=== PATIENT | female | born 1955 | race Caucasian/White ===

== ENCOUNTER → 2018-01-18 | Outpatient (CLI) | payer MEDICARE ==
--- NOTE | 2018-01-18 14:30 | XR ---
EXAMINATION TYPE: XR chest 2V DATE OF EXAM: 01/18/2018 COMPARISON: NONE TECHNIQUE: PA and lateral views submitted. HISTORY: COPD, cough smoker FINDINGS: The lungs are clear and there is no pneumothorax, pleural effusion, or focal pneumonia. Hyperinflati on suggests COPD. Curvature of the spine noted. Degenerative change of the spine. No overt failure. IMPRESSION: 1. No acute process. Correlate for COPD.
--- NOTE | 2018-01-18 16:10 | BD ---
EXAMINATION TYPE: MG DEXA axial skeleton. DATE OF EXAM: 01/18/2018 COMPARISON: NONE CLINICAL HISTORY: post menopausal. Osteoporosis screening. Height: 5'3 1/2 Weight: 110 FRAX RISK QUESTIONS: Alcohol (3 or more units per day): no Family History (Parent hip fracture): no Glucocorticoids (More than 3mos): no (Ex: prednisone, prednisolone, methylprednisolone, dexamethasone, and hydrocortisone). History of Fracture in Adulthood: no Secondary Osteoporosis: 1. Type 1 Diabetes: no 2. Hyperthyroidism: no 3. Menopause before 45: yes 4. Malnutrition: no 5. Chronic liver disease: no Rheumatoid Arthritis: no Current Tobacco Use: yes RISK FACTORS HISTORY OF: Active: y Postmenopausal woman: y Poor Health: y MEDICATIONS: Additional Medications: bi polar med. Cholesterol, high blood pressure Additional History: EXAM MEASUREMENTS: Bone mineral densitometry was performed using the [employer] System. Bone mineral density as measured about the Lumbar spine is: ----- L1-L4(G/cm2): 0.839 T Score Values are as follows: ----- L2: -3.0 ----- L3: -2.1 ----- L4: -1.6 ----- L1-L4: -2.4 Bone mineral density about the R hip (g/cm2): 0.711 Bone mineral density about the L hip (g/cm2): 0.686 T Score values are as follows: -----R Neck: -2.3 -----L Neck: -2.5 -----R Total: -2.4 -----L Total: -2.9 IMPRESSION: Osteoporosis (T Score less than -2.5) with regards to the left femur. There is increased fracture risk and therapy is usually indicated based on age. Re-Screen 1-2 years. NOTE: T-SCORE=SD OF THE YOUNG ADULT MEAN.
--- NOTE | 2018-01-20 08:43 | MM ---
Reason for exam: screening (asymptomatic). Last mammogram was performed 18 years and 11 months ago. History: Patient is postmenopausal and is nulliparous. Took estrogen for 5 years. Took progesterone for 5 years. Physical Findings: A clinical breast exam by your physician is recommended on an annual basis and results should be correlated with mammographic findings. MG 3D Screening Mammo W/Cad Bilateral CC and MLO view(s) were taken. No prior studies available for comparison. The breast tissue is extremely dense which could obscure a lesion on mammography. There is no discrete abnormality. ASSESSMENT: Negative, BI-RAD 1 RECOMMENDATION: Routine screening mammogram of both breasts in 1 year.
== END | disposition home or self-care (01) ==
LOC: RADMAMWWP 13:17
PROVIDERS: ATTEND Family Medicine
DX: Z12.31 Encounter for screening mammogram for malignant neoplasm of breast (principal); M81.0 Age-related osteoporosis without current pathological fracture; J44.9 Chronic obstructive pulmonary disease, unspecified; Z78.0 Asymptomatic menopausal state
CPT/HCPCS: 71046; 77063; 77067; 77080

== ENCOUNTER → 2018-04-07 | Outpatient (CLI) | payer MEDICARE ==
--- NOTE | 2018-04-07 14:52 | US ---
EXAMINATION TYPE: US duplex aorta DATE OF EXAM: 04/07/2018 COMPARISON: NONE CLINICAL HISTORY: I70.0 Atheroclerosis of Aorta. Patient states no other symptoms EXAM MEASUREMENTS: Abdominal Aorta: Proximal: 2.1 x 2.3cm Mid: 1.7 x 1.5cm Distal: 1.3 x 1.3cm Right Iliac: 0.7 x 0.9cm Left Iliac: 0.7 x 0.8cm Atherosclerotic changes noted, no AAA seen at this time. IMPRESSION: 1. No aneurysmal dilatation of the aorta on screening ultrasound.
== END | disposition home or self-care (01) ==
LOC: RADUSWWP 11:07
PROVIDERS: ATTEND Family Medicine
DX: I70.0 Atherosclerosis of aorta (principal)
CPT/HCPCS: 93979

== ENCOUNTER → 2018-05-17 | Outpatient (CLI) | payer MEDICARE ==
[~2018-05-17] MED LIST: DENOSUMAB 60 MG/ML 1 ML SYRINGE SQ ONE
[2018-05-17 11:18] VITALS: BP 115/73; PULSE 80; RESP 16; TEMP 98.6
== END | disposition home or self-care (01) ==
LOC: PROCWHC3 10:14
PROVIDERS: ATTEND Family Medicine
DX: M81.0 Age-related osteoporosis without current pathological fracture (principal)
CPT/HCPCS: 96372; J0897

== ENCOUNTER 2019-01-31 17:55 | Emergency (ER) | payer MEDICARE ==
--- NOTE | 2019-01-31 18:00 | ED ---
Psych HPI - General Stated Complaint: Mental Health Time Seen by Provider: 01/31/19 17:58 Source: RN notes reviewed, old records reviewed Limitations: no limitations - History of Present Illness Initial Comments: This is a 63-year-old female the ER for evaluation. Patient's brought in for possible overdose, patient denies any mental health issues and will she does have history of bipolar disease. Patient occasionally does polypharmacy not on purpose or not by choice. Patient has no fevers no cough no congestion or shortness of breath no bowel pain no headaches. Family states patient's been falling down multiple times by her self. Uncertain of cause. Patient does admit to some dizziness mainly which is taking her medications. Otherwise no complaints MD Complaint: other (weakness) -: unknown Associated Psychiatric Symptoms: none History of same: Yes Quality: constant, intermittent (falls) Improves With: none Worsens With: none Associated Symptoms: denies other symptoms Treatments Prior to Arrival: none - Related Data Home Medications Medication Instructions Recorded Confirmed Aspirin [Adult Low Dose Aspirin EC] 81 mg PO DAILY 05/17/18 01/31/19 Glucosam/Maykel-Msm1/C/Ab/Bosw 2 tab PO DAILY 05/17/18 01/31/19 [Glucosamine-Chondroitin Tablet] Ibuprofen [Motrin] 800 mg PO Q6H PRN 05/17/18 01/31/19 Metoprolol Succinate [Toprol XL] 100 mg PO DAILY 05/17/18 01/31/19 QUEtiapine [SEROquel] 800 mg PO HS 05/17/18 01/31/19 Topiramate [Topamax] 200 mg PO BID 05/17/18 01/31/19 clonazePAM [KlonoPIN] 2 mg PO HS 05/17/18 01/31/19 lamoTRIgine [LaMICtal] 200 mg PO BID 05/17/18 01/31/19 Atorvastatin [Lipitor] 20 mg PO DAILY 01/31/19 01/31/19 Budesonide/Formoterol Fumarate 2 puff INHALATION RT-BID 01/31/19 01/31/19 [Symbicort 160-4.5 Mcg Inhaler] Methocarbamol [Robaxin] 500 mg PO TID 01/31/19 01/31/19 Naproxen 500 mg PO BID 01/31/19 01/31/19 Pantoprazole Sodium [Protonix] 40 mg PO DAILY 01/31/19 01/31/19 buPROPion XL [Wellbutrin Xl] 150 mg PO DAILY 01/31/19 01/31/19 valACYclovir HCL [Valtrex] 1 mg PO TID 01/31/19 01/31/19 Allergies Allergy/AdvReac Type Severity Reaction Status Date / Time cefaclor [From Ceclor] Allergy Rash/Hives Verified 05/17/18 11:00 No Known Drug Allergies Allergy Unknown Verified 05/16/18 06:08 Review of Systems ROS Statement: Those systems with pertinent positive or pertinent negative responses have been documented in the HPI. ROS Other: All systems not noted in ROS Statement are negative. Past Medical History Past Medical History: COPD, GERD/Reflux, Hyperlipidemia, Hypertension, Musculoskeletal Disorder Additional Past Medical History / Comment(s): Stomach ulcers. Bipolar. Migra sean History of Any Multi-Drug Resistant Organisms: None Reported Past Surgical History: Hysterectomy, Orthopedic Surgery Additional Past Surgical History / Comment(s): Foot surgery Past Psychological History: Anxiety, Bipolar Smoking Status: Current every day smoker General Exam General appearance: alert, in no apparent distress Head exam: Present: atraumatic, normocephalic, normal inspection Eye exam: Present: normal appearance, PERRL, EOMI. Absent: scleral icterus, conjunctival injection, periorbital swelling ENT exam: Present: normal exam, mucous membranes dry Neck exam: Present: normal inspection. Absent: tenderness, meningismus, lymphadenopathy Respiratory exam: Present: normal lung sounds bilaterally. Absent: respiratory distress, wheezes, rales, rhonchi, stridor Cardiovascular Exam: Present: regular rate, normal rhythm, normal heart sounds. Absent: systolic murmur, diastolic murmur, rubs, gallop, clicks GI/Abdominal exam: Present: soft, normal bowel sounds. Absent: distended, tenderness, guarding, rebound, rigid Extremities exam: Present: normal inspection, full ROM, normal capillary refill. Absent: tenderness, pedal edema, joint swelling, calf tenderness Back exam: Present: normal inspection Neurological exam: Present: alert, oriented X3, CN II-XII intact Psychiatric exam: Present: normal affect, normal mood Skin exam: Present: warm, dry, intact, normal color. Absent: rash Course Vital Signs 01/31/19 01/31/19 17:58 20:30 Temperature 98.7 F Pulse Rate 107 H 91 Respiratory 18 18 Rate Blood Pressure 103/75 110/78 O2 Sat by Pulse 98 99 Oximetry - Reevaluation(s) Reevaluation #1: 01/31/19 21:13 Medical record reviewed Reevaluation #2: 01/31/19 21:17 Patient is no distress, spoke with family at length regarding symptoms, no organic cause found, will follow-up with primary care Dr. Rodriguez Medical Decision Making - Medical Decision Making 63 female the ER for evaluation weakness possible polypharmacy. At this point labwork is normal, patient acting fairly appropriately. Okay for discharge home - Lab Data Result diagrams: 01/31/19 18:51 01/31/19 18:51 Lab Results 01/31/19 01/31/19 01/31/19 Range/Units 18:51 18:51 18:51 WBC 6.8 (3.8-10.6) k/uL RBC 3.60 L (3.80-5.40) m/uL Hgb 11.9 (11.4-16.0) gm/dL Hct 37.0 (34.0-46.0) % MCV 102.8 H (80.0-100.0) fL MCH 33.0 (25.0-35.0) pg MCHC 32.1 (31.0-37.0) g/dL RDW 13.4 (11.5-15.5) % Plt Count 211 (150-450) k/uL Neutrophils % 67 % Lymphocytes % 25 % Monocytes % 4 % Eosinophils % 2 % Basophils % 0 % Neutrophils # 4.6 (1.3-7.7) k/uL Lymphocytes # 1.7 (1.0-4.8) k/uL Monocytes # 0.3 (0-1.0) k/uL Eosinophils # 0.1 (0-0.7) k/uL Basophils # 0.0 (0-0.2) k/uL Macrocytosis Slight PT (9.0-12.0) sec INR (<1.2) APTT (22.0-30.0) sec Sodium 144 (137-145) mmol/L Potassium 3.4 L (3.5-5.1) mmol/L Chloride 121 H (98-107) mmol/L Carbon Dioxide 12 L (22-30) mmol/L Anion Gap 11 mmol/L BUN 14 (7-17) mg/dL Creatinine 0.83 (0.52-1.04) mg/dL Est GFR (CKD-EPI)AfAm 89 (>60 ml/min/1.73 sqM) Est GFR (CKD-EPI)NonAf 77 (>60 ml/min/1.73 sqM) Glucose 104 H (74-99) mg/dL Plasma Lactic Acid Justin 0.7 (0.7-2.0) mmol/L Calcium 9.2 (8.4-10.2) mg/dL Phosphorus 3.1 (2.5-4.5) mg/dL Magnesium 1.8 (1.6-2.3) mg/dL Total Bilirubin 0.5 (0.2-1.3) mg/dL AST 18 (14-36) U/L ALT 29 (9-52) U/L Alkaline Phosphatase 78 (38-126) U/L Troponin I (0.000-0.034) ng/mL Total Protein 6.0 L (6.3-8.2) g/dL Albumin 3.3 L (3.5-5.0) g/dL Lipase 548 H (23-300) U/L TSH 0.901 (0.465-4.680) mIU/L Salicylates <1.0 mg/dL Acetaminophen <10.0 ug/mL Serum Alcohol <10 mg/dL 01/31/19 01/31/19 Range/Units 18:51 18:51 WBC (3.8-10.6) k/uL RBC (3.80-5.40) m/uL Hgb (11.4-16.0) gm/dL Hct (34.0-46.0) % MCV (80.0-100.0) fL MCH (25.0-35.0) pg MCHC (31.0-37.0) g/dL RDW (11.5-15.5) % Plt Count (150-450) k/uL Neutrophils % % Lymphocytes % % Monocytes % % Eosinophils % % Basophils % % Neutrophils # (1.3-7.7) k/uL Lymphocytes # (1.0-4.8) k/uL Monocytes # (0-1.0) k/uL Eosinophils # (0-0.7) k/uL Basophils # (0-0.2) k/uL Macrocytosis PT 12.3 H (9.0-12.0) sec INR 1.2 H (<1.2) APTT 26.6 (22.0-30.0) sec Sodium (137-145) mmol/L Potassium (3.5-5.1) mmol/L Chloride (98-107) mmol/L Carbon Dioxide (22-30) mmol/L Anion Gap mmol/L BUN (7-17) mg/dL Creatinine (0.52-1.04) mg/dL Est GFR (CKD-EPI)AfAm (>60 ml/min/1.73 sqM) Est GFR (CKD-EPI)NonAf (>60 ml/min/1.73 sqM) Glucose (74-99) mg/dL Plasma Lactic Acid Justin (0.7-2.0) mmol/L Calcium (8.4-10.2) mg/dL Phosphorus (2.5-4.5) mg/dL Magnesium (1.6-2.3) mg/dL Total Bilirubin (0.2-1.3) mg/dL AST (14-36) U/L ALT (9-52) U/L Alkaline Phosphatase (38-126) U/L Troponin I <0.012 (0.000-0.034) ng/mL Total Protein (6.3-8.2) g/dL Albumin (3.5-5.0) g/dL Lipase (23-300) U/L TSH (0.465-4.680) mIU/L Salicylates mg/dL Acetaminophen ug/mL Serum Alcohol mg/dL - EKG Data -: EKG Interpreted by Me (EKG shows sinus tachycardia rate of 107, PA 126, QRS 76, QTc 469) Disposition Clinical Impression: Weakness, Polypharmacy Disposition: HOME SELF-CARE Condition: Fair Instructions (If sedation given, give patient instructions): Weakness (ED) Is patient prescribed a controlled substance at d/c from ED?: No Referrals: Donavan Rodriguez MD [Primary Care Provider] - 1-2 days
[2019-01-31 18:11] VITALS: RESP 18
[2019-01-31] MEDS ORDERED: SODIUM CHLORIDE 0.9% 1,000 ML IV STA ×2 (19:03)
[2019-01-31 19:20] LABS: Basophils % (A) 0 %; Eosinophils # (A) 0.1 k/uL (0-0.7); Eosinophils % (A) 2 %; HGB 11.9 gm/dL (11.4-16.0); Lymphocytes # (A) 1.7 k/uL (1.0-4.8); Lymphocytes % (A) 25 %; MCHC 32.1 g/dL (31.0-37.0); MCV 102.8 fL (80.0-100.0); Macrocytosis Slight; Mean Platelet Volume 7.8; Monocytes # (A) 0.3 k/uL (0-1.0); Monocytes % (A) 4 %; Neutrophils # (A) 4.6 k/uL (1.3-7.7); Neutrophils % (A) 67 %; Platelet Count 211 k/uL (150-450); RDW 13.4 % (11.5-15.5); WBC 6.8 k/uL (3.8-10.6)
[2019-01-31 19:26] LABS: INR 1.2 (<1.2); Partial Thromboplastin Time 26.6 sec (22.0-30.0); Prothrombin Time 12.3 sec (9.0-12.0)
[2019-01-31 19:45] LABS: ALT 29 U/L (9-52); AST 18 U/L (14-36); Acetaminophen <10.0 ug/mL; Albumin 3.3 g/dL (3.5-5.0); Alcohol <10 mg/dL; Alkaline Phosphatase 78 U/L (38-126); Anion Gap 11 mmol/L; Blood Urea Nitrogen 14 mg/dL (7-17); Calcium 9.2 mg/dL (8.4-10.2); Carbon Dioxide 12 mmol/L (22-30); Chloride 121 mmol/L (98-107); Glucose 104 mg/dL (74-99); Lipase 548 U/L (23-300); Magnesium 1.8 mg/dL (1.6-2.3); Phosphorus 3.1 mg/dL (2.5-4.5); Potassium 3.4 mmol/L (3.5-5.1); Salicylate <1.0 mg/dL; Sodium 144 mmol/L (137-145); Total Bilirubin 0.5 mg/dL (0.2-1.3)
[2019-01-31 21:42] VITALS: BP 118/77; PULSE 93; TEMP 98.1
== END 2019-01-31 21:42 | disposition home or self-care (01) ==
LOC: EC 17:55
DX: R53.1 Weakness (principal); Z79.899 Other long term (current) drug therapy; R42 Dizziness and giddiness; J44.9 Chronic obstructive pulmonary disease, unspecified; K21.9 Gastro-esophageal reflux disease without esophagitis; E78.5 Hyperlipidemia, unspecified; I10 Essential (primary) hypertension; F31.9 Bipolar disorder, unspecified; G43.909 Migraine, unspecified, not intractable, without status migrainosus; F41.9 Anxiety disorder, unspecified; F17.200 Nicotine dependence, unspecified, uncomplicated; Z79.1 Long term (current) use of non-steroidal anti-inflammatories (NSAID); Z79.51 Long term (current) use of inhaled steroids; Z79.82 Long term (current) use of aspirin; Z88.1 Allergy status to other antibiotic agents
CPT/HCPCS: 36415; 93005; 80053; 83605; 83690; 83735; 84100; 84443; 84484; 85025; 85610; 85730; 83520 ×2; 99284; 96360; 96361; G0480; 80320

== ENCOUNTER 2019-02-15 17:06 | Inpatient (IN) | payer MEDICARE ==
--- NOTE | 2019-02-15 17:29 | ED ---
General Adult HPI - General Chief complaint: Abdominal Pain Stated complaint: Abd pain Time Seen by Provider: 02/15/19 17:17 Source: patient, EMS, RN notes reviewed Mode of arrival: EMS Limitations: no limitations, physical limitation - History of Present Illness Initial comments: 63-year-old female with a past medical history of GERD, gastric ulcers, COPD, hyperlipidemia, hypertension, presents to the emergency department for a chief complaint of abdominal pain. Patient states she has a sharp stabbing upper abdominal pain that started earlier today. She states she woke up with this pain. Patient denies any pain radiating to the chest or burning pain. Patient is also complaining of nausea vomiting and diarrhea. Patient states she has had intermittent vomiting over the past 2 weeks. States that she is vomiting about 3 times per day. Patient states she is also having diarrhea multiple times per day. She states that sometimes her stools appear dark black. Patient states she was supposed to have a colonoscopy done but got shingles so she couldn't get it done. Patient has no other complaints at this time including shortness of breath, chest pain, headache, or visual changes. - Related Data Home Medications Medication Instructions Recorded Confirmed Aspirin [Adult Low Dose Aspirin EC] 81 mg PO DAILY 05/17/18 02/15/19 Metoprolol Succinate [Toprol XL] 100 mg PO DAILY 05/17/18 02/15/19 QUEtiapine [SEROquel] 800 mg PO HS 05/17/18 02/15/19 clonazePAM [KlonoPIN] 2 mg PO HS 05/17/18 02/15/19 lamoTRIgine [LaMICtal] 200 mg PO BID 05/17/18 02/15/19 Atorvastatin [Lipitor] 20 mg PO DAILY 01/31/19 02/15/19 Budesonide/Formoterol Fumarate 2 puff INHALATION RT-BID 01/31/19 02/15/19 [Symbicort 160-4.5 Mcg Inhaler] Pantoprazole Sodium [Protonix] 40 mg PO DAILY 01/31/19 02/15/19 buPROPion XL [Wellbutrin Xl] 150 mg PO DAILY 01/31/19 02/15/19 Acetaminophen [Tylenol Arthritis] 650 mg PO TID PRN 02/15/19 02/15/19 Allergies Allergy/AdvReac Type Severity Reaction Status Date / Time cefaclor [From [facility]] Allergy Rash/Hives Verified 02/15/19 17:50 Review of Systems ROS Statement: Those systems with pertinent positive or pertinent negative responses have been documented in the HPI. ROS Other: All systems not noted in ROS Statement are negative. Past Medical History Past Medical History: COPD, GERD/Reflux, Hyperlipidemia, Hypertension, Musculoskeletal Disorder Additional Past Medical History / Comment(s): Stomach ulcers, osteoporosis. Bipolar. Migraines History of Any Multi-Drug Resistant Organisms: None Reported Past Surgical History: Hysterectomy, Orthopedic Surgery Additional Past Surgical History / Comment(s): Foot surgery Past Psychological History: Anxiety, Bipolar Smoking Status: Current every day smoker Past Alcohol Use History: None Reported Past Drug Use History: None Reported - Past Family History Mother Family Medical History: Cancer General Exam Limitations: no limitations, physical limitation General appearance: alert, in no apparent distress Head exam: Present: atraumatic, normocephalic, normal inspection Eye exam: Present: normal appearance, PERRL, EOMI. Absent: scleral icterus, conjunctival injection, periorbital swelling ENT exam: Present: normal exam, mucous membranes moist Neck exam: Present: normal inspection, full ROM. Absent: tenderness, meningismus, lymphadenopathy Respiratory exam: Present: normal lung sounds bilaterally. Absent: respiratory distress, wheezes, rales, rhonchi, stridor Cardiovascular Exam: Present: regular rate, normal rhythm, normal heart sounds. Absent: systolic murmur, diastolic murmur, rubs, gallop, clicks GI/Abdominal exam: Present: soft, tenderness (generalized abdominal tenderness worse in the epigastric area), normal bowel sounds. Absent: distended, guarding , rebound, rigid Expanded GI/Abdominal exam: Absent: psoas sign, obturator sign, heel tap sign, Oconnell's sign, tenderness at [place] Neurological exam: Present: alert, oriented X3, CN II-XII intact Psychiatric exam: Present: normal affect, normal mood Course Vital Signs 02/15/19 02/15/19 02/15/19 17:09 18:13 21:27 Temperature 97.9 F 98.7 F Pulse Rate 84 81 90 Respiratory 18 18 17 Rate Blood Pressure 145/95 156/98 132/69 O2 Sat by Pulse 99 99 98 Oximetry Medical Decision Making - Medical Decision Making [id number] female with a past medical history of GERD, gastric ulcers, COPD, hyperlipidemia, hypertension presents to the emergency department for a chief complaint of abdominal pain. States this started earlier today. Describes it as a sharp stabbing pain in her epigastric area. States over the past several weeks she has had intermittent nausea vomiting and diarrhea. States she has not not been eating as much as normal. States that sometimes her stools do appear dark as well. On exam patient does have tenderness noted of the epigastric area with mild generalized abdominal tenderness. CBC is unremarkable. CMP unremarkable. However patient does have elevated lipase of 10,000 with an elevated amylase of 1300. This is patient's [place] pancreatitis. Denies heavy alcohol consumption. Ultrasound was obtained which showed cholelithiasis without cholecystitis. Patient is afebrile. White count is within normal limits. At this time patient will be admitted for further management of pancreatitis, will be kept nothing by mouth with IV fluids, pain control and antiemetics. We will consult GI and surgery. - Lab Data Result diagrams: 02/15/19 18:05 02/15/19 18:05 Lab Results 02/15/19 02/15/19 02/15/19 Range/Units 18:05 18:05 18:05 WBC 9.5 (3.8-10.6) k/uL RBC 3.93 (3.80-5.40) m/uL Hgb 13.0 (11.4-16.0) gm/dL Hct 39.6 (34.0-46.0) % MCV 100.9 H (80.0-100.0) fL MCH 33.2 (25.0-35.0) pg MCHC 32.9 (31.0-37.0) g/dL RDW 13.6 (11.5-15.5) % Plt Count 204 (150-450) k/uL Neutrophils % 85 % Lymphocytes % 9 % Monocytes % 5 % Eosinophils % 1 % Basophils % 0 % Neutrophils # 8.1 H (1.3-7.7) k/uL Lymphocytes # 0.8 L (1.0-4.8) k/uL Monocytes # 0.5 (0-1.0) k/uL Eosinophils # 0.1 (0-0.7) k/uL Basophils # 0.0 (0-0.2) k/uL Macrocytosis Slight Sodium 139 (137-145) mmol/L Potassium 4.5 (3.5-5.1) mmol/L Chloride 111 H (98-107) mmol/L Carbon Dioxide 18 L (22-30) mmol/L Anion Gap 10 mmol/L BUN 15 (7-17) mg/dL Creatinine 0.62 (0.52-1.04) mg/dL Est GFR (CKD-EPI)AfAm >90 (>60 ml/min/1.73 sqM) Est GFR (CKD-EPI)NonAf >90 (>60 ml/min/1.73 sqM) Glucose 114 H (74-99) mg/dL Calcium 9.1 (8.4-10.2) mg/dL Total Bilirubin 0.3 (0.2-1.3) mg/dL AST 15 (14-36) U/L ALT 21 (9-52) U/L Alkaline Phosphatase 101 (38-126) U/L Total Protein 6.1 L (6.3-8.2) g/dL Albumin 3.4 L (3.5-5.0) g/dL Amylase 1309 H* (30-110) U/L Lipase 45603 H (23-300) U/L Urine Color Urine Appearance (Clear) Urine pH (5.0-8.0) Ur Specific [place] (1.001-1.035) Urine Protein (Negative) Urine Glucose (UA) (Negative) Urine Ketones (Negative) Urine Blood (Negative) Urine Nitrite (Negative) Urine Bilirubin (Negative) Urine Urobilinogen (<2.0) mg/dL Ur Leukocyte Esterase (Negative) Stool Occult Blood Negative (Negative) 02/15/19 Range/Units 18:05 WBC (3.8-10.6) k/uL RBC (3.80-5.40) m/uL Hgb (11.4-16.0) gm/dL Hct (34.0-46.0) % MCV (80.0-100.0) fL MCH (25.0-35.0) pg MCHC (31.0-37.0) g/dL RDW (11.5-15.5) % Plt Count (150-450) k/uL Neutrophils % % Lymphocytes % % Monocytes % % Eosinophils % % Basophils % % Neutrophils # (1.3-7.7) k/uL Lymphocytes # (1.0-4.8) k/uL Monocytes # (0-1.0) k/uL Eosinophils # (0-0.7) k/uL Basophils # (0-0.2) k/uL Macrocytosis Sodium (137-145) mmol/L Potassium (3.5-5.1) mmol/L Chloride (98-107) mmol/L Carbon Dioxide (22-30) mmol/L Anion Gap mmol/L BUN (7-17) mg/dL Creatinine (0.52-1.04) mg/dL Est GFR (CKD-EPI)AfAm (>60 ml/min/1.73 sqM) Est GFR (CKD-EPI)NonAf (>60 ml/min/1.73 sqM) Glucose (74-99) mg/dL Calcium (8.4-10.2) mg/dL Total Bilirubin (0.2-1.3) mg/dL AST (14-36) U/L ALT (9-52) U/L Alkaline Phosphatase (38-126) U/L Total Protein (6.3-8.2) g/dL Albumin (3.5-5.0) g/dL Amylase (30-110) U/L Lipase (23-300) U/L Urine Color Yellow Urine Appearance Clear (Clear) Urine pH 5.5 (5.0-8.0) Ur Specific [place] 1.026 (1.001-1.035) Urine Protein Trace H (Negative) Urine Glucose (UA) Negative (Negative) Urine Ketones Negative (Negative) Urine Blood Negative (Negative) Urine Nitrite Negative (Negative) Urine Bilirubin Negative (Negative) Urine Urobilinogen <2.0 (<2.0) mg/dL Ur Leukocyte Esterase Negative (Negative) Stool Occult Blood (Negative) Disposition Clinical Impression: Pancreatitis Disposition: ADMITTED IP TO THIS [facility] Condition: Fair Is patient prescribed a controlled substance at d/c from ED?: No Time of Disposition: 20:41
[2019-02-15] MEDS ORDERED: PANTOPRAZOLE 40 MG/10 ML VIAL IVP STA (17:38)
[2019-02-15] MEDS ORDERED: MAG HYDROX/AL HYDROX/SIMETH 30 ML, HYOSCYAMINE ELIXIR 10 ML, CIMETIDINE HCL 300 MG, LID... PO STA ×4 (17:38)
[2019-02-15] MEDS ORDERED: SODIUM CHLORIDE 0.9% 1,000 ML IV STA (17:39)
[2019-02-15 18:29] LABS: Appearance,Urine Clear (Clear); Bilirubin,Urine Negative (Negative); Blood,Urine Negative (Negative); Color,Urine Yellow; Glucose,Urine (UA) Negative (Negative); Ketones,Urine Negative (Negative); Leukocyte Esterase,Urine Negative (Negative); Nitrite,Urine Negative (Negative); PH, Urine 5.5 (5.0-8.0); Protein,Urine Trace (Negative); Specific Gravity,Urine 1.026 (1.001-1.035); Urobilinogen,Urine <2.0 mg/dL (<2.0)
[2019-02-15 18:30] LABS: Basophils % (A) 0 %; Eosinophils # (A) 0.1 k/uL (0-0.7); Eosinophils % (A) 1 %; HCT 39.6 % (34.0-46.0); Lymphocytes # (A) 0.8 k/uL (1.0-4.8); Lymphocytes % (A) 9 %; MCH 33.2 pg (25.0-35.0); MCHC 32.9 g/dL (31.0-37.0); MCV 100.9 fL (80.0-100.0); Macrocytosis Slight; Mean Platelet Volume 6.9; Monocytes # (A) 0.5 k/uL (0-1.0); Monocytes % (A) 5 %; Neutrophils # (A) 8.1 k/uL (1.3-7.7); Neutrophils % (A) 85 %; Platelet Count 204 k/uL (150-450); RBC 3.93 m/uL (3.80-5.40); RDW 13.6 % (11.5-15.5); WBC 9.5 k/uL (3.8-10.6)
[2019-02-15 18:38] LABS: ALT 21 U/L (9-52); AST 15 U/L (14-36); Albumin 3.4 g/dL (3.5-5.0); Alkaline Phosphatase 101 U/L (38-126); Anion Gap 10 mmol/L; Blood Urea Nitrogen 15 mg/dL (7-17); Calcium 9.1 mg/dL (8.4-10.2); Carbon Dioxide 18 mmol/L (22-30); Chloride 111 mmol/L (98-107); Glucose 114 mg/dL (74-99); Potassium 4.5 mmol/L (3.5-5.1); Sodium 139 mmol/L (137-145); Total Bilirubin 0.3 mg/dL (0.2-1.3); Total Protein 6.1 g/dL (6.3-8.2)
[2019-02-15 18:56] LABS: Amylase 1309 U/L (30-110)
[2019-02-15 19:14] LABS: Lipase 10296 U/L (23-300)
--- NOTE | 2019-02-15 20:20 | US ---
EXAMINATION TYPE: US abdomen limited DATE OF EXAM: 02/15/2019 COMPARISON: NONE CLINICAL HISTORY: Pain. Pain, nausea and vomiting. EXAM MEASUREMENTS: Liver Length: 18.4 cm Gallbladder Wall: 0.3 cm CBD: 0.5 cm Right Kidney: 10.2 x 3.8 x 4.1 cm Pancreas: Duct visualized 0.3cm. Liver: wnl Gallbladder: Multiple stones seen. Evidence for sonographic Oconnell's sign: No CBD: wnl Right Kidney: Subcm echogenic focus seen upper pole. IMPRESSION: Cholelithiasis, without sonographic evidence of cholecystitis.
[2019-02-15] MEDS ORDERED: NALOXONE 0.4 MG/ML 1 ML VIAL IV PRN (20:41)
[2019-02-15] MEDS: SODIUM CHLORIDE 0.9% 1,000 ML IV SCH (21:50)
[2019-02-15] MEDS: HYDROmorphone 0.5 MG/0.5 ML SYRINGE IVP PRN (22:44)
[2019-02-15] MEDS: clonazePAM 1 MG TAB PO SCH (23:51)
[2019-02-15] MEDS: lamoTRIgine 100 MG TAB PO SCH (23:52)
[2019-02-15] MEDS: QUEtiapine 400 MG TAB PO SCH (23:52)
[2019-02-16] MEDS: HYDROmorphone 0.5 MG/0.5 ML SYRINGE IVP PRN ×7 (01:52→20:56)
[2019-02-16] MEDS: ONDANSETRON 4 MG/2 ML VIAL IVP PRN ×2 (01:54→10:25)
[2019-02-16] MEDS: SODIUM CHLORIDE 0.9% 1,000 ML IV SCH ×3 (05:30→17:42)
[2019-02-16] MEDS: METOPROLOL SUCCINATE (ER) 100 MG TAB.ER.24H PO SCH (08:13)
[2019-02-16] MEDS: lamoTRIgine 100 MG TAB PO SCH ×2 (08:13→20:03)
[2019-02-16 09:16] LABS: Basophils % (A) 0 %; Eosinophils # (A) 0.1 k/uL (0-0.7); Eosinophils % (A) 1 %; HCT 34.3 % (34.0-46.0); HGB 11.1 gm/dL (11.4-16.0); Lymphocytes # (A) 1.4 k/uL (1.0-4.8); Lymphocytes % (A) 15 %; MCH 32.4 pg (25.0-35.0); MCHC 32.4 g/dL (31.0-37.0); MCV 99.8 fL (80.0-100.0); Mean Platelet Volume 6.5; Monocytes # (A) 0.5 k/uL (0-1.0); Monocytes % (A) 5 %; Neutrophils # (A) 7.3 k/uL (1.3-7.7); Neutrophils % (A) 79 %; Platelet Count 191 k/uL (150-450); RBC 3.44 m/uL (3.80-5.40); RDW 13.7 % (11.5-15.5); WBC 9.3 k/uL (3.8-10.6)
[2019-02-16 09:32] LABS: ALT 25 U/L (9-52); AST 13 U/L (14-36); Albumin 2.7 g/dL (3.5-5.0); Alkaline Phosphatase 86 U/L (38-126); Anion Gap 5 mmol/L; Blood Urea Nitrogen 15 mg/dL (7-17); Calcium 8.3 mg/dL (8.4-10.2); Carbon Dioxide 21 mmol/L (22-30); Chloride 112 mmol/L (98-107); Glucose 91 mg/dL (74-99); Sodium 138 mmol/L (137-145); Total Bilirubin 0.4 mg/dL (0.2-1.3); Total Protein 5.1 g/dL (6.3-8.2)
[2019-02-16 10:15] LABS: Amylase 1065 U/L (30-110)
[2019-02-16 10:57] LABS: Lipase 7753 U/L (23-300)
--- NOTE | 2019-02-16 12:36 | P.CONS ---
History of Present Illness - Reason for Consult Consult date: 02/16/19 Pancreatitis Requesting physician: Donavan Rodriguez - Chief Complaint Abdominal pain - History of Present Illness 63-year-old female past medical history of long-standing alcoholism since her teens quit 10 years ago admitted with acute abdominal pain sharp upper abdomen 1 day. Denies hematemesis hematochezia melena but states her bowel movements were darker in appearance however FOBT was negative.. Nausea vomiting present. Admission hemoglobin 13 presently 11.1. Platelet 191. White count 9.3. LFTs within normal limits. Lipase 10,296. Amylase 1309. Today lipase is improved 7753. Amylase 1063. No history of documented pancreatitis. Was started on a new antidepressant medication 2 weeks ago. No history of autoimmune disorders. No recent alcohol consumption. Ultrasound abdomen gallbladder wall 0.3 cm. CBD 0.5 cm. Cholelithiasis present. Review of Systems Constitutional: Denies fever, chills, sweats, weight gain, or loss. HEENT: Negative for migraines, blurred vision or loss, earaches, drainage, tinnitus, oral mucosal lesions, dysphagia, or odynophagia. CARDIAC: Negative for chest pain, arrhythmias, or palpitation. RESPIRATORY: Negative for shortness of breath, hemoptysis, cough, or sputum production. GI: See HPI for pertinent findings. : Negative for hematuria, urgency, frequency, polyuria, or dysuria. GYNc: Denies possibility of . Negative vaginal discharge. MUSCULOSKELETAL: Negative for muscle aches, swelling, arthritis, and arthralgias. NEUROLOGIC: Negative for stroke or TIA. ENDOCRINE: Negative for thyroid problems. SKIN: Negative for rash or itching. PSYCHIATRIC: Negative history for depression and anxiety Past Medical History Past Medical History: COPD, GERD/Reflux, Hyperlipidemia, Hypertension, Musculoskeletal Disorder Additional Past Medical History / Comment(s): Stomach ulcers, osteoporosis. Bipolar. Migraines History of Any Multi-Drug Resistant Organisms: None Reported Past Surgical History: Hysterectomy, Orthopedic Surgery Additional Past Surgical History / Comment(s): Foot surgery Past Psychological History: Anxiety, Bipolar Smoking Status: Current every day smoker Past Alcohol Use History: None Reported Past Drug Use History: None Reported - Past Family History Mother Family Medical History: Cancer Medications and Allergies Home Medications Medication Instructions Recorded Confirmed Type Aspirin [Adult Low Dose Aspirin EC] 81 mg PO DAILY 05/17/18 02/15/19 History Metoprolol Succinate [Toprol XL] 100 mg PO DAILY 05/17/18 02/15/19 History QUEtiapine [SEROquel] 800 mg PO HS 05/17/18 02/15/19 History clonazePAM [KlonoPIN] 2 mg PO HS 05/17/18 02/15/19 History lamoTRIgine [LaMICtal] 200 mg PO BID 05/17/18 02/15/19 History Atorvastatin [Lipitor] 20 mg PO DAILY 01/31/19 02/15/19 History Budesonide/Formoterol Fumarate 2 puff INHALATION RT-BID 01/31/19 02/15/19 History [Symbicort 160-4.5 Mcg Inhaler] Pantoprazole Sodium [Protonix] 40 mg PO DAILY 01/31/19 02/15/19 History buPROPion XL [Wellbutrin Xl] 150 mg PO DAILY 01/31/19 02/15/19 History Acetaminophen [Tylenol Arthritis] 650 mg PO TID PRN 02/15/19 02/15/19 History Allergies Allergy/AdvReac Type Severity Reaction Status Date / Time cefaclor [From [facility]] Allergy Rash/Hives Verified 02/15/19 17:50 Physical Exam Vitals: Vital Signs Temp Pulse Pulse Resp BP BP BP 02/16/19 11:32 98.3 F 97 16 126/80 02/16/19 05:36 98 F 105 H 18 127/71 02/15/19 23:00 98.1 F 85 16 127/83 02/15/19 21:27 98.7 F 90 17 132/69 02/15/19 18:13 81 18 156/98 02/15/19 17:09 97.9 F 84 18 145/95 Pulse Ox 02/16/19 11:32 96 02/16/19 05:36 95 02/15/19 23:00 98 02/15/19 21:27 98 02/15/19 18:13 99 02/15/19 17:09 99 Intake and Output 02/15/19 02/16/19 02/16/19 22:59 06:59 14:59 Intake Total 1350 Balance 1350 Intake: Intake, IV Titration 1350 Amount Sodium Chloride 0.9% 1, 1350 000 ml @ 150 mls/hr IV . Q6H40M [facility] Rx#:[id number] Other: Voiding Method Toilet Toilet # Voids 3 1 Weight 52.617 kg General appearance: The patient is alert, oriented, in no acute distress. HET: Head is normocephalic and atraumatic. Pupils are equal and reactive. Oropharynx is clear without lesions. Neck: Supple without lymphadenopathy. Trachea midline. Heart: S1 S2. Regular rate and rhythm. Lungs: No crackles or wheezes are heard. Abdomen: Soft, nontender, nondistended with bowel sounds. No peritoneal signs. No palpable organomegaly or masses. Extremities: Normal skin color and turgor. No cyanosis, rash, ulceration, clubbing, or edema. Radial and pedal pulses are 2/4 bilaterally. Neurological: No focal deficits. Strength and sensation are grossly intact. Results CBC & Chem 7: 02/17/19 09:24 02/17/19 09:24 Labs: Abnormal Lab Results - Last 24 Hours (Table) 02/15/19 02/15/19 02/15/19 Range/Units 18:05 18:05 18:05 RBC (3.80-5.40) m/uL Hgb (11.4-16.0) gm/dL MCV 100.9 H (80.0-100.0) fL Neutrophils # 8.1 H (1.3-7.7) k/uL Lymphocytes # 0.8 L (1.0-4.8) k/uL Chloride 111 H (98-107) mmol/L Carbon Dioxide 18 L (22-30) mmol/L Creatinine (0.52-1.04) mg/dL Glucose 114 H (74-99) mg/dL Calcium (8.4-10.2) mg/dL AST (14-36) U/L Total Protein 6.1 L (6.3-8.2) g/dL Albumin 3.4 L (3.5-5.0) g/dL Amylase 1309 H* (30-110) U/L Lipase 32800 H (23-300) U/L Urine Protein Trace H (Negative) 02/16/19 02/16/19 Range/Units 08:40 08:40 RBC 3.44 L (3.80-5.40) m/uL Hgb 11.1 L (11.4-16.0) gm/dL MCV (80.0-100.0) fL Neutrophils # (1.3-7.7) k/uL Lymphocytes # (1.0-4.8) k/uL Chloride 112 H (98-107) mmol/L Carbon Dioxide 21 L (22-30) mmol/L Creatinine 0.51 L (0.52-1.04) mg/dL Glucose (74-99) mg/dL Calcium 8.3 L (8.4-10.2) mg/dL AST 13 L (14-36) U/L Total Protein 5.1 L (6.3-8.2) g/dL Albumin 2.7 L (3.5-5.0) g/dL Amylase 1065 H* (30-110) U/L Lipase 7753 H (23-300) U/L Urine Protein (Negative) US - abdomen: report reviewed (Dr. Curiel) Assessment and Plan (1) Acute pancreatitis Narrative/Plan: 63-year-old female admitted with acute severe pancreatitis first documented episode with a history of long-standing alcoholism quit 10 years ago with underlying cholelithiasis without biliary duct dilatation or abnormal liver function tests. Other differentials to consider but felt to be less likely is medication induced pancreatitis possible peptic ulcer disease. Current Visit: Yes Status: Acute Code(s): K85.90 - ACUTE PANCREATITIS WITHOUT NECROSIS OR INFECTION, UNSP SNOMED Code(s): 074125523 (2) Cholelithiasis Current Visit: Yes Status: Acute Code(s): K80.20 - CALCULUS OF GALLBLADDER W/O CHOLECYSTITIS W/O OBSTRUCTION SNOMED Code(s): 163657956 (3) History of ETOH abuse Current Visit: Yes Status: Acute Code(s): Z87.898 - PERSONAL HISTORY OF OTHER SPECIFIED CONDITIONS SNOMED Code(s): 010632330 Plan: 1. Daily monitoring of pancreatic enzymes CMP CBC. Nothing by mouth except me dications. IV hydration 150 mL an hour. GI prophylaxis Protonix 40 mg daily. 2. General surgical consult. Thank you for this kind referral and the opportunity to participate in the care of your patient. This consultation was discussed with Dr. Curiel. The impression and plan of care have been directed as dictated.
--- NOTE | 2019-02-16 12:57 | P.HPIM ---
History of Present Illness 63-year-old female presented to the emergency room with complaints of severe abdominal pain for 1 day states she's had vomiting and diarrhea for 3 weeks. Remote history of alcohol use patient does have a history of COPD GERD hypert ension hyperlipidemia bipolar Review of Systems Gastrointestinal: Reports abdominal pain, Reports diarrhea, Reports nausea, Reports vomiting Past Medical History Past Medical History: COPD, GERD/Reflux, Hyperlipidemia, Hypertension, Musculoskeletal Disorder Additional Past Medical History / Comment(s): Stomach ulcers, osteoporosis. Bipolar. Migraines History of Any Multi-Drug Resistant Organisms: None Reported Past Surgical History: Hysterectomy, Orthopedic Surgery Additional Past Surgical History / Comment(s): Foot surgery Past Psychological History: Anxiety, Bipolar Smoking Status: Current every day smoker Past Alcohol Use History: None Reported Past Drug Use History: None Reported - Past Family History Mother Family Medical History: Cancer Medications and Allergies Home Medications Medication Instructions Recorded Confirmed Type Aspirin [Adult Low Dose Aspirin EC] 81 mg PO DAILY 05/17/18 02/15/19 History Metoprolol Succinate [Toprol XL] 100 mg PO DAILY 05/17/18 02/15/19 History QUEtiapine [SEROquel] 800 mg PO HS 05/17/18 02/15/19 History clonazePAM [KlonoPIN] 2 mg PO HS 05/17/18 02/15/19 History lamoTRIgine [LaMICtal] 200 mg PO BID 05/17/18 02/15/19 History Atorvastatin [Lipitor] 20 mg PO DAILY 01/31/19 02/15/19 History Budesonide/Formoterol Fumarate 2 puff INHALATION RT-BID 01/31/19 02/15/19 History [Symbicort 160-4.5 Mcg Inhaler] Pantoprazole Sodium [Protonix] 40 mg PO DAILY 01/31/19 02/15/19 History buPROPion XL [Wellbutrin Xl] 150 mg PO DAILY 01/31/19 02/15/19 History Acetaminophen [Tylenol Arthritis] 650 mg PO TID PRN 02/15/19 02/15/19 History Allergies Allergy/AdvReac Type Severity Reaction Status Date / Time cefaclor [From [facility]] Allergy Rash/Hives Verified 02/15/19 17:50 Physical Exam Vitals: Vital Signs Temp Pulse Pulse Resp BP BP BP 02/16/19 11:32 98.3 F 97 16 126/80 02/16/19 05:36 98 F 105 H 18 127/71 02/15/19 23:00 98.1 F 85 16 127/83 02/15/19 21:27 98.7 F 90 17 132/69 02/15/19 18:13 81 18 156/98 02/15/19 17:09 97.9 F 84 18 145/95 Pulse Ox 02/16/19 11:32 96 02/16/19 05:36 95 02/15/19 23:00 98 02/15/19 21:27 98 02/15/19 18:13 99 02/15/19 17:09 99 Intake and Output 02/15/19 02/16/19 02/16/19 22:59 06:59 14:59 Intake Total 1350 Balance 1350 Intake: Intake, IV Titration 1350 Amount Sodium Chloride 0.9% 1, 1350 000 ml @ 150 mls/hr IV . Q6H40M [facility] Rx#:[id number] Other: Voiding Method Toilet Toilet # Voids 3 1 Weight 52.617 kg - Constitutional General appearance: mild distress - EENT Eyes: PERRLA Ears: bilateral: normal - Neck Neck: normal ROM - Respiratory Respiratory: bilateral: CTA - Cardiovascular Rhythm: regular - Gastrointestinal General gastrointestinal: normal bowel sounds, soft Localized gastrointestinal: tender: diffuse - Integumentary Integumentary: normal - Neurologic Neurologic: CNII-XII intact - Musculoskeletal Musculoskeletal: generalized weakness - Psychiatric Psychiatric: A&O x's 3, appropriate affect, intact judgment & insight Results CBC & Chem 7: 02/16/19 08:40 02/16/19 08:40 Labs: Abnormal Lab Results - Last 24 Hours (Table) 02/15/19 02/15/19 02/15/19 Range/Units 18:05 18:05 18:05 RBC (3.80-5.40) m/uL Hgb (11.4-16.0) gm/dL MCV 100.9 H (80.0-100.0) fL Neutrophils # 8.1 H (1.3-7.7) k/uL Lymphocytes # 0.8 L (1.0-4.8) k/uL Chloride 111 H (98-107) mmol/L Carbon Dioxide 18 L (22-30) mmol/L Creatinine (0.52-1.04) mg/dL Glucose 114 H (74-99) mg/dL Calcium (8.4-10.2) mg/dL AST (14-36) U/L Total Protein 6.1 L (6.3-8.2) g/dL Albumin 3.4 L (3.5-5.0) g/dL Amylase 1309 H* (30-110) U/L Lipase 52249 H (23-300) U/L Urine Protein Trace H (Negative) 02/16/19 02/16/19 Range/Units 08:40 08:40 RBC 3.44 L (3.80-5.40) m/uL Hgb 11.1 L (11.4-16.0) gm/dL MCV (80.0-100.0) fL Neutrophils # (1.3-7.7) k/uL Lymphocytes # (1.0-4.8) k/uL Chloride 112 H (98-107) mmol/L Carbon Dioxide 21 L (22-30) mmol/L Creatinine 0.51 L (0.52-1.04) mg/dL Glucose (74-99) mg/dL Calcium 8.3 L (8.4-10.2) mg/dL AST 13 L (14-36) U/L Total Protein 5.1 L (6.3-8.2) g/dL Albumin 2.7 L (3.5-5.0) g/dL Amylase 1065 H* (30-110) U/L Lipase 7753 H (23-300) U/L Urine Protein (Negative) US - abdomen: report reviewed Thrombosis Risk Factor Assmnt - Choose All That Apply Any of the Below Risk Factors Present?: No Other Risk Factors: Yes Each Risk Factor Represents 2 Points: Age 61-74 years Other congenital or acquired thrombophilia - If yes, enter type in comment: No Thrombosis Risk Factor Assessment Total Risk Factor Score: 2 Thrombosis Risk Factor Assessment Level: Low Risk Assessment and Plan Plan: Assessment Pancreatitis acute Cholelithiasis History of COPD GERD Hypertension Hyperlipidemia Bipolar Plan Evaluation by surgery and gastroenterology
[2019-02-16] MEDS: NICOTINE 21MG/24HR PATCH TRANSDERM SCH (14:30)
--- NOTE | 2019-02-16 14:41 | P.GSCN ---
History of Present Illness Consult date: 02/16/19 Reason for Consult: Pancreatitis, cholelithiasis Requesting physician: Ariel Pritchard History of present illness: CHIEF COMPLAINT: Nausea vomiting HISTORY OF PRESENT ILLNESS: 63-year-old female presented to emergency room with a one-day duration of abdominal pain. Patient also reports nausea and vomiting. Denies hematemesis, hematochezia, or melena. Denies diarrhea or constipation, but reports looser stools. PAST MEDICAL HISTORY: See list. PAST SURGICAL HISTORY: See list. SOCIAL HISTORY: No illicit drug use. History of alcohol abuse. REVIEW OF SYSTEMS: CONSTITUTIONAL: Denies fever or chills. HEENT: Denies blurred vision, vision changes, or eye pain. Denies hemoptysis CARDIOVASCULAR: Denies chest pain or pressure. RESPIRATORY: No shortness of breath. GASTROINTESTINAL: Refer to HPI for pertinent findings HEMATOLOGIC: Denies bleeding disorders. GENITOURINARY: Denies any blood in urine. SKIN: Denies pruitis. Denies rash. PHYSICAL EXAM: VITAL SIGNS: Reviewed. GENERAL: Well-developed in no acute distress. HEENT: No sclera icterus. Extraocular movements grossly intact. Moist buccal mucosa. Head is atraumatic, normocephalic. ABDOMEN: Soft. Nondistended. Nontender. NEUROLOGIC: Alert and oriented. Cranial nerves II through XII grossly intact. IMAGING: Abdominal ultrasound: Cholelithiasis. Gallbladder was 0.3 cm. Common bile duct 0.5 cm ASSESSMENT: 1. Abdominal pain, nausea, vomiting 2. Acute pancreatitis 3. Cholelithiasis 4. History of alcohol abuse PLAN: 1. Nothing by mouth 2. Continue IV fluids 3. Repeat labs in a.m. 4. Patient is tentatively scheduled for laparoscopic cholecystectomy tomorrow if pancreatic enzymes are improved Nurse practitioner note has been reviewed by physician. Signing provider agrees with the documented findings, assessment, and plan of care. Past Medical History Past Medical History: COPD, GERD/Reflux, Hyperlipidemia, Hypertension, Musculoskeletal Disorder Additional Past Medical History / Comment(s): Stomach ulcers, osteoporosis. Bipolar. Migraines History of Any Multi-Drug Resistant Organisms: None Reported Past Surgical History: Hysterectomy, Orthopedic Surgery Additional Past Surgical History / Comment(s): Foot surgery Past Psychological History: Anxiety, Bipolar Smoking Status: Current every day smoker Past Alcohol Use History: None Reported Past Drug Use History: None Reported - Past Family History Mother Family Medical History: Cancer Medications and Allergies Home Medications Medication Instructions Recorded Confirmed Type Aspirin [Adult Low Dose Aspirin EC] 81 mg PO DAILY 05/17/18 02/15/19 History Metoprolol Succinate [Toprol XL] 100 mg PO DAILY 05/17/18 02/15/19 History QUEtiapine [SEROquel] 800 mg PO HS 05/17/18 02/15/19 History clonazePAM [KlonoPIN] 2 mg PO HS 05/17/18 02/15/19 History lamoTRIgine [LaMICtal] 200 mg PO BID 05/17/18 02/15/19 History Atorvastatin [Lipitor] 20 mg PO DAILY 01/31/19 02/15/19 History Budesonide/Formoterol Fumarate 2 puff INHALATION RT-BID 01/31/19 02/15/19 History [Symbicort 160-4.5 Mcg Inhaler] Pantoprazole Sodium [Protonix] 40 mg PO DAILY 01/31/19 02/15/19 History buPROPion XL [Wellbutrin Xl] 150 mg PO DAILY 01/31/19 02/15/19 History Acetaminophen [Tylenol Arthritis] 650 mg PO TID PRN 02/15/19 02/15/19 History Allergies Allergy/AdvReac Type Severity Reaction Status Date / Time cefaclor [From [facility]] Allergy Rash/Hives Verified 02/15/19 17:50 Surgical - Exam Vital Signs Temp Pulse Resp BP Pulse Ox 97.9 F 84 18 145/95 99 02/15/19 17:09 02/15/19 17:09 02/15/19 17:09 02/15/19 17:09 02/15/19 17:09 Results - Labs 02/16/19 08:40 02/16/19 08:40 Abnormal Lab Results - Last 24 Hours (Table) 02/15/19 02/15/19 02/15/19 Range/Units 18:05 18:05 18:05 RBC (3.80-5.40) m/uL Hgb (11.4-16.0) gm/dL MCV 100.9 H (80.0-100.0) fL Neutrophils # 8.1 H (1.3-7.7) k/uL Lymphocytes # 0.8 L (1.0-4.8) k/uL Chloride 111 H (98-107) mmol/L Carbon Dioxide 18 L (22-30) mmol/L Creatinine (0.52-1.04) mg/dL Glucose 114 H (74-99) mg/dL Calcium (8.4-10.2) mg/dL AST (14-36) U/L Total Protein 6.1 L (6.3-8.2) g/dL Albumin 3.4 L (3.5-5.0) g/dL Amylase 1309 H* (30-110) U/L Lipase 74171 H (23-300) U/L Urine Protein Trace H (Negative) 02/16/19 02/16/19 Range/Units 08:40 08:40 RBC 3.44 L (3.80-5.40) m/uL Hgb 11.1 L (11.4-16.0) gm/dL MCV (80.0-100.0) fL Neutrophils # (1.3-7.7) k/uL Lymphocytes # (1.0-4.8) k/uL Chloride 112 H (98-107) mmol/L Carbon Dioxide 21 L (22-30) mmol/L Creatinine 0.51 L (0.52-1.04) mg/dL Glucose (74-99) mg/dL Calcium 8.3 L (8.4-10.2) mg/dL AST 13 L (14-36) U/L Total Protein 5.1 L (6.3-8.2) g/dL Albumin 2.7 L (3.5-5.0) g/dL Amylase 1065 H* (30-110) U/L Lipase 7753 H (23-300) U/L Urine Protein (Negative) Diabetes panel 02/15/19 02/16/19 Range/Units 18:05 08:40 Sodium 139 138 (137-145) mmol/L Potassium 4.5 4.0 (3.5-5.1) mmol/L Chloride 111 H 112 H (98-107) mmol/L Carbon Dioxide 18 L 21 L (22-30) mmol/L BUN 15 15 (7-17) mg/dL Creatinine 0.62 0.51 L (0.52-1.04) mg/dL Glucose 114 H 91 (74-99) mg/dL Calcium 9.1 8.3 L (8.4-10.2) mg/dL AST 15 13 L (14-36) U/L ALT 21 25 (9-52) U/L Alkaline Phosphatase 101 86 (38-126) U/L Total Protein 6.1 L 5.1 L (6.3-8.2) g/dL Albumin 3.4 L 2.7 L (3.5-5.0) g/dL Calcium panel 02/15/19 02/16/19 Range/Units 18:05 08:40 Calcium 9.1 8.3 L (8.4-10.2) mg/dL Albumin 3.4 L 2.7 L (3.5-5.0) g/dL Pituitary panel 02/15/19 02/16/19 Range/Units 18:05 08:40 Sodium 139 138 (137-145) mmol/L Potassium 4.5 4.0 (3.5-5.1) mmol/L Chloride 111 H 112 H (98-107) mmol/L Carbon Dioxide 18 L 21 L (22-30) mmol/L BUN 15 15 (7-17) mg/dL Creatinine 0.62 0.51 L (0.52-1.04) mg/dL Glucose 114 H 91 (74-99) mg/dL Calcium 9.1 8.3 L (8.4-10.2) mg/dL Adrenal panel 02/15/19 02/16/19 Range/Units 18:05 08:40 Sodium 139 138 (137-145) mmol/L Potassium 4.5 4.0 (3.5-5.1) mmol/L Chloride 111 H 112 H (98-107) mmol/L Carbon Dioxide 18 L 21 L (22-30) mmol/L BUN 15 15 (7-17) mg/dL Creatinine 0.62 0.51 L (0.52-1.04) mg/dL Glucose 114 H 91 (74-99) mg/dL Calcium 9.1 8.3 L (8.4-10.2) mg/dL Total Bilirubin 0.3 0.4 (0.2-1.3) mg/dL AST 15 13 L (14-36) U/L ALT 21 25 (9-52) U/L Alkaline Phosphatase 101 86 (38-126) U/L Total Protein 6.1 L 5.1 L (6.3-8.2) g/dL Albumin 3.4 L 2.7 L (3.5-5.0) g/dL
[2019-02-16] MEDS ORDERED: ACETAMINOPHEN TAB 325 MG TAB PO PRN (18:50)
[2019-02-16] MEDS: QUEtiapine 400 MG TAB PO SCH (20:03)
[2019-02-16] MEDS: clonazePAM 1 MG TAB PO SCH (20:03)
[2019-02-16] MEDS ORDERED: MIDAZOLAM (PF) 2 MG/2 ML VIAL IV PRN (21:01)
[2019-02-16] MEDS ORDERED: fentaNYL (PF) 50 MCG/ML 2 ML AMP IV PRN (21:01)
[2019-02-16] MEDS ORDERED: DEXAMETHASONE SOD PHOSPHATE 10 MG/ML 1 ML VIAL IV ONE (21:01)
[2019-02-16] MEDS ORDERED: LIDOCAINE 1% 20 ML VIAL (10MG/ML) FOR IV START INTRADERMA PRN (21:01)
[2019-02-17] MEDS: HYDROmorphone 0.5 MG/0.5 ML SYRINGE IVP PRN ×6 (02:26→22:18)
[2019-02-17] MEDS: SODIUM CHLORIDE 0.9% 1,000 ML IV SCH ×3 (02:28→14:57)
[2019-02-17] MEDS: METOPROLOL SUCCINATE (ER) 100 MG TAB.ER.24H PO SCH (08:06)
[2019-02-17] MEDS: lamoTRIgine 100 MG TAB PO SCH ×2 (08:06→21:35)
[2019-02-17] MEDS: NICOTINE 21MG/24HR PATCH TRANSDERM SCH (08:09)
[2019-02-17 10:11] LABS: Basophils % (A) 0 %; Eosinophils # (A) 0.1 k/uL (0-0.7); Eosinophils % (A) 2 %; HCT 29.4 % (34.0-46.0); HGB 9.8 gm/dL (11.4-16.0); Lymphocytes # (A) 1.4 k/uL (1.0-4.8); Lymphocytes % (A) 23 %; MCH 34.2 pg (25.0-35.0); MCHC 33.3 g/dL (31.0-37.0); MCV 102.8 fL (80.0-100.0); Macrocytosis Slight; Mean Platelet Volume 7.2; Monocytes # (A) 0.2 k/uL (0-1.0); Monocytes % (A) 4 %; Neutrophils # (A) 4.2 k/uL (1.3-7.7); Neutrophils % (A) 69 %; Platelet Count 149 k/uL (150-450); RBC 2.86 m/uL (3.80-5.40); RDW 14.4 % (11.5-15.5)
[2019-02-17 10:24] LABS: ALT 18 U/L (9-52); AST 12 U/L (14-36); Albumin 2.2 g/dL (3.5-5.0); Alkaline Phosphatase 73 U/L (38-126); Blood Urea Nitrogen 12 mg/dL (7-17); Chloride 113 mmol/L (98-107); Glucose 67 mg/dL (74-99); Potassium 3.9 mmol/L (3.5-5.1); Sodium 139 mmol/L (137-145); Total Bilirubin 0.4 mg/dL (0.2-1.3); Total Protein 4.3 g/dL (6.3-8.2)
[2019-02-17 10:49] LABS: Amylase 487 U/L (30-110)
[2019-02-17 10:50] LABS: Lipase 2587 U/L (23-300)
[2019-02-17 11:03] LABS: Anion Gap 6 mmol/L; Carbon Dioxide 20 mmol/L (22-30)
--- NOTE | 2019-02-17 11:51 | P.PN ---
Subjective Patient continues to complain of abdominal pain. Amylase lipase improved amylase 47 lipase 2587. Patient is nothing by mouth for lap tracy today Objective - Vital Signs Vital signs: Vital Signs Temp 98.1 F 02/17/19 05:12 Pulse 85 02/17/19 05:12 Resp 18 02/17/19 05:12 BP 123/81 02/17/19 05:12 Pulse Ox 96 02/17/19 05:12 Intake & Output 02/16/19 02/17/19 02/17/19 18:59 06:59 18:59 Intake Total 1800 1800 Balance 1800 1800 Intake: Intake, IV Titration 1800 1800 Amount Sodium Chloride 0.9% 1, 1800 1800 000 ml @ 150 mls/hr IV . Q6H40M [facility] Rx#:[id number] Other: Voiding Method Toilet Toilet Toilet # Voids 4 3 1 - Constitutional General appearance: Present: mild distress - EENT Eyes: Present: PERRLA Ears: bilateral: normal - Neck Neck: Present: normal ROM - Respiratory Respiratory: bilateral: CTA - Cardiovascular Rhythm: regular - Gastrointestinal General gastrointestinal: Present: soft Localized gastrointestinal: tender: diffuse - Integumentary Integumentary: Present: normal - Neurologic Neurologic: Present: CNII-XII intact - Musculoskeletal Musculoskeletal: Present: generalized weakness - Psychiatric Psychiatric: Present: A&O x's 3, appropriate affect, intact judgment & insight - Labs CBC & Chem 7: 02/17/19 09:24 02/17/19 09:24 Labs: Abnormal Lab Results - Last 24 Hours (Table) 02/17/19 02/17/19 Range/Units 09:24 09:24 RBC 2.86 L (3.80-5.40) m/uL Hgb 9.8 L (11.4-16.0) gm/dL Hct 29.4 L (34.0-46.0) % MCV 102.8 H (80.0-100.0) fL Plt Count 149 L (150-450) k/uL Chloride 113 H (98-107) mmol/L Carbon Dioxide 20 L (22-30) mmol/L Glucose 67 L (74-99) mg/dL Calcium 8.0 L (8.4-10.2) mg/dL AST 12 L (14-36) U/L Total Protein 4.3 L (6.3-8.2) g/dL Albumin 2.2 L (3.5-5.0) g/dL Amylase 487 H* (30-110) U/L Lipase 2587 H (23-300) U/L Assessment and Plan Plan: Assessment Pancreatitis improving Cholelithiasis History of COPD GERD Hypertension Hyperlipidemia Bipolar Plan Scheduled for surgery this afternoon the lap tracy
[2019-02-17] MEDS: ONDANSETRON 4 MG/2 ML VIAL IVP PRN (12:48)
[2019-02-17] MEDS: LACTATED RINGERS 1,000 ML IV SCH ×2 (12:48→21:37)
[2019-02-17] MEDS ORDERED: BUPIVACAINE-EPI 0.5%-1:200,000 10 ML VIAL SQ ONE (12:56)
[2019-02-17] MEDS: clonazePAM 1 MG TAB PO SCH (21:35)
[2019-02-17] MEDS: QUEtiapine 400 MG TAB PO SCH (21:35)
[2019-02-18] MEDS ORDERED: LACTATED RINGERS 1,000 ML IV ONE (07:00)
[2019-02-18] MEDS ORDERED: IV FLUID CONTINUATION 1,000 ML IV ONE (07:21)
[2019-02-18] MEDS ORDERED: HEPARIN SODIUM,PORCINE 5,000 UNIT/ML 1 ML VIAL SQ ONE (07:48)
[2019-02-18] MEDS ORDERED: ONDANSETRON 4 MG/2 ML VIAL IVP ONE (07:58)
[2019-02-18] MEDS ORDERED: fentaNYL (PF) 50 MCG/ML 2 ML AMP ONE (08:00)
[2019-02-18] MEDS ORDERED: KETOROLAC 30 MG/ML 1 ML VIAL ONE (08:00)
[2019-02-18] MEDS ORDERED: MIDAZOLAM 2 MG/2 ML VIAL ONE (08:00)
[2019-02-18] MEDS ORDERED: SUCCINYLCHOLINE CHLORIDE 100 MG/5 ML SYR IV ONE (08:00)
[2019-02-18] MEDS ORDERED: ROCURONIUM BROMIDE 10 MG/ML 10 ML VIAL IV ONE (08:00)
[2019-02-18] MEDS ORDERED: PROPOFOL 10 MG/ML 20 ML VIAL IV ONE (08:00)
[2019-02-18] MEDS ORDERED: HYDROmorphone (PF) 1 MG/ML ONE (08:00)
[2019-02-18] MEDS ORDERED: SODIUM CHLORIDE 0.9% 50 ML with ceFAZolin (PMX-bag) 2,000 MG IV ONE ×2 (08:18)
[2019-02-18] MEDS ORDERED: BUPIVACAIN-EPI 0.5%-1:200,000 30 ML VIAL SQ ONE (08:23)
--- NOTE | 2019-02-18 10:03 | P.OP ---
Date of Procedure: 02/18/19 Preoperative Diagnosis: Cholecystitis Cholelithiasis Postoperative Diagnosis: Cholecystitis Cholelithiasis Adhesions Procedure(s) Performed: Laparoscopic cholecystectomy Anesthesia: ANTONINA Surgeon: Joselo Torre Estimated Blood Loss (ml): 20 Pathology: other (\r gallbladder) Condition: stable Disposition: PACU Description of Procedure: The patient's placed on the operative table in supine position. She received general anesthesia. Her abdomen was prepped and draped in usual sterile fashion. There were no previous scars by the umbilicus. An infra umbilical skin incision was made. And then the umbilicus is grasped with a Tika clamp and lifted. The Veress needles placed about cavity. A severe stenosis confirmed with positive drop test. The abdomen was insufflated. After adequate insufflation the 5 mm bladed trochars placed in the peritoneal cavity. The laparoscope placed. Cavity. There were adhesions noted at the trocar site the fatty adhesions were visualized. The peritoneum could not be seen. At this point a another 5 mm optical trochars placed under direct vision in the left upper quadrant. The umbilical trocar site was covered with adhesions. No bile was seen. At this point another 5 mm trochars placed left lower quadrant. Using the Metzenbaum scissors and left cautery the adhesions were lysed the trochars.. Care was taken to identify of the bowel wall. No injury to the bowel wall was visualized. At this point there was some bleeding from the adhesions and these was antral with left cautery. Next a 8 mm trochars placed in the epigastric position and then a 5 mm trocar was placed in the right lateral position and another 5 mm trochars placed in right mid abdomen. The patient's placed in the reverse Trendelenburg right side up position. The gallbladder was visualized. The gallbladder appeared to be inflamed. The gallbladder was grasped the fundus and retracted cephalad. The infundibulum of the gallbladder was seen after blunt dissection the gallbladder was performed to free up adhesions along the gallbladder. The gallbladder was then retracted cephalad and lateral. The cystic duct was then bluntly dissected and then dissected with the [place] retractor. A 2-0 Ethibond sutures placed rents duct and this was ligated using the tie knot device. The cystic duct was then divided using the Harmonic scissors. The cystic artery was then divided with the Harmonic scissors. The gallbladder is removed from liver bed using electrocautery and Harmonic scissors. The gallbladder was extracted through the epigastric port site. At this point the previous area of adhesions was examined. There is small amount of oozing from this. This was controlled using left cautery. Once again the bowel was examined. There is no evidence of any injury to the bowel. It was decided not to perform a minilaparotomy due to it appeared that there was only fatty adhesions stuck on the abdominal wall. The abdomen was irrigated. No bleeding was seen. The trochars withdrawn. The skin incision sites are closed with interrupted 3-0 Monocryl suture. Dermabond was applied..
[2019-02-18] MEDS: HYDROmorphone 1 MG/ML 1 ML SYRINGE IVP PRN ×3 (13:39→23:00)
[2019-02-18 14:31] VITALS: BMI 19.9
--- NOTE | 2019-02-18 15:07 | PN ---
PROGRESS NOTE DATE OF SERVICE: 02/18/2019 This 63-year-old woman was admitted with abdominal pain, acute pancreatitis or possibly gallstone pancreatitis. The patient underwent a laparoscopic cholecystectomy BY Dr. Torre. The patient apparently complains of weakness and tiredness, dizziness about a few weeks before according to the who took the patient to the ER and the patient was evaluated in the ER and discharged. Currently the patient is after surgery. The patient complains of pain. Patient is mildly confused, mildly drowsy after the anesthesia. There is no history of any chest pain, palpitation, headache, loss of consciousness or seizures. PAST MEDICAL HISTORY: Reviewed. REVIEW OF SYSTEMS: CARDIOVASCULAR: No angina. RESPIRATION No cough. GI: As mentioned earlier. No dysuria. NERVOUS SYSTEM: No numbness or weakness. CURRENT MEDICATIONS: 1. Tylenol p.r.n.. 2. Klonopin 0.2 mg q.h.s. 3. Dilaudid 0.5 mg p.r.n. 4. Lactated ringer. 5. Lamictal 200 mg. 6. Toprol-XL. 7. Narcan p.r.n. 9. Zofran. 10.Seroquel. PHYSICAL EXAM: Patient is alert and oriented x3. Pulse 98, blood pressure 125/80, respirations 16, temperature 97.2, pulse ox 94% on room air. HEENT: Conjunctivae normal. NECK: No jugular venous distension. CARDIOVASCULAR: S1, S2, muffled. RESPIRATORY: Breath sounds diminished at the bases, a few scattered rhonchi, no crackles. ABDOMEN: Soft, status post surgery. LEGS: No edema, no swelling. NERVOUS SYSTEM: No focal deficits. LABS: WBC of 6, hemoglobin is 9.8, MCV 102, sodium 139, potassium 3.9, calcium is 8, and total protein is 4.3. Amylase 487 and lipase is 2587. Total protein is 4.3. Total bilirubin is 0.4. ASSESSMENT: 1. Acute gallstone pancreatitis, status post laparoscopic cholecystectomy for cholecystitis and cholelithiasis. 2. Chronic obstructive pulmonary disease. 3. Gastroesophageal reflux disease. 4. Hypertension. 5. Hyperlipidemia. 6. History of bipolar. 7. Anemia, macrocytic. 8. Hypocalcemia. 9. Increased amylase, lipase. 10.Hypoalbuminemia. RECOMMENDATION: In this 63-year-old woman who presented with multiple complex medical issues, will monitor the patient closely. Continue with the current management and symptomatic treatment. Otherwise, at this time I would recommend continue with symptomatic treatment. Repeat labs will be ordered. Closely follow with Surgery. Further recommendations to follow. MMTIMOTHYL / IJN: [id number] / MTDD
[2019-02-18] MEDS: lamoTRIgine 100 MG TAB PO SCH (22:24)
[2019-02-18] MEDS: QUEtiapine 400 MG TAB PO SCH (22:24)
[2019-02-18] MEDS: clonazePAM 1 MG TAB PO SCH (22:34)
[2019-02-19] MEDS: SODIUM CHLORIDE 0.9% 1,000 ML IV SCH ×4 (00:16→04:50)
[2019-02-19] MEDS: LACTATED RINGERS 1,000 ML IV SCH ×4 (00:17→23:40)
[2019-02-19] MEDS: METOPROLOL SUCCINATE (ER) 100 MG TAB.ER.24H PO SCH ×2 (00:18→09:40)
[2019-02-19] MEDS: NICOTINE 21MG/24HR PATCH TRANSDERM SCH ×2 (00:18→09:40)
[2019-02-19] MEDS: lamoTRIgine 100 MG TAB PO SCH ×3 (00:19→20:49)
--- NOTE | 2019-02-19 08:36 | P.PN ---
Subjective Progress Note Date: 02/19/19 Principal diagnosis: Gallstone pancreatitis Patient doing well today. She is hungry. She would like to go home today possibly. She has been up and about. Morning CBC is pending. Objective - Vital Signs Vital signs: Vital Signs Temp 97.2 F L 02/19/19 06:58 Pulse 80 02/19/19 06:58 Resp 16 02/19/19 06:58 BP 102/70 02/19/19 06:58 Pulse Ox 94 L 02/19/19 06:58 Intake & Output 02/18/19 02/19/19 02/19/19 18:59 06:59 18:59 Intake Total 1400 Output Total 20 Balance 1380 Weight 52.617 kg Intake: IV 1400 Output: Estimated Blood Loss 20 Other: # Voids 1 - Exam Abdomen: Soft, nondistended, incisions clean and dry, mild incisional tenderness - Labs CBC & Chem 7: 02/17/19 09:24 02/17/19 09:24 Assessment and Plan (1) Acute pancreatitis Narrative/Plan: Will advance diet at this point. Check morning CBC. If white blood cell count looks good probably discharge later today. Current Visit: Yes Status: Acute Code(s): K85.90 - ACUTE PANCREATITIS WITHOUT NECROSIS OR INFECTION, UNSP SNOMED Code(s): 428215912
[2019-02-19 08:45] LABS: HCT 28.2 % (34.0-46.0); HGB 9.2 gm/dL (11.4-16.0); MCH 33.3 pg (25.0-35.0); MCHC 32.7 g/dL (31.0-37.0); MCV 101.9 fL (80.0-100.0); Macrocytosis Slight; Mean Platelet Volume 7.2; Platelet Count 161 k/uL (150-450); RBC 2.76 m/uL (3.80-5.40); RDW 14.4 % (11.5-15.5); WBC 5.4 k/uL (3.8-10.6)
[2019-02-19] MEDS: HYDROmorphone 1 MG/ML 1 ML SYRINGE IVP PRN ×4 (09:40→20:53)
[2019-02-19 11:33] LABS: Amylase 202 U/L (30-110)
[2019-02-19 11:40] LABS: Lipase 1991 U/L (23-300)
[2019-02-19] MEDS ORDERED: IOPAMIDOL-300 CONTRAST 30 ML VIAL (ORAL USE) PO PRN (11:56)
--- NOTE | 2019-02-19 13:08 | CT ---
EXAMINATION TYPE: CT abdomen wo con DATE OF EXAM: 02/19/2019 COMPARISON: None. HISTORY: Upper abdominal pain CT DLP: 228.3 mGycm Automated exposure control for dose reduction was used. TECHNIQUE: Helical acquisition of images was performed from the lung bases through the top of iliac crest to include entire abdomen. CONTRAST: Performed with Oral Contrast and without IV contrast. FINDINGS: There are small, bilateral effusions. There is associated relaxation atelectasis. There is 2 mm of pericardial thickening or fluid. The heart is not enlarged. Within the abdomen, there is a small amount of ascites. The gallbladder appears absent. There is mild central biliary dilatation. The spleen is normal. Both adrenal glands are normal. There are 2, 1 to 2 mm calculi in the upper pole of the right kidney and a third 3 mm calculus in the anterior middle pole calyx of the kidney and a fourth calcification in the anterior lower pole of th e right kidney. No definite calcifications are associated with the left kidney. There is no evidence of hydronephrosis. Very Limited views of the pancreas are unremarkable. There is stranding throughout the mesentery and there is generalized anasarca. No definite retroperit valera adenopathy is seen. Visualized portions of the bladder unremarkable. Visualized portions of the large and small bowel are unremarkable. No free air is seen. There is degenerative disc disease and mild hypertrophic spondylosis within the spine. IMPRESSION: 1. GENERALIZED ANASARCA AND MESENTERIC EDEMA. 2. BILATERAL PLEURAL EFFUSIONS, GREATER ON THE RIGHT THAN THE LEFT WELL A SMALL AMOUNT OF ASCIT ES. 3. CENTRAL BILIARY DILATATION LIKELY ON THE BASIS OF CHOLECYSTECTOMY. 4. NONOBSTRUCTIVE RIGHT-SIDED NEPHROLITHIASIS.
[2019-02-19] MEDS ORDERED: FUROSEMIDE 10 MG/ML 4 ML VIAL IV STA (16:06)
--- NOTE | 2019-02-19 16:56 | P.PN ---
Subjective Progress Note Date: 02/19/19 Principal diagnosis: Gallstone pancreatitis, abdominal pain The patient is seen lying in bed, reporting that she has tolerated her diet. No nausea or vomiting. She is passing flatus, but still low bowel movements. Objective - Vital Signs Vital signs: Vital Signs Temp 98.2 F 02/19/19 13:15 Pulse 89 02/19/19 13:15 Resp 16 02/19/19 13:15 BP 127/83 02/19/19 13:15 Pulse Ox 97 02/19/19 13:15 Intake & Output 02/18/19 02/19/19 02/19/19 18:59 06:59 18:59 Intake Total 1400 600 Output Total 20 Balance 1380 600 Weight 52.617 kg Intake: IV 1400 Oral 600 Output: Estimated Blood Loss 20 Other: Voiding Method Bedside Commode # Voids 1 2 - Exam On physical examination, patient appears comfortable in no apparent distress. HEAD: Normocephalic, atraumatic. EYES: No scleral icterus. No conjunctival injection. MOUTH: No lesions, tongue midline. NECK: Trachea midline, no gross abnormalities. CHEST: Clear to auscultation with no wheezing or rhonchi appreciated. HEART: Regular rate and rhythm. ABDOMEN: Soft, appropriately tender after cholecystectomy. Bowel sounds are positive. No organomegaly. No guarding or rigidity. EXTREMITIES: No pedal edema. SKIN: No rashes, no jaundice. NEUROLOGIC: Alert and oriented x3. No focal deficits. - Labs CBC & Chem 7: 02/19/19 08:12 02/17/19 09:24 Labs: Abnormal Lab Results - Last 24 Hours (Table) 02/19/19 02/19/19 Range/Units 08:12 08:12 RBC 2.76 L (3.80-5.40) m/uL Hgb 9.2 L (11.4-16.0) gm/dL Hct 28.2 L (34.0-46.0) % MCV 101.9 H (80.0-100.0) fL Amylase 202 H (30-110) U/L Lipase 1991 H (23-300) U/L Assessment and Plan (1) Acute pancreatitis Narrative/Plan: Patient presenting with complaints of abdominal pain and findings of elevated lipase and amylase, with ultrasound showing cholelithiasis. Suspicion was for gallstone pancreatitis and patient has subsequently underwent cholecystectomy. Still reporting some abdominal discomfort, however labs continue to improve and patient has tolerated her diet and is passing flatus. Current Visit: Yes Status: Acute Code(s): K85.90 - ACUTE PANCREATITIS WITHOUT NECROSIS OR INFECTION, UNSP SNOMED Code(s): 021516863 (2) Cholelithiasis Current Visit: Yes Status: Acute Code(s): K80.20 - CALCULUS OF GALLBLADDER W/O CHOLECYSTITIS W/O OBSTRUCTION SNOMED Code(s): 142229304 Plan: Supportive care Diet per surgery Appreciate surgical recommendations Continue to monitor patient's labs Encourage ambulation No plan for endoscopic evaluation Thank you for allowing us to participate in the care of the patient, the gastroenterology service will stand by, please call us back with any questions or concerns
--- NOTE | 2019-02-19 18:24 | PN ---
PROGRESS NOTE DATE OF SERVICE: 02/19/2019. HISTORY: This 63-year-old woman was admitted with acute pancreatitis, also had possible gallstone pancreatitis. Patient underwent laparoscopic cholecystectomy. Patient being closely monitored. The patient also complaining of upper abdomen discomfort. A CT scan of the abdomen was ordered by me today which showed presently reviewed and showed generalized anasarca and mesenteric edema. Otherwise, bilateral pleural effusions, greater right was noted. Small amount of ascites also noted and central biliary dilatation and nonobstructive right-sided nephrolithiasis also noted. Patient being closely monitored. PAST MEDICAL HISTORY: Reviewed. REVIEW OF SYSTEMS: CARDIOVASCULAR: No angina or palpitations. RESPIRATORY: As mentioned earlier. GI mentioned earlier. : No dysuria or retention. CENTRAL NERVOUS SYSTEM: No focal deficits. CURRENT MEDICATIONS ARE: 1. Tylenol 650 q.6h. 2. Klonopin 2 mg q.h.s. 3. Dilaudid 0.5 q.3 p.r.n. 4. Lactated Ringer's. 5. Lamictal. 6. Toprol-XL 100 mg. 7. Narcan 0.2 q.2h p.r.n. 8. Habitrol 21 daily. 9. Zofran 4 mg IV q.8h. 10.Seroquel 800 mg q.h.s. PHYSICAL EXAM: Patient is alert, oriented x3, pulse 89, blood pressure 127/83, respirations 16, temperature 98.2, pulse ox 97% on room air. HEENT: Conjunctivae normal. Oral mucosa moist. Neck is no jugular venous distention. No carotid bruit. No lymph node enlargement. CARDIOVASCULAR: S1, S2 muffled. RESPIRATORY: Breath sounds diminished in the bases. A few scattered rhonchi and crackles. ABDOMEN: Soft. Status post surgery. Legs are no edema. No focal deficits. LAB STUDIES: WBC 5.9, hemoglobin 9.2. Otherwise, today's LFTs are not available. Amylase is 202 and lipase is 9091. ASSESSMENT: 1. Acute gallstone pancreatitis status post laparoscopic cholecystectomy for cholecystitis and cholelithiasis. 2. Chronic obstructive pulmonary disease. 3. Gastroesophageal reflux disease. 4. Hypertension. 5. Hyperlipidemia. 6. History of bipolar. 7. Anemia, macrocytic. 8. Hypocalcemia. 9. Increased amylase and lipase with evidence of pancreatitis. 10.Hypoalbuminemia. RECOMMENDATIONS AND DISCUSSION: Recommend to continue current medications, monitoring, management and symptomatic treatment. I would cut down the IV fluids. Small dose of Lasix. Otherwise, continue to monitor. PT/OT evaluation. Guarded prognosis because of multiple complex medical issues. Further recommendations to follow. SHARANL / IJN: [id number] /
[2019-02-19] MEDS: SYMBICORT 160-4.5 MCG INHALER INHALATION SCH (19:46)
[2019-02-19] MEDS: clonazePAM 1 MG TAB PO SCH (20:49)
[2019-02-19] MEDS: QUEtiapine 400 MG TAB PO SCH (20:53)
[2019-02-20] MEDS: LACTATED RINGERS 1,000 ML IV SCH (06:19)
[2019-02-20] MEDS: NICOTINE 21MG/24HR PATCH TRANSDERM SCH (08:16)
[2019-02-20] MEDS: lamoTRIgine 100 MG TAB PO SCH ×2 (08:16→21:50)
[2019-02-20] MEDS: METOPROLOL SUCCINATE (ER) 100 MG TAB.ER.24H PO SCH (08:16)
[2019-02-20] MEDS: PANTOPRAZOLE 40 MG TABLET PO SCH (08:16)
[2019-02-20] MEDS: HYDROmorphone 1 MG/ML 1 ML SYRINGE IVP PRN (08:17)
--- NOTE | 2019-02-20 08:34 | P.PN ---
Subjective Progress Note Date: 02/20/19 Principal diagnosis: Gallstone pancreatitis Patient doing well today. Still complaining of mild pain. States it's improving. Tolerating diet. No nausea or vomiting. T-max 99.4. White blood cell count yesterday normal. Objective - Vital Signs Vital signs: Vital Signs Temp 98.2 F 02/20/19 07:24 Pulse 81 02/20/19 07:24 Resp 16 02/20/19 07:24 BP 106/67 02/20/19 07:24 Pulse Ox 92 L 02/20/19 07:24 Intake & Output 02/19/19 02/20/19 02/20/19 18:59 06:59 18:59 Intake Total 1200 Balance 1200 Intake: Oral 1200 Other: Voiding Method Bedside Commode Bedside Commode # Voids 2 3 - Exam Abdomen: Soft, nondistended, minimal tenderness, incisions clean and dry - Labs CBC & Chem 7: 02/19/19 08:12 02/17/19 09:24 Labs: Abnormal Lab Results - Last 24 Hours (Table) 02/19/19 02/19/19 Range/Units 08:12 08:12 RBC 2.76 L (3.80-5.40) m/uL Hgb 9.2 L (11.4-16.0) gm/dL Hct 28.2 L (34.0-46.0) % MCV 101.9 H (80.0-100.0) fL Amylase 202 H (30-110) U/L Lipase 1991 H (23-300) U/L Assessment and Plan (1) Acute pancreatitis Narrative/Plan: Continue regular diet. Minimize IV narcotic use. We'll add Fisher. Ambulate. Possible ECF tomorrow. Current Visit: Yes Status: Acute Code(s): K85.90 - ACUTE PANCREATITIS WITHOUT NECROSIS OR INFECTION, UNSP SNOMED Code(s): 244004293
[2019-02-20 09:18] LABS: Basophils % (A) 0 %; Eosinophils # (A) 0.5 k/uL (0-0.7); Eosinophils % (A) 8 %; HCT 28.2 % (34.0-46.0); Lymphocytes # (A) 1.8 k/uL (1.0-4.8); Lymphocytes % (A) 32 %; MCH 32.1 pg (25.0-35.0); MCV 100.2 fL (80.0-100.0); Monocytes # (A) 0.2 k/uL (0-1.0); Monocytes % (A) 4 %; Neutrophils # (A) 2.9 k/uL (1.3-7.7); Neutrophils % (A) 53 %; Platelet Count 177 k/uL (150-450); RBC 2.82 m/uL (3.80-5.40); RDW 13.8 % (11.5-15.5); WBC 5.6 k/uL (3.8-10.6)
[2019-02-20 09:27] LABS: ALT 21 U/L (9-52); AST 16 U/L (14-36); Albumin 2.4 g/dL (3.5-5.0); Alkaline Phosphatase 61 U/L (38-126); Amylase 206 U/L (30-110); Anion Gap 5 mmol/L; Blood Urea Nitrogen 7 mg/dL (7-17); Calcium 8.1 mg/dL (8.4-10.2); Carbon Dioxide 29 mmol/L (22-30); Chloride 105 mmol/L (98-107); Glucose 85 mg/dL (74-99); Potassium 3.1 mmol/L (3.5-5.1); Sodium 139 mmol/L (137-145); Total Bilirubin 0.5 mg/dL (0.2-1.3); Total Protein 4.5 g/dL (6.3-8.2)
[2019-02-20 09:35] LABS: Lipase 2930 U/L (23-300)
[2019-02-20] MEDS: buPROPion XL 150 MG TAB.ER.24H PO SCH (10:15)
[2019-02-20] MEDS: SYMBICORT 160-4.5 MCG INHALER INHALATION SCH ×2 (11:07→19:52)
[2019-02-20] MEDS ORDERED: Potassium Replacement Protocol 1 EACH MISC MISCELLANE PRN ×2 (11:31→11:34)
[2019-02-20] MEDS: POTASSIUM CHLORIDE ER 20 MEQ TAB.ER PO SCH ×2 (12:46→12:47)
[2019-02-20] MEDS: HYDROcodone/APAP 7.5-325MG 1 EACH TAB PO PRN ×3 (12:47→23:07)
--- NOTE | 2019-02-20 14:30 | PN ---
PROGRESS NOTE DATE OF SERVICE: 02/20/2019 I am covering for Dr. Donavan Rodriguez. This 63-year-old woman who was admitted with acute gallstone pancreatitis, underwent laparoscopic cholecystectomy. Patient is still complaining of abdominal pain. Patient apparently also had a poor social support also. The patient had CT scan yesterday which showed generalized anasarca and bilateral pleural effusions also. PAST MEDICAL HISTORY: Reviewed. REVIEW OF SYSTEM: Cardiovascular: No angina or palpitations. RESPIRATORY: As mentioned earlier. GASTROINTESTINAL: As mentioned earlier. no dysuria. CENTRAL NERVOUS SYSTEM: No numbness or weakness. CURRENT MEDICATIONS ARE: Reviewed and include: 1. Tylenol p.r.n. 2. [place] 7.5 p.r.n. 3. Symbicort b.i.d. 4. Wellbutrin 150 mg daily. 5. Klonopin 2 mg q.h.s. 6. Dilaudid. 7. Lactated Ringer's. 8. Lamictal. 9. Toprol XL. 10.Narcan. 11.Habitrol. 12.Zofran. 13.Protonix. PHYSICAL EXAM: Patient is alert, oriented x3. Pulse 82, blood pressure 99/70, respirations 16, temperature 97.3, pulse ox 95% on room air. HEENT conjunctivae normal. Oral mucosa moist. Neck is no jugular venous distention. No carotid bruit. No lymph node enlargement. Cardiovascular: S1, S2 muffled. RESPIRATORY: Breath sounds diminished in the bases. A few rhonchi. No crackles. ABDOMEN: Soft. Status post surgery. Legs are no edema. No swelling. Central nervous system: No focal deficits. LAB STUDIES: At this time: Shows WBC 5.2, hemoglobin is 9, MCV 100.2. Sodium 130, potassium 3.1. Amylase is 206 and lipase is 2930. ASSESSMENT: 1. Acute gallstone pancreatitis status post laparoscopic cholecystectomy for cholecystitis and cholelithiasis. 2. Chronic obstructive pulmonary disease. 3. Abdominal pain. 4. Gastroesophageal reflux disease. 5. Hypertension. 6. Hyperlipidemia. 7. History of bipolar. 8. Anemia, normocytic. 9. Hypocalcemia. 10.Increased lipase and amylase with evidence of pancreatitis. 11.Hypoalbuminemia. RECOMMENDATIONS AND DISCUSSION: Recommend to continue current medications, symptomatic treatment. Monitoring fluid and electrolytes balance closely. Repeat labs in the morning. PT/OT evaluation. Pain medications. Potassium supplementation, use potassium protocol. Prognosis guarded because of multiple complex medical issues. At this time, patient would like to return home. Further recommendations to follow. JENNIFER / JDN: [id number] / MTDD
--- NOTE | 2019-02-20 15:04 | XR ---
EXAMINATION TYPE: XR chest 1V portable DATE OF EXAM: 02/20/2019 COMPARISON: 01/18/2018 HISTORY: Short of breath TECHNIQUE: Single frontal view of the chest is obtained. FINDINGS: There is mild infiltrate and atelectasis at the lung bases. Heart size is normal. There is no gross heart failure. There are no hilar masses. Mediastinum appears normal. IMPRESSION: There is no bilateral lower lobe mild infiltrate or atelectasis compared to old exam. No rmal heart. No obvious heart failure.
[2019-02-20] MEDS: clonazePAM 1 MG TAB PO SCH (21:50)
[2019-02-20] MEDS: QUEtiapine 400 MG TAB PO SCH (21:53)
[2019-02-21] MEDS: LACTATED RINGERS 1,000 ML IV SCH (03:31)
[2019-02-21] MEDS: METOPROLOL SUCCINATE (ER) 100 MG TAB.ER.24H PO SCH (07:37)
[2019-02-21] MEDS: NICOTINE 21MG/24HR PATCH TRANSDERM SCH (07:37)
[2019-02-21] MEDS: PANTOPRAZOLE 40 MG TABLET PO SCH (07:37)
[2019-02-21] MEDS: lamoTRIgine 100 MG TAB PO SCH ×2 (07:37→20:51)
[2019-02-21] MEDS: HYDROcodone/APAP 7.5-325MG 1 EACH TAB PO PRN ×3 (07:38→23:14)
[2019-02-21] MEDS: buPROPion XL 150 MG TAB.ER.24H PO SCH (07:41)
[2019-02-21 08:09] LABS: ALT 22 U/L (9-52); AST 12 U/L (14-36); Albumin 2.4 g/dL (3.5-5.0); Alkaline Phosphatase 62 U/L (38-126); Amylase 208 U/L (30-110); Anion Gap 2 mmol/L; Blood Urea Nitrogen 16 mg/dL (7-17); Calcium 8.3 mg/dL (8.4-10.2); Carbon Dioxide 28 mmol/L (22-30); Chloride 108 mmol/L (98-107); Glucose 90 mg/dL (74-99); Sodium 138 mmol/L (137-145); Total Bilirubin 0.3 mg/dL (0.2-1.3); Total Protein 4.5 g/dL (6.3-8.2)
[2019-02-21 08:24] LABS: Basophils % (A) 0 %; Eosinophils # (A) 0.4 k/uL (0-0.7); Eosinophils % (A) 9 %; HCT 25.7 % (34.0-46.0); HGB 8.4 gm/dL (11.4-16.0); Lymphocytes # (A) 1.5 k/uL (1.0-4.8); Lymphocytes % (A) 32 %; MCH 33.2 pg (25.0-35.0); MCHC 32.8 g/dL (31.0-37.0); MCV 101.1 fL (80.0-100.0); Macrocytosis Slight; Mean Platelet Volume 7.4; Monocytes # (A) 0.2 k/uL (0-1.0); Monocytes % (A) 4 %; Neutrophils # (A) 2.5 k/uL (1.3-7.7); Neutrophils % (A) 53 %; Platelet Count 157 k/uL (150-450); RBC 2.54 m/uL (3.80-5.40); RDW 14.3 % (11.5-15.5); WBC 4.7 k/uL (3.8-10.6)
[2019-02-21 08:36] LABS: Lipase 3664 U/L (23-300)
[2019-02-21] MEDS: SYMBICORT 160-4.5 MCG INHALER INHALATION SCH ×2 (09:11→19:41)
[2019-02-21] MEDS ORDERED: BISACODYL 10 MG SUPP RECTAL STA (09:39)
--- NOTE | 2019-02-21 10:25 | P.PN ---
<Smiley Calvin Giacomo - Last Filed: 02/21/19 10:20> Subjective Progress Note Date: 02/21/19 CHIEF COMPLAINT: abdominal pain HISTORY OF PRESENT ILLNESS: Patient seen and examined at the bedside this morning. Patient tolerating diet. Denies nausea or vomiting. Passing flatus. No BM. WBC 4.7. Hemoglobin 8.4. Potassium 4.0. Amylase 208. Lipase 3664. PHYSICAL EXAM: VITAL SIGNS: Reviewed. GENERAL: Well-developed in no acute distress. HEENT: No sclera icterus. Extraocular movements grossly intact. Moist buccal mucosa. Head is atraumatic, normocephalic. ABDOMEN: Soft. Nondistended. Mild surgical tenderness. Incisions clean dry intact. NEUROLOGIC: Alert and oriented. Cranial nerves II through XII grossly intact. ASSESSMENT: 1. Abdominal pain, nausea, vomiting 2. Acute pancreatitis 3. Cholelithiasis, status post laparoscopic cholecystectomy 4. History of alcohol abuse PLAN: 1. Continue current diet 2. Await BM. Dulcolax x 1 3. Pain control. Continue with oral medications. DC Dilaudid. 4. Incentive spirometry 5. Activity as tolerated. PT/OT 6. Discharge per medicine. Possible ECF Nurse practitioner note has been reviewed by physician. Signing provider agrees with the documented findings, assessment, and plan of care. Objective - Vital Signs Vital signs: Vital Signs Temp 97.5 F L 02/21/19 05:00 Pulse 81 02/21/19 05:00 Resp 18 02/21/19 05:00 BP 91/59 02/21/19 05:00 Pulse Ox 94 L 02/21/19 05:00 Intake & Output 02/20/19 02/21/19 02/21/19 18:59 06:59 18:59 Intake Total 1200 550 Balance 1200 550 Intake: Oral 1200 550 Other: # Voids 2 4 - Labs CBC & Chem 7: 02/21/19 07:31 02/21/19 07:31 Labs: Abnormal Lab Results - Last 24 Hours (Table) 02/21/19 02/21/19 Range/Units 07:31 07:31 RBC 2.54 L (3.80-5.40) m/uL Hgb 8.4 L (11.4-16.0) gm/dL Hct 25.7 L (34.0-46.0) % MCV 101.1 H (80.0-100.0) fL Chloride 108 H (98-107) mmol/L Calcium 8.3 L (8.4-10.2) mg/dL AST 12 L (14-36) U/L Total Protein 4.5 L (6.3-8.2) g/dL Albumin 2.4 L (3.5-5.0) g/dL Amylase 208 H (30-110) U/L Lipase 3664 H (23-300) U/L <Desean Galdamez - Last Filed: 02/21/19 17:02> Subjective As above. Patient still having upper abdominal pain although states it is much improved. Tolerating diet. Increased amylase and lipase noted. Exam fairly benign however. We'll repeat labs tomorrow. Possible transfer to rehab tomorrow. Objective - Vital Signs Vital signs: Vital Signs Temp 97.5 F L 02/21/19 13:28 Pulse 79 02/21/19 13:28 Resp 16 02/21/19 13:28 BP 101/74 02/21/19 13:28 Pulse Ox 96 02/21/19 13:28 Intake & Output 02/20/19 02/21/19 02/21/19 18:59 06:59 18:59 Intake Total 1200 550 Balance 1200 550 Weight 52.617 kg Intake: Oral 1200 550 Other: # Voids 2 4 3 # Bowel Movements 1 - Labs CBC & Chem 7: 02/21/19 07:31 02/21/19 07:31 Labs: Abnormal Lab Results - Last 24 Hours (Table) 02/21/19 02/21/19 Range/Units 07:31 07:31 RBC 2.54 L (3.80-5.40) m/uL Hgb 8.4 L (11.4-16.0) gm/dL Hct 25.7 L (34.0-46.0) % MCV 101.1 H (80.0-100.0) fL Chloride 108 H (98-107) mmol/L Calcium 8.3 L (8.4-10.2) mg/dL AST 12 L (14-36) U/L Total Protein 4.5 L (6.3-8.2) g/dL Albumin 2.4 L (3.5-5.0) g/dL Amylase 208 H (30-110) U/L Lipase 3664 H (23-300) U/L Assessment and Plan (1) Acute pancreatitis Current Visit: Yes Status: Acute Code(s): K85.90 - ACUTE PANCREATITIS WITHOUT NECROSIS OR INFECTION, UNSP SNOMED Code(s): 087737852
--- NOTE | 2019-02-21 11:54 | P.DS ---
Providers Date of admission: 02/15/19 20:37 Expected date of discharge: 02/21/19 Attending physician: Donavan Rodriguez Consults: 02/15/19 20:41 Consult Physician Stat Consulting Provider: Joselo Torre Consult Reason/Comments: pancreatitis, cholelithiasis Do you want consulting provider notified?: Yes Primary care physician: Donavan Rodriguez Hospital Course: 63-year-old female was admitted to the emergency room with acute abdominal pain pancreatitis. Patient had a cholecystectomy. Amylase lipase numbers improved. Patient cleared for discharge per surgery Assessment Cholelithiasis post lap tracy Pancreatitis history of COPD GERD Hypertension Hyperlipidemia Bipolar Weakness Plan Transfer to extended care facility for rehab Patient Condition at Discharge: Fair Plan - Discharge Summary Discharge Rx Participant: No New Discharge Prescriptions: New Nicotine 21Mg/24Hr Patch [Habitrol] 1 patch TRANSDERM DAILY #28 patch HYDROcodone/APAP 7.5-325MG [[place] 7.5-325] 1 each PO Q6H PRN #12 tab PRN Reason: Pain Continue Metoprolol Succinate [Toprol XL] 100 mg PO DAILY lamoTRIgine [LaMICtal] 200 mg PO BID clonazePAM [KlonoPIN] 2 mg PO HS QUEtiapine [SEROquel] 800 mg PO HS Aspirin [Adult Low Dose Aspirin EC] 81 mg PO DAILY Budesonide/Formoterol Fumarate [Symbicort 160-4.5 Mcg Inhaler] 2 puff INHALATION RT-BID buPROPion XL [Wellbutrin XL] 150 mg PO DAILY Pantoprazole Sodium [Protonix] 40 mg PO DAILY Atorvastatin [Lipitor] 20 mg PO DAILY Acetaminophen [Tylenol Arthritis] 650 mg PO TID PRN PRN Reason: Pain Discharge Medication List Aspirin [Adult Low Dose Aspirin EC] 81 mg PO DAILY 05/17/18 [History] Metoprolol Succinate [Toprol XL] 100 mg PO DAILY 05/17/18 [History] QUEtiapine [SEROquel] 800 mg PO HS 05/17/18 [History] clonazePAM [KlonoPIN] 2 mg PO HS 05/17/18 [History] lamoTRIgine [LaMICtal] 200 mg PO BID 05/17/18 [History] Atorvastatin [Lipitor] 20 mg PO DAILY 01/31/19 [History] Budesonide/Formoterol Fumarate [Symbicort 160-4.5 Mcg Inhaler] 2 puff INHALATION RT-BID 01/31/19 [History] Pantoprazole Sodium [Protonix] 40 mg PO DAILY 01/31/19 [History] buPROPion XL [Wellbutrin XL] 150 mg PO DAILY 01/31/19 [History] Acetaminophen [Tylenol Arthritis] 650 mg PO TID PRN 02/15/19 [History] HYDROcodone/APAP 7.5-325MG [[place] 7.5-325] 1 each PO Q6H PRN #12 tab 02/21/19 [Rx] Nicotine 21Mg/24Hr Patch [Habitrol] 1 patch TRANSDERM DAILY #28 patch 02/21/19 [Rx] Follow up Appointment(s)/Referral(s): Donavan Rodriguez MD [Primary Care Provider] - 1-2 days
[2019-02-21] MEDS: QUEtiapine 400 MG TAB PO SCH (20:50)
[2019-02-21] MEDS: clonazePAM 1 MG TAB PO SCH (20:51)
[2019-02-22 07:43] LABS: Basophils % (A) 0 %; Eosinophils # (A) 0.4 k/uL (0-0.7); Eosinophils % (A) 8 %; HCT 26.7 % (34.0-46.0); HGB 8.4 gm/dL (11.4-16.0); Lymphocytes # (A) 1.4 k/uL (1.0-4.8); Lymphocytes % (A) 31 %; MCH 32.2 pg (25.0-35.0); MCHC 31.5 g/dL (31.0-37.0); MCV 102.2 fL (80.0-100.0); Macrocytosis Slight; Mean Platelet Volume 6.9; Monocytes # (A) 0.2 k/uL (0-1.0); Monocytes % (A) 4 %; Neutrophils # (A) 2.4 k/uL (1.3-7.7); Neutrophils % (A) 55 %; Platelet Count 179 k/uL (150-450); RBC 2.62 m/uL (3.80-5.40); RDW 13.9 % (11.5-15.5); WBC 4.4 k/uL (3.8-10.6)
[2019-02-22] MEDS: HYDROcodone/APAP 7.5-325MG 1 EACH TAB PO PRN ×2 (07:46→14:58)
[2019-02-22] MEDS: PANTOPRAZOLE 40 MG TABLET PO SCH (07:46)
[2019-02-22] MEDS: NICOTINE 21MG/24HR PATCH TRANSDERM SCH (07:46)
[2019-02-22] MEDS: METOPROLOL SUCCINATE (ER) 100 MG TAB.ER.24H PO SCH (07:47)
[2019-02-22] MEDS: buPROPion XL 150 MG TAB.ER.24H PO SCH (07:47)
[2019-02-22] MEDS: lamoTRIgine 100 MG TAB PO SCH (07:47)
[2019-02-22] MEDS: LACTATED RINGERS 1,000 ML IV SCH (07:50)
[2019-02-22 08:02] LABS: ALT 22 U/L (9-52); AST 11 U/L (14-36); Albumin 2.4 g/dL (3.5-5.0); Alkaline Phosphatase 58 U/L (38-126); Amylase 184 U/L (30-110); Anion Gap 2 mmol/L; Blood Urea Nitrogen 16 mg/dL (7-17); Calcium 8.5 mg/dL (8.4-10.2); Carbon Dioxide 32 mmol/L (22-30); Chloride 104 mmol/L (98-107); Glucose 80 mg/dL (74-99); Potassium 3.9 mmol/L (3.5-5.1); Sodium 138 mmol/L (137-145); Total Bilirubin 0.3 mg/dL (0.2-1.3); Total Protein 4.6 g/dL (6.3-8.2)
[2019-02-22 08:10] LABS: Lipase 2889 U/L (23-300)
[2019-02-22] MEDS: SYMBICORT 160-4.5 MCG INHALER INHALATION SCH (08:53)
--- NOTE | 2019-02-22 10:42 | P.PN ---
<CalvinSmiley Giacomo - Last Filed: 02/22/19 10:40> Subjective Progress Note Date: 02/22/19 CHIEF COMPLAINT: abdominal pain HISTORY OF PRESENT ILLNESS: Patient seen and examined at the bedside this morning. Patient tolerating diet. Denies nausea or vomiting. Passing flatus. + BM. WBC 4.4. Hemoglobin 8.4. Potassium 3.9. Amylase 184. Lipase 2889. PHYSICAL EXAM: VITAL SIGNS: Reviewed. GENERAL: Well-developed in no acute distress. HEENT: No sclera icterus. Extraocular movements grossly intact. Moist buccal m ucosa. Head is atraumatic, normocephalic. ABDOMEN: Soft. Nondistended. Mild surgical tenderness. Incisions clean dry intact. NEUROLOGIC: Alert and oriented. Cranial nerves II through XII grossly intact. ASSESSMENT: 1. Abdominal pain, nausea, vomiting 2. Acute pancreatitis 3. Cholelithiasis, status post laparoscopic cholecystectomy 4. History of alcohol abuse PLAN: Stable for discharge from a surgical standpoint. Follow up in 1 week post discharge. Nurse practitioner note has been reviewed by physician. Signing provider agrees with the documented findings, assessment, and plan of care. Objective - Vital Signs Vital signs: Vital Signs Temp 98.2 F 02/22/19 05:00 Pulse 77 02/22/19 08:00 Resp 17 02/22/19 08:00 BP 100/68 02/22/19 05:00 Pulse Ox 96 02/22/19 05:00 Intake & Output 02/21/19 02/22/19 02/22/19 18:59 06:59 18:59 Weight 52.617 kg Other: Voiding Method Bedside Commode Bedside Commode # Voids 3 2 2 # Bowel Movements 1 1 - Labs CBC & Chem 7: 02/22/19 06:47 02/22/19 06:47 Labs: Abnormal Lab Results - Last 24 Hours (Table) 02/22/19 02/22/19 Range/Units 06:47 06:47 RBC 2.62 L (3.80-5.40) m/uL Hgb 8.4 L (11.4-16.0) gm/dL Hct 26.7 L (34.0-46.0) % MCV 102.2 H (80.0-100.0) fL Carbon Dioxide 32 H (22-30) mmol/L AST 11 L (14-36) U/L Total Protein 4.6 L (6.3-8.2) g/dL Albumin 2.4 L (3.5-5.0) g/dL Amylase 184 H (30-110) U/L Lipase 2889 H (23-300) U/L <DalilaanabelDesean - Last Filed: 02/22/19 18:01> Subjective As above. Patient's pain does seem improved today. Her pancreatic enzymes are decreasing gradually. She is tolerating her diet. If pain persists as an outpatient would consider repeating amylase lipase and possibly repeating CAT scan abdomen and pelvis. She was discharged prior to my evaluation today. Objective - Vital Signs Vital signs: Vital Signs Temp 97.5 F L 02/22/19 11:26 Pulse 78 02/22/19 14:54 Resp 16 02/22/19 14:54 BP 124/83 02/22/19 11:26 Pulse Ox 98 02/22/19 11:26 Intake & Output 02/21/19 02/22/19 02/22/19 18:59 06:59 18:59 Intake Total 600 Balance 600 Weight 52.617 kg Intake: Oral 600 Other: Voiding Method Bedside Commode Bedside Commode # Voids 3 2 2 # Bowel Movements 1 1 - Labs CBC & Chem 7: 02/22/19 06:47 02/22/19 06:47 Labs: Abnormal Lab Results - Last 24 Hours (Table) 02/22/19 02/22/19 Range/Units 06:47 06:47 RBC 2.62 L (3.80-5.40) m/uL Hgb 8.4 L (11.4-16.0) gm/dL Hct 26.7 L (34.0-46.0) % MCV 102.2 H (80.0-100.0) fL Carbon Dioxide 32 H (22-30) mmol/L AST 11 L (14-36) U/L Total Protein 4.6 L (6.3-8.2) g/dL Albumin 2.4 L (3.5-5.0) g/dL Amylase 184 H (30-110) U/L Lipase 2889 H (23-300) U/L Assessment and Plan (1) Acute pancreatitis Status: Acute Code(s): K85.90 - ACUTE PANCREATITIS WITHOUT NECROSIS OR INFECTION, UNSP SNOMED Code(s): 579754470
[2019-02-22 11:42] VITALS: BP 124/83; PULSE 78; RESP 16; TEMP 97.5
== END 2019-02-22 14:35 | DRG 417 ==
LOC: EC 17:06 → 3NMEDONC 20:37 → 4FBP 02-18 10:10 → 4MS4W 02-19 00:03 → 3NMEDONC 02-21 15:22
PROVIDERS: ADMIT Family Medicine; ATTEND Family Medicine
PROC: 0FT44ZZ Resection of Gallbladder, Percutaneous Endoscopic Approach (ICD-10-PCS; principal; 2019-02-15)
DX: K80.10 Calculus of gallbladder with chronic cholecystitis without obstruction (principal); K85.10 Biliary acute pancreatitis without necrosis or infection; J44.9 Chronic obstructive pulmonary disease, unspecified; K21.9 Gastro-esophageal reflux disease without esophagitis; E78.5 Hyperlipidemia, unspecified; I10 Essential (primary) hypertension; F31.9 Bipolar disorder, unspecified; E83.51 Hypocalcemia; F41.9 Anxiety disorder, unspecified; N20.0 Calculus of kidney; M81.0 Age-related osteoporosis without current pathological fracture; F17.200 Nicotine dependence, unspecified, uncomplicated; D53.9 Nutritional anemia, unspecified; E88.09 Other disorders of plasma-protein metabolism, not elsewhere classified; Z87.11 Personal history of peptic ulcer disease; Z79.82 Long term (current) use of aspirin; Z79.899 Other long term (current) drug therapy; Z79.51 Long term (current) use of inhaled steroids; Z88.1 Allergy status to other antibiotic agents; Z90.710 Acquired absence of both cervix and uterus; Z63.8 Other specified problems related to primary support group
CPT/HCPCS: 36415; 71045; 74150; 76705; 80053; 81003; 82150; 82272; 83690; 84132; 85025; 85027; 88304; 94640; 96361; 96374; 99285

== ENCOUNTER → 2019-03-24 | Day surgery (SDC) | payer MEDICARE ==
[2019-03-21 14:51] VITALS: BMI 17.9
[~2019-03-24] MED LIST changes: -DENOSUMAB 60 MG/ML 1 ML SYRINGE SQ ONE; +LACTATED RINGERS 1,000 ML IV ONE; +LACTATED RINGERS 1,000 ML IV SCH; +LIDOCAINE 1% 20 ML VIAL (10MG/ML) FOR IV START INTRADERMA PRN; +ONDANSETRON 4 MG/2 ML VIAL IVP ONE; +PROPOFOL 10 MG/ML 20 ML VIAL IV ONE
[2019-03-24 08:36] VITALS: TEMP 97.8
--- NOTE | 2019-03-24 09:08 | P.GSHP ---
History of Present Illness H&P Date: 03/24/19 Chief Complaint: GERD, constipation This a 63-year-old female has complaints of GERD. She also has chronic constipation. She presents today for EGD and colonoscopy. Past Medical History Past Medical History: COPD, GERD/Reflux, Hyperlipidemia, Hypertension, Memory Impairment, Musculoskeletal Disorder, Osteoarthritis (OA), Pneumonia Additional Past Medical History / Comment(s): Hx stomach ulcers, severe con stipation/impaction, pancreatitis osteoporosis, empysema, migraines, Bipolar. Current issues with severe constipation and abd pain. History of Any Multi-Drug Resistant Organisms: None Reported Past Surgical History: Cholecystectomy, Hysterectomy, Orthopedic Surgery Additional Past Surgical History / Comment(s): Foot surgery. Past Anesthesia/Blood Transfusion Reactions: Postoperative Nausea & Vomiting (PONV) Past Psychological History: Anxiety, Bipolar Smoking Status: Current every day smoker Past Alcohol Use History: None Reported Additional Past Alcohol Use History / Comment(s): Has been smoking since 14 yrs old. Down to 1 PPD from 3. Past Drug Use History: None Reported - Past Family History Mother Family Medical History: Cancer Medications and Allergies Home Medications Medication Instructions Recorded Confirmed Type Aspirin [Adult Low Dose Aspirin EC] 81 mg PO DAILY 05/17/18 03/21/19 History Metoprolol Succinate [Toprol XL] 100 mg PO QAM 05/17/18 03/21/19 History QUEtiapine [SEROquel] 800 mg PO HS 05/17/18 03/21/19 History clonazePAM [KlonoPIN] 2 mg PO HS 05/17/18 03/21/19 History lamoTRIgine [LaMICtal] 200 mg PO BID 05/17/18 03/21/19 History Atorvastatin [Lipitor] 20 mg PO DAILY 01/31/19 03/21/19 History Budesonide/Formoterol Fumarate 2 puff INHALATION RT-BID 01/31/19 03/21/19 History [Symbicort 160-4.5 Mcg Inhaler] Pantoprazole Sodium [Protonix] 40 mg PO DAILY 01/31/19 03/21/19 History buPROPion XL [Wellbutrin XL] 150 mg PO DAILY 01/31/19 03/21/19 History Acetaminophen [Tylenol Arthritis] 650 mg PO TID PRN 02/15/19 03/21/19 History Acetaminophen with Codeine 1 tab PO Q6H PRN 03/21/19 03/21/19 History [Tylenol with Codeine #4 Tablet] Albuterol Sulfate [Proair Hfa] 1 - 2 puff INHALATION BID 03/21/19 03/21/19 History Ibuprofen 1 tab PO Q6H PRN 03/21/19 03/21/19 History Methocarbamol [Robaxin] 1,000 mg PO TID PRN 03/21/19 03/21/19 History Allergies Allergy/AdvReac Type Severity Reaction Status Date / Time cefaclor [From [facility]] Allergy Rash/Hives Verified 03/21/19 14:24 Surgical - Exam Vital Signs Temp Pulse Resp BP Pulse Ox 97.8 F 89 18 114/70 98 03/24/19 08:34 03/24/19 08:34 03/24/19 08:34 03/24/19 08:34 03/24/19 08:34 - General well developed, well nourished, no distress - Eyes PERRL - ENT normal pinna - Neck no masses - Respiratory normal expansion - Cardiovascular Rhythm: regular - Abdomen Abdomen: soft, non tender Assessment and Plan Assessment: GERD, constipation. We'll perform EGD and colonoscopy.
--- NOTE | 2019-03-24 09:23 | P.OP ---
Date of Procedure: 03/24/19 Preoperative Diagnosis: GERD Constipation Postoperative Diagnosis: Antral gastritis Moderate hiatal hernia Esophagitis Large amount of retained rectal stool Procedure(s) Performed: EGD Colonoscopy Anesthesia: MAC Surgeon: Joselo Torre Pathology: other (Antrum, esophagus) Condition: stable Disposition: PACU Description of Procedure: The patient's placed on the endoscopy table in the lateral position. She received IV sedation. The gastroscope placed oropharynx and passed in the esophagus and stomach. Scope was then placed through the pylorus. The first and second portion of the duodenum appeared normal. The scope was then brought back and the antrum and this was mildly inflamed. A biopsies performed. The scope was then retroflexed the patient had a moderate size hiatal hernia. The GE junction was at 38 cm. The distal esophagus appeared inflamed. This was biopsied. The proximal esophagus appeared normal. Scope was withdrawn for patient. Digital rectal exam was performed. There was hard stool in the rectum. This point the colonoscopy was canceled. The patient will be reprepped and brought back for outpatient colonoscopy
[2019-03-24 09:38] VITALS: RESP 16
[2019-03-24 09:53] VITALS: BP 113/77; PULSE 90
== END ==
LOC: ORWHC2ENDO 08:16
PROVIDERS: ATTEND Surgery
DX: K29.50 Unspecified chronic gastritis without bleeding (principal); K21.9 Gastro-esophageal reflux disease without esophagitis; K44.9 Diaphragmatic hernia without obstruction or gangrene; K59.09 Other constipation; E78.5 Hyperlipidemia, unspecified; F17.210 Nicotine dependence, cigarettes, uncomplicated; F31.9 Bipolar disorder, unspecified; I10 Essential (primary) hypertension; J44.9 Chronic obstructive pulmonary disease, unspecified; F41.9 Anxiety disorder, unspecified; M19.90 Unspecified osteoarthritis, unspecified site; M81.0 Age-related osteoporosis without current pathological fracture; Z79.51 Long term (current) use of inhaled steroids; Z79.82 Long term (current) use of aspirin; Z87.19 Personal history of other diseases of the digestive system; Z88.1 Allergy status to other antibiotic agents; Z90.49 Acquired absence of other specified parts of digestive tract; Z90.710 Acquired absence of both cervix and uterus
CPT/HCPCS: 88305; 45378; 43239; J2405; J2704

== ENCOUNTER → 2019-04-05 | Outpatient (CLI) | payer MEDICARE | END | disposition home or self-care (01) | LOC: LABPAT 15:08 | PROVIDERS: ATTEND Surgery | DX: Z01.818 Encounter for other preprocedural examination (principal); K21.0 Gastro-esophageal reflux disease with esophagitis | CPT/HCPCS: 93005 ==

== ENCOUNTER → 2019-04-18 | Outpatient (CLI) | payer MEDICARE ==
[2019-04-18 15:47] LABS: Basophils % (A) 1 %; Eosinophils # (A) 0.5 k/uL (0-0.7); Eosinophils % (A) 10 %; Lymphocytes % (A) 42 %; MCH 32.2 pg (25.0-35.0); MCV 100.5 fL (80.0-100.0); Macrocytosis Slight; Monocytes # (A) 0.2 k/uL (0-1.0); Monocytes % (A) 4 %; Neutrophils # (A) 1.9 k/uL (1.3-7.7); Neutrophils % (A) 41 %; Platelet Count 153 k/uL (150-450); RBC 3.58 m/uL (3.80-5.40); RDW 14.6 % (11.5-15.5); WBC 4.8 k/uL (3.8-10.6)
[2019-04-18 15:53] LABS: HGB 11.5 gm/dL (11.4-16.0)
== END | disposition home or self-care (01) ==
LOC: LABPAT 14:54
PROVIDERS: ATTEND Surgery
DX: Z01.812 Encounter for preprocedural laboratory examination (principal); K21.0 Gastro-esophageal reflux disease with esophagitis
CPT/HCPCS: 36415; 85025

== ENCOUNTER 2019-04-27 09:22 | Day surgery (SDC) | payer MEDICARE ==
[~2019-04-27 09:22] MED LIST changes: +HEPARIN SODIUM,PORCINE 5,000 UNIT/ML 1 ML VIAL SQ ONE; -LACTATED RINGERS 1,000 ML IV ONE; -LACTATED RINGERS 1,000 ML IV SCH; -LIDOCAINE 1% 20 ML VIAL (10MG/ML) FOR IV START INTRADERMA PRN; -ONDANSETRON 4 MG/2 ML VIAL IVP ONE; -PROPOFOL 10 MG/ML 20 ML VIAL IV ONE; +ceFAZolin IN SWFI 2 GM/20 ML SYRINGE IVP ONE
[2019-04-27] MEDS ORDERED: DEXAMETHASONE SOD PHOS (MDV) 100 MG/10 ML VIAL IV ONE (09:48)
[2019-04-27] MEDS ORDERED: LACTATED RINGERS 1,000 ML IV ONE ×2 (09:48→11:34)
[2019-04-27] MEDS ORDERED: LIDOCAINE 1% 20 ML VIAL (10MG/ML) FOR IV START INTRADERMA ONE (09:48)
[2019-04-27] MEDS ORDERED: ONDANSETRON 4 MG/2 ML VIAL IVP ONE (09:49)
--- NOTE | 2019-04-27 10:20 | P.GSHP ---
History of Present Illness H&P Date: 04/27/19 Chief Complaint: GERD This is a 63-year-old female referred from Donavan Rodriguez.The patient has had long- standing problems with reflux esophagitis. The patient underwent recent EGD is found have evidence of esophagitis. Patient has been well informed on the procedure of laparoscopic Anahi fundoplication. The patient is aware the risk of the conversion to the open procedure, risk of injury to the stomach, liver and spleen. The patient is also a risk of recurrent GERD and dysphagia symptoms. The patient understands there is a postoperative diet of full liquids for 2 weeks after surgery. Past Medical History Past Medical History: COPD, GERD/Reflux, Hyperlipidemia, Hypertension, Memory Impairment, Musculoskeletal Disorder, Osteoarthritis (OA), Pneumonia Additional Past Medical History / Comment(s): currently having "joaquín feet & hands numbness, legs giving out and feeling lightheaded and freq falls",hiatal hernia, Hx stomach ulcers, severe constipation/impaction, pancreatitis, osteoporosis, empysema, migraines, Bipolar. 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 Past Anesthesia/Blood Transfusion Reactions: Postoperative Nausea & Vomiting (PONV) Additional Past Anesthesia/Blood Transfusion Reaction / Comment(s): no hx blood transfusion Smoking Status: Current every day smoker - Past Family History Mother Family Medical History: Cancer Medications and Allergies Home Medications Medication Instructions Recorded Confirmed Type Aspirin [Adult Low Dose Aspirin EC] 81 mg PO DAILY 05/17/18 04/27/19 History Metoprolol Succinate [Toprol XL] 100 mg PO QAM 05/17/18 04/27/19 History QUEtiapine [SEROquel] 800 mg PO HS 05/17/18 04/27/19 History clonazePAM [KlonoPIN] 2 mg PO HS 05/17/18 04/27/19 History lamoTRIgine [LaMICtal] 200 mg PO BID 05/17/18 04/27/19 History Atorvastatin [Lipitor] 20 mg PO DAILY 01/31/19 04/27/19 History Budesonide/Formoterol Fumarate 2 puff INHALATION RT-BID 01/31/19 04/27/19 History [Symbicort 160-4.5 Mcg Inhaler] buPROPion XL [Wellbutrin XL] 150 mg PO QAM 01/31/19 04/27/19 History Acetaminophen [Tylenol Arthritis] 650 mg PO TID PRN 02/15/19 04/27/19 History Albuterol Sulfate [Proair Hfa] 1 - 2 puff INHALATION BID PRN 03/21/19 04/27/19 History Ibuprofen 800 mg PO TID PRN 03/21/19 04/27/19 History Methocarbamol [Robaxin] 1,000 mg PO TID PRN 03/21/19 04/27/19 History Nicotine 14Mg/24Hr Patch [Habitrol 1 patch TRANSDERM DAILY 04/20/19 04/27/19 History 14Mg/24Hr Patch] Omeprazole 40 mg PO QAM 04/20/19 04/27/19 History Tylenol 300 W/ Codeine 15 2 - 3 tab PO BID PRN MDD purchases 04/20/19 04/27/19 History in [place] Allergies Allergy/AdvReac Type Severity Reaction Status Date / Time cefaclor [From Ceclor] Allergy Rash/Hives Verified 04/27/19 09:32 hydrocodone [From [place]] AdvReac "doesn't Verified 04/27/19 09:32 work for me" Surgical - Exam Vital Signs Temp Pulse Resp BP Pulse Ox 97 F L 69 16 131/75 97 04/27/19 09:40 04/27/19 09:40 04/27/19 09:40 04/27/19 09:40 04/27/19 09:40 - General well developed, well nourished, no distress - Eyes PERRL - ENT normal pinna - Neck no masses - Respiratory normal expansion - Cardiovascular Rhythm: regular - Abdomen Abdomen: soft, non tender Assessment and Plan Assessment: GERD. We'll perform laparoscopic Anahi fundal plication.
[2019-04-27] MEDS ORDERED: ROCURONIUM BROMIDE 10 MG/ML 10 ML VIAL IV ONE (10:40)
[2019-04-27] MEDS ORDERED: ePHEDrine SULFATE/0.9% NACL/PF 50 MG/5 ML SYRINGE IV ONE (10:40)
[2019-04-27] MEDS ORDERED: GLYCOPYRROLATE 0.2 MG/ML 2 ML VIAL ONE (10:40)
[2019-04-27] MEDS ORDERED: fentaNYL (PF) 50 MCG/ML 2 ML AMP ONE (10:40)
[2019-04-27] MEDS ORDERED: KETOROLAC 30 MG/ML 1 ML VIAL ONE (10:40)
[2019-04-27] MEDS ORDERED: LIDOCAINE 1% INJ 10MG/ML (20 ML MDV) ONE (10:40)
[2019-04-27] MEDS ORDERED: MIDAZOLAM 2 MG/2 ML VIAL ONE (10:40)
[2019-04-27] MEDS ORDERED: SUCCINYLCHOLINE CHLORIDE 100 MG/5 ML SYR IV ONE (10:40)
[2019-04-27] MEDS ORDERED: PROPOFOL 10 MG/ML 20 ML VIAL IV ONE (10:40)
[2019-04-27] MEDS ORDERED: NEOSTIGMINE 1 MG/ML 10 ML VIAL ONE (10:40)
[2019-04-27] MEDS ORDERED: BUPIVACAIN-EPI 0.5%-1:200,000 30 ML VIAL SQ ONE (11:08)
[2019-04-27] MEDS: HYDROmorphone 1 MG/ML 1 ML SYRINGE IVP ONE ×2 (11:51→12:01)
--- NOTE | 2019-04-27 12:16 | P.OP ---
Date of Procedure: 04/27/19 Preoperative Diagnosis: GERD Postoperative Diagnosis: GERD Procedure(s) Performed: Laparoscopic Anahi fundoplication Anesthesia: ANTONINA Surgeon: Joselo Torre Estimated Blood Loss (ml): 5 Pathology: none sent Condition: stable Disposition: PACU Description of Procedure: HarThe patient was placed on the operating table in the supine position. The patient received general anesthesia. And was placed in dorsal lithotomy position. The patient was prepped and draped in the usual sterile fashion. The skin incision sites were anesthetized with 1% local Xylocaine. The skin was incised in the left periumbilical area and then using a blade less 5 mm trocar under direct visualization panel cavity was entered. After adequate insufflation the laparoscope was then placed into the peritoneal cavity. Next a 5 mm trochars placed in the right epigastric position. Another 5 millimeter trocar the right lateral position. Another 5 millimeter trocar in the left lateral position a 5 mm trocar is placed in the left epigastric position. And then the initial 5 mm trocar was exchanged for a 10 mm trocar. The left lateral lobe liver was retracted. The hernia was seen. The crural defect was then dissected using the Harmonic scissors device. A 360 crural dissection was performed the esophagus stomach was reduced back into the peritoneal Cavity. The crural defect was then closed using 2-0 Ethibond suture. Next the fundus of the stomach was mobilized using the [place] scissors device. and then a 58- [place] bougie dilator was placed oropharynx passed into the esophagus and stomach the fundal plication wrap was then performed by grasping the fundus post eriorly and bringing it around the esophagus and stomach fundoplication was then performed using 2-0 Ethibond suture. Care was taken that the fundal location rested over top of the intra-abdominal esophagus. There was no injury seen to the stomach or esophagus. The dilator was then withdrawn. The abdomen was irrigated there is no bleeding seen. The trochars were then withdrawn and then skin incision sites were closed using 3-0 Monocryl suture Steri-Strips are applied. Patient thought procedure well and sent to recovery room in stable condition.
[2019-04-27] MEDS ORDERED: HYDROmorphone 1 MG/ML 1 ML SYRINGE IM PRN (12:41)
[2019-04-27] MEDS: D5-0.45% NACL WITH KCL 20MEQ/L 1,000 ML IV SCH ×2 (13:33→22:39)
[2019-04-27] MEDS: HYDROmorphone 1 MG/ML 1 ML SYRINGE IVP PRN ×3 (15:06→22:44)
[2019-04-27] MEDS ORDERED: ALBUTEROL NEBULIZED 2.5 MG/3 ML INHALATION PRN (17:16)
--- NOTE | 2019-04-27 17:30 | P.CONS ---
History of Present Illness - History of Present Illness 63 female was referred to surgeon for chronic esophagitis Post laproscopic Ni ssen fundal plication. History fo COPD hypertension bipolar Patient states pain controlled .Home medications ordered Review of Systems Gastrointestinal: Reports abdominal pain Past Medical History Past Medical History: COPD, GERD/Reflux, Hyperlipidemia, Hypertension, Memory Impairment, Musculoskeletal Disorder, Osteoarthritis (OA), Pneumonia Additional Past Medical History / Comment(s): currently having "joaquín feet & hands numbness, legs giving out and feeling lightheaded and freq falls",hiatal hernia, Hx stomach ulcers, severe constipation/impaction, pancreatitis, osteoporosis, empysema, migraines, Bipolar. 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 Past Anesthesia/Blood Transfusion Reactions: Postoperative Nausea & Vomiting (PO NV) Additional Past Anesthesia/Blood Transfusion Reaction / Comm: no hx blood transfusion Past Psychological History: Anxiety, Bipolar Smoking Status: Former smoker Past Alcohol Use History: None Reported Additional Past Alcohol Use History / Comment(s): Has been smoking since 14 yrs old. Down to 1 PPD from 3. Past Drug Use History: None Reported - Past Family History Mother Family Medical History: Cancer Medications and Allergies Home Medications Medication Instructions Recorded Confirmed Type Aspirin [Adult Low Dose Aspirin EC] 81 mg PO DAILY 05/17/18 04/27/19 History Metoprolol Succinate [Toprol XL] 100 mg PO QAM 05/17/18 04/27/19 History QUEtiapine [SEROquel] 800 mg PO HS 05/17/18 04/27/19 History clonazePAM [KlonoPIN] 2 mg PO HS 05/17/18 04/27/19 History lamoTRIgine [LaMICtal] 200 mg PO BID 05/17/18 04/27/19 History Atorvastatin [Lipitor] 20 mg PO DAILY 01/31/19 04/27/19 History Budesonide/Formoterol Fumarate 2 puff INHALATION RT-BID 01/31/19 04/27/19 History [Symbicort 160-4.5 Mcg Inhaler] buPROPion XL [Wellbutrin XL] 150 mg PO QAM 01/31/19 04/27/19 History Acetaminophen [Tylenol Arthritis] 650 mg PO TID PRN 02/15/19 04/27/19 History Albuterol Sulfate [Proair Hfa] 1 - 2 puff INHALATION BID PRN 03/21/19 04/27/19 History Ibuprofen 800 mg PO TID PRN 03/21/19 04/27/19 History Methocarbamol [Robaxin] 1,000 mg PO TID PRN 03/21/19 04/27/19 History Nicotine 14Mg/24Hr Patch [Habitrol 1 patch TRANSDERM DAILY 04/20/19 04/27/19 History 14Mg/24Hr Patch] Omeprazole 40 mg PO QAM 04/20/19 04/27/19 History Allergies Allergy/AdvReac Type Severity Reaction Status Date / Time cefaclor [From Ceclor] Allergy Rash/Hives Verified 04/27/19 09:32 hydrocodone [From [place]] AdvReac "doesn't Verified 04/27/19 09:32 work for me" Physical Exam Vitals: Vital Signs Temp Pulse Pulse Resp BP Pulse Ox 04/27/19 16:00 76 16 107/70 97 04/27/19 15:00 76 16 118/77 97 04/27/19 14:30 75 16 127/81 98 04/27/19 14:00 74 16 121/89 98 04/27/19 13:45 75 16 142/86 98 04/27/19 13:30 76 16 137/83 98 04/27/19 13:15 98.4 F 71 16 121/79 98 04/27/19 12:31 65 16 125/82 99 04/27/19 12:16 62 16 120/73 99 04/27/19 12:01 68 16 113/67 93 L 04/27/19 11:42 97.3 F L 69 16 131/75 98 04/27/19 09:40 97 F L 69 16 131/75 97 Intake and Output 04/27/19 04/27/19 04/27/19 06:59 14:59 22:59 Intake Total 1400 Output Total 5 Balance 1395 Intake: IV 1400 Output: Estimated Blood Loss 5 Other: # Voids 1 - Constitutional General appearance: mild distress, thin - EENT Eyes: PERRLA Ears: bilateral: normal - Respiratory Respiratory: bilateral: CTA - Cardiovascular Rhythm: regular - Gastrointestinal General gastrointestinal: soft - Integumentary Integumentary: normal - Neurologic Neurologic: CNII-XII intact - Musculoskeletal Musculoskeletal: gait normal - Psychiatric Psychiatric: A&O x's 3, appropriate affect, intact judgment & insight Assessment and Plan Plan: assessment Post laproscopic Anahi fundal plication Gerd chronic esphogitis malnutrition protein calorie def. COPD hypertension Bipolar Plan will monitor for change in condition Home medications ordered
[2019-04-27] MEDS ORDERED: clonazePAM 1 MG TAB PO SCH (21:00)
[2019-04-27] MEDS ORDERED: QUEtiapine 400 MG TAB PO SCH (21:00)
[2019-04-27] MEDS: lamoTRIgine 100 MG TAB PO SCH (21:07)
[2019-04-27] MEDS: SYMBICORT 160-4.5 MCG INHALER INHALATION SCH (21:32)
[2019-04-27 23:28] VITALS: PULSE 62; RESP 18
[2019-04-28] MEDS: HYDROmorphone 1 MG/ML 1 ML SYRINGE IVP PRN ×2 (02:37→08:14)
[2019-04-28] MEDS: lamoTRIgine 100 MG TAB PO SCH (08:13)
[2019-04-28 08:15] LABS: Basophils % (A) 0 %; Eosinophils # (A) 0.1 k/uL (0-0.7); Eosinophils % (A) 2 %; HCT 34.4 % (34.0-46.0); HGB 11.1 gm/dL (11.4-16.0); Lymphocytes # (A) 2.1 k/uL (1.0-4.8); Lymphocytes % (A) 26 %; MCH 31.9 pg (25.0-35.0); MCHC 32.3 g/dL (31.0-37.0); MCV 98.7 fL (80.0-100.0); Mean Platelet Volume 7.7; Monocytes # (A) 0.4 k/uL (0-1.0); Monocytes % (A) 5 %; Neutrophils # (A) 5.3 k/uL (1.3-7.7); Neutrophils % (A) 66 %; Platelet Count 152 k/uL (150-450); RBC 3.49 m/uL (3.80-5.40); RDW 14.5 % (11.5-15.5)
[2019-04-28] MEDS: D5-0.45% NACL WITH KCL 20MEQ/L 1,000 ML IV SCH ×2 (08:15→12:13)
[2019-04-28 08:25] LABS: Albumin 3.9 g/dL (3.5-5.0); Calcium 9.3 mg/dL (8.4-10.2); Potassium 4.4 mmol/L (3.5-5.1); Total Bilirubin 0.5 mg/dL (0.2-1.3); Total Protein 6.5 g/dL (6.3-8.2)
[2019-04-28] MEDS ORDERED: NICOTINE 14MG/24HR PATCH TRANSDERM SCH (09:00)
[2019-04-28] MEDS ORDERED: ENOXAPARIN 40 MG/0.4 ML SYRINGE SQ SCH (09:00)
[2019-04-28] MEDS ORDERED: buPROPion XL 150 MG TAB.ER.24H PO SCH (09:00)
[2019-04-28] MEDS ORDERED: METOPROLOL SUCCINATE (ER) 100 MG TAB.ER.24H PO SCH (09:00)
[2019-04-28] MEDS ORDERED: ATORVASTATIN 20 MG TAB PO SCH (09:00)
[2019-04-28] MEDS: SYMBICORT 160-4.5 MCG INHALER INHALATION SCH (09:27)
[2019-04-28] MEDS ORDERED: HYDROcodone/APAP 5-325MG 1 EACH TAB PO PRN (10:57)
[2019-04-28] MEDS: Acetaminophen-Codeine 300-30mg TAB PO PRN ×2 (11:49→15:13)
[2019-04-28 12:42] VITALS: BMI 17.9
--- NOTE | 2019-04-28 12:42 | P.PN ---
Subjective Patient resting in bed complaining of abdominal pain. Instructed to talk to surgeon regarding home pain meds Objective - Vital Signs Vital signs: Vital Signs Temp 97.8 F 04/28/19 08:12 Pulse 62 04/27/19 23:28 Resp 18 04/28/19 08:12 BP 116/77 04/28/19 08:12 Pulse Ox 95 04/28/19 08:12 Intake & Output 04/27/19 04/28/19 04/28/19 18:59 06:59 18:59 Intake Total 1400 Output Total 5 Balance 1395 Intake: IV 1400 Output: Estimated Blood Loss 5 Other: Voiding Method Toilet # Voids 1 1 2 - Constitutional General appearance: Present: mild distress, thin - EENT Eyes: Present: PERRLA Ears: bilateral: normal - Neck Neck: Present: normal ROM - Respiratory Respiratory: bilateral: diminished - Cardiovascular Rhythm: regular - Gastrointestinal General gastrointestinal: Present: soft - Integumentary Integumentary: Present: normal - Neurologic Neurologic: Present: CNII-XII intact - Musculoskeletal Musculoskeletal: Present: gait normal - Psychiatric Psychiatric: Present: A&O x's 3, appropriate affect, intact judgment & insight - Labs CBC & Chem 7: 04/28/19 07:58 04/28/19 07:58 Labs: Abnormal Lab Results - Last 24 Hours (Table) 04/28/19 04/28/19 Range/Units 07:58 07:58 RBC 3.49 L (3.80-5.40) m/uL Hgb 11.1 L (11.4-16.0) gm/dL Chloride 110 H (98-107) mmol/L Carbon Dioxide 21 L (22-30) mmol/L Glucose 151 H (74-99) mg/dL AST 43 H (14-36) U/L Assessment and Plan Plan: Assessment Post laparoscopic Anahi fundal plication History of GERD with esophagitis History of COPD stable Hypertension Hyperlipidemia Bipolar Protein calorie deficient malnutrition with anorexia Plan Patient stable for discharge medically
--- NOTE | 2019-04-28 12:48 | FL ---
EXAMINATION TYPE: FL esophagus cervic/pharynx DATE OF EXAM: 04/28/2019 HISTORY: Post Sergio COMPARISON: NONE TECHNIQUE: A single contrast esophagram is performed utilizing air and barium. FINDINGS: The esophagus shows normal motility and emptying into the stomach. No evidence of obstruction or extr avasation. There is a small amount of free intraperitoneal air likely postsurgical. Contrast is seen to extend in the stomach and subsequently into the duodenum. IMPRESSION: 1. No evidence of obstruction or extravasation. 2. Small amount of free intraperitoneal air. This likely is postsurgical correlate clinically.
[2019-04-28 12:57] VITALS: BP 116/73; TEMP 97.1
== END 2019-04-28 16:12 | disposition home or self-care (01) ==
LOC: OR 09:22 → 6PED 12:17 → OR 04-28 16:12
PROVIDERS: ATTEND Surgery
DX: K21.0 Gastro-esophageal reflux disease with esophagitis (principal); K44.9 Diaphragmatic hernia without obstruction or gangrene; E78.5 Hyperlipidemia, unspecified; I10 Essential (primary) hypertension; J44.9 Chronic obstructive pulmonary disease, unspecified; F17.200 Nicotine dependence, unspecified, uncomplicated; R41.3 Other amnesia; M19.90 Unspecified osteoarthritis, unspecified site; Z87.01 Personal history of pneumonia (recurrent); M81.0 Age-related osteoporosis without current pathological fracture; J43.9 Emphysema, unspecified; G43.909 Migraine, unspecified, not intractable, without status migrainosus; F31.9 Bipolar disorder, unspecified; Z90.49 Acquired absence of other specified parts of digestive tract; Z90.710 Acquired absence of both cervix and uterus; M46.92 Unspecified inflammatory spondylopathy, cervical region; M46.96 Unspecified inflammatory spondylopathy, lumbar region; Z87.11 Personal history of peptic ulcer disease; Z79.82 Long term (current) use of aspirin; Z79.51 Long term (current) use of inhaled steroids; Z79.899 Other long term (current) drug therapy; Z88.1 Allergy status to other antibiotic agents; Z88.8 Allergy status to other drugs, medicaments and biological substances
CPT/HCPCS: 94640 ×2; 86900; 86901; 80053; 85025; 86850; 74210; 43280; S4990; J2250; J1644; J2710; J2405; J2001; J1650; J3010; J1885; J1170 ×2; J1100; J0330; J2704; J0690; Q9967

== ENCOUNTER → 2019-05-18 | Outpatient (CLI) | payer MEDICARE ==
--- NOTE | 2019-05-18 10:08 | FL ---
EXAMINATION TYPE: FL barium swallow DATE OF EXAM: 05/18/2019 CLINICAL HISTORY: Dysphagia after hiatal hernia repair in April 2019 with subsequent weight loss. TECHNIQUE: A single contrast esophagram is performed with Isovue. A total of 1 minute and 7 seconds of fluoroscopic time was utilized during procedure. 24 fluoroscopic images were saved during the exa mination. COMPARISON: None FINDINGS: The esophagus shows marked delayed motility and emptying into the stomach with incomplete p assage of contrast and correlated stasis of food products throughout the mid and distal esophagus sec ondary to a narrowing/stricture at the gastroesophageal junction despite prolonged imaging time. No evidence of hiatal hernia seen. The exam was terminated as there is risk for aspiration and this was discussed with the patient. IMPRESSION: Stricture at the gastroesophageal junction status post hiatal hernia repair with stasis o f liquid Isovue contrast and food products in the mid and distal esophagus. Patient is at risk for as piration. Findings were communicated with the ordering physician at approximately 10:[address] Jolene naranjo
== END | disposition home or self-care (01) ==
LOC: RADUSWWP 08:49
PROVIDERS: ATTEND Surgery
DX: R13.10 Dysphagia, unspecified (principal)
CPT/HCPCS: 74220; Q9967

== ENCOUNTER 2019-05-19 09:06 | Day surgery (SDC) | payer MEDICARE ==
[2019-05-18 11:06] VITALS: BMI 18.3
[2019-05-19 10:00] VITALS: RESP 18; TEMP 97.2
[2019-05-19] MEDS ORDERED: LIDOCAINE 1% 20 ML VIAL (10MG/ML) FOR IV START INTRADERMA ONE (10:12)
[2019-05-19] MEDS ORDERED: LACTATED RINGERS 1,000 ML IV ONE (10:12)
[2019-05-19] MEDS ORDERED: PROPOFOL 10 MG/ML 20 ML VIAL IV ONE (11:52)
--- NOTE | 2019-05-19 11:56 | P.GSHP ---
History of Present Illness H&P Date: 05/19/19 Chief Complaint: Dysphagia This is a 63-year-old female who underwent laparoscopic Anahi fundal plication several weeks ago. Patient developed dysphagia. She had an x-ray performed which shows evidence of solid food impacted in the esophagus. Patient is today for EGD. Past Medical History Past Medical History: COPD, GERD/Reflux, Hyperlipidemia, Hypertension, Memory Impairment, Osteoarthritis (OA), Pneumonia Additional Past Medical History / Comment(s): Hx stomach ulcers, severe constipation/impaction, pancreatitis, osteoporosis, empysema, migraines, Bipolar. Current issues with severe constipation and abd pain. diff swallowing currently/'chokes" History of Any Multi-Drug Resistant Organisms: None Reported Past Surgical History: Cholecystectomy, Hysterectomy, Orthopedic Surgery Additional Past Surgical History / Comment(s): 04/27/19 Anahi fundoplication, left foot surgery Past Anesthesia/Blood Transfusion Reactions: Postoperative Nausea & Vomiting (PONV) Additional Past Anesthesia/Blood Transfusion Reaction / Comment(s): no hx blood transfusion Past Psychological History: Anxiety, Bipolar Smoking Status: Current some day smoker Past Alcohol Use History: None Reported Additional Past Alcohol Use History / Comment(s): Has been smoking since 14 yrs old. Down to smoking just some days Past Drug Use History: None Reported - Past Family History Mother Family Medical History: Cancer Medications and Allergies Home Medications Medication Instructions Recorded Confirmed Type Aspirin [Adult Low Dose Aspirin EC] 81 mg PO DAILY 05/17/18 05/18/19 History Metoprolol Succinate [Toprol XL] 100 mg PO QAM 05/17/18 05/18/19 History QUEtiapine [SEROquel] 800 mg PO HS 05/17/18 05/18/19 History clonazePAM [KlonoPIN] 2 mg PO HS 05/17/18 05/18/19 History lamoTRIgine [LaMICtal] 200 mg PO BID 05/17/18 05/18/19 History Budesonide/Formoterol Fumarate 2 puff INHALATION BID 01/31/19 05/18/19 History [Symbicort 160-4.5 Mcg Inhaler] buPROPion XL [Wellbutrin XL] 150 mg PO QAM 01/31/19 05/18/19 History Acetaminophen [Tylenol Arthritis] 650 mg PO TID PRN 02/15/19 05/18/19 History Albuterol Sulfate [Proair Hfa] 1 - 2 puff INHALATION BID PRN 03/21/19 05/18/19 History Ibuprofen 800 mg PO TID PRN 03/21/19 05/18/19 History Methocarbamol [Robaxin] 1,000 mg PO TID PRN 03/21/19 05/18/19 History Omeprazole 40 mg PO QAM 04/20/19 05/18/19 History Allergies Allergy/AdvReac Type Severity Reaction Status Date / Time cefaclor [From Ceclor] Allergy Rash/Hives Verified 05/18/19 10:50 hydrocodone [From [place]] AdvReac "doesn't Verified 05/18/19 10:50 work for me" Surgical - Exam Vital Signs Temp Pulse Resp BP Pulse Ox 97.2 F L 83 18 86/60 97 05/19/19 09:59 05/19/19 09:59 05/19/19 09:59 05/19/19 09:59 05/19/19 09:59 - General well developed, well nourished, no distress - Eyes PERRL - ENT normal pinna - Neck no masses - Respiratory normal expansion - Cardiovascular Rhythm: regular - Abdomen Abdomen: soft, non tender Assessment and Plan Assessment: Dysphagia Foreign body esophagus. We'll perform EGD to evaluate.
--- NOTE | 2019-05-19 12:13 | P.OP ---
Date of Procedure: 05/19/19 Preoperative Diagnosis: Dysphagia Foreign body esophagus Postoperative Diagnosis: Dysphagia Procedure(s) Performed: EGD Anesthesia: MAC Surgeon: Joselo Torre Pathology: none sent Condition: stable Disposition: PACU Description of Procedure: The patient's placed on the endoscopy table in the lateral position. She received IV sedation. The gastric was placed oropharynx and passed in the esophagus and into the stomach. There was no evidence of any retained foreign body in esophagus. The patient's esophagram from yesterday showed evidence of a food bolus stuck in the esophagus. The scope was placed in the pylorus. There is no evidence of any gastric obstruction. The scope was then retroflexed there is no evidence of any recurrent hiatal hernia. The GE junction was at 40 cm. 820 mm balloon was placed across the GE junction and this was led proximally distally quite easily. The esophagus had appearance of some inflammation. No biopsies were performed. The scope was withdrawn.
[2019-05-19 13:10] VITALS: BP 121/86; PULSE 89
[2019-05-19] MEDS ORDERED: NA PHOS,M-B/NA PHOS,DI-BA 133 ML ENEMA RECTAL ONE (13:23)
== END 2019-05-19 13:36 | disposition home or self-care (01) ==
LOC: ORWHC2ENDO 09:06
PROVIDERS: ATTEND Surgery
DX: R13.10 Dysphagia, unspecified (principal); K21.9 Gastro-esophageal reflux disease without esophagitis; E78.5 Hyperlipidemia, unspecified; I10 Essential (primary) hypertension; R41.3 Other amnesia; M19.90 Unspecified osteoarthritis, unspecified site; Z87.01 Personal history of pneumonia (recurrent); Z87.11 Personal history of peptic ulcer disease; M81.0 Age-related osteoporosis without current pathological fracture; J43.9 Emphysema, unspecified; G43.909 Migraine, unspecified, not intractable, without status migrainosus; Z90.710 Acquired absence of both cervix and uterus; F31.9 Bipolar disorder, unspecified; K59.00 Constipation, unspecified; R10.9 Unspecified abdominal pain; F41.9 Anxiety disorder, unspecified; F17.200 Nicotine dependence, unspecified, uncomplicated; Z79.1 Long term (current) use of non-steroidal anti-inflammatories (NSAID); Z79.82 Long term (current) use of aspirin; Z79.51 Long term (current) use of inhaled steroids; Z79.899 Other long term (current) drug therapy; Z88.1 Allergy status to other antibiotic agents; Z88.5 Allergy status to narcotic agent
CPT/HCPCS: 43249; J2704; C1726

== ENCOUNTER 2019-08-08 18:01 | Emergency (ER) | payer MEDICARE ==
[2019-08-08] MEDS ORDERED: SODIUM CHLORIDE 0.9% 1,000 ML IV STA (18:11)
[2019-08-08] MEDS ORDERED: MORPHINE SULFATE 4 MG/ML SYRINGE IV STA (18:11)
[2019-08-08 18:12] VITALS: RESP 16; TEMP 97.9
--- NOTE | 2019-08-08 18:21 | ED ---
General Adult HPI - General Stated complaint: abd pain Time Seen by Provider: 08/08/19 18:03 Source: EMS, RN notes reviewed, old records reviewed Mode of arrival: EMS Limitations: no limitations - History of Present Illness Initial comments: 64-year-old male patient past medical history significant for COPD, hypertension, status post cholecystectomy be sent from application presents ED chief complaint of abdominal pain. Patient reports that for the last 4 days she has had denies abdominal pain worse in the suprapubic and right lower quadrant region. Patient was that she has nausea without emesis. Patient reports that she does have baseline constipation states that she did have bowel movement today however was small. Patient reports she is passing flatus. Denies any ch est pain or shortness of breath. Denies any other complaints. Systemic: Pt denies fatigue, fever/chills, rash. Pt denies weakness, night sweats, weight loss. Neuro: Pt denies headache, visual disturbances, syncope or pre-syncope. HEENT: Pt denies ocular discharge or irritation, otalgia, rhinorrhea, pharyngitis or notable lymphadenopathy. Cardiopulmonary: Pt denies chest pain, SOB, heart palpitations, dyspnea on exertion. Abdominal/GI: Pt denies abdominal pain, n/v/d. : Pt denies dysuria, burning w/ urination, frequency/urgency. Denies new onset urinary or bowel incontinence. MSK: Pt denies myalgia, loss of strength or function in extremities. Neuro: Pt denies new onset weakness, paresthesias. - Related Data Home Medications Medication Instructions Recorded Confirmed Aspirin [Adult Low Dose Aspirin EC] 81 mg PO DAILY 05/17/18 08/08/19 Metoprolol Succinate [Toprol XL] 100 mg PO DAILY 05/17/18 08/08/19 QUEtiapine [SEROquel] 800 mg PO HS 05/17/18 08/08/19 clonazePAM [KlonoPIN] 2 mg PO HS 05/17/18 08/08/19 lamoTRIgine [LaMICtal] 200 mg PO BID 05/17/18 08/08/19 Budesonide/Formoterol Fumarate 2 puff INHALATION RT-BID 01/31/19 08/08/19 [Symbicort 160-4.5 Mcg Inhaler] Acetaminophen [Tylenol Arthritis] 650 mg PO TID PRN 02/15/19 08/08/19 Albuterol Sulfate [Proair Hfa] 1 - 2 puff INHALATION RT-Q6H PRN 03/21/19 08/08/19 Ibuprofen 400 - 600 mg PO TID PRN 03/21/19 08/08/19 Methocarbamol [Robaxin] 500 mg PO TID PRN 03/21/19 08/08/19 Omeprazole 40 mg PO DAILY 04/20/19 08/08/19 Atorvastatin [Lipitor] 20 mg PO DAILY 08/08/19 08/08/19 buPROPion HCL [Wellbutrin XL] 300 mg PO DAILY 08/08/19 08/08/19 Previous Rx's Medication Instructions Recorded Nitrofurantoin Monohyd/M-Cryst 100 mg PO Q12HR 5 Days #10 cap 08/08/19 [Macrobid] Allergies Allergy/AdvReac Type Severity Reaction Status Date / Time cefaclor [From Ceclor] Allergy Rash/Hives Verified 08/08/19 19:08 hydrocodone [From [place]] AdvReac "doesn't Verified 08/08/19 19:08 work for me" Review of Systems ROS Statement: Those systems with pertinent positive or pertinent negative responses have been documented in the HPI. ROS Other: All systems not noted in ROS Statement are negative. Past Medical History Past Medical History: COPD, GERD/Reflux, Hyperlipidemia, Hypertension, Memory Impairment, Osteoarthritis (OA), Pneumonia Additional Past Medical History / Comment(s): Hx stomach ulcers, severe constipation/impaction, pancreatitis, osteoporosis, empysema, migraines, Bipolar. Current issues with severe constipation and abd pain. diff swallowing currently/'chokes" History of Any Multi-Drug Resistant Organisms: None Reported Past Surgical History: Cholecystectomy, Hysterectomy, Orthopedic Surgery Additional Past Surgical History / Comment(s): 04/27/19 Anahi fundoplication, left foot surgery Past Anesthesia/Blood Transfusion Reactions: Postoperative Nausea & Vomiting (PONV) Additional Past Anesthesia/Blood Transfusion Reaction / Comment(s): no hx blood transfusion Past Psychological History: Anxiety, Bipolar Smoking Status: Current some day smoker Past Alcohol Use History: None Reported Past Drug Use History: None Reported - Past Family History Mother Family Medical History: Cancer General Exam - General Exam Comments Initial Comments: Constitutional: NAD, AOX3, Pt has pleasant affect. HEENT: NC/AT, trachea midline, neck supple, no lymphadenopathy. Posterior pharynx non erythematous, without exudates. External ears appear normal, without discharge. Mucous membranes moist. Eyes PERRLA, EOM intact. There is no scleral icterus. No pallor noted. Cardiopulmonary: RRR, no murmurs, rubs or gallops, no JVD noted. Lungs CTAB in anterior and posterior gates. No peripheral edema. Abdominal exam: Abdomen soft and non-distended. Abdomen mildly tender to palpation right lower quadrant, suprapubic region. No guarding or rigidity. No ecchymoses.. Bowel sounds active in LLQ. No hepatosplenomegaly. No ecchymosis Neuro: CN II-XII grossly intact. No nuchal rigidity. No raccon eyes, no lockwood sign, no hemotympanum. No cervical spinal tenderness. MSK: No posterior calf tenderness bilaterally, homans sign negative bilaterally. Posterior tibialis and radial pulse +2 bilaterally. Sensation intact in upper and lower extremities. Full active ROM in upper and lower extremities, 5/5 stregnth. Limitations: no limitations Course Vital Signs 08/08/19 08/08/19 18:10 21:19 Temperature 97.9 F Pulse Rate 76 72 Respiratory 16 16 Rate Blood Pressure 110/75 143/92 O2 Sat by Pulse 99 97 Oximetry Medical Decision Making - Medical Decision Making 64-year-old male patient past medical history significant for COPD, hypertension, status post cholecystectomy be sent from application presents ED chief complaint of abdominal pain. Patient reports that for the last 4 days she has had denies abdominal pain worse in the suprapubic and right lower quadrant region. Patient was that she has nausea without emesis. Patient reports that she does have baseline constipation states that she did have bowel movement today however was small. Patient reports she is passing flatus. Denies any chest pain or shortness of breath. Denies any other complaints. Patient vital signs stable, afebrile. Physical exam displayed: Abdomen soft and non- distended. Abdomen mildly tender to palpation right lower quadrant, suprapubic region. No guarding or rigidity. No ecchymoses.. Bowel sounds active in LLQ. No hepatosplenomegaly. No ecchymosis. Abdomen investigations were not impressive. UA displayed 14 red blood cells, [address] abdomen and pelvis displayed periportal edema, dilated biliary tree, dilated bile ducts which are new. This can be associated with hepatitis. Mild subsegmental atelectasis. Mild sigmoid colon wall which may relate to nonspecific colitis. Clearing of the pleural effusion. Patient discharged with outpatient GI and primary care follow-up. Treated for UTI. Case discussed with Dr. Ruth. - Lab Data Result diagrams: 08/08/19 18:15 08/08/19 18:15 Lab Results 08/08/19 08/08/19 08/08/19 Range/Units 18:15 18:15 18:15 WBC 8.0 (3.8-10.6) k/uL RBC 3.51 L (3.80-5.40) m/uL Hgb 12.1 (11.4-16.0) gm/dL Hct 33.6 L (34.0-46.0) % MCV 95.7 (80.0-100.0) fL MCH 34.4 (25.0-35.0) pg MCHC 35.9 (31.0-37.0) g/dL RDW 13.3 (11.5-15.5) % Plt Count 161 (150-450) k/uL Neutrophils % 68 % Lymphocytes % 23 % Monocytes % 6 % Eosinophils % 1 % Basophils % 0 % Neutrophils # 5.4 (1.3-7.7) k/uL Lymphocytes # 1.9 (1.0-4.8) k/uL Monocytes # 0.5 (0-1.0) k/uL Eosinophils # 0.1 (0-0.7) k/uL Basophils # 0.0 (0-0.2) k/uL Sodium 138 (137-145) mmol/L Potassium 3.9 (3.5-5.1) mmol/L Chloride 107 (98-107) mmol/L Carbon Dioxide 22 (22-30) mmol/L Anion Gap 9 mmol/L BUN 22 H (7-17) mg/dL Creatinine 0.79 (0.52-1.04) mg/dL Est GFR (CKD-EPI)AfAm >90 (>60 ml/min/1.73 sqM) Est GFR (CKD-EPI)NonAf 81 (>60 ml/min/1.73 sqM) Glucose 106 H (74-99) mg/dL Plasma Lactic Acid Justin 1.0 (0.7-2.0) mmol/L Calcium 8.8 (8.4-10.2) mg/dL Total Bilirubin 0.5 (0.2-1.3) mg/dL AST 25 (14-36) U/L ALT 30 (9-52) U/L Alkaline Phosphatase 76 (38-126) U/L Total Protein 6.1 L (6.3-8.2) g/dL Albumin 3.6 (3.5-5.0) g/dL Lipase 98 (23-300) U/L Urine Color Urine Appearance (Clear) Urine pH (5.0-8.0) Urine Protein (Negative) Urine Glucose (UA) (Negative) Urine Ketones (Negative) Urine Blood (Negative) Urine Nitrite (Negative) Urine Bilirubin (Negative) Urine Urobilinogen (<2.0) mg/dL Ur Leukocyte Esterase (Negative) Urine RBC (0-5) /hpf Urine WBC (0-5) /hpf Ur Squamous Epith Cells (0-4) /hpf Urine Mucus (None) /hpf 08/08/19 Range/Units 21:15 WBC (3.8-10.6) k/uL RBC (3.80-5.40) m/uL Hgb (11.4-16.0) gm/dL Hct (34.0-46.0) % MCV (80.0-100.0) fL MCH (25.0-35.0) pg MCHC (31.0-37.0) g/dL RDW (11.5-15.5) % Plt Count (150-450) k/uL Neutrophils % % Lymphocytes % % Monocytes % % Eosinophils % % Basophils % % Neutrophils # (1.3-7.7) k/uL Lymphocytes # (1.0-4.8) k/uL Monocytes # (0-1.0) k/uL Eosinophils # (0-0.7) k/uL Basophils # (0-0.2) k/uL Sodium (137-145) mmol/L Potassium (3.5-5.1) mmol/L Chloride (98-107) mmol/L Carbon Dioxide (22-30) mmol/L Anion Gap mmol/L BUN (7-17) mg/dL Creatinine (0.52-1.04) mg/dL Est GFR (CKD-EPI)AfAm (>60 ml/min/1.73 sqM) Est GFR (CKD-EPI)NonAf (>60 ml/min/1.73 sqM) Glucose (74-99) mg/dL Plasma Lactic Acid Justin (0.7-2.0) mmol/L Calcium (8.4-10.2) mg/dL Total Bilirubin (0.2-1.3) mg/dL AST (14-36) U/L ALT (9-52) U/L Alkaline Phosphatase (38-126) U/L Total Protein (6.3-8.2) g/dL Albumin (3.5-5.0) g/dL Lipase (23-300) U/L Urine Color Yellow Urine Appearance Clear (Clear) Urine pH 6.5 (5.0-8.0) Urine Protein 1+ H (Negative) Urine Glucose (UA) Negative (Negative) Urine Ketones 1+ H (Negative) Urine Blood Small H (Negative) Urine Nitrite Negative (Negative) Urine Bilirubin Negative (Negative) Urine Urobilinogen <2.0 (<2.0) mg/dL Ur Leukocyte Esterase Moderate H (Negative) Urine RBC 14 H (0-5) /hpf Urine WBC 21 H (0-5) /hpf Ur Squamous Epith Cells 3 (0-4) /hpf Urine Mucus Occasional H (None) /hpf Disposition Clinical Impression: Abdominal pain, UTI (urinary tract infection) Disposition: HOME SELF-CARE Condition: Stable Instructions (If sedation given, give patient instructions): Abdominal Pain (ED), Urinary Tract Infection in Women (ED) Additional Instructions: Patient to adhere to previously discussed treatment plan and will take medication(s) as directed. Patient to follow up with PCP in 1-2 days. Patient to return to ED if symptoms do not improve. Follow-up with primary care provider and gluer and slicer hand. Take medication as directed. Return to ER if condition worsens in any way. Prescriptions: Nitrofurantoin Monohyd/M-Cryst [Macrobid] 100 mg PO Q12HR 5 Days #10 cap Is patient prescribed a controlled substance at d/c from ED?: No Referrals: Donavan Rodriguez MD [Primary Care Provider] - 1-2 days Xiomy Alexander MD [STAFF PHYSICIAN] - 1-2 days
[2019-08-08 19:11] LABS: Basophils % (A) 0 %; Eosinophils # (A) 0.1 k/uL (0-0.7); Eosinophils % (A) 1 %; HCT 33.6 % (34.0-46.0); HGB 12.1 gm/dL (11.4-16.0); Lymphocytes # (A) 1.9 k/uL (1.0-4.8); Lymphocytes % (A) 23 %; MCH 34.4 pg (25.0-35.0); MCHC 35.9 g/dL (31.0-37.0); MCV 95.7 fL (80.0-100.0); Mean Platelet Volume 6.4; Monocytes # (A) 0.5 k/uL (0-1.0); Monocytes % (A) 6 %; Neutrophils # (A) 5.4 k/uL (1.3-7.7); Neutrophils % (A) 68 %; Platelet Count 161 k/uL (150-450); RBC 3.51 m/uL (3.80-5.40); RDW 13.3 % (11.5-15.5)
[2019-08-08 19:29] LABS: ALT 30 U/L (9-52); AST 25 U/L (14-36); African American GFR (CKD) >90 (>60 ml/min/1.73 sqM); Albumin 3.6 g/dL (3.5-5.0); Alkaline Phosphatase 76 U/L (38-126); Anion Gap 9 mmol/L; Blood Urea Nitrogen 22 mg/dL (7-17); Calcium 8.8 mg/dL (8.4-10.2); Carbon Dioxide 22 mmol/L (22-30); Chloride 107 mmol/L (98-107); Glucose 106 mg/dL (74-99); Potassium 3.9 mmol/L (3.5-5.1); Sodium 138 mmol/L (137-145); Total Bilirubin 0.5 mg/dL (0.2-1.3); Total Protein 6.1 g/dL (6.3-8.2)
--- NOTE | 2019-08-08 20:29 | CT ---
EXAMINATION TYPE: CT abdomen pelvis w con DATE OF EXAM: 08/08/2019 COMPARISON: 02/19/2019 HISTORY: RLQ pain. Pt states she hasn't been able to eat w/out stomach upset for one week. Hx pancrea titis, stomach ulcers. Sx hx tracy, hysterectomy CT DLP: 550 mGycm Automated exposure control for dose reduction was used. TECHNIQUE: Helical acquisition of images was performed from the lung bases through the pelvis. CONTRAST: Performed without Oral Contrast and with IV Contrast, patient injected with 100 mL of Isovue 370. FINDINGS: There is minimal subsegmental atelectasis at the posterior lung bases. Heart size is normal. There is enlargement of the biliary tree. Common bile duct measures 1.5 cm. Intrahepatic bile ducts are mildl y dilated. Spleen is intact. There is no evidence of pancreatic mass. There is mild ectasia of the pa ncreatic duct. Stomach is intact. There are clips at the gastroesophageal junction. There is periport al edema in the liver. There is no adrenal mass. Kidneys show satisfactory contrast opacification. There is no hydronephrosi s. There are multiple small right renal calculi. These measure up to 4 mm. There is no retroperitoneal adenopathy. Bladder distends smoothly. There is no inguinal hernia. There is no free fluid in the pelvis. There is mild wall thickening of the sigmoid colon. There is no sign of free air. There is no mesenteric edema. There is no ascites. Lumbar vertebra have normal alignment. There is narrowing at L4-5 and L5-S1 discs. There is no bony d estructive process. IMPRESSION: THERE IS PERIPORTAL EDEMA. THERE IS DILATED BILIARY TREE. DILATED BILE DUCTS APPEAR NEW COMPARED TO O LD CT SCAN. MRCP MIGHT BE USEFUL FOR FURTHER EVALUATION IF CLINICALLY INDICATED. PERIPORTAL EDEMA IS NONSPECIFIC AND CAN BE ASSOCIATED WITH HEPATITIS. MILD SUBSEGMENTAL ATELECTASIS AT THE LUNG BASES. MILD SIGMOID COLON WALL THICKENING COULD RELATE TO M ILD NONSPECIFIC COLITIS. THERE IS CLEARING OF THE PLEURAL EFFUSIONS COMPARED TO OLD EXAM.
[2019-08-08 21:20] VITALS: BP 143/92; PULSE 72
[2019-08-08 21:31] LABS: Appearance,Urine Clear (Clear); Bilirubin,Urine Negative (Negative); Blood,Urine Small (Negative); Color,Urine Yellow; Glucose,Urine (UA) Negative (Negative); Ketones,Urine 1+ (Negative); Leukocyte Esterase,Urine Moderate (Negative); Mucus,Urine Occasional /hpf; Nitrite,Urine Negative (Negative); PH, Urine 6.5 (5.0-8.0); Protein,Urine 1+ (Negative); RBC,Urine 14 /hpf (0-5); Squamous Epithelial Cell,Urine 3 /hpf (0-4); Urobilinogen,Urine <2.0 mg/dL (<2.0); WBC,Urine 21 /hpf (0-5)
[2019-08-08] MEDS ORDERED: NITROFURANTOIN MONOHYD/M-CRYST 100 MG CAP PO STA (21:40)
[2019-08-08] MEDS ORDERED: ACET/COD 300 MG/30 MG STARTER PACK 6 TAB BTL PO STA (21:50)
[2019-08-08 21:57] LABS: Specific Gravity,Urine >1.050 (1.001-1.035)
== END 2019-08-08 22:00 | disposition home or self-care (01) ==
LOC: EC 18:01
DX: N39.0 Urinary tract infection, site not specified (principal); R11.0 Nausea; K83.8 Other specified diseases of biliary tract; J98.11 Atelectasis; J90 Pleural effusion, not elsewhere classified; K59.00 Constipation, unspecified; R14.3 Flatulence; J43.9 Emphysema, unspecified; K21.9 Gastro-esophageal reflux disease without esophagitis; E78.5 Hyperlipidemia, unspecified; I10 Essential (primary) hypertension; M19.90 Unspecified osteoarthritis, unspecified site; F31.9 Bipolar disorder, unspecified; F41.9 Anxiety disorder, unspecified; F17.200 Nicotine dependence, unspecified, uncomplicated; Z88.1 Allergy status to other antibiotic agents; Z88.5 Allergy status to narcotic agent; Z79.51 Long term (current) use of inhaled steroids; Z79.82 Long term (current) use of aspirin; Z79.899 Other long term (current) drug therapy; Z90.49 Acquired absence of other specified parts of digestive tract
CPT/HCPCS: 36415; 80053; 83605; 83690; 85025; 81001; 74177; 99285; 96374; 96361; J2270; Q9967

== ENCOUNTER 2020-03-11 02:46 | Emergency (ER) | payer MEDICARE ==
[2020-03-11 03:17] VITALS: RESP 18; TEMP 98.1
--- NOTE | 2020-03-11 04:03 | XR ---
EXAMINATION TYPE: XR chest 2V DATE OF EXAM: 03/11/2020 COMPARISON: 02/20/2019 HISTORY: Weakness TECHNIQUE: FINDINGS: There is some mild linear density at the lung bases. Heart is normal. Lungs are clear of co nsolidation. There is no heart failure. There are chest leads. Bony thorax is intact. IMPRESSION: There is some scarring and atelectasis at the lung bases not significantly different than last exam. No heart failure. Normal heart.
[2020-03-11 04:25] LABS: Basophils % (A) 0 %; Eosinophils # (A) 0.1 k/uL (0-0.7); Eosinophils % (A) 1 %; HCT 35.6 % (34.0-46.0); Lymphocytes # (A) 1.5 k/uL (1.0-4.8); Lymphocytes % (A) 25 %; MCH 33.6 pg (25.0-35.0); MCHC 33.9 g/dL (31.0-37.0); MCV 99.3 fL (80.0-100.0); Mean Platelet Volume 7.7; Monocytes # (A) 0.4 k/uL (0-1.0); Monocytes % (A) 6 %; Neutrophils % (A) 66 %; Platelet Count 152 k/uL (150-450); RBC 3.58 m/uL (3.80-5.40); RDW 12.2 % (11.5-15.5); WBC 6.1 k/uL (3.8-10.6)
[2020-03-11 04:29] LABS: INR 1.1 (<1.2); Partial Thromboplastin Time 24.9 sec (22.0-30.0)
[2020-03-11 04:32] LABS: Calcium 9.1 mg/dL (8.4-10.2); Potassium 3.7 mmol/L (3.5-5.1); Total Bilirubin 0.4 mg/dL (0.2-1.3)
[2020-03-11 04:37] LABS: Appearance,Urine Clear (Clear); Bacteria,Urine Rare /hpf; Bilirubin,Urine Negative (Negative); Blood,Urine Trace (Negative); Color,Urine Yellow; Glucose,Urine (UA) Negative (Negative); Ketones,Urine Negative (Negative); Leukocyte Esterase,Urine Moderate (Negative); Mucus,Urine Rare /hpf; Nitrite,Urine Negative (Negative); Protein,Urine Trace (Negative); RBC,Urine 2 /hpf (0-5); Specific Gravity,Urine 1.021 (1.001-1.035); Squamous Epithelial Cell,Urine 2 /hpf (0-4); Urobilinogen,Urine <2.0 mg/dL (<2.0); WBC,Urine 1 /hpf (0-5)
--- NOTE | 2020-03-11 04:59 | ED ---
Weakness HPI - General Source: patient, EMS Mode of arrival: EMS Limitations: no limitations - History of Present Illness MD Complaint: generalized weakness, lack of energy, difficulty walking Onset/Timin -: year(s) Location: LLE, RLE Severity: moderate Improves with: none Worsens with: none Associated Symptoms: denies other symptoms <Mau Chisholm - Last Filed: 03/11/20 07:44> <Abhay Roche - Last Filed: 03/11/20 08:05> - General Chief complaint: Weakness Stated complaint: Weakness Time Seen by Provider: 03/11/20 03:16 - History of Present Illness Initial comments: This patient is a 64-year-old woman with history of approximately a year of having bilateral lower extremity weakness and difficulty with walking. The patient states that she has a fall or feels like she is going to fall nearly every day. She states that her physician Dr. Rodriguez had wanted her to see a neurologist and had set her up to see Dr. Mariee a number of months ago but she states she had cancel and then has not had a chance to see the neurologist. Patient denies laterality. She states that both legs feel weak and she feels unsteady. (Mau Chisholm) - Related Data Home Medications Medication Instructions Recorded Confirmed Aspirin [Adult Low Dose Aspirin EC] 81 mg PO DAILY 05/17/18 08/08/19 Metoprolol Succinate [Toprol XL] 100 mg PO DAILY 05/17/18 08/08/19 QUEtiapine [SEROquel] 800 mg PO HS 05/17/18 08/08/19 clonazePAM [KlonoPIN] 2 mg PO HS 05/17/18 08/08/19 lamoTRIgine [LaMICtal] 200 mg PO BID 05/17/18 08/08/19 Budesonide/Formoterol Fumarate 2 puff INHALATION RT-BID 01/31/19 08/08/19 [Symbicort 160-4.5 Mcg Inhaler] Acetaminophen [Tylenol Arthritis] 650 mg PO TID PRN 02/15/19 08/08/19 Albuterol Sulfate [Proair Hfa] 1 - 2 puff INHALATION RT-Q6H PRN 03/21/19 08/08/19 Ibuprofen 400 - 600 mg PO TID PRN 03/21/19 08/08/19 Methocarbamol [Robaxin] 500 mg PO TID PRN 03/21/19 08/08/19 Omeprazole 40 mg PO DAILY 04/20/19 08/08/19 Atorvastatin [Lipitor] 20 mg PO DAILY 08/08/19 08/08/19 buPROPion HCL [Wellbutrin XL] 300 mg PO DAILY 08/08/19 08/08/19 Previous Rx's Medication Instructions Recorded Nitrofurantoin Monohyd/M-Cryst 100 mg PO Q12HR 5 Days #10 cap 08/08/19 [Macrobid] Allergies Allergy/AdvReac Type Severity Reaction Status Date / Time cefaclor [From Ceclor] Allergy Rash/Hives Verified 08/08/19 19:08 hydrocodone [From [place]] AdvReac "doesn't Verified 08/08/19 19:08 work for me" Review of Systems ROS Other: All systems not noted in ROS Statement are negative. Constitutional: Denies: fever, chills Respiratory: Denies: cough, dyspnea Cardiovascular: Denies: chest pain, palpitations, edema Gastrointestinal: Denies: abdominal pain, vomiting, diarrhea Genitourinary: Denies: dysuria Musculoskeletal: Reports: back pain (Chronic) Skin: Denies: rash Neurological: Denies: headache, weakness, numbness, paresthesias <Mau Chisholm - Last Filed: 03/11/20 07:44> ROS Other: All systems not noted in ROS Statement are negative. <Abhay Roche - Last Filed: 03/11/20 08:05> ROS Statement: Those systems with pertinent positive or pertinent negative responses have been documented in the HPI. Past Medical History Past Medical History: COPD, GERD/Reflux, Hyperlipidemia, Hypertension, Memory Impairment, Osteoarthritis (OA), Pneumonia Additional Past Medical History / Comment(s): Hx stomach ulcers, severe constipation/impaction, pancreatitis, osteoporosis, empysema, migraines. Current issues with severe constipation and abd pain. diff swallowing currently/'chokes" History of Any Multi-Drug Resistant Organisms: None Reported Past Surgical History: Cholecystectomy, Hysterectomy, Orthopedic Surgery Additional Past Surgical History / Comment(s): 04/27/19 Anahi fundoplication, left foot surgery Past Anesthesia/Blood Transfusion Reactions: Postoperative Nausea & Vomiting (PONV) Additional Past Anesthesia/Blood Transfusion Reaction / Comment(s): no hx blood transfusion Past Psychological History: Anxiety, Bipolar Smoking Status: Current some day smoker Past Alcohol Use History: None Reported Past Drug Use History: None Reported - Past Family History Mother Family Medical History: Cancer <Mau Chisholm - Last Filed: 03/11/20 07:44> General Exam Limitations: no limitations General appearance: alert, in no apparent distress Head exam: Present: atraumatic, normocephalic Eye exam: Present: normal appearance. Absent: scleral icterus, conjunctival injection ENT exam: Present: normal oropharynx Neck exam: Present: normal inspection, full ROM. Absent: tenderness Respiratory exam: Present: normal lung sounds bilaterally. Absent: respiratory distress, wheezes, rales, rhonchi, stridor Cardiovascular Exam: Present: regular rate, normal rhythm, normal heart sounds. Absent: systolic murmur, diastolic murmur, rubs, gallop GI/Abdominal exam: Present: soft. Absent: distended, tenderness, guarding, rebound, rigid, mass Extremities exam: Present: normal inspection, normal capillary refill. Absent: pedal edema, calf tenderness Neurological exam: Present: alert, CN II-XII intact. Absent: motor sensory deficit Skin exam: Present: warm, dry, intact, normal color. Absent: rash <Mau Chisholm - Last Filed: 03/11/20 07:44> Course Vital Signs 03/11/20 03/11/20 03/11/20 03:04 04:16 04:24 Temperature 98.1 F Pulse Rate 74 70 70 Respiratory 18 18 Rate Blood Pressure 107/81 107/86 O2 Sat by Pulse 99 96 Oximetry 03/11/20 03/11/20 03/11/20 04:30 04:40 04:50 Temperature Pulse Rate 71 68 69 Respiratory 18 Rate Blood Pressure 115/81 115/81 115/81 O2 Sat by Pulse 97 96 96 Oximetry 03/11/20 03/11/20 03/11/20 05:00 05:10 05:20 Temperature Pulse Rate 71 70 69 Respiratory Rate Blood Pressure 115/81 104/76 104/76 O2 Sat by Pulse 95 96 98 Oximetry 03/11/20 03/11/20 03/11/20 05:30 05:40 05:50 Temperature Pulse Rate 70 69 66 Respiratory Rate Blood Pressure 104/76 104/76 104/76 O2 Sat by Pulse 97 96 95 Oximetry 03/11/20 03/11/20 03/11/20 06:00 06:10 06:20 Temperature Pulse Rate 64 69 Respiratory Rate Blood Pressure 104/76 104/74 104/74 O2 Sat by Pulse 95 97 Oximetry 03/11/20 03/11/20 03/11/20 06:30 06:40 07:14 Temperature Pulse Rate 70 70 76 Respiratory 18 18 Rate Blood Pressure 104/74 104/74 140/88 O2 Sat by Pulse 97 96 96 Oximetry EKG Findings - EKG Results: EKG: interpreted by ERMD, sinus rhythm (Rate 70 bpm), normal axis, normal QRS, normal ST/T, no acute changes <Mau Chisholm - Last Filed: 03/11/20 07:44> Medical Decision Making - Lab Data Result diagrams: 03/11/20 03:55 03/11/20 03:55 <Mau Chisholm - Last Filed: 03/11/20 07:44> - Lab Data Result diagrams: 03/11/20 03:55 03/11/20 03:55 <Abhay Roche - Last Filed: 03/11/20 08:05> - Medical Decision Making Patient reevaluated at bedside after sign out. Patient labs were reviewed. She had elevated TSH. Medications reviewed. Patient states she does not take any medications for her thyroid. Considering elevated TSH for hypothyroidism. Patient told that she must follow up with Dr. Rodriguez for outpatient thyroid evaluation. So that she would likely benefit from thyroid medications. Patient ambulatory at baseline. Tolerating oral intake. She has no complaints and feels well for discharge. (Abhay Roche) - Lab Data Lab Results 03/11/20 03/11/20 03/11/20 Range/Units 03:55 03:55 03:55 WBC 6.1 (3.8-10.6) k/uL RBC 3.58 L (3.80-5.40) m/uL Hgb 12.0 (11.4-16.0) gm/dL Hct 35.6 (34.0-46.0) % MCV 99.3 (80.0-100.0) fL MCH 33.6 (25.0-35.0) pg MCHC 33.9 (31.0-37.0) g/dL RDW 12.2 (11.5-15.5) % Plt Count 152 (150-450) k/uL Neutrophils % 66 % Lymphocytes % 25 % Monocytes % 6 % Eosinophils % 1 % Basophils % 0 % Neutrophils # 4.0 (1.3-7.7) k/uL Lymphocytes # 1.5 (1.0-4.8) k/uL Monocytes # 0.4 (0-1.0) k/uL Eosinophils # 0.1 (0-0.7) k/uL Basophils # 0.0 (0-0.2) k/uL PT 11.0 (9.0-12.0) sec INR 1.1 (<1.2) APTT 24.9 (22.0-30.0) sec Sodium 139 (137-145) mmol/L Potassium 3.7 (3.5-5.1) mmol/L Chloride 107 (98-107) mmol/L Carbon Dioxide 22 (22-30) mmol/L Anion Gap 10 mmol/L BUN 23 H (7-17) mg/dL Creatinine 0.91 (0.52-1.04) mg/dL Est GFR (CKD-EPI)AfAm 78 (>60 ml/min/1.73 sqM) Est GFR (CKD-EPI)NonAf 68 (>60 ml/min/1.73 sqM) Glucose 100 H (74-99) mg/dL Plasma Lactic Acid Justin (0.7-2.0) mmol/L Calcium 9.1 (8.4-10.2) mg/dL Total Bilirubin 0.4 (0.2-1.3) mg/dL AST 27 (14-36) U/L ALT 36 H (4-34) U/L Alkaline Phosphatase 94 (38-126) U/L Troponin I (0.000-0.034) ng/mL Total Protein 7.0 (6.3-8.2) g/dL Albumin 4.0 (3.5-5.0) g/dL TSH 6.260 H (0.465-4.680) mIU/L Urine Color Urine Appearance (Clear) Urine pH (5.0-8.0) Ur Specific [place] (1.001-1.035) Urine Protein (Negative) Urine Glucose (UA) (Negative) Urine Ketones (Negative) Urine Blood (Negative) Urine Nitrite (Negative) Urine Bilirubin (Negative) Urine Urobilinogen (<2.0) mg/dL Ur Leukocyte Esterase (Negative) Urine RBC (0-5) /hpf Urine WBC (0-5) /hpf Ur Squamous Epith Cells (0-4) /hpf Urine Bacteria (None) /hpf Urine Mucus (None) /hpf 03/11/20 03/11/20 03/11/20 Range/Units 03:55 03:55 04:20 WBC (3.8-10.6) k/uL RBC (3.80-5.40) m/uL Hgb (11.4-16.0) gm/dL Hct (34.0-46.0) % MCV (80.0-100.0) fL MCH (25.0-35.0) pg MCHC (31.0-37.0) g/dL RDW (11.5-15.5) % Plt Count (150-450) k/uL Neutrophils % % Lymphocytes % % Monocytes % % Eosinophils % % Basophils % % Neutrophils # (1.3-7.7) k/uL Lymphocytes # (1.0-4.8) k/uL Monocytes # (0-1.0) k/uL Eosinophils # (0-0.7) k/uL Basophils # (0-0.2) k/uL PT (9.0-12.0) sec INR (<1.2) APTT (22.0-30.0) sec Sodium (137-145) mmol/L Potassium (3.5-5.1) mmol/L Chloride (98-107) mmol/L Carbon Dioxide (22-30) mmol/L Anion Gap mmol/L BUN (7-17) mg/dL Creatinine (0.52-1.04) mg/dL Est GFR (CKD-EPI)AfAm (>60 ml/min/1.73 sqM) Est GFR (CKD-EPI)NonAf (>60 ml/min/1.73 sqM) Glucose (74-99) mg/dL Plasma Lactic Acid Justin 0.6 L (0.7-2.0) mmol/L Calcium (8.4-10.2) mg/dL Total Bilirubin (0.2-1.3) mg/dL AST (14-36) U/L ALT (4-34) U/L Alkaline Phosphatase (38-126) U/L Troponin I <0.012 (0.000-0.034) ng/mL Total Protein (6.3-8.2) g/dL Albumin (3.5-5.0) g/dL TSH (0.465-4.680) mIU/L Urine Color Yellow Urine Appearance Clear (Clear) Urine pH 6.0 (5.0-8.0) Ur Specific [place] 1.021 (1.001-1.035) Urine Protein Trace H (Negative) Urine Glucose (UA) Negative (Negative) Urine Ketones Negative (Negative) Urine Blood Trace H (Negative) Urine Nitrite Negative (Negative) Urine Bilirubin Negative (Negative) Urine Urobilinogen <2.0 (<2.0) mg/dL Ur Leukocyte Esterase Moderate H (Negative) Urine RBC 2 (0-5) /hpf Urine WBC 1 (0-5) /hpf Ur Squamous Epith Cells 2 (0-4) /hpf Urine Bacteria Rare H (None) /hpf Urine Mucus Rare H (None) /hpf Disposition Is patient prescribed a controlled substance at d/c from ED?: No <Mau Chisholm - Last Filed: 03/11/20 07:44> Is patient prescribed a controlled substance at d/c from ED?: No Time of Disposition: 08:04 <Abhay Roche - Last Filed: 03/11/20 08:05> Clinical Impression: Hypothyroidism, Weakness Disposition: HOME SELF-CARE Condition: Fair Instructions (If sedation given, give patient instructions): Weakness (ED), Hypothyroidism (ED) Additional Instructions: Laboratory evaluation is consistent with hypothyroidism. you are urged to follow up with primary care physician as soon as possible for outpatient management of hypothyroidism Referrals: Donavna Rodriguez MD [Primary Care Provider] - 1-2 days
[2020-03-11] MEDS ORDERED: MORPHINE SULFATE 4 MG/ML SYRINGE IV STA (06:29)
--- NOTE | 2020-03-11 07:54 | CT ---
EXAM: CT Head Without Intravenous Contrast CLINICAL HISTORY: Weakness. TECHNIQUE: Axial computed tomography images of the head/brain without intravenous contrast. CTDI is 49.1 mGy and DLP is 1036 mGy-cm. This CT exam was performed using one or more of the following dose reduction techniques: automated exposure control, adjustment of the mA and/or kV according to patient size, and/or use of iterative reconstruction technique. COMPARISON: None. FINDINGS: Brain: No abnormal extra-axial collection. Physiologic calcifications within the basal ganglia. No hemorrhage. Midline shift: No midline shift or mass-effect. Midline anatomy is unremarkable. Ventricles: The ventricular system is age appropriate. Bones/joints: Hyperostosis frontalis. The calvarium is otherwise unremarkable. No acute fracture. Soft tissues: Unremarkable. Sinuses: Visualized sinuses are unremarkable. Mastoid air cells: Mastoid air cells are well pneumatized. IMPRESSION: 1. No acute intracranial pathology is detected. 2. If there is concern for etiology such as early acute lacunar infarcts, magnetic resonance imaging of the brain with diffusion-weighted sequences should be performed for follow-up.
[2020-03-11 08:34] VITALS: BP 131/88; PULSE 75
== END 2020-03-11 08:30 | disposition home or self-care (01) ==
LOC: EC 02:46
DX: E03.9 Hypothyroidism, unspecified (principal); R53.1 Weakness; J44.9 Chronic obstructive pulmonary disease, unspecified; K21.9 Gastro-esophageal reflux disease without esophagitis; E78.5 Hyperlipidemia, unspecified; M81.0 Age-related osteoporosis without current pathological fracture; G43.909 Migraine, unspecified, not intractable, without status migrainosus; F41.9 Anxiety disorder, unspecified; F31.9 Bipolar disorder, unspecified; I10 Essential (primary) hypertension; M19.90 Unspecified osteoarthritis, unspecified site; F17.200 Nicotine dependence, unspecified, uncomplicated; Z79.51 Long term (current) use of inhaled steroids; Z79.899 Other long term (current) drug therapy; Z79.82 Long term (current) use of aspirin; Z88.1 Allergy status to other antibiotic agents; Z88.5 Allergy status to narcotic agent; Z87.19 Personal history of other diseases of the digestive system; Z90.49 Acquired absence of other specified parts of digestive tract
CPT/HCPCS: 36415; 93005; 80053; 83605; 84443; 84484; 85025; 85610; 85730; 81001; 71046; 70450; 99285; 96374; J2270

== ENCOUNTER → 2020-04-04 | Outpatient (CLI) | payer MEDICARE ==
--- NOTE | 2020-04-04 15:15 | MR ---
EXAMINATION TYPE: MR brain wo/w con DATE OF EXAM: 04/04/2020 COMPARISON: CT brain March 11, 2020. HISTORY: Pt complains of hazy feeling, followed by falling TECHNIQUE: Multiplanar, multisequence images of the brain and brainstem is performed without and with IV contras t, utilizing 5 mL intravenous Gadavist . FINDINGS: Diffusion weighted images demonstrate no evidence of a recent infarct or other diffusion ab normality. There is no worrisome extra-axial fluid collection. The ventricular system and cisternal spaces are normal in size and appearance. The brain volume is age appropriate. Few tiny scattered f oci of T2 hyperintensity seen throughout the white matter bilaterally. Approximately 15-20 tiny scatt ered lesions. Midline structures demonstrate normal morphology. The craniocervical junction appears within normal limits. Post contrast images demonstrate no abnormal enhancement. The dural venous sinuses appear pa tent. Artifact distortion at level of globes bilaterally. Visualized paranasal sinuses are clear. No suspicious fluid signal bilateral mastoid air cells. IMPRESSION: Mild nonspecific white matter changes presumed on basis of chronic small vessel ischemic change in patient of this age. No suspicious enhancing masses.
--- NOTE | 2020-04-04 15:27 | XR ---
EXAM TYPE: LUMBAR SPINE X RAY SERIES COMPARISON: NONE HISTORY: Pain TECHNIQUE: 3 views are submitted. FINDINGS: Alignment is anatomic. The pedicles are intact. The transverse processes are intact. There is a cu rvature the spine. Densities are seen in the epigastrium and right upper quadrant which could be post surgical should be correlated clinically. Multilevel moderate degenerative disc disease seen with sev ere changes L4-5 and L5-S1. Grade 1 anterolisthesis L4 and L5. Atherosclerotic change of the aorta no nir. IMPRESSION: 1. Multilevel degenerative disc disease with most marked findings at L4-5 and L5-S1 with grade 1 ante rolisthesis L4 on L5.
== END | disposition home or self-care (01) ==
LOC: RADMRIMAIN 14:00
PROVIDERS: ATTEND Family Medicine
DX: R90.89 Other abnormal findings on diagnostic imaging of central nervous system (principal); M43.16 Spondylolisthesis, lumbar region; M51.36 Other intervertebral disc degeneration, lumbar region; M51.37 Other intervertebral disc degeneration, lumbosacral region
CPT/HCPCS: 72100; 70553; A9585

== ENCOUNTER → 2020-04-25 | Outpatient (CLI) | payer MEDICARE ==
--- NOTE | 2020-04-25 16:00 | XR ---
Cervical spine HISTORY: Pain 4 views of the cervical spine There is an anterolisthesis grade 1 C3-4, C4-5, C7-T1 retrolisthesis grade 1 C2-3, C5-6. Loss of disc height present at C4-5 and C5-6, C6-7. There is multilevel spondylosis. Facet arthropathy change pre sent. Prevertebral soft tissues are normal. Bone mineralization is reduced. Cervical vertebral bodies show preserved height. Calcification present within the carotid artery distribution. There is an azy gos lobe present. There are overlying artifacts. Odontoid view is limited. Aorta is dense. IMPRESSION: Degenerative disc disease, facet arthropathy and osteopenia.
== END | disposition home or self-care (01) ==
LOC: RADXRMAIN 14:52
PROVIDERS: ATTEND Family Medicine
DX: M50.30 Other cervical disc degeneration, unspecified cervical region (principal); M46.92 Unspecified inflammatory spondylopathy, cervical region; M85.80 Other specified disorders of bone density and structure, unspecified site
CPT/HCPCS: 72040

== ENCOUNTER → 2020-08-31 | Outpatient (CLI) | payer MEDICARE ==
--- NOTE | 2020-08-31 17:37 | BD ---
EXAMINATION TYPE: Axial Bone Density DATE OF EXAM: 08/31/2020 COMPARISON: 01/18/2018 CLINICAL HISTORY: 65-year-old female postmenopausal screening Height: 63 IN Weight: 128 LBS FRAX RISK QUESTIONS: Secondary Osteoporosis: 3. Menopause before 45: YES TOTAL HYST AGE 38 4. Malnutrition: YES Current Tobacco Use: YES RISK FACTORS HISTORY OF: Active: LIMITED Postmenopausal woman: TOTAL HYST AGE 38 Take estrogen and/or progesterone medications: NOT NOW How lon YEAR Lost more than 2 inches in height since high school: YES 3" Frequent falls: YES LEG NUMBNESS MEDICATIONS: Thyroid Medications: YES Which medication: Synthroid How Lon MONTHS Additional Medications: SYNTHROID, CALCIUM, VIT D, BLOOD PRESSURE MEDS, PRILOSEC, HIGH CHOLESTEROL ME DS, ANTI DEPRESSANT, LAMICTAL, SEROQUEL, KLONOPIN, EXAM MEASUREMENTS: Bone mineral densitometry was performed using the [employer] / [employer] System. Bone mineral density as measured about the Lumbar spine is: ----- L1-L4(G/cm2): 0.837 T Score Values are as follows: ----- L2: -3.5 ----- L3: -2.7 ----- L4: -1.6 ----- L1-L4: -2.9 Bone mineral density has: Decreased -4.8% since study of: 01/18/2018 Bone mineral density about the R hip (g/cm2): 0.731 Bone mineral density about the L hip (g/cm2): 0.641 T Score values are as follows: -----R Neck: -2.2 -----L Neck: -2.9 -----R Total: -2.5 -----L Total: -3.1 Bone mineral density has: Decreased -2.8% since study of: 01/18/2018 IMPRESSION: Osteoporosis (T Score less than -2.5). There is increased fracture risk and therapy is usually indicated based on age. Re-Screen 1-2 years. NOTE: T-SCORE=SD OF THE YOUNG ADULT MEAN.
--- NOTE | 2020-09-04 08:36 | MM ---
Reason for exam: screening (asymptomatic). Last mammogram was performed 2 years and 7 months ago. History: Patient is postmenopausal and is nulliparous. Took estrogen for 5 years. Took progesterone for 5 years. Physical Findings: A clinical breast exam by your physician is recommended on an annual basis and results should be correlated with mammographic findings. MG 3D Screening Mammo W/Cad Bilateral CC and MLO view(s) were taken. Prior study comparison: January 18, 2018, bilateral MG 3d screening mammo w/cad. March 04, 1999, bilateral special view mammogram. The breast tissue is extremely dense which could obscure a lesion on mammography. No significant changes when compared with prior studies. ASSESSMENT: Negative, BI-RAD 1 RECOMMENDATION: Routine screening mammogram of both breasts in 1 year.
== END | disposition home or self-care (01) ==
LOC: RADMAMWWP 13:51
PROVIDERS: ATTEND Family Medicine
DX: Z12.31 Encounter for screening mammogram for malignant neoplasm of breast (principal); M81.0 Age-related osteoporosis without current pathological fracture
CPT/HCPCS: 77063; 77067; 77080

== ENCOUNTER → 2020-11-26 | Outpatient (CLI) | payer MEDICARE ==
--- NOTE | 2020-11-27 01:46 | MR ---
EXAMINATION TYPE: MR lumbar spine wo/w con DATE OF EXAM: 11/26/2020 COMPARISON: None HISTORY: Low back pain for 10-15 years. CONTRAST: Standard multiplanar, multisequence MRI departmental protocol utilizing 6 mL intravenous Gadavist hector olinium contrast. The lumbar vertebra have normal alignment. There is narrowing of the L4-5 and L5-S1 disc spaces with spur formation. There is small posterior disc herniations from L3 to S1. There is developmentally prasad quate spinal canal. There is no evidence of any significant spinal stenosis. Sacroiliac joints are in tact. I see no focal bone destruction. There is no lumbar paraspinal mass. There is no pathologic enhancement. There is no significant narrowing of the neural foramina. IMPRESSION: Moderate spondylosis in the lower lumbar spine mainly at L4-5 and L5-S1. No spinal stenosis. No compr ession fracture. No acute bony abnormality.
== END | disposition home or self-care (01) ==
LOC: RADMRIMAIN 15:59
PROVIDERS: ATTEND Family Medicine
DX: M47.816 Spondylosis without myelopathy or radiculopathy, lumbar region (principal); M47.817 Spondylosis without myelopathy or radiculopathy, lumbosacral region
CPT/HCPCS: 72158; A9585

== ENCOUNTER 2020-12-03 14:50 | Emergency (ER) | payer MEDICARE ==
[2020-12-03 15:07] VITALS: RESP 18; TEMP 98.8
[2020-12-03] MEDS ORDERED: LORazepam 2 MG/ML INJ IV STA (15:25)
--- NOTE | 2020-12-03 15:25 | ED ---
General Adult HPI - General Chief complaint: Psychiatric Symptoms Stated complaint: anxiety Time Seen by Provider: 12/03/20 15:01 Source: patient, EMS Mode of arrival: EMS - History of Present Illness Initial comments: Dictation was produced using [employer] dictation software. please excuse any grammatical, word or spelling errors. This patient was cared for during a federal and state declared state of emergency secondary to Covid 19 Chief Complaint: 65-year-old female with past medical history of psychiatric disease presents with concerns of benzodiazepine withdrawal. History of Present Illness: 65-year-old female she has past medical history of psychiatric disease along with other medical comorbidities. Patient states that she was tapered off of her Klonopin recently. Patient states that over the last 5 years she's been on 2 mg of Klonopin daily at bedtime to help her sleep. She saw a state psychiatrists and [facility] and psychiatrists tapered her dose. The last time she took Klonopin was one week ago. Patient states that over the last 3 days she has developed what she feels are withdrawal symptoms including insomnia, anxiety, shortness of breath, tremulousness. Patient denies any chest pain. The ROS documented in this emergency department record has been reviewed and confirmed by me. Those systems with pertinent positive or negative responses have been documented in the HPI. All other systems are other negative and/or noncontributory. PHYSICAL EXAM: General Impression: Alert and oriented x3, not in acute distress HEENT: Normocephalic atraumatic, extra-ocular movements intact, pupils equal and reactive to light bilaterally, mucous membranes moist. Cardiovascular: Heart regular rate and rhythm Chest: Able to complete full sentences, no retractions, no tachypnea Abdomen: abdomen soft, non-tender, non-distended, no organomegaly Musculoskeletal: Pulses present and equal in all extremities, no peripheral edema Motor: no focal deficits noted Neurological: CN II-XII grossly intact, no focal motor or sensory deficits noted Skin: Intact with no visualized rashes Psych: Normal affect and mood ED course: 65-year-old female with chief complaint concerns of benzodiazepine withdrawal. All signs upon arrival are within acceptable limits. Patient's well-appearing at bedside. She does not seem anxious or tremulous. She does n ot show any signs of distress. She initially denied suicidality to me however I did receive word from the nurse taking care of her that she did express suicidal ideation. EKG interpretation: Ventricular rate 75, normal sinus rhythm, GA interval 136, QRS 74, QTC 428. No GA prolongation, no QTC prolongation, no ST or T-wave changes noted. EKG compared to 03/11/2020 showing no changes. Overall, this EKG is unremarkable Laboratory evaluation obtained. CBC unremarkable. Metabolic panel is within acceptable limits. Chest x-ray is nonacute. Patient medically cleared for EPS evaluation. Patient does not appear to be showing severe signs of benzodiazepine withdrawal nonetheless, patient is given small dose of benzodiazepine.Laboratory evaluation is unremarkable. Patient was instructed by EPS recommended discharge with outpatient follow-up to psychiatry. - Related Data Home Medications Medication Instructions Recorded Confirmed Aspirin [Adult Low Dose Aspirin EC] 81 mg PO DAILY 05/17/18 12/03/20 Metoprolol Succinate [Toprol XL] 100 mg PO DAILY 05/17/18 12/03/20 QUEtiapine [SEROquel] 800 mg PO HS 05/17/18 12/03/20 clonazePAM [KlonoPIN] 1 mg PO HS 05/17/18 12/03/20 lamoTRIgine [LaMICtal] 200 mg PO BID 05/17/18 12/03/20 Budesonide/Formoterol Fumarate 2 puff INHALATION RT-BID 01/31/19 12/03/20 [Symbicort 160-4.5 Mcg Inhaler] Albuterol Sulfate [Proair Hfa] 1 - 2 puff INHALATION RT-Q6H PRN 03/21/19 12/03/20 methocarbamoL [Robaxin] 500 mg PO TID PRN 03/21/19 12/03/20 Omeprazole 40 mg PO DAILY 04/20/19 12/03/20 Atorvastatin [Lipitor] 20 mg PO DAILY 08/08/19 12/03/20 Brexpiprazole [Rexulti] 2 mg PO HS 12/03/20 12/03/20 Fetzima 80mg 1 tab PO DAILY 12/03/20 12/03/20 Levothyroxine Sodium [Synthroid] 50 mcg PO DAILY 12/03/20 12/03/20 Morphine Sulfate Ir [MSIR] 15 mg PO Q6H PRN 12/03/20 12/03/20 Allergies Allergy/AdvReac Type Severity Reaction Status Date / Time cefaclor [From [facility]] Allergy Rash/Hives Verified 08/08/19 19:08 hydrocodone [From [facility]] AdvReac "doesn't Verified 08/08/19 19:08 work for me" Review of Systems ROS Statement: Those systems with pertinent positive or pertinent negative responses have been documented in the HPI. ROS Other: All systems not noted in ROS Statement are negative. Past Medical History Past Medical History: COPD, GERD/Reflux, Hyperlipidemia, Hypertension, Memory Impairment, Osteoarthritis (OA), Pneumonia Additional Past Medical History / Comment(s): Hx stomach ulcers, severe constipation/impaction, pancreatitis, osteoporosis, empysema, migraines. Current issues with severe constipation and abd pain. diff swallowing currently/'chokes" History of Any Multi-Drug Resistant Organisms: None Reported Past Surgical History: Cholecystectomy, Hysterectomy, Orthopedic Surgery Additional Past Surgical History / Comment(s): 04/27/19 Anahi fundoplication, left foot surgery Past Anesthesia/Blood Transfusion Reactions: Postoperative Nausea & Vomiting (PONV) Additional Past Anesthesia/Blood Transfusion Reaction / Comment(s): no hx blood transfusion Past Psychological History: Anxiety, Bipolar, Depression Smoking Status: Current every day smoker Past Alcohol Use History: None Reported Past Drug Use History: None Reported - Past Family History Mother Family Medical History: Cancer Course Vital Signs 12/03/20 14:55 Temperature 98.8 F Pulse Rate 76 Respiratory 18 Rate Blood Pressure 126/85 O2 Sat by Pulse 97 Oximetry Medical Decision Making - Lab Data Result diagrams: 12/03/20 15:33 12/03/20 15:33 Lab Results 12/03/20 12/03/20 Range/Units 15:33 15:33 WBC 7.0 (3.8-10.6) k/uL RBC 3.91 (3.80-5.40) m/uL Hgb 12.3 (11.4-16.0) gm/dL Hct 39.0 (34.0-46.0) % MCV 99.8 (80.0-100.0) fL MCH 31.4 (25.0-35.0) pg MCHC 31.4 (31.0-37.0) g/dL RDW 13.8 (11.5-15.5) % Plt Count 184 (150-450) k/uL MPV 7.1 Neutrophils % 69 % Lymphocytes % 21 % Monocytes % 5 % Eosinophils % 3 % Basophils % 0 % Neutrophils # 4.8 (1.3-7.7) k/uL Lymphocytes # 1.5 (1.0-4.8) k/uL Monocytes # 0.4 (0-1.0) k/uL Eosinophils # 0.2 (0-0.7) k/uL Basophils # 0.0 (0-0.2) k/uL Sodium 141 (137-145) mmol/L Potassium 3.9 (3.5-5.1) mmol/L Chloride 111 H (98-107) mmol/L Carbon Dioxide 19 L (22-30) mmol/L Anion Gap 11 mmol/L BUN 26 H (7-17) mg/dL Creatinine 1.28 H (0.52-1.04) mg/dL Est GFR (CKD-EPI)AfAm 52 (>60 ml/min/1.73 sqM) Est GFR (CKD-EPI)NonAf 45 (>60 ml/min/1.73 sqM) Glucose 99 (74-99) mg/dL Calcium 9.3 (8.4-10.2) mg/dL Disposition Clinical Impression: Benzodiazepine dependence Disposition: HOME SELF-CARE Condition: Good Instructions (If sedation given, give patient instructions): Anxiety (ED) Is patient prescribed a controlled substance at d/c from ED?: No Referrals: Donavan Rodriguez MD [Primary Care Provider] - 1-2 days Time of Disposition: 17:54
[2020-12-03 16:00] LABS: Basophils % (A) 0 %; Calcium 9.3 mg/dL (8.4-10.2); Eosinophils # (A) 0.2 k/uL (0-0.7); Eosinophils % (A) 3 %; HGB 12.3 gm/dL (11.4-16.0); Lymphocytes # (A) 1.5 k/uL (1.0-4.8); Lymphocytes % (A) 21 %; MCH 31.4 pg (25.0-35.0); MCHC 31.4 g/dL (31.0-37.0); MCV 99.8 fL (80.0-100.0); Mean Platelet Volume 7.1; Monocytes # (A) 0.4 k/uL (0-1.0); Monocytes % (A) 5 %; Neutrophils # (A) 4.8 k/uL (1.3-7.7); Neutrophils % (A) 69 %; Platelet Count 184 k/uL (150-450); Potassium 3.9 mmol/L (3.5-5.1); RBC 3.91 m/uL (3.80-5.40); RDW 13.8 % (11.5-15.5)
--- NOTE | 2020-12-03 16:14 | XR ---
EXAMINATION TYPE: XR chest 1V portable DATE OF EXAM: 12/03/2020 COMPARISON: Chest x-ray 03/11/2020 HISTORY: Shortness of breath TECHNIQUE: Single frontal view of the chest is obtained. FINDINGS: There is no focal air space opacity, pleural effusion, or pneumothorax seen. The cardiac silhouette size is stable. Probable azygos lobe noted incidentally. The osseous structures are intac t. IMPRESSION: No acute process.
[2020-12-03 18:32] VITALS: BP 128/82; PULSE 75
== END 2020-12-03 18:32 | disposition home or self-care (01) ==
LOC: EC 14:50
DX: F13.20 Sedative, hypnotic or anxiolytic dependence, uncomplicated (principal); R45.851 Suicidal ideations; F41.9 Anxiety disorder, unspecified; F31.9 Bipolar disorder, unspecified; J44.9 Chronic obstructive pulmonary disease, unspecified; K21.9 Gastro-esophageal reflux disease without esophagitis; E78.5 Hyperlipidemia, unspecified; I10 Essential (primary) hypertension; M81.0 Age-related osteoporosis without current pathological fracture; G43.909 Migraine, unspecified, not intractable, without status migrainosus; M19.90 Unspecified osteoarthritis, unspecified site; F17.200 Nicotine dependence, unspecified, uncomplicated; Z79.51 Long term (current) use of inhaled steroids; Z79.899 Other long term (current) drug therapy; Z79.82 Long term (current) use of aspirin; Z88.1 Allergy status to other antibiotic agents; Z88.5 Allergy status to narcotic agent; Z87.19 Personal history of other diseases of the digestive system; Z87.11 Personal history of peptic ulcer disease
CPT/HCPCS: 82075; 36415; 93005; 80048; 85025; 71045; 99285; 96374; J2060

== ENCOUNTER 2020-12-21 22:21 | Emergency (ER) | payer MEDICARE ==
[2020-12-21 22:28] VITALS: TEMP 97.2
--- NOTE | 2020-12-21 22:36 | ED ---
Weakness HPI - General Chief complaint: Weakness Stated complaint: Weakness Time Seen by Provider: 12/21/20 22:29 Source: patient, EMS, RN notes reviewed, old records reviewed Mode of arrival: EMS Limitations: no limitations - History of Present Illness Initial comments: This is a 65-year-old female DF for evaluation patient has multiple complaints weakness multiple falls decreased appetite weight loss. History of similar evaluations with no findings per patient. Patient feels like he's having difficulty taking care of herself at home. Denying any injuries from the falls maybe some occasional back pain, decreased bowel movements and patient feels like she urinates frequently MD Complaint: generalized weakness, lack of energy, difficulty walking -: year(s) Location: generalized Severity: mild Severity scale (1-10): 2 Quality: aching Consistency: intermittent Improves with: none Worsens with: none Context: history of similar Associated Symptoms: loss of appetite, nausea/vomiting - Related Data Home Medications Medication Instructions Recorded Confirmed Aspirin [Adult Low Dose Aspirin EC] 81 mg PO DAILY 05/17/18 12/03/20 Metoprolol Succinate [Toprol XL] 100 mg PO DAILY 05/17/18 12/03/20 QUEtiapine [SEROquel] 800 mg PO HS 05/17/18 12/03/20 clonazePAM [KlonoPIN] 1 mg PO HS 05/17/18 12/03/20 lamoTRIgine [LaMICtal] 200 mg PO BID 05/17/18 12/03/20 Budesonide/Formoterol Fumarate 2 puff INHALATION RT-BID 01/31/19 12/03/20 [Symbicort 160-4.5 Mcg Inhaler] Albuterol Sulfate [Proair Hfa] 1 - 2 puff INHALATION RT-Q6H PRN 03/21/19 12/03/20 methocarbamoL [Robaxin] 500 mg PO TID PRN 03/21/19 12/03/20 Omeprazole 40 mg PO DAILY 04/20/19 12/03/20 Atorvastatin [Lipitor] 20 mg PO DAILY 08/08/19 12/03/20 Brexpiprazole [Rexulti] 2 mg PO HS 12/03/20 12/03/20 Fetzima 80mg 1 tab PO DAILY 12/03/20 12/03/20 Levothyroxine Sodium [Synthroid] 50 mcg PO DAILY 12/03/20 12/03/20 Morphine Sulfate Ir [MSIR] 15 mg PO Q6H PRN 12/03/20 12/03/20 Allergies Allergy/AdvReac Type Severity Reaction Status Date / Time cefaclor [From [facility]] Allergy Rash/Hives Verified 12/21/20 22:28 hydrocodone [From [facility]] AdvReac "doesn't Verified 12/21/20 22:28 work for me" Review of Systems ROS Statement: Those systems with pertinent positive or pertinent negative responses have been documented in the HPI. ROS Other: All systems not noted in ROS Statement are negative. Past Medical History Past Medical History: COPD, GERD/Reflux, Hyperlipidemia, Hypertension, Memory I mpairment, Osteoarthritis (OA), Pneumonia Additional Past Medical History / Comment(s): Hx stomach ulcers, severe constipation/impaction, pancreatitis, osteoporosis, empysema, migraines. Current issues with severe constipation and abd pain. diff swallowing currently/'chokes" History of Any Multi-Drug Resistant Organisms: None Reported Past Surgical History: Cholecystectomy, Hysterectomy, Orthopedic Surgery Additional Past Surgical History / Comment(s): 04/27/19 Anahi fundoplication, left foot surgery Past Anesthesia/Blood Transfusion Reactions: Postoperative Nausea & Vomiting (PONV) Additional Past Anesthesia/Blood Transfusion Reaction / Comment(s): no hx blood transfusion Past Psychological History: Anxiety, Bipolar, Depression Smoking Status: Current every day smoker Past Alcohol Use History: None Reported Past Drug Use History: None Reported - Past Family History Mother Family Medical History: Cancer General Exam Limitations: no limitations General appearance: alert, in no apparent distress Head exam: Present: atraumatic, normocephalic, normal inspection Eye exam: Present: normal appearance, PERRL, EOMI. Absent: scleral icterus, conjunctival injection, periorbital swelling ENT exam: Present: normal exam, mucous membranes moist Neck exam: Present: normal inspection. Absent: tenderness, meningismus, lymph adenopathy Respiratory exam: Present: normal lung sounds bilaterally. Absent: respiratory distress, wheezes, rales, rhonchi, stridor Cardiovascular Exam: Present: regular rate, normal rhythm, normal heart sounds. Absent: systolic murmur, diastolic murmur, rubs, gallop, clicks GI/Abdominal exam: Present: soft, normal bowel sounds. Absent: distended, tenderness, guarding, rebound, rigid Extremities exam: Present: normal inspection, full ROM, normal capillary refill. Absent: tenderness, pedal edema, joint swelling, calf tenderness Back exam: Present: normal inspection Neurological exam: Present: alert, oriented X3, CN II-XII intact Psychiatric exam: Present: normal affect, normal mood Skin exam: Present: warm, dry, intact, normal color. Absent: rash Course Vital Signs 12/21/20 12/22/20 22:24 00:00 Temperature 97.2 F L Pulse Rate 85 71 Respiratory 17 16 Rate Blood Pressure 103/65 99/61 O2 Sat by Pulse 98 98 Oximetry - Reevaluation(s) Reevaluation #1: 12/22/20 01:29 Medical record is reviewed Reevaluation #2: 12/22/20 01: Patient is in no distress here in the ER Reevaluation #3: 12/22/20 01:29 Patient is informed of results here in the ER, questions have been answered Reevaluation #4: 12/22/20 01:29 Patient does not want to be discharged home with long discussion regarding findings here she agrees EKG Findings - EKG Comments: EKG Findings:: EKG shows sinus rhythm 83, VA 160 QRS 74 QTc 470 Medical Decision Making - Medical Decision Making 65 female DF for evaluation patient presents for weakness, multiple other complaints with no acute findings found. Patient can be discharged home - Lab Data Result diagrams: 12/21/20 22:50 12/21/20 22:50 Lab Results 12/21/20 12/21/20 12/21/20 Range/Units 22:50 22:50 22:50 WBC 9.4 (3.8-10.6) k/uL RBC 4.00 (3.80-5.40) m/uL Hgb 13.6 (11.4-16.0) gm/dL Hct 39.0 (34.0-46.0) % MCV 97.5 (80.0-100.0) fL MCH 34.1 (25.0-35.0) pg MCHC 34.9 (31.0-37.0) g/dL RDW 12.4 (11.5-15.5) % Plt Count 136 L (150-450) k/uL MPV 8.0 Neutrophils % 84 % Lymphocytes % 8 % Monocytes % 6 % Eosinophils % 1 % Basophils % 0 % Neutrophils # 7.9 H (1.3-7.7) k/uL Lymphocytes # 0.7 L (1.0-4.8) k/uL Monocytes # 0.6 (0-1.0) k/uL Eosinophils # 0.1 (0-0.7) k/uL Basophils # 0.0 (0-0.2) k/uL PT 11.7 (9.0-12.0) sec INR 1.1 (<1.2) APTT 18.9 L (22.0-30.0) sec Sodium 139 (137-145) mmol/L Potassium 3.6 (3.5-5.1) mmol/L Chloride 113 H (98-107) mmol/L Carbon Dioxide 13 L (22-30) mmol/L Anion Gap 13 mmol/L BUN 32 H (7-17) mg/dL Creatinine 1.29 H (0.52-1.04) mg/dL Est GFR (CKD-EPI)AfAm 51 (>60 ml/min/1.73 sqM) Est GFR (CKD-EPI)NonAf 44 (>60 ml/min/1.73 sqM) Glucose 142 H (74-99) mg/dL Plasma Lactic Acid Justin (0.7-2.0) mmol/L Calcium 9.1 (8.4-10.2) mg/dL Phosphorus 3.9 (2.5-4.5) mg/dL Magnesium 2.3 (1.6-2.3) mg/dL Total Bilirubin 0.9 (0.2-1.3) mg/dL AST 22 (14-36) U/L ALT 13 (4-34) U/L Alkaline Phosphatase 931 H (38-126) U/L Creatine Kinase 35 (30-135) U/L Troponin I (0.000-0.034) ng/mL NT-Pro-B Natriuret Pep pg/mL Total Protein 6.2 L (6.3-8.2) g/dL Albumin 3.5 (3.5-5.0) g/dL TSH 3.040 (0.465-4.680) mIU/L Urine Color Urine Appearance (Clear) Urine pH (5.0-8.0) Ur Specific [place] (1.001-1.035) Urine Protein (Negative) Urine Glucose (UA) (Negative) Urine Ketones (Negative) Urine Blood (Negative) Urine Nitrite (Negative) Urine Bilirubin (Negative) Urine Urobilinogen (<2.0) mg/dL Ur Leukocyte Esterase (Negative) Urine RBC (0-5) /hpf Urine WBC (0-5) /hpf Ur Squamous Epith Cells (0-4) /hpf Calcium Oxalate Crystal (None) /hpf Hyaline Casts (0-2) /lpf Urine Mucus (None) /hpf 12/21/20 12/21/20 12/21/20 Range/Units 22:50 22:50 22:50 WBC (3.8-10.6) k/uL RBC (3.80-5.40) m/uL Hgb (11.4-16.0) gm/dL Hct (34.0-46.0) % MCV (80.0-100.0) fL MCH (25.0-35.0) pg MCHC (31.0-37.0) g/dL RDW (11.5-15.5) % Plt Count (150-450) k/uL MPV Neutrophils % % Lymphocytes % % Monocytes % % Eosinophils % % Basophils % % Neutrophils # (1.3-7.7) k/uL Lymphocytes # (1.0-4.8) k/uL Monocytes # (0-1.0) k/uL Eosinophils # (0-0.7) k/uL Basophils # (0-0.2) k/uL PT (9.0-12.0) sec INR (<1.2) APTT (22.0-30.0) sec Sodium (137-145) mmol/L Potassium (3.5-5.1) mmol/L Chloride (98-107) mmol/L Carbon Dioxide (22-30) mmol/L Anion Gap mmol/L BUN (7-17) mg/dL Creatinine (0.52-1.04) mg/dL Est GFR (CKD-EPI)AfAm (>60 ml/min/1.73 sqM) Est GFR (CKD-EPI)NonAf (>60 ml/min/1.73 sqM) Glucose (74-99) mg/dL Plasma Lactic Acid Justin 1.4 (0.7-2.0) mmol/L Calcium (8.4-10.2) mg/dL Phosphorus (2.5-4.5) mg/dL Magnesium (1.6-2.3) mg/dL Total Bilirubin (0.2-1.3) mg/dL AST (14-36) U/L ALT (4-34) U/L Alkaline Phosphatase (38-126) U/L Creatine Kinase (30-135) U/L Troponin I <0.012 (0.000-0.034) ng/mL NT-Pro-B Natriuret Pep 237 pg/mL Total Protein (6.3-8.2) g/dL Albumin (3.5-5.0) g/dL TSH (0.465-4.680) mIU/L Urine Color Urine Appearance (Clear) Urine pH (5.0-8.0) Ur Specific [place] (1.001-1.035) Urine Protein (Negative) Urine Glucose (UA) (Negative) Urine Ketones (Negative) Urine Blood (Negative) Urine Nitrite (Negative) Urine Bilirubin (Negative) Urine Urobilinogen (<2.0) mg/dL Ur Leukocyte Esterase (Negative) Urine RBC (0-5) /hpf Urine WBC (0-5) /hpf Ur Squamous Epith Cells (0-4) /hpf Calcium Oxalate Crystal (None) /hpf Hyaline Casts (0-2) /lpf Urine Mucus (None) /hpf 12/22/20 Range/Units 00:23 WBC (3.8-10.6) k/uL RBC (3.80-5.40) m/uL Hgb (11.4-16.0) gm/dL Hct (34.0-46.0) % MCV (80.0-100.0) fL MCH (25.0-35.0) pg MCHC (31.0-37.0) g/dL RDW (11.5-15.5) % Plt Count (150-450) k/uL MPV Neutrophils % % Lymphocytes % % Monocytes % % Eosinophils % % Basophils % % Neutrophils # (1.3-7.7) k/uL Lymphocytes # (1.0-4.8) k/uL Monocytes # (0-1.0) k/uL Eosinophils # (0-0.7) k/uL Basophils # (0-0.2) k/uL PT (9.0-12.0) sec INR (<1.2) APTT (22.0-30.0) sec Sodium (137-145) mmol/L Potassium (3.5-5.1) mmol/L Chloride (98-107) mmol/L Carbon Dioxide (22-30) mmol/L Anion Gap mmol/L BUN (7-17) mg/dL Creatinine (0.52-1.04) mg/dL Est GFR (CKD-EPI)AfAm (>60 ml/min/1.73 sqM) Est GFR (CKD-EPI)NonAf (>60 ml/min/1.73 sqM) Glucose (74-99) mg/dL Plasma Lactic Acid Justin (0.7-2.0) mmol/L Calcium (8.4-10.2) mg/dL Phosphorus (2.5-4.5) mg/dL Magnesium (1.6-2.3) mg/dL Total Bilirubin (0.2-1.3) mg/dL AST (14-36) U/L ALT (4-34) U/L Alkaline Phosphatase (38-126) U/L Creatine Kinase (30-135) U/L Troponin I (0.000-0.034) ng/mL NT-Pro-B Natriuret Pep pg/mL Total Protein (6.3-8.2) g/dL Albumin (3.5-5.0) g/dL TSH (0.465-4.680) mIU/L Urine Color Dark Brown Urine Appearance Clear (Clear) Urine pH 6.0 (5.0-8.0) Ur Specific [place] 1.020 (1.001-1.035) Urine Protein 1+ H (Negative) Urine Glucose (UA) Negative (Negative) Urine Ketones Negative (Negative) Urine Blood Negative (Negative) Urine Nitrite Negative (Negative) Urine Bilirubin 1+ H (Negative) Urine Urobilinogen 6.0 (<2.0) mg/dL Ur Leukocyte Esterase Trace H (Negative) Urine RBC 3 (0-5) /hpf Urine WBC 4 (0-5) /hpf Ur Squamous Epith Cells 9 H (0-4) /hpf Calcium Oxalate Crystal Occasional H (None) /hpf Hyaline Casts 6 H (0-2) /lpf Urine Mucus Rare H (None) /hpf - Radiology Data Radiology results: report reviewed (Chest x-ray CT head and pelvis negative for acute disease), image reviewed Disposition Clinical Impression: Weakness, Dehydration Disposition: HOME SELF-CARE Condition: Good Instructions (If sedation given, give patient instructions): Weakness (ED) Is patient prescribed a controlled substance at d/c from ED?: No Referrals: Donavan Rodriguez MD [Primary Care Provider] - 1-2 days
[2020-12-21] MEDS ORDERED: SODIUM CHLORIDE 0.9% 1,000 ML IV STA (22:40)
--- NOTE | 2020-12-21 23:03 | XR ---
EXAMINATION TYPE: XR chest 2V DATE OF EXAM: 12/21/2020 COMPARISON: 12/03/2020 HISTORY: Weakness TECHNIQUE: FINDINGS: Heart is normal. Lungs are clear of consolidation. There is some mild pleural reaction post eriorly on the lateral view that is probably in the right lower lobe. There are no hilar masses. Ther e are chest leads. Bony thorax is intact. IMPRESSION: Pleural reaction at the right posterior lung base. No heart failure. Normal heart.
[2020-12-21 23:14] LABS: Basophils % (A) 0 %; Eosinophils # (A) 0.1 k/uL (0-0.7); Eosinophils % (A) 1 %; HGB 13.6 gm/dL (11.4-16.0); Lymphocytes # (A) 0.7 k/uL (1.0-4.8); Lymphocytes % (A) 8 %; MCH 34.1 pg (25.0-35.0); MCHC 34.9 g/dL (31.0-37.0); MCV 97.5 fL (80.0-100.0); Monocytes # (A) 0.6 k/uL (0-1.0); Monocytes % (A) 6 %; Neutrophils # (A) 7.9 k/uL (1.3-7.7); Neutrophils % (A) 84 %; Platelet Count 136 k/uL (150-450); RDW 12.4 % (11.5-15.5); WBC 9.4 k/uL (3.8-10.6)
[2020-12-21 23:26] LABS: Albumin 3.5 g/dL (3.5-5.0); Calcium 9.1 mg/dL (8.4-10.2); Magnesium 2.3 mg/dL (1.6-2.3); Phosphorus 3.9 mg/dL (2.5-4.5); Potassium 3.6 mmol/L (3.5-5.1); Total Bilirubin 0.9 mg/dL (0.2-1.3); Total Protein 6.2 g/dL (6.3-8.2)
[2020-12-21 23:27] LABS: INR 1.1 (<1.2); Prothrombin Time 11.7 sec (9.0-12.0)
[2020-12-21 23:54] LABS: Partial Thromboplastin Time 18.9 sec (22.0-30.0)
[2020-12-22 00:42] LABS: Appearance,Urine Clear (Clear); Bilirubin,Urine 1+ (Negative); Blood,Urine Negative (Negative); Calcium Oxalate Crystals,Urine Occasional /hpf; Color,Urine Dark Brown; Glucose,Urine (UA) Negative (Negative); Hyaline Casts,Urine 6 /lpf (0-2); Ketones,Urine Negative (Negative); Leukocyte Esterase,Urine Trace (Negative); Mucus,Urine Rare /hpf; Nitrite,Urine Negative (Negative); Protein,Urine 1+ (Negative); RBC,Urine 3 /hpf (0-5); Squamous Epithelial Cell,Urine 9 /hpf (0-4); WBC,Urine 4 /hpf (0-5)
--- NOTE | 2020-12-22 01:46 | CT ---
EXAM: CT Abdomen and Pelvis With Intravenous Contrast CLINICAL HISTORY: ITS.REASON CT Reason: pain/LSspine TECHNIQUE: Axial computed tomography images of the abdomen and pelvis with intravenous contrast. CTDI is 14.77 mGy and DLP is 627.8 mGy-cm. This CT exam was performed using one or more of the following dose reduction techniques: automated exposure control, adjustment of the mA and/or kV according to patient size, and/or use of iterative reconstruction technique. COMPARISON: 08/08/2019. FINDINGS: Lung bases: COPD subsegmental atelectasis suggested at the lung bases. Heart: Heart is normal in size. Mediastinum: Small hiatal hernia and probable distal esophagitis. ABDOMEN: Liver: Fatty liver. Gallbladder and bile ducts: Status post cholecystectomy. Prominence of the common bile duct following cholecystectomy. Pancreas: See below. Spleen: Possible mild splenomegaly. Adrenals: Adrenal glands, the head, body, tail of the pancreas are unremarkable. Kidneys and ureters: Both kidneys are shown to excrete contrast bilaterally without hydronephrosis. Several nonobstructing right renal calculi are noted the largest of which is located in the upper pole region measuring 0.4 cm. Stomach and bowel: Small quantity of ingested material in the stomach. Moderate to large quantity of stool throughout the colon. There is diffuse wall thickening of the distal transverse colon extending to involve the splenic flexure and descending colon extending to the proximal sigmoid colon. Inflammatory or infectious colitis is felt to be most likely. Moreover, there is distention of the rectosigmoid with stool. The rectosigmoid measures 9.8 x 8.7 x 9.9 cm. PELVIS: Appendix: The appendix is seen on coronal image 57 and is unremarkable. Bladder: Unremarkable. No mass. Reproductive: Unremarkable as visualized. ABDOMEN and PELVIS: Intraperitoneal space: Unremarkable. No free air. No significant fluid collection. Bones/joints: No spondylolysis. No acute fracture. No dislocation. Soft tissues: Ischiorectal fat is clean. Vasculature: Flow is demonstrated within the celiac, SMA, the renal arteries, and MUSTAPHA. Atherosclerotic disease of the abdominal aorta without change in caliber. Portal vein is unremarkable. No abdominal aortic aneurysm. Lymph nodes: No pelvic or inguinal lymphadenopathy. Other findings: Minimal elevation of the right hemidiaphragm. Very mild intrapelvically duct dilatation. IMPRESSION: 1. There is extensive wall thickening of the distal transverse colon extending to involve the splenic flexure and descending colon and the proximal sigmoid colon most suggestive of inflammatory or infectious colitis. Clinical correlation is advised. 2. Status post cholecystectomy. 3. Nonobstructing right renal calculi. 4. Appendix is unremarkable. 5. Distention of the rectosigmoid with stool raising concern for fecal impaction. 6. Fatty liver. 7. Possible mild splenomegaly of uncertain etiology.
[2020-12-22 05:13] VITALS: BP 95/65; PULSE 72; RESP 16
== END 2020-12-22 05:13 | disposition home or self-care (01) ==
LOC: EC 22:21
DX: E86.0 Dehydration (principal); F41.9 Anxiety disorder, unspecified; F31.9 Bipolar disorder, unspecified; J44.9 Chronic obstructive pulmonary disease, unspecified; K21.9 Gastro-esophageal reflux disease without esophagitis; E78.5 Hyperlipidemia, unspecified; I10 Essential (primary) hypertension; M19.90 Unspecified osteoarthritis, unspecified site; F17.200 Nicotine dependence, unspecified, uncomplicated; Z79.51 Long term (current) use of inhaled steroids; Z79.82 Long term (current) use of aspirin; Z79.899 Other long term (current) drug therapy; Z88.1 Allergy status to other antibiotic agents; Z88.5 Allergy status to narcotic agent; Z90.49 Acquired absence of other specified parts of digestive tract; Z90.710 Acquired absence of both cervix and uterus; Z86.69 Personal history of other diseases of the nervous system and sense organs
CPT/HCPCS: 99285; 96360; 36415; 93005; 83880; 80053; 82550; 83605; 83690; 83735; 84100; 84443; 84484; 85025; 85610; 85730; 81001; 71046; 74177; Q9967

== ENCOUNTER 2021-01-11 08:56 | Day surgery (SDC) | payer MEDICARE ==
[~2021-01-11 08:56] MED LIST changes: -HEPARIN SODIUM,PORCINE 5,000 UNIT/ML 1 ML VIAL SQ ONE; +LACTATED RINGERS 1,000 ML IV SCH; -ceFAZolin IN SWFI 2 GM/20 ML SYRINGE IVP ONE
[2021-01-11] MEDS ORDERED: LACTATED RINGERS 1,000 ML IV ONE ×2 (10:20)
[2021-01-11 10:27] VITALS: RESP 16; TEMP 97.2
[2021-01-11] MEDS ORDERED: LIDOCAINE 1% (10MG/ML) FOR IV START INTRADERMA ONE (10:28)
[2021-01-11] MEDS ORDERED: PROPOFOL 10 MG/ML 20 ML VIAL IV ONE (11:32)
--- NOTE | 2021-01-11 11:35 | P.GSHP ---
History of Present Illness H&P Date: 01/11/21 Chief Complaint: GERD, change in bowel habits This a 65-year-old female who presents today for EGD and colonoscopy. She's had issues with GERD and change in bowel habits with increased constipation. Past Medical History Past Medical History: COPD, GERD/Reflux, Hyperlipidemia, Hypertension, Memory Impairment, Osteoarthritis (OA), Pneumonia Additional Past Medical History / Comment(s): Hx stomach ulcers, severe constipation/impaction, pancreatitis, osteoporosis, empysema, migraines. Current issues with severe constipation and abd pain. diff swallowing currently/'chokes", recent falls and weakness, neuropathy History of Any Multi-Drug Resistant Organisms: None Reported Past Surgical History: Cholecystectomy, Hysterectomy, Orthopedic Surgery Additional Past Surgical History / Comment(s): 04/27/19 Anahi fundoplication, left foot surgery Past Anesthesia/Blood Transfusion Reactions: Postoperative Nausea & Vomiting (PONV) Additional Past Anesthesia/Blood Transfusion Reaction / Comment(s): no hx blood transfusion Smoking Status: Current some day smoker - Past Family History Mother Family Medical History: Cancer Medications and Allergies Home Medications Medication Instructions Recorded Confirmed Type Aspirin [Adult Low Dose Aspirin EC] 81 mg PO DAILY 05/17/18 01/11/21 History Metoprolol Succinate [Toprol XL] 100 mg PO DAILY 05/17/18 01/11/21 History QUEtiapine [SEROquel] 900 mg PO HS 05/17/18 01/11/21 History lamoTRIgine [LaMICtal] 200 mg PO BID 05/17/18 01/11/21 History Budesonide/Formoterol Fumarate 2 puff INHALATION RT-BID 01/31/19 01/11/21 History [Symbicort 160-4.5 Mcg Inhaler] Albuterol Sulfate [Proair Hfa] 1 - 2 puff INHALATION RT-Q6H PRN 03/21/19 01/11/21 History methocarbamoL [Robaxin] 500 mg PO TID PRN 03/21/19 01/11/21 History Omeprazole 40 mg PO DAILY 04/20/19 01/11/21 History Atorvastatin [Lipitor] 20 mg PO DAILY 08/08/19 01/11/21 History Fetzima 80mg 1 tab PO DAILY 12/03/20 01/11/21 History Levothyroxine Sodium [Synthroid] 50 mcg PO DAILY 12/03/20 01/11/21 History Morphine Sulfate Ir [MSIR] 20 mg PO Q6H PRN 12/03/20 01/11/21 History Vitamin B Complex 1 each PO DAILY 01/10/21 01/11/21 History Allergies Allergy/AdvReac Type Severity Reaction Status Date / Time cefaclor [From Ceclor] Allergy Rash/Hives Verified 01/11/21 10:16 hydrocodone [From [place]] AdvReac "doesn't Verified 01/11/21 10:16 work for me" Surgical - Exam Vital Signs Temp Pulse Resp BP Pulse Ox 97.2 F L 81 16 116/60 97 01/11/21 10:26 01/11/21 10:26 01/11/21 10:26 01/11/21 10:26 01/11/21 10:26 - General well developed, well nourished, no distress - Eyes PERRL - ENT normal pinna - Neck no masses - Respiratory normal expansion - Cardiovascular Rhythm: regular - Abdomen Abdomen: soft, non tender Assessment and Plan Assessment: GERD, constipation,, change in bowel habits. We'll perform EGD and colonoscopy.
--- NOTE | 2021-01-11 11:51 | P.OP ---
Date of Procedure: 01/11/21 Preoperative Diagnosis: GERD Constipation Postoperative Diagnosis: Antral gastritis Poor colonic prep Procedure(s) Performed: EGD Colonoscopy Anesthesia: MAC Surgeon: Joselo Torre Pathology: other (Antrum) Condition: stable Disposition: PACU Description of Procedure: Patient's placed on the endoscopy table in the lateral position. She received IV sedation. The gastroscope placed oropharynx passed in the esophagus and stomach. Scope was placed through the pylorus. The first and second portion of duodenum appeared normal. Scope was then brought back the antrum this. Mildly inflamed. A biopsies performed. Scope was unrexflexed and remainder stomach appeared normal. The GE junction was at 40 cm. The distal esophagus was Normal. Proximal esophagus was Normal. Scope was withdrawn for patient. Next digital rectal exam was performed which revealed a large amount of stool the rectal vault.. Scope was placed patient anus passed rotator colon. Scope could not be passed beyond the sigmoid colon secondary to large amount of stool. At this point scope was withdrawn. There was a limited view of the mucosa. There is no abdomen was seen. The scope was withdrawn. The patient was rescheduled for colonoscopy.
[2021-01-11 12:51] VITALS: BP 114/78; PULSE 85
== END 2021-01-11 13:00 | disposition home or self-care (01) ==
LOC: ORWHC2ENDO 08:56
PROVIDERS: ATTEND Surgery
DX: K31.9 Disease of stomach and duodenum, unspecified (principal); E78.5 Hyperlipidemia, unspecified; I10 Essential (primary) hypertension; R41.3 Other amnesia; M19.90 Unspecified osteoarthritis, unspecified site; Z87.01 Personal history of pneumonia (recurrent); Z87.11 Personal history of peptic ulcer disease; Z87.19 Personal history of other diseases of the digestive system; M81.0 Age-related osteoporosis without current pathological fracture; J43.9 Emphysema, unspecified; G62.9 Polyneuropathy, unspecified; Z90.49 Acquired absence of other specified parts of digestive tract; Z90.710 Acquired absence of both cervix and uterus; Z98.890 Other specified postprocedural states; F17.200 Nicotine dependence, unspecified, uncomplicated; Z80.9 Family history of malignant neoplasm, unspecified; Z79.82 Long term (current) use of aspirin; Z79.890 Hormone replacement therapy; Z79.891 Long term (current) use of opiate analgesic; Z79.899 Other long term (current) drug therapy; Z88.1 Allergy status to other antibiotic agents; Z88.5 Allergy status to narcotic agent
CPT/HCPCS: 88305; 45378; 43239; J2704

== ENCOUNTER 2021-01-24 18:17 | Observation (INO) | payer MEDICARE ==
[2021-01-24] MEDS ORDERED: SODIUM CHLORIDE 0.9% 1,000 ML IV ONE (18:47)
--- NOTE | 2021-01-24 18:54 | ED ---
Weakness HPI - General Chief complaint: Weakness Stated complaint: Weakness Time Seen by Provider: 01/24/21 18:17 Source: patient, EMS, RN notes reviewed Mode of arrival: EMS - History of Present Illness Initial comments: This is a 65-year-old female who presents by EMS with complaints of generalized weakness for the past 3-4 days decreased oral intake decreased urine output co nfusion she's had noticed a gait for several months but she's been falling a lot yesterday and today. She complains of pain to her low back and right hip area. No head or neck pain. No loss of function to her upper or lower extremities. Per the patient's family she was helped off the floor around 11:30 this morning the patient had no recall of this event. MD Complaint: generalized weakness - Related Data Home Medications Medication Instructions Recorded Confirmed Metoprolol Succinate [Toprol XL] 100 mg PO DAILY 05/17/18 01/24/21 QUEtiapine [SEROquel] 800 mg PO HS 05/17/18 01/24/21 lamoTRIgine [LaMICtal] 200 mg PO BID 05/17/18 01/24/21 Budesonide/Formoterol Fumarate 2 puff INHALATION RT-BID 01/31/19 01/24/21 [Symbicort 160-4.5 Mcg Inhaler] Albuterol Sulfate [Proair Hfa] 1 - 2 puff INHALATION RT-QID PRN 03/21/19 0 01/24/21 Omeprazole 40 mg PO DAILY 04/20/19 01/24/21 Atorvastatin [Lipitor] 20 mg PO DAILY 08/08/19 01/24/21 Fetzima 80mg 80 mg PO DAILY 12/03/20 01/24/21 Levothyroxine Sodium [Synthroid] 50 mcg PO DAILY 12/03/20 01/24/21 Morphine Sulfate Ir [MSIR] 15 mg PO QID PRN 12/03/20 01/24/21 Cyanocobalamin (Vitamin B-12) 1,000 mcg PO DAILY 01/24/21 01/24/21 [Vitamin B-12] Allergies Allergy/AdvReac Type Severity Reaction Status Date / Time cefaclor [From Ceclor] Allergy Rash/Hives Verified 01/24/21 20:14 hydrocodone [From [place]] AdvReac "doesn't Verified 01/24/21 20:14 work for me" Review of Systems ROS Statement: Those systems with pertinent positive or pertinent negative responses have been documented in the HPI. ROS Other: All systems not noted in ROS Statement are negative. Past Medical History Past Medical History: COPD, GERD/Reflux, Hyperlipidemia, Hypertension, Memory Impairment, Osteoarthritis (OA), Pneumonia Additional Past Medical History / Comment(s): Hx stomach ulcers, severe constip ation/impaction, pancreatitis, osteoporosis, empysema, migraines. Current issues with severe constipation and abd pain. diff swallowing currently/'chokes", recent falls and weakness, neuropathy History of Any Multi-Drug Resistant Organisms: None Reported Past Surgical History: Cholecystectomy, Hysterectomy, Orthopedic Surgery Additional Past Surgical History / Comment(s): 04/27/19 Anahi fundoplication, left foot surgery Past Anesthesia/Blood Transfusion Reactions: Postoperative Nausea & Vomiting (PONV) Additional Past Anesthesia/Blood Transfusion Reaction / Comment(s): no hx blood transfusion Past Psychological History: Anxiety, Bipolar, Depression Smoking Status: Current some day smoker, Former smoker Past Alcohol Use History: None Reported Past Drug Use History: None Reported - Past Family History Mother Family Medical History: Cancer General Exam - General Exam Comments Initial Comments: This is a well-developed asthenic appearing female who is awake alert oriented 3 with a [place] Coma Scale of 15 at this time General appearance: alert, in no apparent distress Head exam: Present: atraumatic, normocephalic, normal inspection Eye exam: Present: normal appearance, PERRL, EOMI. Absent: scleral icterus, conjunctival injection, periorbital swelling ENT exam: Present: mucous membranes dry Neck exam: Present: normal inspection, full ROM, other (No stridor JVD or bruits). Absent: tenderness, meningismus, lymphadenopathy Respiratory exam: Present: normal lung sounds bilaterally, chest wall tenderness (Tennis palpation on the left lateral chest wall). Absent: respiratory distre ss, wheezes, rales, rhonchi, stridor Cardiovascular Exam: Present: regular rate, normal rhythm, normal heart sounds. Absent: systolic murmur, diastolic murmur, rubs, gallop, clicks GI/Abdominal exam: Present: soft, normal bowel sounds. Absent: distended, tenderness, guarding, rebound, rigid Rectal exam: Present: deferred Extremities exam: Present: normal inspection, full ROM, tenderness (Tennis palpation of the right hip no step-off or crepitation), normal capillary refill. Absent: pedal edema, joint swelling, calf tenderness Back exam: Present: tenderness, other (Tennis palpation along the lower lumbar upper sacral spine no step-off no crepitation some increased erythema seen.). Absent: normal inspection Neurological exam: Present: alert, oriented X3, CN II-XII intact Psychiatric exam: Present: normal affect, normal mood Skin exam: Present: warm, dry, intact, normal color. Absent: rash Course Vital Signs 01/24/21 01/24/21 18:19 21:04 Temperature 98.6 F 97.3 F L Pulse Rate 84 80 Respiratory 18 16 Rate Blood Pressure 140/81 112/94 O2 Sat by Pulse 100 96 Oximetry EKG Findings - EKG Results: EKG: interpreted by CESAR, sinus rhythm (Normal sinus rhythm 81. Interval 144 QRS duration 82 QT since QTC 392/455 this is a normal-appearing EKG) Medical Decision Making - Medical Decision Making The patient is more responsive and awake after IV fluids she will be admitted I did discuss case with her and her family as well as with Quintin who is covering Dr. Rodriguez. UA is pending at this time. - Lab Data Result diagrams: 01/24/21 18:56 01/24/21 18:56 Lab Results 01/24/21 01/24/21 01/24/21 Range/Units 18:56 18:56 18:56 WBC 7.0 (3.8-10.6) k/uL RBC 3.39 L (3.80-5.40) m/uL Hgb 11.1 L (11.4-16.0) gm/dL Hct 33.2 L (34.0-46.0) % MCV 97.9 (80.0-100.0) fL MCH 32.7 (25.0-35.0) pg MCHC 33.4 (31.0-37.0) g/dL RDW 12.9 (11.5-15.5) % Plt Count 143 L (150-450) k/uL MPV 7.6 Neutrophils % 71 % Lymphocytes % 19 % Monocytes % 6 % Eosinophils % 2 % Basophils % 0 % Neutrophils # 4.9 (1.3-7.7) k/uL Lymphocytes # 1.3 (1.0-4.8) k/uL Monocytes # 0.4 (0-1.0) k/uL Eosinophils # 0.2 (0-0.7) k/uL Basophils # 0.0 (0-0.2) k/uL PT 11.6 (9.0-12.0) sec INR 1.1 (<1.2) APTT 23.0 (22.0-30.0) sec Sodium 138 (137-145) mmol/L Potassium 3.8 (3.5-5.1) mmol/L Chloride 107 (98-107) mmol/L Carbon Dioxide 21 L (22-30) mmol/L Anion Gap 10 mmol/L BUN 22 H (7-17) mg/dL Creatinine 0.96 (0.52-1.04) mg/dL Est GFR (CKD-EPI)AfAm 73 (>60 ml/min/1.73 sqM) Est GFR (CKD-EPI)NonAf 63 (>60 ml/min/1.73 sqM) Glucose 90 (74-99) mg/dL Calcium 8.9 (8.4-10.2) mg/dL Total Bilirubin 0.9 (0.2-1.3) mg/dL AST 21 (14-36) U/L ALT 11 (4-34) U/L Alkaline Phosphatase 153 H (38-126) U/L Ammonia (<30) umol/L Creatine Kinase 166 H (30-135) U/L Troponin I (0.000-0.034) ng/mL Total Protein 6.1 L (6.3-8.2) g/dL Albumin 3.5 (3.5-5.0) g/dL 01/24/21 01/24/21 Range/Units 18:56 18:56 WBC (3.8-10.6) k/uL RBC (3.80-5.40) m/uL Hgb (11.4-16.0) gm/dL Hct (34.0-46.0) % MCV (80.0-100.0) fL MCH (25.0-35.0) pg MCHC (31.0-37.0) g/dL RDW (11.5-15.5) % Plt Count (150-450) k/uL MPV Neutrophils % % Lymphocytes % % Monocytes % % Eosinophils % % Basophils % % Neutrophils # (1.3-7.7) k/uL Lymphocytes # (1.0-4.8) k/uL Monocytes # (0-1.0) k/uL Eosinophils # (0-0.7) k/uL Basophils # (0-0.2) k/uL PT (9.0-12.0) sec INR (<1.2) APTT (22.0-30.0) sec Sodium (137-145) mmol/L Potassium (3.5-5.1) mmol/L Chloride (98-107) mmol/L Carbon Dioxide (22-30) mmol/L Anion Gap mmol/L BUN (7-17) mg/dL Creatinine (0.52-1.04) mg/dL Est GFR (CKD-EPI)AfAm (>60 ml/min/1.73 sqM) Est GFR (CKD-EPI)NonAf (>60 ml/min/1.73 sqM) Glucose (74-99) mg/dL Calcium (8.4-10.2) mg/dL Total Bilirubin (0.2-1.3) mg/dL AST (14-36) U/L ALT (4-34) U/L Alkaline Phosphatase (38-126) U/L Ammonia <9 (<30) umol/L Creatine Kinase (30-135) U/L Troponin I <0.012 (0.000-0.034) ng/mL Total Protein (6.3-8.2) g/dL Albumin (3.5-5.0) g/dL - Radiology Data Radiology results: report reviewed (Imaging reviewed no acute findings.), image reviewed Disposition Clinical Impression: Failure to thrive syndrome, adult, Dehydration, Weakness, Frequent falls Disposition: ADMITTED IP TO THIS [facility] Condition: Fair Referrals: Dnoavan Rodriguez MD [Primary Care Provider] - 1-2 days
[2021-01-24 19:08] LABS: Basophils % (A) 0 %; Eosinophils # (A) 0.2 k/uL (0-0.7); Eosinophils % (A) 2 %; HCT 33.2 % (34.0-46.0); HGB 11.1 gm/dL (11.4-16.0); Lymphocytes # (A) 1.3 k/uL (1.0-4.8); Lymphocytes % (A) 19 %; MCH 32.7 pg (25.0-35.0); MCHC 33.4 g/dL (31.0-37.0); MCV 97.9 fL (80.0-100.0); Mean Platelet Volume 7.6; Monocytes # (A) 0.4 k/uL (0-1.0); Monocytes % (A) 6 %; Neutrophils # (A) 4.9 k/uL (1.3-7.7); Neutrophils % (A) 71 %; Platelet Count 143 k/uL (150-450); RBC 3.39 m/uL (3.80-5.40); RDW 12.9 % (11.5-15.5)
[2021-01-24 19:16] LABS: Albumin 3.5 g/dL (3.5-5.0); Calcium 8.9 mg/dL (8.4-10.2); Potassium 3.8 mmol/L (3.5-5.1); Total Bilirubin 0.9 mg/dL (0.2-1.3); Total Protein 6.1 g/dL (6.3-8.2)
[2021-01-24 19:20] LABS: INR 1.1 (<1.2); Prothrombin Time 11.6 sec (9.0-12.0)
--- NOTE | 2021-01-24 19:34 | CT ---
EXAMINATION TYPE: CT brain wo con DATE OF EXAM: 01/24/2021 COMPARISON: 03/11/2020 HISTORY: Altered mental status. CT DLP: 1099.4 mGycm Automated exposure control for dose reduction was used. Ventricles have normal size. There is no mass effect nor midline shift. There is no sign of intracran ial hemorrhage. The calvarium is intact. There is no evidence of cerebral edema. Skull base is intact . There is normal aeration of the mastoid sinuses. IMPRESSION: Negative CT scan of the brain. No change.
[2021-01-24] MEDS: SODIUM CHLORIDE 0.9% 1,000 ML IV STA ×2 (19:37→21:42)
--- NOTE | 2021-01-24 19:52 | XR ---
EXAMINATION TYPE: XR pelvis AP view DATE OF EXAM: 01/24/2021 COMPARISON: NONE HISTORY: Pain TECHNIQUE: Single view FINDINGS: There is sclerosis in the subtrochanteric right femur that could be avascular necrosis. The pelvic ring is intact. I see no fracture. The hip joint spaces are fairly normal. Sacroiliac joints are intact. IMPRESSION: No acute abnormality of the pelvis.
--- NOTE | 2021-01-24 19:53 | XR ---
EXAMINATION TYPE: XR lumbosacral spine min 4V DATE OF EXAM: 01/24/2021 COMPARISON: NONE HISTORY: Back pain TECHNIQUE: 5 views FINDINGS: There is some osteopenia. Vertebra have normal alignment. I see no compression fracture. Th ere is narrowing of L4-5 and L5-S1 disc spaces with spur formation. The posterior elements appear int act. Sacroiliac joints are intact. IMPRESSION: Negative lumbar spine exam. No fracture. Spondylotic changes in the lower lumbar spine.
--- NOTE | 2021-01-24 19:54 | XR ---
EXAMINATION TYPE: XR chest 2V DATE OF EXAM: 01/24/2021 COMPARISON: 12/21/2020 HISTORY: Altered mental status TECHNIQUE: 2 views FINDINGS: There is no heart failure nor confluent pneumonic infiltrate. Costophrenic angles are clear . There are no hilar masses. There are chest leads. Bony thorax is intact. IMPRESSION: No active cardiopulmonary disease. No adverse change.
[2021-01-24] MEDS ORDERED: HYDROmorphone 0.5 MG/0.5 ML SYRINGE IVP PRN (21:12)
[2021-01-24] MEDS ORDERED: NALOXONE 0.4 MG/ML 1 ML VIAL IV PRN (21:12)
[2021-01-24] MEDS ORDERED: ONDANSETRON 4 MG/2 ML VIAL IVP PRN (21:12)
[2021-01-24] MEDS ORDERED: ACETAMINOPHEN TAB 325 MG TAB PO PRN (21:12)
[2021-01-24] MEDS ORDERED: ALBUTEROL NEBULIZED 2.5 MG/3 ML INHALATION PRN (21:13)
[2021-01-24] MEDS ORDERED: MORPHINE SULFATE 4 MG/ML SYRINGE IVP STA (21:16)
[2021-01-24 21:28] LABS: Appearance,Urine Cloudy (Clear); Bacteria,Urine Few /hpf; Bilirubin,Urine Negative (Negative); Blood,Urine Moderate (Negative); Color,Urine Yellow; Glucose,Urine (UA) Negative (Negative); Hyaline Casts,Urine 2 /lpf (0-2); Ketones,Urine 2+ (Negative); Leukocyte Esterase,Urine Large (Negative); Mucus,Urine Few /hpf; Nitrite,Urine Positive (Negative); Protein,Urine 1+ (Negative); RBC,Urine 18 /hpf (0-5); Specific Gravity,Urine 1.021 (1.001-1.035); Squamous Epithelial Cell,Urine 1 /hpf (0-4); WBC,Urine >182 /hpf (0-5)
[2021-01-24 21:32] LABS: Amphetamine Screen,Urine Not Detected (NotDetected); Barbiturate Screen,Urine Not Detected (NotDetected); Benzodiazepines Screen,Urine Not Detected (NotDetected); Cocaine Screen,Urine Not Detected (NotDetected); Methadone Screen, Urine Not Detected (NotDetected); Opiate Screen,Urine Detected (NotDetected); Oxycodone Screen, Urine Not Detected (NotDetected); Phencyclidine Screen,Urine Not Detected (NotDetected); Tricyclic Antidepressant,Urine Detected (NotDetected); Urn Cannabinoid Scrn Not Detected (NotDetected)
[2021-01-24] MEDS: SODIUM CHLORIDE 0.9% 1,000 ML IV SCH (21:42)
[2021-01-25] MEDS: SODIUM CHLORIDE 0.9% 1,000 ML IV SCH ×3 (05:09→19:58)
[2021-01-25 05:17] LABS: Basophils % (A) 1 %; Eosinophils # (A) 0.2 k/uL (0-0.7); Eosinophils % (A) 4 %; HCT 28.9 % (34.0-46.0); Lymphocytes # (A) 1.2 k/uL (1.0-4.8); Lymphocytes % (A) 26 %; MCH 32.7 pg (25.0-35.0); MCHC 32.6 g/dL (31.0-37.0); MCV 100.5 fL (80.0-100.0); Mean Platelet Volume 7.6; Monocytes # (A) 0.3 k/uL (0-1.0); Monocytes % (A) 7 %; Neutrophils # (A) 2.8 k/uL (1.3-7.7); Neutrophils % (A) 62 %; Platelet Count 104 k/uL (150-450); RBC 2.88 m/uL (3.80-5.40); WBC 4.6 k/uL (3.8-10.6)
[2021-01-25 06:04] LABS: HGB 9.4 gm/dL (11.4-16.0)
[2021-01-25] MEDS: SYMBICORT 160-4.5 MCG INHALER INHALATION SCH ×2 (08:18→19:33)
--- NOTE | 2021-01-25 08:39 | P.HPIM ---
History of Present Illness H&P Date: 01/25/21 Chief Complaint: Generalized weakness/with recurrent falls 65-year-old female presented to the emergency department with generalized weakness for 3-4 days duration. Family reported to emergency department frequent falls, with an episode on 01/24/2021 around 11:30 AMpatient was unable to recall event in the emergency department or this morning upon evaluation. Per records of the emergency department patient has decreased oral intake and urine output. Per emergency department records patient has been increasingly confusing per family for 1 month duration. Patient had extensive diagnostic workup in the emergency department revealing mild to moderate dehydr ation with acute urinary tract infection present upon admission. Patient has been taken medical history of COPD, GERD, hyperlipidemia, hypertension, memory impairment, osteoarthritis, hypothyroidism, mixed anxiety and depression, bipolar, significant orthopedic surgeries in the past. upon evaluation of the patient this a.m. patient able to answer questions to person and place disorientated to time and situation. she noted to be frequently drowsy. Review of Systems Constitutional: Reports chills, Reports lethargy, Reports weakness, Reports weight loss Ears, nose, mouth and throat: Reports sore throat Musculoskeletal: Reports low back pain, Reports muscle weakness Integumentary: Reports dryness Neurological: Reports confusion, Reports memory loss, Reports weakness Endocrine: Reports cold intolerance, Reports fatigue Past Medical History Past Medical History: COPD, GERD/Reflux, Hyperlipidemia, Hypertension, Memory Impairment, Osteoarthritis (OA), Pneumonia Additional Past Medical History / Comment(s): Hx stomach ulcers, severe constipation/impaction, pancreatitis, osteoporosis, empysema, migraines. Current issues with severe constipation and abd pain. diff swallowing currently/'chokes", recent falls and weakness, neuropathy History of Any Multi-Drug Resistant Organisms: None Reported Past Surgical History: Cholecystectomy, Hysterectomy, Orthopedic Surgery Additional Past Surgical History / Comment(s): 04/27/19 Anahi fundoplication, left foot surgery Past Anesthesia/Blood Transfusion Reactions: Postoperative Nausea & Vomiting (PONV) Additional Past Anesthesia/Blood Transfusion Reaction / Comment(s): no hx blood transfusion Past Psychological History: Anxiety, Bipolar, Depression Smoking Status: Current some day smoker, Former smoker Past Alcohol Use History: None Reported Past Drug Use History: None Reported - Past Family History Mother Family Medical History: Cancer Medications and Allergies Home Medications and Allergies Comment(s): Medications and ALLERGIES reviewed Home Medications Medication Instructions Recorded Confirmed Type Metoprolol Succinate [Toprol XL] 100 mg PO DAILY 05/17/18 01/24/21 History QUEtiapine [SEROquel] 800 mg PO HS 05/17/18 01/24/21 History lamoTRIgine [LaMICtal] 200 mg PO BID 05/17/18 01/24/21 History Budesonide/Formoterol Fumarate 2 puff INHALATION RT-BID 01/31/19 01/24/21 History [Symbicort 160-4.5 Mcg Inhaler] Albuterol Sulfate [Proair Hfa] 1 - 2 puff INHALATION RT-QID PRN 03/21/19 01/24/21 History Omeprazole 40 mg PO DAILY 04/20/19 01/24/21 History Atorvastatin [Lipitor] 20 mg PO DAILY 08/08/19 01/24/21 History Fetzima 80mg 80 mg PO DAILY 12/03/20 01/24/21 History Levothyroxine Sodium [Synthroid] 50 mcg PO DAILY 12/03/20 01/24/21 History Morphine Sulfate Ir [MSIR] 15 mg PO QID PRN 12/03/20 01/24/21 History Cyanocobalamin (Vitamin B-12) 1,000 mcg PO DAILY 01/24/21 01/24/21 History [Vitamin B-12] Allergies Allergy/AdvReac Type Severity Reaction Status Date / Time cefaclor [From Ceclor] Allergy Rash/Hives Verified 01/24/21 20:14 hydrocodone [From [place]] AdvReac "doesn't Verified 01/24/21 20:14 work for me" Physical Exam Vitals: Vital Signs Temp Pulse Pulse Resp BP BP Pulse Ox 01/25/21 06:19 98.1 F 88 18 122/83 97 01/25/21 05:00 98.2 F 70 16 92/58 94 L 01/25/21 00:31 79 18 129/86 98 01/24/21 21:43 80 18 134/81 99 01/24/21 21:04 97.3 F L 80 16 112/94 96 01/24/21 18:19 98.6 F 84 18 140/81 100 Intake and Output 01/24/21 01/25/21 01/25/21 22:59 06:59 14:59 Intake Total 130 Output Total 12 Balance -12 130 Intake: IV 130 Sodium Chloride 0.9% 1, 130 000 ml @ 130 mls/hr IV . [id number] Rx#:[id number] Output: Urine 12 Straight 12 Other: Weight 49.895 kg - Constitutional General appearance: disheveled, thin - EENT Eyes: EOMI, PERRLA ENT: other (Oral mucous membranes dry) Ears: bilateral: normal - Neck Carotids: bilateral: upstroke normal - Respiratory Respiratory: bilateral: diminished (Posterior lung gates) - Cardiovascular Normal sinus rhythm Heart rate: 88 Rhythm: regular Heart sounds: normal: S1, S2 dorsalis pedis Peripheral Pulses: bilateral: Normal radial pulse Peripheral Pulses: bilateral: Normal - Gastrointestinal General gastrointestinal: normal bowel sounds - Integumentary Integumentary: decreased turgor, pale - Neurologic Neurologic: CNII-XII intact - Musculoskeletal Musculoskeletal: generalized weakness - Psychiatric Alert to person and place Disoriented to time and situation Pleasantly confused Results CBC & Chem 7: 01/25/21 04:51 01/24/21 18:56 Labs: Abnormal Lab Results - Last 24 Hours (Table) 01/24/21 01/24/21 01/24/21 Range/Units 18:56 18:56 21:04 RBC 3.39 L (3.80-5.40) m/uL Hgb 11.1 L (11.4-16.0) gm/dL Hct 33.2 L (34.0-46.0) % MCV (80.0-100.0) fL Plt Count 143 L (150-450) k/uL Carbon Dioxide 21 L (22-30) mmol/L BUN 22 H (7-17) mg/dL Alkaline Phosphatase 153 H (38-126) U/L Creatine Kinase 166 H (30-135) U/L C-Reactive Protein (<10.0) mg/L Total Protein 6.1 L (6.3-8.2) g/dL Urine Appearance Cloudy H (Clear) Urine Protein 1+ H (Negative) Urine Ketones 2+ H (Negative) Urine Blood Moderate H (Negative) Urine Nitrite Positive H (Negative) Ur Leukocyte Esterase Large H (Negative) Urine RBC 18 H (0-5) /hpf Urine WBC >182 H (0-5) /hpf Urine Bacteria Few H (None) /hpf Urine Mucus Few H (None) /hpf Urine Opiates Screen Detected H (NotDetected) U Tricyclic Antidepress Detected H (NotDetected) 01/24/21 01/25/21 Range/Units 23:46 04:51 RBC 2.88 L (3.80-5.40) m/uL Hgb 9.4 L D (11.4-16.0) gm/dL Hct 28.9 L (34.0-46.0) % MCV 100.5 H (80.0-100.0) fL Plt Count 104 L (150-450) k/uL Carbon Dioxide (22-30) mmol/L BUN (7-17) mg/dL Alkaline Phosphatase (38-126) U/L Creatine Kinase (30-135) U/L C-Reactive Protein 39.5 H (<10.0) mg/L Total Protein (6.3-8.2) g/dL Urine Appearance (Clear) Urine Protein (Negative) Urine Ketones (Negative) Urine Blood (Negative) Urine Nitrite (Negative) Ur Leukocyte Esterase (Negative) Urine RBC (0-5) /hpf Urine WBC (0-5) /hpf Urine Bacteria (None) /hpf Urine Mucus (None) /hpf Urine Opiates Screen (NotDetected) U Tricyclic Antidepress (NotDetected) Microbiology - Last 24 Hours (Table) 01/24/21 21:04 Urine Culture - Preliminary Urine,Clean Catch Comments: Lumbar and pelvis x-rays reviewed Chest x-ray: report reviewed CT Scan - head: report reviewed Thrombosis Risk Factor Assmnt - Choose All That Apply Each Factor Represents 1 point: Abnormal pulmonary function (COPD) Each Risk Factor Represents 2 Points: Age 61-74 years Thrombosis Risk Factor Assessment Total Risk Factor Score: 3 Thrombosis Risk Factor Assessment Level: Moderate Risk Assessment and Plan Assessment: Dehydration Acute urinary tract infection present on upon admission Acute on chronic confusion Chronic back pain Frequent falls COPD GERD/reflux Hyperlipidemia Hypertension Memory impairment Osteoarthritis History of pneumonia History of stomach of History of pancreatitis Osteoarthritis Osteopenia Migraines Neuropathy Mixed anxiety and depression Bipolar Remote nicotine dependence Full code Plan: Dehydrationcontinue intravenous isotonic fluids, encourage oral intake Acute urinary tract section present upon admissionempiric antibiotics at this timeawaiting cultures Confusioncontinue IV fluids, encourage oral intakecontinue to monitorhistory of memory impairment Chronic back paincontinue analgesics as needed Continue home medications Continue medical management Consult social work and physical therapy for assessment of living situation Further recommendations to come based on patient's clinical condition Time with Patient: Greater than 30
[2021-01-25] MEDS ORDERED: NON FORMULARY DRUG (Omeprazole [Omeprazole] 40 MG Capsule.Dr) PO SCH (09:00)
[2021-01-25] MEDS: FETZIMA PO SCH (09:04)
[2021-01-25] MEDS: PANTOPRAZOLE 40 MG/10 ML VIAL IV SCH (09:08)
[2021-01-25] MEDS: ATORVASTATIN 20 MG TAB PO SCH (09:09)
[2021-01-25] MEDS: CYANOCOBALAMIN 500 MCG TAB PO SCH (09:09)
[2021-01-25] MEDS: LEVOTHYROXINE 50 MCG TAB PO SCH (09:10)
[2021-01-25] MEDS: lamoTRIgine 100 MG TAB PO SCH ×2 (09:10→20:02)
[2021-01-25] MEDS: METOPROLOL SUCCINATE (ER) 100 MG TAB.ER.24H PO SCH (10:45)
[2021-01-25 12:49] LABS: African American GFR (CKD) 78.9 (60.0-200.0); Albumin 3.3 g/dL (3.80-4.90); Albumin/Globulin Ratio 2.06 (1.60-3.17); Anion Gap 10.5 mmol/L (4.00-12.00); BUN/Creat Ratio 21.11 Ratio (12.00-20.00); Calcium 8.3 mg/dL (8.7-10.3); Carbon Dioxide 19.5 mmol/L (21.6-31.8); Globulin 1.6 g/dL (1.6-3.3); Potassium 3.4 mmol/L (3.5-5.5); Total Bilirubin 0.3 mg/dL (0.3-1.2); Total Protein 4.9 g/dL (6.2-8.2)
[2021-01-25] MEDS: MORPHINE SULFATE IR 15 MG TABLET PO PRN ×2 (14:23→19:56)
[2021-01-25] MEDS: QUEtiapine 400 MG TAB PO SCH (20:01)
[2021-01-26] MEDS: LEVOTHYROXINE 50 MCG TAB PO SCH (06:06)
[2021-01-26] MEDS: FETZIMA PO SCH (08:05)
[2021-01-26] MEDS: SYMBICORT 160-4.5 MCG INHALER INHALATION SCH ×2 (08:10→19:48)
[2021-01-26] MEDS: CYANOCOBALAMIN 500 MCG TAB PO SCH (08:13)
[2021-01-26] MEDS: ATORVASTATIN 20 MG TAB PO SCH (08:13)
[2021-01-26] MEDS: lamoTRIgine 100 MG TAB PO SCH ×2 (08:13→20:40)
[2021-01-26] MEDS: PANTOPRAZOLE 40 MG/10 ML VIAL IV SCH (08:14)
[2021-01-26] MEDS: METOPROLOL SUCCINATE (ER) 100 MG TAB.ER.24H PO SCH (08:14)
[2021-01-26] MEDS: MORPHINE SULFATE IR 15 MG TABLET PO PRN ×3 (08:31→20:41)
[2021-01-26 09:09] LABS: Basophils # (A) 0.04 X 10*3/uL (0.00-0.10); Basophils % (A) 0.7 %; Eosinophils # (A) 0.31 X 10*3/uL (0.04-0.35); Eosinophils % (A) 5.5 %; HCT 30.6 % (37.2-46.3); HGB 9.6 g/dL (12.0-15.0); Lymphocytes # (A) 1.51 X 10*3/uL (0.90-5.00); MCH 31.8 pg (27.0-32.0); MCHC 31.4 g/dL (32.0-37.0); MCV 101.3 fL (80.0-97.0); Mean Platelet Volume 10.5 fL (9.5-12.2); Monocytes # (A) 0.32 X 10*3/uL (0.20-1.00); Monocytes % (A) 5.7 %; Neutrophils % (A) 60.7 %; Platelet Count 137 X 10*3/uL (140-440); RBC 3.02 X 10*6/uL (4.10-5.20); RDW 13.1 % (11.5-14.5)
[2021-01-26 09:57] LABS: African American GFR (CKD) 90.9 (60.0-200.0); Anion Gap 8.6 mmol/L (4.00-12.00); BUN/Creat Ratio 16.25 Ratio (12.00-20.00); Calcium 8.6 mg/dL (8.7-10.3); Carbon Dioxide 20.4 mmol/L (21.6-31.8); Non-African American GFR(CKD) 78.5 (60.0-200.0); Potassium 3.9 mmol/L (3.5-5.5)
--- NOTE | 2021-01-26 10:23 | P.PN ---
Subjective 65-year-old the female came in because of recurrent falls. Patient is diagnosed with dehydration and urinary tract infection patient is being treated for both. Patient is still quite a bit weak physical therapy occupational therapy to evaluate the patient. Patient is having tremor which as per the patient has been going on only for few months never diagnosed with Parkinson's. Patient the tumor is not like typical parkinsonian tremor patient has generalized weakness with the decreased strength in bilateral lower extremities and some muscle atrophy. I'll consult neurology for possibility of Parkinson's awaiting physical therapy and occupational therapy evaluation patient may need placement and patient is a 2 person assist. Constitutional: Denied any fatigue denied any fever. Cardio vascular: denied any chest pain, palpitations Gastrointestinal denied any nausea vomiting Pulmonary: Denied any shortness of breath cough Neurologic denied any new focal deficits All inpatient medications were reviewed and appropriate changes in these medications as dictated in the interval history and assessment and plan. Objective - Vital Signs Vital signs: Vital Signs Temp 98.2 F 01/26/21 06:40 Pulse 77 01/26/21 06:40 Resp 16 01/26/21 06:40 BP 113/77 01/26/21 06:40 Pulse Ox 92 L 01/26/21 06:40 Intake & Output 01/25/21 01/26/21 01/26/21 18:59 06:59 18:59 Intake Total 200 Output Total 700 Balance -500 Weight 49.895 kg Intake: Oral 200 Output: Urine 700 Straight 700 Other: # Voids 1 0 - Exam PHYSICAL EXAMINATION: GENERAL: The patient is alert and oriented x3, not in any acute distress. Thin built nonessential tremor HEENT: Pupils are round and equally reacting to light. EOMI. No scleral icterus. No conjunctival pallor. Normocephalic, atraumatic. No pharyngeal erythema. No thyromegaly. CARDIOVASCULAR: S1 and S2 present. No murmurs, rubs, or gallops. PULMONARY: Chest is clear to auscultation, no wheezing or crackles. ABDOMEN: Soft, nontender, nondistended, normoactive bowel sounds. No palpable organomegaly. MUSCULOSKELETAL: No joint swelling or deformity. EXTREMITIES: No cyanosis, clubbing, or pedal edema. NEUROLOGICAL: Decreased strength in all 4 extremities about 4/5 no other focal deficits were appreciated SKIN: No rashes. - Labs CBC & Chem 7: 01/26/21 05:29 01/26/21 05:29 Labs: Abnormal Lab Results - Last 24 Hours (Table) 01/24/21 01/25/21 01/26/21 Range/Units 23:46 04:51 05:29 RBC 3.02 L (4.10-5.20) X 10*6/uL Hgb 9.6 L (12.0-15.0) g/dL Hct 30.6 L (37.2-46.3) % MCV 101.3 H (80.0-97.0) fL MCHC 31.4 L (32.0-37.0) g/dL Plt Count 137 L (140-440) X 10*3/uL Potassium 3.4 L (3.5-5.5) mmol/L Chloride 112 H (96-109) mmol/L Carbon Dioxide 19.5 L (21.6-31.8) mmol/L BUN/Creatinine Ratio 21.11 H (12.00-20.00) Ratio Calcium 8.3 L (8.7-10.3) mg/dL Total Protein 4.9 L (6.2-8.2) g/dL Albumin 3.30 L (3.80-4.90) g/dL Procalcitonin 3.16 H (0.02-0.09) ng/mL 01/26/21 Range/Units 05:29 RBC (4.10-5.20) X 10*6/uL Hgb (12.0-15.0) g/dL Hct (37.2-46.3) % MCV (80.0-97.0) fL MCHC (32.0-37.0) g/dL Plt Count (140-440) X 10*3/uL Potassium (3.5-5.5) mmol/L Chloride 116 H (96-109) mmol/L Carbon Dioxide 20.4 L (21.6-31.8) mmol/L BUN/Creatinine Ratio (12.00-20.00) Ratio Calcium 8.6 L (8.7-10.3) mg/dL Total Protein (6.2-8.2) g/dL Albumin (3.80-4.90) g/dL Procalcitonin (0.02-0.09) ng/mL Microbiology - Last 24 Hours (Table) 01/24/21 23:06 Blood Culture - Preliminary Blood No Growth after 24 hours 01/24/21 22:45 Blood Culture - Preliminary Blood No Growth after 24 hours 01/24/21 21:04 Urine Culture - Preliminary Urine,Clean Catch Gram Neg Bacilli Assessment and Plan Plan: -Generalized weakness multiple falls: Patient will be evaluated for Parkinson's can string her tremor and increasing weakness physical therapy and occupational therapy to evaluate the patient [place]-dehydration: Continue with IV fluids -Possible urinary tract infection patient does have UTI symptoms urine is a bnormal and urine cultures positive for gram-negative bacilli continue with the Rocephin -COPD without any acute exacerbation Have gastroesophageal reflux disease -Hypertension -Hyperlipidemia -Chronic low back pain with peripheral neuropathy -Depression For above-mentioned medical problems will continue with present medications
--- NOTE | 2021-01-26 11:03 | P.CNNES ---
History of Present Illness Consult date: 01/26/21 Requesting physician: Haile Carvalho Reason for Consult: evaluate for parkinsons History of Present Illness: This is a 65-year-old woman with medical history of hypertension, hyperlipidemia, document history of memory impairment, bipolar who presented to the emergency department on 01/24/2021 with a complaint of generalized weakness for the past 3-4 days with decreased oral intake as well as confusion. She is also having more frequent falls the last 2 days. Neurology is consulted for possible Parkinson's disease. History was a little bit challenging to get from the patient since she is tangential. During the hospital stay she was found to have acute urinary tract infection. Per the patient that she stated that she has history of bipolar and has been on Lamictal 200 mg 1 tablet twice a day as well as she is on Seroquel 800 mg at. She said that she's been on the same medication at. And since she's been on that high of a dose she's been having the multiple fall confusion and tremor. She stated her medication has not been modified the. In the past she was followed up with a psychiatrist and unknown is name but recently she hasn't been followed up with psychology since her psychiatrist the left pound. Regarding her fall she stated that when she's walking all of a sudden she falls. She denies any loss of consciousness O she with this episode. Denies any urinary or bowel incontinence. Denies any history of seizure. Regarding her tremors she states she just shakes but could not tell me more details about her tremor. She also states she has neuropathy and that she has been followed up with Dr. De La Torre in which she did an EMG with nerve conduction and he notified her she has neuropathy but she denies history of diabetes. She's not unsure what type of neuropathy she has. She said that she had other workup done at but doesn't know. She said that she notify regarding her tremor falls and she said she being worked up for it and I'll not sure what workup she had done. She denies feeling lightheaded or dizzy going from sitting to standing position. Patient home medication is Lamictal 200 mg 1 tablet twice a day for her mood, Seroquel 800 mg daily at bedtime, Lipitor 20 g daily, vitamin B12 1000 g daily, Synthroid. Workup in the hospital consisted of: Initial vital signs: Blood pressure of 140/81, heart rate of 84, respiratory of 18, temperature of 98.6 Fahrenheit oral and pulse ox of hypertension room air. CT of the head is reported as negative CT scan of the brain. No change. Lumbar spine x-rays reported as negative lumbar spine exam. No fracture. Spondylitic change in the lower lumbar spine. In the body of the report it is reported as there is narrowing of the L4-L5 and L5-S1 disc space with spur formation. EKG is reported as normal sinus rhythm. Normal EKG. Patient's hemoglobin has been initially was 11.1 then repeat it was 9.4 and the last was 9.6. The MCV initially was 97.9 which is normal but then the last repeated is 101.3 which is elevated at. Sodium is 138 which is normal, serum glucose is 90 which is normal. Serum calcium is 8 point hours normal. Urine drug screen is positive for opiates and tricyclic antidepressant. Review of Systems Review of system: The 12 point system was reviewed and apparent positive and negative per HPI. Past Medical History Past Medical History: COPD, GERD/Reflux, Hyperlipidemia, Hypertension, Memory Impairment, Osteoarthritis (OA), Pneumonia Additional Past Medical History / Comment(s): Polyneuropathy, tremors that have recently increased, FALLS, memory problems, difficulty swallowing, severe constipation/currently constipated, colitis, abdominal pain, peptic ulcer disease, bronchitis, chronic low back and bilateral leg pain, past migraines, arthritis bilateral hands. History of Any Multi-Drug Resistant Organisms: None Reported Past Surgical History: Cholecystectomy, Hysterectomy, Orthopedic Surgery Additional Past Surgical History / Comment(s): 01/11/21 EGD and incomplete colonoscopy d/t poor prep, past EGDs/colonoscopies, kaylan fundoplasty, D&C, possible L foot surgery/pt unsure. Past Anesthesia/Blood Transfusion Reactions: Postoperative Nausea & Vomiting (PONV) Additional Past Anesthesia/Blood Transfusion Reaction / Comment(s): no hx blood transfusion Smoking Status: Former smoker - Past Family History Mother Family Medical History: Cancer Additional Family Medical History / Comment(s): Mother was an alcoholic. Father Family Medical History: COPD Medications and Allergies Home Medications Medication Instructions Recorded Confirmed Type Metoprolol Succinate [Toprol XL] 100 mg PO DAILY 05/17/18 01/24/21 History QUEtiapine [SEROquel] 800 mg PO HS 05/17/18 01/24/21 History lamoTRIgine [LaMICtal] 200 mg PO BID 05/17/18 01/24/21 History Budesonide/Formoterol Fumarate 2 puff INHALATION RT-BID 01/31/19 01/24/21 History [Symbicort 160-4.5 Mcg Inhaler] Albuterol Sulfate [Proair Hfa] 1 - 2 puff INHALATION RT-QID PRN 03/21/19 01/24/21 History Omeprazole 40 mg PO DAILY 04/20/19 01/24/21 History Atorvastatin [Lipitor] 20 mg PO DAILY 08/08/19 01/24/21 History Fetzima 80mg 80 mg PO DAILY 12/03/20 01/24/21 History Levothyroxine Sodium [Synthroid] 50 mcg PO DAILY 12/03/20 01/24/21 History Morphine Sulfate Ir [MSIR] 15 mg PO QID PRN 12/03/20 01/24/21 History Cyanocobalamin (Vitamin B-12) 1,000 mcg PO DAILY 01/24/21 01/24/21 History [Vitamin B-12] Allergies Allergy/AdvReac Type Severity Reaction Status Date / Time cefaclor [From Ceclor] Allergy Rash/Hives Verified 01/24/21 20:14 hydrocodone [From [place]] AdvReac "doesn't Verified 01/24/21 20:14 work for me" Physical Examination - Vital Signs Vital Signs: Vital Signs Temp Pulse Resp BP Pulse Ox 01/26/21 06:40 98.2 F 77 16 113/77 92 L 01/26/21 02:45 97.5 F L 76 18 131/87 96 01/25/21 21:30 81 18 01/25/21 20:09 97.5 F L 81 18 134/71 96 01/25/21 14:18 98.1 F 78 20 109/75 100 01/25/21 14:00 78 20 Intake and Output 01/25/21 01/26/21 01/26/21 22:59 06:59 14:59 Output Total 700 Balance -700 Output: Urine 700 Straight 700 Other: # Voids 0 0 GENERAL: The patient is lying in bed and is not in acute distress. CHEST: The heart rate is regular rate rhythm. No murmurs to auscultation. LUNG: Clear to auscultation bilaterally no wheezing noted throughout. Not labored breathing. ABDOMEN/GI: Bowel sounds present in all 4 quadrants. No tenderness to palpation throughout. PSYCHIATRIC: Tangential. NEUROLOGICAL: Higher mental function: The patient is awake, alert, oriented to self, place and time. Patient is following commands. No aphasia and no neglect. Cranial nerves: The pupils are round, equal and reactive to light and accommodation. Visual gates are full to confrontation throughout. Extraocular movement is intact no nystagmus is noted. Facial sensation is normal to touch throughout. The facial strength is normal throughout. Hearing is mildly decreasedl bilaterally to hand rub. Tongue is midline and moved [id number] without any difficulty. No dysarthria is noted. Has orobucal chewing movement. Shoulder shrug is normal bilaterally. Motor: Gait was done and was mostly one person assist (by me and nurse) and she was unsteady walking but was not swaying toward one side or other. The strength is 5 over 5 throughout. Normal tone and bulk. No resting tremor but has tremor toward end of target at both hand (right >left). No rigidity or increase tone. Cerebellum: No dysmetria or ataxia with finger to nose. Sensation: Sensation is normal to touch throughout. Reflexes (right/left): 2+ upper and 1+ lower (limited because of resistance). Plantars are downgoing bilaterally. Results AST is 21 and ALTs 11 which is normal. Ammonia level is less than 9 which is normal. Gr virus PCR is not detected Urine analysis shows that the patient's urine appears cloudy, nitrates positive, leukocyte esterase was large, urine white blood cells more than 182. - Laboratory Findings CBC and BMP: 01/26/21 05:29 01/26/21 05:29 Abnormal Lab Findings: Abnormal Labs 01/24/21 01/24/21 01/24/21 18:56 18:56 21:04 RBC 3.39 L Hgb 11.1 L Hct 33.2 L MCV MCHC Plt Count 143 L Potassium Chloride Carbon Dioxide 21 L BUN 22 H BUN/Creatinine Ratio Calcium Alkaline Phosphatase 153 H Creatine Kinase 166 H C-Reactive Protein Total Protein 6.1 L Albumin Procalcitonin Urine Appearance Cloudy H Urine Protein 1+ H Urine Ketones 2+ H Urine Blood Moderate H Urine Nitrite Positive H Ur Leukocyte Esterase Large H Urine RBC 18 H Urine WBC >182 H Urine Bacteria Few H Urine Mucus Few H Urine Opiates Screen Detected H U Tricyclic Antidepress Detected H 01/24/21 01/24/21 01/25/21 23:46 23:46 04:51 RBC Hgb Hct MCV MCHC Plt Count Potassium 3.4 L Chloride 112 H Carbon Dioxide 19.5 L BUN BUN/Creatinine Ratio 21.11 H Calcium 8.3 L Alkaline Phosphatase Creatine Kinase C-Reactive Protein 39.5 H Total Protein 4.9 L Albumin 3.30 L Procalcitonin 3.16 H Urine Appearance Urine Protein Urine Ketones Urine Blood Urine Nitrite Ur Leukocyte Esterase Urine RBC Urine WBC Urine Bacteria Urine Mucus Urine Opiates Screen U Tricyclic Antidepress 01/25/21 01/26/21 04:51 05:29 RBC 2.88 L 3.02 L Hgb 9.4 L D 9.6 L Hct 28.9 L 30.6 L MCV 100.5 H 101.3 H MCHC 31.4 L Plt Count 104 L 137 L Potassium Chloride Carbon Dioxide BUN BUN/Creatinine Ratio Calcium Alkaline Phosphatase Creatine Kinase C-Reactive Protein Total Protein Albumin Procalcitonin Urine Appearance Urine Protein Urine Ketones Urine Blood Urine Nitrite Ur Leukocyte Esterase Urine RBC Urine WBC Urine Bacteria Urine Mucus Urine Opiates Screen U Tricyclic Antidepress Assessment and Plan Assessment: Patient generalized weakness, worsening confusion is due to multifactorial: Septic encephalopathy from acute urinary tract infection as well as medication induced (high dose of lamictal) Recurrent falls, confusion seems due to high dose of Lamictal (200mg 1 tab bid) another possibility is which seems neuropathy can increase risk of falls. 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 Chronic lower back pain ?Reported neuropathy (had EMG with N[facility] by her neurologist but unsure) Osteoarthritis Bipolar on Lamictal Mixed anxiety and depression Plan: CT of the head is reported as negative CT scan of the brain. No change. Lumbar spine x-rays reported as negative lumbar spine exam. No fracture. Spondylitic change in the lower lumbar spine. In the body of the report it is reported as there is narrowing of the L4-L5 and L5-S1 disc space with spur fo rmation. EKG is reported as normal sinus rhythm. Normal EKG. TSH is 3.04 which is considered normal and it was last done on 0-2020. There is no need to repeat it Vitamin B12 is 1494 last on on as 11/16/2020 is high but considered normal and the does not need to be repeated. RBC Folate is in 910 and is normal but considered normal. Hemoglobin A1c is 5.3 which is closer normal and was last done on 11/16/2020 and does not need to be repeated. I ordered vitamin B6 level. Ordered Lamictal level. I ordered the orthostatics but it will be very challenging to get orthostatic. I recommend the patient to be on the propanolol which she'll will treat her essential tremor as well as treats hypertension. Physical therapy and occupation therapy are consulted. I feel that the patient is on a very high dose of Lamictal and she is on it for her mood disorder. High doses of Lamictal can cause the confusion, dizziness, incoordination an increased risk of fall I consulted psychiatry team for medication modification. Also is seems the patient is on home medication of morphine and I recommend for patient to avoid any opiates/sedation which increases risk of fall. Patient is to follow up with her neurologist and she stated that she has an appointment next month (Dr. De La Torre) regarding further work-up. Need neuropsych evaluation as outpatient. The plan was discussed with the patient, primary care as well as her nurse Thank you for the consultation. Marshall Castro M.D. Neuro-hospitalist Time with Patient: Greater than 30
--- NOTE | 2021-01-26 13:56 | P.CN ---
Psychiatric Consult - . Consult date: 01/26/21 Consult:: IDENTIFYING DATA: She is a 65-year-old female who has a chronic and persistent mental illness diagnosed as a bipolar disorder. HISTORY OF PRESENT ILLNESS: EMS brought her to the emergency room with a recent history of generalized weakness and falling. The hospitalist consult psychiatry because the neurologist was concerned that her tremor, falling and confusion may be related to the current dose of Lamictal. I reviewed the medical record and attempted to interview the patient. She was a very poor historian and and gave contradictory and conflicting information that was available in the chart. For example, she alleged that her girlfriend had brought her to the hospital although the chart indicates that EMS brought hospital. During much of the interview she perseverated on the difficulty she is ex periencing finding a psychiatrist since Dr. Stroud left the service and he closed down that her outpatient psychiatric clinic. She alleged she is not been able to find a psychiatrist in [facility]. A "doctor friend" has been providing her refills of her psychotropic medications-Lamictal 200 mg twice a day, Fetzima 80 mg daily and Seroquel 900 mg at bedtime. She was unwilling or unable to provide the name of the physician friend. Note that he reported dose of Seroquel was different and that in our medical record. She alleged that she had not been able to sleep until her physician friend increased dose of Seroquel from 800 to 900 mg at bedtime. She reported she's been compliant with her psychotropic medications. She's been taking his medications for "a long while" and was resistant to this suggestion of changing the medications doses or frequency. She maintained that she has "done well" since she's been taking these medications. According to record she has been taking Lamictal 200 mg twice a day since at least 2007 when she was discharged from our inpatient unit. She recognizes that she is confused as been having more difficulty with concentration and her memory. She noted that a friend has told her that she has been more forgetful recently. She denied feeling persistently pressed or having thoughts of or suicide. She complained that her anxiety has worsens since "the doctors" stopped prescribing her clonazepam. She believes that "my problems" began after "they stopped the Klonopin." She complained of chronic problems with sleep and alleged that she had not slept for "5 days" before her physician friend increased dose of Seroquel to 900 mg at bedtime. She denied any problems with self-care or with her ability to manage her apartment. She d enied experiencing auditory, visual or olfactory hallucinations. She denied ideas reference, thought insertion, thought broadcasting or thought control. She denied feeling persistently paranoid, fearful or frightened. PAST PSYCHIATRIC HISTORY: She has a history of mental illness with multiple past psychiatric hospitalizations. It appears that her last hospitalization was in 2007 on . Her discharge diagnosis of the time was bipolar disorder depressed, alcohol dependence and opioid (Lortab) dependence as well as of borderline personality disorder. The attending psychiatrist notes that she has a long history of substance use problems. Her discharge medications included Lamictal 200 mg twice a day, Neurontin 300 mg 3 times a day, Topamax 200 mg twice a day and Effexor 150 mg at bedtime. PAST MEDICAL HISTORY: Admission history and physical exam ALLERGIES: Cefackir, hydrocodone SUBSTANCE USE HISTORY: She denied use of alcohol or drugs with the exception of the currently prescribed dose of morphine sulfate. her UDS was positive for opiates and tricyclic antidepressants (Seroquel can cause a false positive only urine drug screen for tricyclic antidepressants). According to the record she has a history of substance use problems including alcohol and opioid medications. FAMILY PSYCHIATRIC/SUBSTANCE USE HISTORY: Unknown SOCIAL HISTORY: She currently lives alone in her own apartment. She is unemployed and receives Social Security. MENTAL STATUS EXAM: She presented as a thin, almost emaciated appearing 65-year-old female with bleach blonde hair. She made eye contact and appeared to attend to the interview. She had poor dental hygiene. She had a distressed facial expression. She is alert and oriented to person, place and time. She has discontinued movements of her arms and tremor predominantly of her right hand. Her speech was spontaneous, rapid, digressive and slightly dysarthric. Her affect was anxious. She denied suicidal ideation and wishes she denied homicidal ideation. She denied feeling hopeless, helpless but expresses feelings of worthlessness regarding her physical incapacity. She did not express ideas reference, paranoid ideation, magical ideation or delusions. Her thinking was very concrete in her associations were at times not goal directed. Her speech was perseverative and repetitious. She denied hallucinations did not appear to be responding to internal stimuli. We completed the [facility] Memory and Concentration Test. Her total weighted error score was 14; a total weighted error score greater than 10 is consistent with dementia. She is the month and year. She was able to repeat the memory phrase "Js Naidu, [address] [facility]." She quit estimated to time. She is unable to count backwards from 20 or name the months of the year backwards (beginning with October). She recalled 2 elements of memory phrase. IMPRESSIONS: She is a 65-year-old female who has a 3 of his severe and persistent mental illness. She presented to [facility]. generalized weakness, confusion and tremor. Absolute admission to the unit she was diagnosed with possible urinary tract infection and is currently being treated with Rocephin IV. The consulting neurologist questioned whether the confusion and tremor may be related to her psychotropic medications particularly Lamictal. While mental may cause tremor and neurological side effects, she has been taking his medications for over 12 years. at the current dose, 200 mg twice a day, is considered to a therapeutic dose for the treatment of bipolar illness. If a medication could possibly related to her weakness, tremor, and would be the Seroquel particularly if the doses were increased as she reported to 900 mg at bedtime. Her performance on mental status testing is consistent with a dementia. DIAGNOSIS: Bipolar disorder unspecified, unspecified neurocognitive disorder, rule out delirium RECOMMENDATION: There is no indication for transfer to the psychiatric unit at this time, continue with current psychotropic medications including Lamictal 200 mg twice a day, continue with Seroquel and milligrams (Supposed to her reported dose of 5 mg at bedtime). Monitor for fluctuations in mental status consistent with a delirium. Consult social work to assist with referral for outpatient psychiatric treatment. Psychiatry will follow. Thank you for the consult. 01/26/21 13:29
[2021-01-26 13:59] VITALS: BMI 19.5
[2021-01-26] MEDS: SODIUM CHLORIDE 0.9% 1,000 ML IV SCH ×2 (19:38→23:35)
[2021-01-26] MEDS: QUEtiapine 400 MG TAB PO SCH (20:41)
[2021-01-27] MEDS: LEVOTHYROXINE 50 MCG TAB PO SCH (05:56)
[2021-01-27] MEDS: SYMBICORT 160-4.5 MCG INHALER INHALATION SCH ×2 (07:55→20:09)
[2021-01-27] MEDS: FETZIMA PO SCH (08:11)
[2021-01-27] MEDS: METOPROLOL SUCCINATE (ER) 100 MG TAB.ER.24H PO SCH (08:14)
[2021-01-27] MEDS: PANTOPRAZOLE 40 MG/10 ML VIAL IV SCH (08:14)
[2021-01-27] MEDS: ATORVASTATIN 20 MG TAB PO SCH (08:14)
[2021-01-27] MEDS: CYANOCOBALAMIN 500 MCG TAB PO SCH (08:14)
[2021-01-27] MEDS: lamoTRIgine 100 MG TAB PO SCH ×2 (08:14→20:57)
[2021-01-27 09:16] LABS: Basophils # (A) 0.04 X 10*3/uL (0.00-0.10); Basophils % (A) 0.8 %; Eosinophils # (A) 0.34 X 10*3/uL (0.04-0.35); Eosinophils % (A) 7.2 %; HCT 26.8 % (37.2-46.3); HGB 8.6 g/dL (12.0-15.0); Lymphocytes # (A) 1.68 X 10*3/uL (0.90-5.00); Lymphocytes % (A) 35.6 %; MCH 31.9 pg (27.0-32.0); MCHC 32.1 g/dL (32.0-37.0); MCV 99.3 fL (80.0-97.0); Monocytes # (A) 0.38 X 10*3/uL (0.20-1.00); Monocytes % (A) 8.1 %; Neutrophils # (A) 2.26 X 10*3/uL (1.80-7.70); Neutrophils % (A) 47.9 %; Platelet Count 116 X 10*3/uL (140-440); RDW 12.8 % (11.5-14.5); WBC 4.72 X 10*3/uL (4.50-10.00)
[2021-01-27 09:32] LABS: African American GFR (CKD) 106.9 (60.0-200.0); Anion Gap 3.9 mmol/L (4.00-12.00); BUN/Creat Ratio 14.29 Ratio (12.00-20.00); Calcium 8.1 mg/dL (8.7-10.3); Carbon Dioxide 24.1 mmol/L (21.6-31.8); Non-African American GFR(CKD) 92.2 (60.0-200.0); Potassium 3.6 mmol/L (3.5-5.5)
[2021-01-27] MEDS: MORPHINE SULFATE IR 15 MG TABLET PO PRN ×3 (10:07→21:53)
--- NOTE | 2021-01-27 10:57 | P.PN ---
Subjective Progress Note Date: 01/27/21 Per the patient's nurse she was agitated yesterday, restless and confused but then was sleeping afterwards. Patient stated she feels better. She did acknowledge she was restless yesterday. Psychiatry team saw the patient yesterday and recommended to continue Lamictal 200 mg 1 tablet the twice a day. Objective - Vital Signs Vital signs: Vital Signs Temp 100.2 F H 01/27/21 07:35 Pulse 76 01/27/21 07:35 Resp 16 01/27/21 07:35 BP 101/65 01/27/21 07:35 Pulse Ox 96 01/27/21 07:35 Intake & Output 01/26/21 01/27/21 01/27/21 18:59 06:59 18:59 Intake Total 600 Output Total 600 4000 Balance 0 -4000 Weight 49.895 kg Intake: IV 600 Sodium Chloride 0.9% 1, 600 000 ml @ 75 mls/hr IV . [id number] Rx#:[id number] Output: Urine 600 4000 Straight 600 1900 Other: Voiding Method Indwelling Catheter Indwelling Catheter Indwelling Catheter # Emeses 0 - Exam GENERAL: The patient is lying in bed and is not in acute distress. NEUROLOGICAL: Higher mental function: The patient is awake, alert, oriented to self, place and time. Patient is following commands. No aphasia and no neglect. Cranial nerves: The pupils are round, equal and reactive to light and accommodation. Visual gates are full to confrontation throughout. Extraocular movement is intact no nystagmus is noted. Facial sensation is normal to touch throughout. The facial strength is normal throughout. Hearing is mildly decreasedl bilaterally to hand rub. Tongue is midline and moved [id number] without any difficulty. No dysarthria is noted. Has orobucal chewing movement. Shoulder shrug is normal bilaterally. Motor: Gait is deferred. The strength is 5 over 5 throughout. Normal tone and bulk. No resting tremor but has tremor toward end of target at both hand (right >left). No rigidity or increase tone. Cerebellum: No dysmetria or ataxia with finger to nose. Sensation: Sensation is normal to touch throughout. Reflexes (right/left): 2+ upper and 1+ lower (limited because of resistance). Plantars are downgoing bilaterally. - Labs CBC & Chem 7: 01/27/21 04:33 01/27/21 04:33 Labs: Abnormal Lab Results - Last 24 Hours (Table) 01/27/21 01/27/21 Range/Units 04:33 04:33 RBC 2.70 L (4.10-5.20) X 10*6/uL Hgb 8.6 L (12.0-15.0) g/dL Hct 26.8 L (37.2-46.3) % MCV 99.3 H (80.0-97.0) fL Plt Count 116 L (140-440) X 10*3/uL Chloride 114 H (96-109) mmol/L Anion Gap 3.90 L (4.00-12.00) mmol/L Calcium 8.1 L (8.7-10.3) mg/dL Microbiology - Last 24 Hours (Table) 01/24/21 23:06 Blood Culture - Preliminary Blood No Growth after 48 hours 01/24/21 22:45 Blood Culture - Preliminary Blood No Growth after 48 hours 01/24/21 21:04 Urine Culture - Final Urine,Clean Catch Escherichia coli Assessment and Plan Assessment: Patient generalized weakness, worsening confusion is due to multifactorial: Septic encephalopathy from acute urinary tract infection as well as medication induced (high dose of lamictal) Recurrent falls, confusion seems due to high dose of Lamictal (200mg 1 tab bid)/polypharamacy another possibility is which seems neuropathy can increase risk of falls. 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 Chronic lower back pain ?Reported neuropathy (had EMG with NCS by her neurologist but unsure) Osteoarthritis Bipolar on Lamictal Mixed anxiety and depression Plan: CT of the head is reported as negative CT scan of the brain. No change. Lumbar spine x-rays reported as negative lumbar spine exam. No fracture. Sp ondylitic change in the lower lumbar spine. In the body of the report it is reported as there is narrowing of the L4-L5 and L5-S1 disc space with spur formation. EKG is reported as normal sinus rhythm. Normal EKG. TSH is 3.04 which is considered normal and it was last done on 2020. There is no need to repeat it Vitamin B12 is 1494 last on on as 11/16/2020 is high but considered normal and the does not need to be repeated. RBC Folate is in 910 and is normal but considered normal. Hemoglobin A1c is 5.3 which is closer normal and was last done on 11/16/2020 and does not need to be repeated. Pending vitamin B6 level. Pending Lamictal level. orthostatics vitals: His blood pressure supine is 142/89 with a heart rate of 80, sitting is 167/96 with a heart rate of 87 and standing as 144/87 with a heart rate of 91. Recommend repeating it if possible. I recommend the patient to be on the propanolol which she'll will treat her essential tremor as well as treats hypertension. Recommend propanolol 50 mg 1 tablet twice a day (instead of metoprolol). Physical therapy and occupation therapy are consulted. I feel that the patient is on a very high dose of Lamictal and she is on it for her mood disorder. High doses of Lamictal can cause the confusion, dizziness, incoordination an increased risk of fall Psychiatry team is on board. Also is seems the patient is on home medication of morphine and I recommend for patient to avoid any opiates/sedation which increases risk of fall. Patient is to follow up with her neurologist and she stated that she has an appointment next month (Dr. De La Torre) regarding further work-up. Need neuropsych evaluation as outpatient. The plan was discussed with the patient's nurse. Dr. Chan will provide neurology coverage starting tomorrow AM. Marshall Castro M.D. Neuro-hospitalist Time with Patient: Less than 30
[2021-01-27] MEDS: SODIUM CHLORIDE 0.9% 1,000 ML IV SCH ×2 (11:13→20:57)
--- NOTE | 2021-01-27 15:23 | P.PN ---
Subjective 65-year-old the female came in because of recurrent falls. Patient is diagnosed with dehydration and urinary tract infection patient is being treated for both. Patient is still quite a bit weak physical therapy occupational therapy to evaluate the patient. Patient is having tremor which as per the patient has been going on only for few months never diagnosed with Parkinson's. Patient the tumor is not like typical parkinsonian tremor patient has generalized weakness with the decreased strength in bilateral lower extremities and some muscle atrophy. I'll consult neurology for possibility of Parkinson's awaiting physical therapy and occupational therapy evaluation patient may need placement and patient is a 2 person assist. 01/27/2021 n patient has significant improvement in tremor and weakness. Patient was evaluated by neurology as well as psychiatry. Patient definitely has encephalopathy. Patient confusion is also probably related to high dose of Lamictal and polypharmacy including morphine pills. Lactulose was decreased. Patient was evaluated for Parkinson's patient to tumor is not consistent with parkinsonian tremor patient doesn't have classic negative rigidity. Patient has a: In the urine and patient is on Rocephin, which will be continued. Patient will need only total of 5 days of antibiotics. Neurology recommended to start patient on propranolol although her tremor improved because of which the not changing the beta mayda at this time Constitutional: Denied any fatigue denied any fever. Cardio vascular: denied any chest pain, palpitations Gastrointestinal denied any nausea vomiting Pulmonary: Denied any shortness of breath cough Neurologic denied any new focal deficits All inpatient medications were reviewed and appropriate changes in these medications as dictated in the interval history and assessment and plan. Objective - Vital Signs Vital signs: Vital Signs Temp 98.5 F 01/27/21 13:20 Pulse 78 01/27/21 13:20 Resp 16 01/27/21 13:20 BP 139/88 01/27/21 13:20 Pulse Ox 96 01/27/21 13:20 Intake & Output 01/26/21 01/27/21 01/27/21 18:59 06:59 18:59 Intake Total 600 Output Total 600 4000 Balance 0 -4000 Weight 49.895 kg Intake: IV 600 Sodium Chloride 0.9% 1, 600 000 ml @ 75 mls/hr IV . [id number] [facility] Rx#:[id number] Output: Urine 600 4000 Straight 600 1900 Other: Voiding Method Indwelling Catheter Indwelling Catheter Indwelling Catheter # Emeses 0 - Exam PHYSICAL EXAMINATION: GENERAL: The patient is alert and oriented x3, not in any acute distress. Thin built nonessential tremor HEENT: Pupils are round and equally reacting to light. EOMI. No scleral icterus. No conjunctival pallor. Normocephalic, atraumatic. No pharyngeal erythema. No thyromegaly. CARDIOVASCULAR: S1 and S2 present. No murmurs, rubs, or gallops. PULMONARY: Chest is clear to auscultation, no wheezing or crackles. ABDOMEN: Soft, nontender, nondistended, normoactive bowel sounds. No palpable organomegaly. MUSCULOSKELETAL: No joint swelling or deformity. EXTREMITIES: No cyanosis, clubbing, or pedal edema. NEUROLOGICAL: Decreased strength in all 4 extremities about 4/5 no other focal deficits were appreciated SKIN: No rashes. - Labs CBC & Chem 7: 01/27/21 04:33 01/27/21 04:33 Labs: Abnormal Lab Results - Last 24 Hours (Table) 01/27/21 01/27/21 Range/Units 04:33 04:33 RBC 2.70 L (4.10-5.20) X 10*6/uL Hgb 8.6 L (12.0-15.0) g/dL Hct 26.8 L (37.2-46.3) % MCV 99.3 H (80.0-97.0) fL Plt Count 116 L (140-440) X 10*3/uL Chloride 114 H (96-109) mmol/L Anion Gap 3.90 L (4.00-12.00) mmol/L Calcium 8.1 L (8.7-10.3) mg/dL Microbiology - Last 24 Hours (Table) 01/24/21 23:06 Blood Culture - Preliminary Blood No Growth after 48 hours 01/24/21 22:45 Blood Culture - Preliminary Blood No Growth after 48 hours 01/24/21 21:04 Urine Culture - Final Urine,Clean Catch Escherichia coli Assessment and Plan Plan: -Generalized weakness multiple falls: Patient's tumor is not consistent with parkinsonian tremor may be mostly related to encephalopathy which improved at this time. It was recommended by neurology to be started on propranolol as her tremor resolved or significantly improved patient is not being started on propranolol if she continues to have tremor tomorrow probably need to be switched to propranolol and discontinue metoprolol. -Toxic encephalopathy: Lactulose was decreased probably oral morphine dose need to be tapered and weaned off eventually. Neurology and psychiatry evaluated the patient -dehydration: Continue with IV fluids -Possible urinary tract infection patient does have UTI symptoms urine is abnormal and urine cultures positive for E. coli which is pansensitive continue with the Rocephin -COPD without any acute exacerbation -gastroesophageal reflux disease -Hypertension -Hyperlipidemia -Chronic low back pain with peripheral neuropathy -Depression For above-mentioned medical problems will continue with present medications
[2021-01-27] MEDS: PROPRANOLOL 40 MG TAB PO SCH (20:57)
[2021-01-27] MEDS: QUEtiapine 400 MG TAB PO SCH (20:57)
[2021-01-28] MEDS: LEVOTHYROXINE 50 MCG TAB PO SCH (05:54)
[2021-01-28] MEDS: SYMBICORT 160-4.5 MCG INHALER INHALATION SCH ×2 (08:22→19:41)
[2021-01-28] MEDS: CYANOCOBALAMIN 500 MCG TAB PO SCH (08:45)
[2021-01-28] MEDS: PANTOPRAZOLE 40 MG/10 ML VIAL IV SCH (08:46)
[2021-01-28] MEDS: lamoTRIgine 100 MG TAB PO SCH ×2 (08:46→20:18)
[2021-01-28] MEDS: PROPRANOLOL 40 MG TAB PO SCH ×2 (08:46→20:20)
[2021-01-28] MEDS: ATORVASTATIN 20 MG TAB PO SCH (08:47)
[2021-01-28] MEDS: MORPHINE SULFATE IR 15 MG TABLET PO PRN ×3 (08:55→20:26)
[2021-01-28 09:17] LABS: Basophils # (A) 0.04 X 10*3/uL (0.00-0.10); Basophils % (A) 0.8 %; Eosinophils # (A) 0.37 X 10*3/uL (0.04-0.35); Eosinophils % (A) 7.1 %; HCT 28.3 % (37.2-46.3); HGB 9.4 g/dL (12.0-15.0); MCH 32.5 pg (27.0-32.0); MCHC 33.2 g/dL (32.0-37.0); MCV 97.9 fL (80.0-97.0); Mean Platelet Volume 10.8 fL (9.5-12.2); Monocytes # (A) 0.35 X 10*3/uL (0.20-1.00); Monocytes % (A) 6.7 %; Neutrophils # (A) 3.22 X 10*3/uL (1.80-7.70); Neutrophils % (A) 61.6 %; Platelet Count 125 X 10*3/uL (140-440); RBC 2.89 X 10*6/uL (4.10-5.20); RDW 12.6 % (11.5-14.5); WBC 5.22 X 10*3/uL (4.50-10.00)
[2021-01-28 09:34] LABS: African American GFR (CKD) 90.9 (60.0-200.0); BUN/Creat Ratio 8.75 Ratio (12.00-20.00); Calcium 8.1 mg/dL (8.7-10.3); Non-African American GFR(CKD) 78.5 (60.0-200.0); Potassium 3.7 mmol/L (3.5-5.5)
[2021-01-28] MEDS: FETZIMA PO SCH (11:01)
[2021-01-28] MEDS: SODIUM CHLORIDE 0.9% 1,000 ML IV SCH (13:21)
--- NOTE | 2021-01-28 14:03 | P.PN ---
Progress Note - Text Progress Note Date: 01/28/21 Interval History: Patient was seen today for psychiatric follow-up as requested by the primary t miri. There is questions about patient's medications that the doses may be too high with her Seroquel and Lamictal. Patient was seen at the bedside talking to her friend who stepped out of the room. Patients nurse claims that patient has been relatively okay with her behavior however around noontime she became somewhat confused. The plan has been to the patient go to [facility] for rehab. Nurse reported the patient's sleep has been "on and off throughout the day. Supervisor Assembly spoke with patient the bedside who spoke briefly about her having falls and confusion at home. She states that she has been trying to find a psychiatrist for several months now however has not been able to be accepted by one in the area. She states that she was able to "call my doctor friend" from [place] who has been refilling her medications however has recently stopped. She states that she has been compliant with her Lamictal and Seroquel at the same doses for several years and has been taken the multiple way up to her hospitalization. She claims to have still poor sleep however when pressed more she states that "I sleep fine on the Seroquel". She was attempting to cooperate with the interview. She did not have impairment in her concentration and was fairly goal directed. She perseverated on not being able to find a doctor and not get adequate help. She is also fairly focused on her medications and asking several questions. She claims that she wants to stay on the Seroquel and Lamictal at this time however was agreeable to have her Lamictal decreased. She is denying any depression at this time or any anxiety. She states that her appetite is poor. At this time patient denies any suicidal or homical ideations, intent or plan. Patient denies any auditory, visual hallucinations and denies any paranoia or delusions. Patient denies any side effects from the medications and has been compliant with meds. Mental Status Exam: General Appearance: Patient appears to be thin, stated age is alert, directable, and attempts to be cooperative. Behavior: Patient is calmly seated without any agitated behavior. Attempts to be cooperative. Speech: Patient's speech is fluent and nonpressured. Mood/Affect: Mood is improving mildly, affect is congruent and constricted. Suicidality/Homicidality: Patient denies having any suicidal or homicidal ideation intent or plan. Perceptions: Patient denies any visual hallucinations and denies any auditory hallucinations Though content/process: There is no evidence of any delusional thought content and thought process is goal-directed. No paranoia. Focused on her medications and not being able to find a psychiatrist. Memory and concentration: AOX3, grossly intact for the purposes of this session Judgment and insight:poor, Improving mildly Assessment Bipolar disorder unspecified Delirium secondary to urinary tract infection, resolving Plan: -At this time patient DOES NOT meet criteria for inpatient psychiatric admission. -Delirium precautions recommended with patient including - avoiding use of narcotics and TRADE SHOW COORDINATOR sedatives, limit anticholinergic medications when possible, frequent re-orientation, minimize use of restraints, open window shades during the day and close them at night -Would recommend the following medication changes/additions: Can continue with Seroquel 800 mg daily at bedtime for mood stabilization/psychosis/insomnia. Added melatonin 5 mg daily at bedtime for insomnia. Decreased Lamictal to 150 mg twice a day as this may causing side effects and contributing to patient's hesitation in the hospital. -pest control worker helper to provide patient with outpatient mental health/psychiatry resources for appropriate follow up upon discharge -Communicated plan to patient's nurse -Continue with plan to discharge patient to [facility] once she is medically cleared. -Will continue to follow along -Please contact with any questions.
[2021-01-28] MEDS: QUEtiapine 400 MG TAB PO SCH (20:19)
[2021-01-28] MEDS ORDERED: MELATONIN 5 MG TABLET PO SCH (21:00)
[2021-01-28] MEDS ORDERED: lamoTRIgine 100 MG TAB PO SCH (21:00)
[2021-01-29] MEDS ORDERED: LORazepam 2 MG/ML INJ IV PRN ×2 (00:24→07:14)
[2021-01-29] MEDS: MORPHINE SULFATE IR 15 MG TABLET PO PRN ×3 (02:33→14:34)
[2021-01-29] MEDS: SODIUM CHLORIDE 0.9% 1,000 ML IV SCH (04:55)
[2021-01-29] MEDS: LEVOTHYROXINE 50 MCG TAB PO SCH (05:55)
[2021-01-29] MEDS: FETZIMA PO SCH (07:17)
[2021-01-29 07:50] VITALS: TEMP 98.1
[2021-01-29] MEDS: lamoTRIgine 100 MG TAB PO SCH (07:54)
[2021-01-29] MEDS: PANTOPRAZOLE 40 MG/10 ML VIAL IV SCH (07:54)
[2021-01-29] MEDS: PROPRANOLOL 40 MG TAB PO SCH (07:55)
[2021-01-29] MEDS: CYANOCOBALAMIN 500 MCG TAB PO SCH (07:55)
[2021-01-29] MEDS: ATORVASTATIN 20 MG TAB PO SCH (07:55)
[2021-01-29] MEDS: SYMBICORT 160-4.5 MCG INHALER INHALATION SCH (08:28)
[2021-01-29] MEDS ORDERED: lamoTRIgine 100 MG TAB PO SCH (09:00)
--- NOTE | 2021-01-29 12:57 | P.PN ---
Progress Note - Text Progress Note Date: 01/29/21 Interval History: Patient was seen today for psychiatric follow-up. Patient's Lamictal was decr eased yesterday down to 150 mg twice a day. She was seen laying in the bed today and was able to engage with appeals writer. She claims that she is still feeling weak in her legs and was speaking about going to rehab and wanting to engage in treatment. She states that she has been taking her medications as prescribed. She states that she was found on the floor last night and states that she was worried about her morphine dose. She claims that she was able to sleep better after she was brought back to her bed. She claims that she has an improving appetite today. She appeared to demonstrate improvement in her concentration. She did not have any racing thoughts or flight of ideas. She is not endorsing any delusions or paranoia. She is denying any depression at this time or any anxiety. At this time patient denies any suicidal or homical ideations, intent or plan. Patient denies any auditory, visual hallucinations and denies any paranoia or delusions. Patient denies any side effects from the medications and has been compliant with meds. Mental Status Exam: General Appearance: Patient appears to be thin, stated age is alert, directable, and attempts to be cooperative. Improvement in concentration today Behavior: Patient is calmly seated without any agitated behavior. Attempts to be cooperative. Speech: Patient's speech is fluent and nonpressured. Mood/Affect: Mood is improving mildly, affect is congruent and constricted. Suicidality/Homicidality: Patient denies having any suicidal or homicidal ideation intent or plan. Perceptions: Patient denies any visual hallucinations and denies any auditory hallucinations Though content/process: There is no evidence of any delusional thought content and thought process is goal-directed. No paranoia. Focused on her medications Memory and concentration: AOX3, grossly intact for the purposes of this session Judgment and insight: Improving mildly Assessment Bipolar disorder unspecified Delirium secondary to urinary tract infection, resolved Plan: -At this time patient DOES NOT meet criteria for inpatient psychiatric admission. -Delirium precautions recommended with patient including - avoiding use of narcotics and MANAGER LANDSCAPE sedatives, limit anticholinergic medications when possible, frequent re-orientation, minimize use of restraints, open window shades during the day and close them at night -Would recommend the following medication changes/additions: Can continue with Seroquel 800 mg daily at bedtime for mood stabilization/psychosis/insomnia. Increased melatonin 10 mg daily at bedtime for insomnia. Continue with Lamictal to 150 mg twice a day as this may causing side effects and contributing to patient's hesitation in the hospital. -Lamictal level came back at 18.0 which was drawn on 01/26/21 -tension worker to provide patient with outpatient mental health/psychiatry resources for appropriate follow up upon discharge -Communicated plan to patient's nurse -Continue with plan to discharge patient to [facility] once she is medically cleared. -At this time psychiatry will sign off. -Please contact with any questions.
[2021-01-29] MEDS ORDERED: PYRIDOXINE 50 MG TAB PO SCH (13:15)
--- NOTE | 2021-01-29 13:19 | P.PN ---
Subjective Progress Note Date: 01/28/21 Patient was seen for a follow-up. Patient seen by Dr. Marshall Castro initially on 01/26/2021. Please refer to his note for details. Patient came to the hospital on 01/24/2021 for 3 days history of generalized weakness, decreased oral intake, decreased urine output, confusion and problems with her gait. She has been falling a lot. It was felt patient has possible metabolic encephalopathy from UTI and from polypharmacy with high-dose Lamictal 200 mg twice a day for bipolar disorder. Patient also on Seroquel 800 mg daily, which she claims is on for the last 20 years. Patient also has mild to moderate lumbar spondylosis. Patient follows up with Dr. Marshall De La Torre for tremors. Patient states that she is feeling better. Yesterday she could hardly walk, took 2 people to help walk. Today she is better. She states that she has problems with walking since 2019, off and on. Her legs give out. She has no feeling in the legs, but then states has constant numbness in the feet from neuropathy. When she gets up, feels lightheaded. Patient states that she is nondiabetic. CT head showed no acute process. TSH is normal. Vitamin B12 1494 RBC folate normal. Hemoglobin A1c 5.3 on 11/16/2020 patient was started on propranolol for tremors as per recommendation from Dr. Castro. Objective - Vital Signs Vital signs: Vital Signs Temp 98.4 F 01/28/21 14:38 Pulse 81 01/28/21 14:38 Resp 16 01/28/21 14:38 BP 156/92 01/28/21 14:38 Pulse Ox 93 L 01/28/21 14:38 Intake & Output 01/27/21 01/28/21 01/28/21 18:59 06:59 18:59 Output Total 400 3200 Balance -400 -3200 Output: Urine 400 3200 Straight 900 Uretheral (Barrios) 800 Other: Voiding Method Indwelling Catheter Indwelling Catheter Indwelling Catheter # Voids 0 # Bowel Movements 0 0 - Exam On examination patient is an elderly female, in no distress. Patient is alert and awake fully oriented. Speech and language functions are normal. Attention, concentration, fund of knowledge adequate. On cranial exam showed pupils are round and reactive to light, visual gates are full, extraocular muscles are intact with no nystagmus. Face is symmetric, tongue protrudes to the midline. Palatal elevation and sensation normal, hearing and shoulder shrug normal. There is no pronator drift. Muscle strength is normal in the arms and legs distally and proximally. Patient's reflexes are absent. Patient has moderate coarse tremors for [id number] testing. Mild tremors of outstretched hands. No tremors at rest. Tone is normal in both arms. No bradykinesia. Gait was deferred. - Labs CBC & Chem 7: 01/28/21 05:40 01/28/21 05:40 Labs: Abnormal Lab Results - Last 24 Hours (Table) 01/26/21 01/28/21 01/28/21 Range/Units 11:39 05:40 05:40 RBC 2.89 L (4.10-5.20) X 10*6/uL Hgb 9.4 L (12.0-15.0) g/dL Hct 28.3 L (37.2-46.3) % MCV 97.9 H (80.0-97.0) fL MCH 32.5 H (27.0-32.0) pg Plt Count 125 L (140-440) X 10*3/uL Eosinophils # 0.37 H (0.04-0.35) X 10*3/uL Chloride 112 H (96-109) mmol/L BUN 7.0 L (9.0-27.0) mg/dL BUN/Creatinine Ratio 8.75 L (12.00-20.00) Ratio Calcium 8.1 L (8.7-10.3) mg/dL Lamotrigine 18.0 H (2.0-15.0) ug/mL Microbiology - Last 24 Hours (Table) 01/24/21 22:45 Blood Culture - Preliminary Blood No Growth after 72 hours 01/24/21 23:06 Blood Culture - Preliminary Blood No Growth after 72 hours Assessment and Plan Assessment: * Generalized weakness, with tendency to fall. Patient has chronic numbness of the feet, and some numbness in the legs, with hyporeflexia, therefore she prob ably has peripheral neuropathy. Supratherapeutic Lamictal level may be contributing. * Acute UTI with E. coli. * Vitamin B6 deficiency * Bipolar disorder * Lumbar spondylosis, spondylolisthesis without spinal stenosis as per MRI from 11/27/2020. * Hyperlipidemia * Hypertension Plan: * Patient's Lamictal level was supratherapeutic 18.0 (2-15). Patient's dose of Lamictal has been decreased to 150 mg twice a day (from 200 mg twice a day dose). * Vitamin B6 low 3, will start on replacement. * Folic acid is normal 910, B12 1494. TSH normal. Hemoglobin A1c 5.3. * Treatment of UTI as per IM. * Recommend EMG and nerve conduction studies of lower extremities as outpatient.
[2021-01-29 14:26] VITALS: BP 140/90; PULSE 78; RESP 16
--- NOTE | 2021-01-29 15:34 | P.DS ---
Providers Date of admission: 01/24/21 21:15 Expected date of discharge: 01/29/21 Attending physician: Donavan Rodriguez Consults: 01/26/21 09:18 Consult Physician Routine Consulting Provider: Marshall Castro Consult Reason/Comments: Evaluate for parkinsons Do you want consulting provider notified?: Yes 01/26/21 10:48 Consult Physician Routine Consulting Provider: Js Neely Consult Reason/Comments: high dose of lamictal. Having tremor and confusion and falls Do you want consulting provider notified?: Yes 01/28/21 06:00 Consult Physician Routine Consulting Provider: Psychiatry - [facility] Psych[facility]ry Consult Reason/Comments: reassess patient and medication Do you want consulting provider notified?: Yes Primary care physician: Donavan Rodriguez Hospital Course: Patient was admitted to the hospital for dehydration and acute urinary tract infectionassociated falls noted. Patient was treated with IV hydration and broad-spectrum antibiotics. Physical therapy/occupational therapy evaluated the patientnoted to to have tremor that is not typical of Parkinson's tremors with associated generalized weakness and decreased strength in bilateral lower extremities and noted to have some muscle atrophy. Neurology was consulted for the possibility of Parkinson'sruled out. Patient placed on Inderal 40 mg twice a day by mouth. Patient was also evaluated by psychiatry decreasing Lamictal dose 150 mg twice a day. She answering questions appropriately and requesting to go to rehab for to rebuild strength Assessment: Dehydration resolved with IV hydration Acute urinary tract infection present on admission resolved with IV antibiotics Encephalopathy-5 factor resolved with IV hydration, IV antibiotics, and medication adjustments Chronic lower back pain Frequent falls COPD without exacerbation GERD/reflux Hyperlipidemia Hypertension Memory impairment Osteoarthritis Osteopenia Migraines Neuropathy Mixed anxiety and depression Bipolar History of pneumonia History of stomach ulcers History of pancreatitis Health Concerns: Poor medical compliance Multiple comorbidities Frequent falls Pertinent Studies: CT of the head no acute changes X-ray Lumbar sacral spine no acute changes X-ray of pelvis no acute changes Procedures: None noted Patient Condition at Discharge: Fair Plan - Discharge Summary Discharge Rx Participant: No New Discharge Prescriptions: New lamoTRIgine [LaMICtal] 150 mg PO BID #30 tab Propranolol [Inderal] 40 mg PO BID #30 tab Melatonin 10 mg PO HS #30 tablet Pyridoxine [Vitamin B-6] 50 mg PO DAILY tab Continue QUEtiapine [SEROquel] 800 mg PO HS Budesonide/Formoterol Fumarate [Symbicort 160-4.5 Mcg Inhaler] 2 puff INHALATION RT-BID Albuterol Sulfate [Proair Hfa] 1 - 2 puff INHALATION RT-QID PRN PRN Reason: Shortness Of Breath Omeprazole 40 mg PO DAILY Atorvastatin [Lipitor] 20 mg PO DAILY Levothyroxine Sodium [Synthroid] 50 mcg PO DAILY Fetzima 80mg 80 mg PO DAILY Cyanocobalamin (Vitamin B-12) [Vitamin B-12] 1,000 mcg PO DAILY Morphine Sulfate Ir [MSIR] 15 mg PO QID PRN #12 tab PRN Reason: Pain Discontinued Metoprolol Succinate [Toprol XL] 100 mg PO DAILY lamoTRIgine [LaMICtal] 200 mg PO BID Discharge Medication List QUEtiapine [SEROquel] 800 mg PO HS 05/17/18 [History] Budesonide/Formoterol Fumarate [Symbicort 160-4.5 Mcg Inhaler] 2 puff INHALATION RT-BID 01/31/19 [History] Albuterol Sulfate [Proair Hfa] 1 - 2 puff INHALATION RT-QID PRN 03/21/19 [History] Omeprazole 40 mg PO DAILY 04/20/19 [History] Atorvastatin [Lipitor] 20 mg PO DAILY 08/08/19 [History] Fetzima 80mg 80 mg PO DAILY 12/03/20 [History] Levothyroxine Sodium [Synthroid] 50 mcg PO DAILY 12/03/20 [History] Cyanocobalamin (Vitamin B-12) [Vitamin B-12] 1,000 mcg PO DAILY 01/24/21 [History] Melatonin 10 mg PO HS #30 tablet 01/29/21 [Rx] Morphine Sulfate Ir [MSIR] 15 mg PO QID PRN #12 tab 01/29/21 [Rx] Propranolol [Inderal] 40 mg PO BID #30 tab 01/29/21 [Rx] Pyridoxine [Vitamin B-6] 50 mg PO DAILY tab 01/29/21 [Rx] lamoTRIgine [LaMICtal] 150 mg PO BID #30 tab 01/29/21 [Rx] Follow up Appointment(s)/Referral(s): Donavan Rodriguez MD [Primary Care Provider] - 1-2 days Discharge Disposition: TRANSFER TO SNF/F
--- NOTE | 2021-01-29 16:50 | P.PN ---
Subjective Progress Note Date: 01/29/21 01/29/2021: Patient offers no new complaints. Patient apparently had a fall last night. She was found yelling on the floor and confused. At that time she knew that she was in [facility], but did not know where her was. IV was found out. Computed tomography scan of the head was recommended last night. At present patient feels fine. 01/28/2021: Patient was seen for a follow-up. Patient seen by Dr. Marshall Castro initially on 01/26/2021. Please refer to his note for details. Patient came to the hospital on 01/24/2021 for 3 days history of generalized weakness, decreased oral intake, decreased urine output, confusion and problems with her gait. She has been falling a lot. It was felt patient has possible metabolic encephalopathy from UTI and from polypharmacy with high-dose Lamictal 200 mg twice a day for bipolar disorder. Patient also on Seroquel 800 mg daily, which she claims is on for the last 20 years. Patient also has mild to moderate lumbar spondylosis. Patient follows up with Dr. Marshall De La Torre for tremors. Patient states that she is feeling better. Yesterday she could hardly walk, took 2 people to help walk. Today she is better. She states that she has prob lems with walking since 2019, off and on. Her legs give out. She has no feeling in the legs, but then states has constant numbness in the feet from neuropathy. When she gets up, feels lightheaded. Patient states that she is nondiabetic. CT head showed no acute process. TSH is normal. Vitamin B12 1494 RBC folate normal. Hemoglobin A1c 5.3 on 11/16/2020 patient was started on propranolol for tremors as per recommendation from Dr. Castro. Objective - Vital Signs Vital signs: Vital Signs Temp 98.1 F 01/29/21 13:35 Pulse 78 01/29/21 13:35 Resp 16 01/29/21 13:35 BP 140/90 01/29/21 13:35 Pulse Ox 98 01/29/21 13:35 Intake & Output 01/28/21 01/29/21 01/29/21 18:59 06:59 18:59 Output Total 2375 1300 Balance -2375 -1300 Weight 49.895 kg Output: Urine 2375 1300 Straight 900 900 Other: Voiding Method Indwelling Catheter Indwelling Catheter Indwelling Catheter - Exam 01/29/2021: Patient is alert and awake. Speech and language functions are normal. Muscle strength is completely normal in the arms and legs. Reflexes are 2 in the upper limbs at biceps and brachioradialis, 1+ at the knees, ankles absent. Yesterday I was not able to elicit reflexes, likely due to patient being tense and not cooperating with examination. She clearly has present reflexes. No ataxia. 01/28/2021: On examination patient is an elderly female, in no distress. Patient is alert and awake fully oriented. Speech and language fun ctions are normal. Attention, concentration, fund of knowledge adequate. On cranial exam showed pupils are round and reactive to light, visual gates are full, extraocular muscles are intact with no nystagmus. Face is symmetric, tongue protrudes to the midline. Palatal elevation and sensation normal, hearing and shoulder shrug normal. There is no pronator drift. Muscle strength is normal in the arms and legs distally and proximally. Patient's reflexes are absent. Patient has moderate coarse tremors for [id number] testing. Mild tremors of outstretched hands. No tremors at rest. Tone is normal in both arms. No bradykinesia. Gait was deferred. - Labs CBC & Chem 7: 01/28/21 05:40 01/28/21 05:40 Labs: Abnormal Lab Results - Last 24 Hours (Table) 01/26/21 Range/Units 11:39 Vitamin B6 3 L (5-50) ug/L Microbiology - Last 24 Hours (Table) 01/24/21 23:06 Blood Culture - Preliminary Blood No Growth after 96 hours 01/24/21 22:45 Blood Culture - Preliminary Blood No Growth after 96 hours Assessment and Plan Assessment: * Generalized weakness, with tendency to fall. Patient has chronic numbness of the feet, and some numbness in the legs, with absent ankle reflex, therefore she probably has peripheral neuropathy. Supratherapeutic Lamictal level may be contributing. * Acute UTI with E. coli. * Vitamin B6 deficiency * Bipolar disorder * Lumbar spondylosis, spondylolisthesis without spinal stenosis as per MRI from 11/27/2020. * Hyperlipidemia * Hypertension Plan: * Patient's Lamictal level was supratherapeutic 18.0 (2-15). Patient's dose of Lamictal has been decreased to 150 mg twice a day (from 200 mg twice a day dose). * Vitamin B6 low 3, will start on replacement. * Folic acid is normal 910, B12 1494. TSH normal. Hemoglobin A1c 5.3. * Treatment of UTI as per IM. * Recommend EMG and nerve conduction studies of lower extremities as outpatient. * Neurologically clear for [facility] to [facility].
[2021-01-29] MEDS ORDERED: MELATONIN 5 MG TABLET PO SCH (21:00)
--- NOTE | 2021-01-29 23:48 | P.PN ---
Subjective Progress Note Date: 01/28/21 Principal diagnosis: Multiple falls Ms. Snow is a 65-year-old the female came in because of recurrent falls. Patient is diagnosed with dehydration and urinary tract infection patient is being treated for both. On 01/28/2021- Patient is still quite a bit weak physical therapy occupational therapy to evaluate the patient. Patient is having tremor which as per the patient has been going on only for few months never diagnosed with Parkinson's. Patient the tumor is not like typical parkinsonian tremor patient has generalized weakness with the decreased strength in bilateral lower extremities and some muscle atrophy. Neurology consulted. nd started her on propranolol and her tremors improved. Her friend at bed side and helping her in geeting to Rehab. On ROS - Constitutional: Denied any fatigue denied any fever. Cardio vascular: denied any chest pain, palpitations Gastrointestinal denied any nausea vomiting Pulmonary: Denied any shortness of breath cough Neurologic denied any new focal deficits All inpatient medications were reviewed. Objective - Vital Signs Vital signs: Vital Signs Temp 98.5 F 01/28/21 07:00 Pulse 84 01/28/21 07:00 Resp 16 01/28/21 08:00 BP 112/68 01/28/21 07:00 Pulse Ox 95 01/28/21 07:00 Intake & Output 01/27/21 01/28/21 01/28/21 18:59 06:59 18:59 Output Total 400 3200 Balance -400 -3200 Output: Urine 400 3200 Straight 900 Uretheral (Barrios) 800 Other: Voiding Method Indwelling Catheter Indwelling Catheter Indwelling Catheter # Voids 0 # Bowel Movements 0 0 - Exam PHYSICAL EXAMINATION: GENERAL: The patient is alert and oriented x3, not in any acute distress. Thin built nonessential tremor HEENT: Pupils are round and equally reacting to light. EOMI. No scleral icterus. No conjunctival pallor. CARDIOVASCULAR: S1 and S2 present. No murmurs, rubs, or gallops. PULMONARY: Chest is clear to auscultation, no wheezing or crackles. ABDOMEN: Soft, nontender, nondistended, normoactive bowel sounds. No palpable organomegaly. MUSCULOSKELETAL: No joint swelling or deformity. EXTREMITIES: No cyanosis, clubbing, or pedal edema. NEUROLOGICAL: Decreased strength in all 4 extremities about 4/5 no other focal deficits were appreciated - Labs CBC & Chem 7: 01/28/21 05:40 01/28/21 05:40 Labs: Abnormal Lab Results - Last 24 Hours (Table) 01/28/21 01/28/21 Range/Units 05:40 05:40 RBC 2.89 L (4.10-5.20) X 10*6/uL Hgb 9.4 L (12.0-15.0) g/dL Hct 28.3 L (37.2-46.3) % MCV 97.9 H (80.0-97.0) fL MCH 32.5 H (27.0-32.0) pg Plt Count 125 L (140-440) X 10*3/uL Eosinophils # 0.37 H (0.04-0.35) X 10*3/uL Chloride 112 H (96-109) mmol/L BUN 7.0 L (9.0-27.0) mg/dL BUN/Creatinine Ratio 8.75 L (12.00-20.00) Ratio Calcium 8.1 L (8.7-10.3) mg/dL Microbiology - Last 24 Hours (Table) 01/24/21 22:45 Blood Culture - Preliminary Blood No Growth after 72 hours 01/24/21 23:06 Blood Culture - Preliminary Blood No Growth after 72 hours Assessment and Plan Assessment: ASSESMENT AND PLAN -Generalized weakness multiple falls: Patient's tumor is not consistent with parkinsonian tremor may be mostly related to encephalopathy which improved at this time. It was recommended by neurology to be started on propranolol as her tremor resolved or significantly improved. -Encephalopathy Neurology and psychiatry evaluated the patient -Dehydration: Continue with IV fluids -Possible urinary tract infection patient does have UTI symptoms urine is abnormal and urine cultures positive for E. coli which is pansensitive continue with the Rocephin -COPD without any acute exacerbation -gastroesophageal reflux disease -Hypertension -Hyperlipidemia -Chronic low back pain with peripheral neuropathy -Depression For above-mentioned medical problems will continue with present medications. Further recommendations to follow depending on the progress of the patient.sheet metal layout worker on board for possible subacute rehab placement.
[2021-01-30] MEDS ORDERED: PANTOPRAZOLE 40 MG TABLET PO SCH (07:30)
== END 2021-01-29 16:40 ==
LOC: EC 18:17 → 6NMEDSUR 21:15
PROVIDERS: ADMIT Family Medicine; ATTEND Family Medicine
DX: E86.0 Dehydration (principal); N39.0 Urinary tract infection, site not specified; G93.49 Other encephalopathy; G93.41 Metabolic encephalopathy; G89.29 Other chronic pain; M54.5 Low back pain; R29.6 Repeated falls; K21.9 Gastro-esophageal reflux disease without esophagitis; E78.5 Hyperlipidemia, unspecified; I10 Essential (primary) hypertension; R41.3 Other amnesia; M19.90 Unspecified osteoarthritis, unspecified site; M81.0 Age-related osteoporosis without current pathological fracture; G43.909 Migraine, unspecified, not intractable, without status migrainosus; G62.9 Polyneuropathy, unspecified; F41.8 Other specified anxiety disorders; F31.9 Bipolar disorder, unspecified; R41.9 Unspecified symptoms and signs involving cognitive functions and awareness; E03.9 Hypothyroidism, unspecified; K59.00 Constipation, unspecified; J43.9 Emphysema, unspecified; R25.1 Tremor, unspecified; R41.89 Other symptoms and signs involving cognitive functions and awareness; M46.96 Unspecified inflammatory spondylopathy, lumbar region; R62.7 Adult failure to thrive; B96.20 Unspecified Escherichia coli [E. coli] as the cause of diseases classified elsewhere; G92 Toxic encephalopathy; F05 Delirium due to known physiological condition; M47.816 Spondylosis without myelopathy or radiculopathy, lumbar region; Z91.81 History of falling; E53.1 Pyridoxine deficiency; G47.00 Insomnia, unspecified; Z87.11 Personal history of peptic ulcer disease; Z87.19 Personal history of other diseases of the digestive system; Z87.01 Personal history of pneumonia (recurrent); Z87.891 Personal history of nicotine dependence; Z90.710 Acquired absence of both cervix and uterus; Z90.49 Acquired absence of other specified parts of digestive tract; Z79.899 Other long term (current) drug therapy; Z79.51 Long term (current) use of inhaled steroids; Z79.890 Hormone replacement therapy; Z79.891 Long term (current) use of opiate analgesic; Z88.5 Allergy status to narcotic agent; Z88.1 Allergy status to other antibiotic agents; Z20.822 Contact with and (suspected) exposure to COVID-19; Z80.9 Family history of malignant neoplasm, unspecified; Z81.1 Family history of alcohol abuse and dependence; Z82.5 Family history of asthma and other chronic lower respiratory diseases
CPT/HCPCS: 96376 ×4; 96361 ×5; 96365; 96366 ×4; 96375 ×2; 99285; 36415; 94640 ×4; 94760; 93005; 97116; 97110; 97530 ×2; 97162; 97535; 97166; 84207; 80053 ×2; 80048 ×3; 80175; 85652; 82140; 82550; 83735; 84484; 85025 ×5; 85610; 85730; 86140; 81001; 87040; 80306; 87086; 87077; 87186; 84145; 87635 ×2; 72110; 72170; 71046; 70450; G0378 ×6; J2270; J0696 ×6; C9113 ×5

== ENCOUNTER → 2021-09-27 | Outpatient (CLI) | payer MEDICARE ==
--- NOTE | 2021-09-27 14:10 | XR ---
EXAMINATION TYPE: XR chest 2V DATE OF EXAM: 09/27/2021 COMPARISON: Chest x-ray 01/24/2021 HISTORY: Acute bronchitis, J20.9 TECHNIQUE: Frontal and lateral views of the chest are obtained. FINDINGS: Apical scarring is present. Cardiac mediastinal silhouette is stable. Aorta is dense. Ther e is no evident airspace disease, pneumothorax, or pleural effusion. Prominent lung volumes suggest u nderlying COPD. There is thoracic spondylosis. Bronchial wall thickening is present. IMPRESSION: Correlate for bronchitis.
== END | disposition home or self-care (01) ==
LOC: RADXRMAIN 11:54
PROVIDERS: ATTEND Internal Medicine
DX: J20.9 Acute bronchitis, unspecified (principal)
CPT/HCPCS: 71046

== ENCOUNTER 2022-03-13 08:38 | Day surgery (SDC) | payer MEDICARE ==
[2022-03-11 11:46] VITALS: BMI 21.9
[~2022-03-13 08:38] MED LIST changes: +LIDOCAINE 1% (10MG/ML) FOR IV START INTRADERMA PRN
[2022-03-13 09:40] VITALS: TEMP 97.8
[2022-03-13] MEDS ORDERED: LACTATED RINGERS 1,000 ML IV ONE (09:43)
[2022-03-13] MEDS ORDERED: PROPOFOL 10 MG/ML 20 ML VIAL IV ONE (10:04)
[2022-03-13] MEDS ORDERED: LIDOCAINE 2% INJ 20 MG/ML (2 ML VIAL) ONE (10:04)
--- NOTE | 2022-03-13 10:07 | P.GSHP ---
History of Present Illness H&P Date: 03/13/22 Chief Complaint: Screening colonoscopy This is a 66-year-old female presents today for screening colonoscopy. Patient denies a significant GI complaints. Past Medical History Past Medical History: COPD, GERD/Reflux, Hyperlipidemia, Hypertension, Memory Impairment, Osteoarthritis (OA), Thyroid Disorder Additional Past Medical History / Comment(s): Polyneuropathy, tremors that have recently increased, peptic ulcer disease, bronchitis, chronic low back and bilateral leg pain, past migraines, arthritis bilateral hands. PAST HX ALCOHOL AND DRUG ABUSE-20 YEARS AGO, MENTAL ILLNESS, MIXED, COLITIS, ANXIETY/DEPRESSION AND FAILURE TO THRIVE, IN [facility] History of Any Multi-Drug Resistant Organisms: ESBL Date of last positivie culture/infection: 05/17/21 ESBL-E.coli MDRO Source:: Urine Past Surgical History: Cholecystectomy, Hernia Repair, Hysterectomy, Orthopedic Surgery Additional Past Surgical History / Comment(s): 01/11/21 EGD and incomplete colonoscopy d/t poor prep, past EGDs/colonoscopies, kaylan fundoplasty, D&C, possible L foot surgery/pt unsure. Past Anesthesia/Blood Transfusion Reactions: Postoperative Nausea & Vomiting (PONV) Additional Past Anesthesia/Blood Transfusion Reaction / Comment(s): no hx blood transfusion Smoking Status: Former smoker - Past Family History Mother Family Medical History: Cancer Additional Family Medical History / Comment(s): Mother was an alcoholic. Father Family Medical History: Cancer, COPD Additional Family Medical History / Comment(s): COLON CANCER Medications and Allergies Home Medications Medication Instructions Recorded Confirmed Type QUEtiapine [SEROquel] 800 mg PO HS 05/17/18 03/11/22 History Albuterol Sulfate [Proair Hfa] 1 - 2 puff INHALATION RT-QID PRN 03/21/19 03/11/22 History Atorvastatin [Lipitor] 20 mg PO HS 08/08/19 03/11/22 History Levothyroxine Sodium [Synthroid] 50 mcg PO DAILY 12/03/20 03/11/22 History ARIPiprazole [Abilify] 10 mg PO HS 03/11/22 03/11/22 History Acetaminophen Tab [Tylenol Tab] 1,000 mg PO Q6H PRN 03/11/22 03/11/22 History Cyanocobalamin [Vitamin B-12] 500 mcg PO DAILY 03/11/22 03/11/22 History Fluticasone Nasal [place] [Flonase 1 spray EA NOSTRIL DAILY 03/11/22 03/11/22 History Nasal [place]] Fluticasone/Vilanterol [Breo 1 inhalation PO Q24HR 03/11/22 03/11/22 History Ellipta 100-25 Mcg Inhaler] Gabapentin [Neurontin] 100 mg PO TID 03/11/22 03/11/22 History Levomilnacipran HCl [Fetzima] 40 mg PO HS 03/11/22 03/11/22 History Loratadine [Claritin] 10 mg PO HS 03/11/22 03/11/22 History Multivitamins, Thera [Multivitamin 1 tab PO DAILY 03/11/22 03/11/22 History (formulary)] Omeprazole [PriLOSEC] 20 mg PO AC-BRKFST 03/11/22 03/11/22 History Propranolol [Inderal] 40 mg PO HS 03/11/22 03/11/22 History Sennosides/Docusate Sodium 2 each PO HS 03/11/22 03/11/22 History [Senna-S 8.6-50 mg Tablet] lamoTRIgine [LaMICtal] 150 mg PO BID 03/11/22 03/11/22 History Allergies Allergy/AdvReac Type Severity Reaction Status Date / Time cefaclor [From Ceclor] Allergy Rash/Hives Verified 03/11/22 10:10 hydrocodone [From [place]] AdvReac "doesn't Verified 03/11/22 10:10 work for me" Surgical - Exam Vital Signs Temp Pulse Resp BP Pulse Ox 97.8 F 70 18 123/78 98 03/13/22 09:31 03/13/22 09:31 03/13/22 09:31 03/13/22 09:31 03/13/22 09:31 - General well developed, well nourished, no distress - Eyes PERRL - ENT normal pinna - Neck no masses, no bruits - Respiratory normal expansion - Cardiovascular Rhythm: regular - Abdomen Abdomen: soft, non tender Assessment and Plan Assessment: We'll perform screening colonoscopy
--- NOTE | 2022-03-13 10:31 | P.OP ---
Date of Procedure: 03/13/22 Preoperative Diagnosis: Screening colonoscopies Postoperative Diagnosis: Normal colonoscopy Tortuous colon Procedure(s) Performed: Colonoscopy Anesthesia: MAC Surgeon: Joselo Torre Pathology: none sent Condition: stable Disposition: PACU Description of Procedure: Patient's placed on the endoscopy table in the lateral position. She received IV sedation. Digital rectal exam was performed which revealed no ebonized. The flexible colonoscope was then placed patient anus passed throughout the entire colon. The colon was quite tortuous. The ileocecal valve was visually is. The cecum, ascending and transverse colon appeared normal. The descending and sigmoid colon appeared normal. The scope was brought back the rectum this appeared normal. Scope withdrawn for patient.
[2022-03-13 10:34] VITALS: RESP 16
[2022-03-13 10:53] VITALS: BP 125/87; PULSE 85
== END 2022-03-13 11:34 | disposition home or self-care (01) ==
LOC: ORWHC2ENDO 08:38
PROVIDERS: ATTEND Surgery
DX: Z12.11 Encounter for screening for malignant neoplasm of colon (principal); E78.5 Hyperlipidemia, unspecified; F32.A Depression, unspecified; F41.9 Anxiety disorder, unspecified; I10 Essential (primary) hypertension; J44.9 Chronic obstructive pulmonary disease, unspecified; K21.9 Gastro-esophageal reflux disease without esophagitis; M19.041 Primary osteoarthritis, right hand; M19.042 Primary osteoarthritis, left hand; Z87.11 Personal history of peptic ulcer disease; Z87.891 Personal history of nicotine dependence; Z88.1 Allergy status to other antibiotic agents; Z88.5 Allergy status to narcotic agent; Z90.49 Acquired absence of other specified parts of digestive tract; Z79.899 Other long term (current) drug therapy
CPT/HCPCS: G0121; J2704; J2001

== ENCOUNTER → 2022-05-09 | Outpatient (CLI) | payer MEDICARE, OTHER ==
--- NOTE | 2022-05-09 16:05 | US ---
EXAMINATION TYPE: US kidneys/renal and bladder DATE OF EXAM: 05/09/2022 COMPARISON: NONE CLINICAL HISTORY: N18.32 CKD stage 3B. no symptoms EXAM MEASUREMENTS: Right Kidney: 8.8 x 3.5 x 3.7 cm Left Kidney: 9.7 x 3.4 x 4.4 cm Right Kidney: No hydronephrosis or masses seen Left Kidney: No hydronephrosis or masses seen Bladder: wnl Bilateral Jets seen: yes IMPRESSION: 1. Normal renal ultrasound
[2022-05-09 16:20] LABS: Creatinine,Urine Random 27.3 mg/dL; Protein/Creatinine Ratio,Urine 0.476
[2022-05-09 19:53] LABS: % Iron Saturation 18.77 (12.00-45.00); Ferritin 39.5 ng/mL (10.0-291.0); Phosphorus 3.5 mg/dL (2.4-5.1)
== END | disposition home or self-care (01) ==
LOC: RADUSWWP 13:53
PROVIDERS: ATTEND Internal Medicine
DX: N18.32 Chronic kidney disease, stage 3b (principal)
CPT/HCPCS: 76770; 82306; 82570; 82728; 83540; 83550; 83735; 83883; 84100; 84156; 84550

== ENCOUNTER → 2022-07-18 | Outpatient (CLI) | payer MEDICARE, OTHER ==
[2022-07-18 18:18] LABS: Basophils # (A) 0.03 X 10*3/uL (0.00-0.10); Basophils % (A) 0.4 %; Eosinophils # (A) 0.18 X 10*3/uL (0.04-0.35); Eosinophils % (A) 2.6 %; HCT 34.8 % (37.2-46.3); HGB 11.9 g/dL (12.0-15.0); Immature Grans, Automated 0.4 %; Lymphocytes # (A) 1.46 X 10*3/uL (0.90-5.00); Lymphocytes % (A) 21.3 %; MCH 31.5 pg (27.0-32.0); MCHC 34.2 g/dL (32.0-37.0); MCV 92.1 fL (80.0-97.0); Monocytes # (A) 0.42 X 10*3/uL (0.20-1.00); Monocytes % (A) 6.1 %; NRBC Per 100 WBC 0 /100 WBCS (0.0-0.0); Neutrophils # (A) 4.74 X 10*3/uL (1.80-7.70); Neutrophils % (A) 69.2 %; Platelet Count 150 X 10*3/uL (140-440); RBC 3.78 X 10*6/uL (4.10-5.20); RDW 11.9 % (11.5-14.5); WBC 6.86 X 10*3/uL (4.50-10.00)
[2022-07-18 18:26] LABS: Chol/HDL Ratio 3.03 Ratio; LDL Cholesterol,Calculated 80.5 mg/dL (0.0-131.0)
[2022-07-18 18:27] LABS: ALT 20 U/L (8-44); AST 21 U/L (13-35); African American GFR (CKD) 43.3 (60.0-200.0); Albumin 4.4 g/dL (3.8-4.9); Albumin/Globulin Ratio 1.62 (1.60-3.17); Alkaline Phosphatase 79 U/L (41-126); Blood Urea Nitrogen 27.6 mg/dL (9.0-27.0); Calcium 9.3 mg/dL (8.7-10.3); Carbon Dioxide 22.6 mmol/L (20.0-27.5); Chloride 107 mmol/L (96-109); Globulin 2.7 g/dL (1.6-3.3); Glucose 84 mg/dL (70-110); Non-African American GFR(CKD) 37.4 (60.0-200.0); Potassium 4.1 mmol/L (3.5-5.5); Sodium 141 mmol/L (135-145); Total Protein 7.1 g/dL (6.2-8.2)
== END | disposition home or self-care (01) ==
LOC: LABWHC1 13:15
PROVIDERS: ATTEND Internal Medicine
DX: E03.9 Hypothyroidism, unspecified (principal); E78.2 Mixed hyperlipidemia; N18.32 Chronic kidney disease, stage 3b
CPT/HCPCS: 36415; 80053; 80061; 84443; 85025

== ENCOUNTER → 2022-09-12 | Outpatient (CLI) | payer MEDICARE, OTHER ==
[2022-09-12 14:34] LABS: Basophils # (A) 0.03 X 10*3/uL (0.00-0.10); Basophils % (A) 0.6 %; Eosinophils # (A) 0.06 X 10*3/uL (0.04-0.35); Eosinophils % (A) 1.2 %; HCT 32.8 % (37.2-46.3); HGB 11.1 g/dL (12.0-15.0); Immature Grans, Automated 0.6 %; Lymphocytes # (A) 1.56 X 10*3/uL (0.90-5.00); Lymphocytes % (A) 30.7 %; MCH 31.1 pg (27.0-32.0); MCHC 33.8 g/dL (32.0-37.0); MCV 91.9 fL (80.0-97.0); Mean Platelet Volume 9.8 fL (9.5-12.2); Monocytes # (A) 0.48 X 10*3/uL (0.20-1.00); Monocytes % (A) 9.4 %; NRBC Per 100 WBC 0 /100 WBCS (0.0-0.0); Neutrophils # (A) 2.92 X 10*3/uL (1.80-7.70); Neutrophils % (A) 57.5 %; Platelet Count 148 X 10*3/uL (140-440); RBC 3.57 X 10*6/uL (4.10-5.20); RDW 12.5 % (11.5-14.5); WBC 5.08 X 10*3/uL (4.50-10.00)
[2022-09-12 14:54] LABS: Appearance,Urine Clear (Clear); Bilirubin,Urine Negative (Negative); Blood,Urine Negative (Negative); Color,Urine Yellow (Yellow); Ketones,Urine Negative (Negative); Nitrite,Urine Negative (Negative); PH, Urine 6.5 (5.0-8.0); Specific Gravity,Urine 1.015 (1.001-1.030); Urobilinogen,Urine 0.2 (0.2,1.0)
[2022-09-12 15:16] LABS: Bacteria,Urine None Seen /HPF (None Seen)
[2022-09-12 17:00] LABS: Phosphorus 3.8 mg/dL (2.4-5.1)
[2022-09-12 17:03] LABS: African American GFR (CKD) 45.6 (60.0-200.0); Albumin 4.3 g/dL (3.8-4.9); Albumin/Globulin Ratio 1.87 (1.60-3.17); Anion Gap 11.8 mmol/L (10.00-18.00); BUN/Creat Ratio 16.14 Ratio (12.00-20.00); Blood Urea Nitrogen 22.6 mg/dL (9.0-27.0); Calcium 9.1 mg/dL (8.7-10.3); Carbon Dioxide 22.2 mmol/L (20.0-27.5); Globulin 2.3 g/dL (1.6-3.3); Non-African American GFR(CKD) 39.3 (60.0-200.0); Potassium 4.2 mmol/L (3.5-5.5); Total Bilirubin 0.4 mg/dL (0.30-1.20); Total Protein 6.6 g/dL (6.2-8.2)
[2022-09-12 21:37] LABS: Total Protein 24 Hour,Urine 112.2 mg/24Hr (0.0-165.0); Total Volume 24 Hour,Urine 2000 mL
== END | disposition home or self-care (01) ==
LOC: LABWHC1 09:15
PROVIDERS: ATTEND Internal Medicine
DX: N18.32 Chronic kidney disease, stage 3b (principal)
CPT/HCPCS: 36415; 80053; 81001; 81050; 84100; 84156; 85025

== ENCOUNTER → 2022-09-17 | Outpatient (CLI) | payer MEDICARE, OTHER ==
--- NOTE | 2022-09-17 11:18 | BD ---
EXAMINATION TYPE: Axial Bone Density DATE OF EXAM: 09/17/2022 COMPARISON: NONE CLINICAL HISTORY: 67 years year old Female. ICD-10 CODE: M81.0 AGE-RELATED OSTEOPOROSIS Height: 5FT 3.5IN Weight: 156.8 FRAX RISK QUESTIONS: Alcohol (3 or more units per day): NO Family History (Parent hip fracture): NO Glucocorticoids (More than 3mos): NO (Ex: prednisone, prednisolone, methylprednisolone, dexamethasone, and hydrocortisone). History of Fracture in Adulthood: NO Secondary Osteoporosis: YES 1. Type 1 Diabetes: NO 2. Hyperthyroidism: NO 3. Menopause before 45: YES 4. Malnutrition: NO 5. Chronic liver disease: NO Rheumatoid Arthritis: YES Current Tobacco Use: NO RISK FACTORS HISTORY OF: Family History of Osteoporosis: NO Active: YES Diet low in dairy products/other sources of calcium: YES Postmenopausal woman: YES Lost more than 2 inches in height since high school: YES Frequent falls: YES Poor Health: FAIR Hyperparathyroidism: NO Adrenal Insufficiency: YES, STAGE 3 MEDICATIONS: Prednisone or other steroids: How Long: Thyroid Medications: Which medication: How Long: Osteoporosis Medications: Which medication: How Long: Additional Medications: THYROID, CHOLESTEROL, NEUROPATHY, INHALER, ALLERGY, MULTIPLE OTHER MEDICATION S INCLUDING PSYC PATIENT DID NOT HAVE FULL LIST WITH HER Additional History: EXAM MEASUREMENTS: Bone mineral densitometry was performed using the [employer] System. Bone mineral density as measured about the Lumbar spine is: ----- L1-L4(G/cm2): 0.923 T Score Values are as follows: ----- L1: -3.0 ----- L2: -3.1 ----- L3: -2.1 ----- L4: -0.9 ----- L1-L4: -2.1 Bone mineral density has: INCREASE 9.3% since study of: 2019 Bone mineral density about the R hip (g/cm2): 0.701 Bone mineral density about the L hip (g/cm2): 0.673 T Score values are as follows: -----R Neck: -2.4 -----L Neck: -2.6 -----R Total: -2.2 -----L Total: -3.0 Bone mineral density has: INCREASE 3.5% since study of: 2020 FRAX%s: The graph provided illustrates a 13.4% chance for a major osteoporotic fx and a 3.2% chance f or the hips probability for fx in 10 years time. IMPRESSION: Osteoporosis (T Score less than -2.5). There is increased fracture risk and therapy is usually indicated based on age. Re-Screen 1-2 years. NOTE: T-SCORE=SD OF THE YOUNG ADULT MEAN.
--- NOTE | 2022-09-18 09:48 | MM ---
Reason for Exam: Screening (asymptomatic). Last mammogram was performed 2 year(s) and 1 month(s) ago. Patient History: Menarche at age 14. Patient has no children. Left ovary removed at age 38. Right ovary removed at age 38. Postmenopausal. Patient used Estrogen for 5 years. Patient used Progesterone for 5 years. Risk Values: Christy 5 year model risk: 1.8%. NCI Lifetime model risk: 6.9%. Prior Study Comparison: 03/04/1999 Bilateral Special View Mammogram, [facility]. 01/18/2018 Bilateral Screening Mammogram, [facility]. 08/31/2020 Bilateral Screening Mammogram, [facility]. Tissue Density: The breast tissue is heterogeneously dense. This may lower the sensitivity of mammography. Findings: Analyzed By CAD. There is no suspicious group of microcalcifications or new suspicious mass in either breast. No significant change from prior exams. Overall Assessment: Benign, BI-RAD 2 Management: Screening Mammogram of both breasts in 1 year. A clinical breast exam by your physician is recommended on an annual basis and results should be correlated with mammographic findings. Electronically signed and approved by: Kiel Morin D.O.
== END | disposition home or self-care (01) ==
LOC: RADMAMWWP 09:55
PROVIDERS: ATTEND Internal Medicine
DX: Z12.31 Encounter for screening mammogram for malignant neoplasm of breast (principal); M81.0 Age-related osteoporosis without current pathological fracture; Z78.0 Asymptomatic menopausal state
CPT/HCPCS: 77063; 77067; 77080

== ENCOUNTER → 2022-11-24 | Outpatient (CLI) | payer MEDICARE, OTHER ==
[2022-11-24 14:57] LABS: Basophils # (A) 0.05 X 10*3/uL (0.00-0.10); Basophils % (A) 0.8 %; Eosinophils # (A) 0.09 X 10*3/uL (0.04-0.35); Eosinophils % (A) 1.5 %; HCT 37.4 % (37.2-46.3); Immature Grans, Automated 0.5 %; Lymphocytes # (A) 1.54 X 10*3/uL (0.90-5.00); Lymphocytes % (A) 26.1 %; MCH 30.8 pg (27.0-32.0); MCHC 32.1 g/dL (32.0-37.0); MCV 95.9 fL (80.0-97.0); Mean Platelet Volume 9.8 fL (9.5-12.2); Monocytes # (A) 0.43 X 10*3/uL (0.20-1.00); Monocytes % (A) 7.3 %; NRBC Per 100 WBC 0 /100 WBCS (0.0-0.0); Neutrophils # (A) 3.75 X 10*3/uL (1.80-7.70); Neutrophils % (A) 63.8 %; Platelet Count 172 X 10*3/uL (140-440); RDW 12.9 % (11.5-14.5); WBC 5.89 X 10*3/uL (4.50-10.00)
[2022-11-24 16:21] LABS: Albumin 4.4 g/dL (3.8-4.9); Ferritin 42.7 ng/mL (10.0-291.0)
[2022-11-24 16:57] LABS: Appearance,Urine Clear (Clear); Bilirubin,Urine Negative (Negative); Blood,Urine Negative (Negative); Color,Urine Yellow (Yellow); Ketones,Urine Negative (Negative); Nitrite,Urine Negative (Negative); PH, Urine 6.5 (5.0-8.0); Specific Gravity,Urine 1.013 (1.001-1.030); Urobilinogen,Urine 0.2 (0.2,1.0)
[2022-11-24 17:14] LABS: Bacteria,Urine None Seen /HPF (None Seen)
[2022-11-24 19:29] LABS: % Iron Saturation 22.43 (12.00-45.00); African American GFR (CKD) 49.9 (60.0-200.0); Anion Gap 13.4 mmol/L (10.00-18.00); BUN/Creat Ratio 11.62 Ratio (12.00-20.00); Blood Urea Nitrogen 15.1 mg/dL (9.0-27.0); Calcium 9.5 mg/dL (8.7-10.3); Carbon Dioxide 21.6 mmol/L (20.0-27.5); Magnesium 2.1 mg/dL (1.5-2.4); Phosphorus 3.5 mg/dL (2.4-5.1); Potassium 4.6 mmol/L (3.5-5.5); Uric Acid 4.3 mg/dL (2.9-7.7)
[2022-11-24 21:56] LABS: Microalbumin Creatinine Ratio <30 mg/g Creat (0-30); Urine Creatinine 77.3 mg/dL (28.0-217.0)
== END ==
LOC: LABWHC1 08:20
PROVIDERS: ATTEND Internal Medicine Nephrology
DX: E55.9 Vitamin D deficiency, unspecified (principal); N25.81 Secondary hyperparathyroidism of renal origin; M10.9 Gout, unspecified; N39.0 Urinary tract infection, site not specified; D64.9 Anemia, unspecified; N18.30 Chronic kidney disease, stage 3 unspecified; R80.9 Proteinuria, unspecified
CPT/HCPCS: 36415; 80048; 81001; 82040; 82043; 82306; 82570; 82728; 83540; 83550; 83735; 83970; 84100; 84550; 85025

== ENCOUNTER → 2023-02-03 | Outpatient (CLI) | payer MEDICARE, OTHER ==
--- NOTE | 2023-02-03 15:03 | US ---
EXAMINATION TYPE: US carotid duplex BILAT DATE OF EXAM: 02/03/2023 COMPARISON: NONE CLINICAL HISTORY: Z13.6 screening, I65.23 carotid stenosis b/l. TECHNIQUE: Carotid duplex ultrasound examination. Indirect Doppler criteria was utilized. FINDINGS: EXAM MEASUREMENTS: RIGHT: Peak Systolic Velocity (PSV) cm/sec ----- Right CCA: 93.0 ----- Right ICA: 126.3 ----- Right ECA: 82.5 ICA/CCA ratio: 1.4 RIGHT: End Diastole cm/sec ----- Right CCA: 36.9 ----- Right ICA: 68.1 ----- Right ECA: 20.6 LEFT: Peak Systolic Velocity (PSV) cm/sec ----- Left CCA: 94.1 ----- Left ICA: 101.8 ----- Left ECA: 71.0 ICA/CCA ratio: 1.1 LEFT: End Diastole cm/sec ----- Left CCA: 41.3 ----- Left ICA: 55.6 ----- Left ECA: 18.2 VERTEBRALS (direction of flow): Right Vertebral: Antegrade Left Vertebral: Antegrade Rhythm: Normal WHITESMITH NOTES: Moderate peripheral plaque bilateral bifurcations. no evidence of increased veloci ties. IMPRESSION: No hemodynamically significant stenosis in either internal carotid artery. Criteria for Assigning % of Stenosis / Diameter reduction (Estimation based on the indirect measurements of the internal carotid artery velocities (ICA PSV). 1. Normal (no stenosis)=ICA PSV < 125 cm/s: ratio < 2.0: ICA EDV<40 cm/s. 2. Less than 50% stenosis=ICA PSV < 125 cm/s: ratio < 2.0: ICA EDV<40 cm/s. 3. 50 to 69% stenosis=ICA PSV of 125 to 230 cm/s: ration 2.0 ? 4.0: ICA EDV 40-100 cm/s. 4. Greater than 70% stenosis to near occlusion= ICA PSV > 230 cm/s: ratio > 4.0: ICA EDV > 100 cm/s. 5. Near occlusion= ICA PSV velocities may be low or undetectable: variable ratio and ICA EDV. 6. Total occlusion=unable to detect flow.
--- NOTE | 2023-02-03 16:29 | CT ---
EXAMINATION TYPE: CT heart w calcium score DATE OF EXAM: 02/03/2023 COMPARISON: None HISTORY: Screening for cardiovascular disorder. 213.9 CT DLP: 51.9 mGycm Automated exposure control for dose reduction was used. CT CALCIUM SCORING Coronary calcium is a marker for plaque (fatty deposits) in a blood vessel or atherosclerosis (harden ing of the arteries). The presence and amount of calcium detected in a coronary artery by the CT sca n, indicates the presence and amount of atherosclerotic plaque. These calcium deposits appear years before the development of heart disease symptoms such as chest pain and shortness of breath. A calcium score is computed for each of the coronary arteries based upon the volume and density of th e calcium deposits. This can be referred to as your calcified plaque burden. It does not correspond directly to the percentage of narrowing in the artery but does correlate with the severity of the un derlying coronary atherosclerosis. PROCEDURE TECHNIQUE - Prospective Gating was used. Slice thickness: 3mm. Density threshold (HU): 130, Pixel threshold: 3, Algorithm: discrete. RESULTS Region: LM Calcium Score ([place]): 0 Volume (mm3): 0 Mass (g): 0 Region: RCA Calcium Score ([place]): 0 Volume (mm3): 0 Mass (g): 0 Region: LAD Calcium Score ([place]): 0 Volume (mm3): 0 Mass (g): 0 Region: CX Calcium Score ([place]): 0 Volume (mm3): 0 Mass (g): 0 Region: PDA Calcium Score ([place]): 0 Volume (mm3): 0 Mass (g): 0 Total: Calcium Score ([place]): 0 Volume (mm3): 0 Mass (g): 0 TOTAL CALCIUM SCORE: 0 IMPRESSION: Calcium Score: 0 Implication: No identifiable plaque. Risk of Coronary Artery Disease: Very low generally less than 5% CALCIUM SCORE IMPLICATION RISK OF C ORONARY ARTERY DISEASE 0 No identifiable plaque Very low, generally less than 5% 1-10 Minimal identifiable plaque Very unlikely, less than 10% 11-100 Definite, at least mild atherosclerotic plaque Mild or m inimal coronary narrowings likely 101-400 Definite, at least moderate atherosclerotic plaque Mild coronary ar angela disease highly likely, significant narrowing possible 401 or Higher Extensive atherosclerotic plaque High lik elihood of at least one significant coronary narrowing
== END | disposition home or self-care (01) ==
LOC: RADUSWWP 14:22
PROVIDERS: ATTEND Internal Medicine
DX: Z13.6 Encounter for screening for cardiovascular disorders (principal); I65.23 Occlusion and stenosis of bilateral carotid arteries; I25.10 Atherosclerotic heart disease of native coronary artery without angina pectoris
CPT/HCPCS: 75571; 93880

== ENCOUNTER → 2023-03-23 | Outpatient (CLI) | payer MEDICARE, OTHER ==
[2023-03-23 16:03] LABS: % Iron Saturation 15.68 (12.00-45.00); African American GFR (CKD) 54.9 (60.0-200.0); Anion Gap 11.1 mmol/L (10.00-18.00); BUN/Creat Ratio 17.58 Ratio (12.00-20.00); Blood Urea Nitrogen 21.1 mg/dL (9.0-27.0); Calcium 9.3 mg/dL (8.7-10.3); Carbon Dioxide 20.7 mmol/L (20.0-27.5); Magnesium 2.1 mg/dL (1.5-2.4); Non-African American GFR(CKD) 47.4 (60.0-200.0); Phosphorus 3.8 mg/dL (2.4-5.1); Potassium 4.5 mmol/L (3.5-5.5); Uric Acid 3.5 mg/dL (2.9-7.7)
[2023-03-23 16:21] LABS: Albumin 4.2 g/dL (3.8-4.9); Ferritin 68.3 ng/mL (10.0-291.0)
[2023-03-23 16:55] LABS: Basophils # (A) 0.05 X 10*3/uL (0.00-0.10); Basophils % (A) 0.9 %; Eosinophils # (A) 0.06 X 10*3/uL (0.04-0.35); HCT 34.4 % (37.2-46.3); HGB 11.2 g/dL (12.0-15.0); Immature Grans, Automated 0.3 %; Lymphocytes # (A) 2.09 X 10*3/uL (0.90-5.00); Lymphocytes % (A) 35.6 %; MCH 30.9 pg (27.0-32.0); MCHC 32.6 g/dL (32.0-37.0); MCV 94.8 fL (80.0-97.0); Mean Platelet Volume 10.1 fL (9.5-12.2); Monocytes # (A) 0.43 X 10*3/uL (0.20-1.00); Monocytes % (A) 7.3 %; NRBC Per 100 WBC 0 /100 WBCS (0.0-0.0); Neutrophils # (A) 3.22 X 10*3/uL (1.80-7.70); Neutrophils % (A) 54.9 %; Platelet Count 180 X 10*3/uL (140-440); RBC 3.63 X 10*6/uL (4.10-5.20); RDW 12.8 % (11.5-14.5); WBC 5.87 X 10*3/uL (4.50-10.00)
[2023-03-24 06:09] LABS: Appearance,Urine Clear (Clear); Bilirubin,Urine Negative (Negative); Blood,Urine Negative (Negative); Color,Urine Yellow (Yellow); Ketones,Urine Negative (Negative); Microalbumin Creatinine Ratio <30 mg/g Creat (0-30); Nitrite,Urine Negative (Negative); Specific Gravity,Urine 1.007 (1.001-1.030); Urine Creatinine 26.3 mg/dL (28.0-217.0); Urobilinogen,Urine 0.2 (0.2,1.0)
[2023-03-24 06:16] LABS: Bacteria,Urine None Seen /HPF (None Seen)
== END | disposition home or self-care (01) ==
LOC: LABWHC1 11:59
PROVIDERS: ATTEND Nurse Practitioner Family
DX: E55.9 Vitamin D deficiency, unspecified (principal); N25.81 Secondary hyperparathyroidism of renal origin; M10.9 Gout, unspecified; N39.0 Urinary tract infection, site not specified; N18.32 Chronic kidney disease, stage 3b; D63.1 Anemia in chronic kidney disease
CPT/HCPCS: 36415; 80048; 81001; 82040; 82043; 82306; 82570; 82728; 83540; 83550; 83735; 83970; 84100; 84550; 85025

== ENCOUNTER 2023-10-04 22:09 | Inpatient (IN) | payer MEDICARE, OTHER ==
[2023-10-04] MEDS ORDERED: SODIUM CHLORIDE 0.9% 1,000 ML IV ONE (22:33)
--- NOTE | 2023-10-04 22:50 | ED ---
Fall HPI - General Chief Complaint: Fall Stated Complaint: Fall Time Seen by Provider: 10/04/23 22:12 Source: patient, EMS Mode of arrival: EMS - History of Present Illness Initial Comments: Lisbet is a pleasant 68-year-old female who presents the emergency department today via ambulance from an adult foster care. Patient reports she was walking down the stairs she was on the last step when she missed the step and fell to the ground. She had immediate pain in her left hip and was unable to stand or bear weight. She reports she did not hit her head she did not lose consciou sness. Patient did receive fentanyl and route to the hospital reports her pain is much better. - Related Data Home Medications Medication Instructions Recorded Confirmed QUEtiapine [SEROquel] 800 mg PO HS 05/17/18 03/11/22 Albuterol Sulfate [Proair Hfa] 1 - 2 puff INHALATION RT-QID PRN 03/21/19 03/11/22 Atorvastatin [Lipitor] 20 mg PO HS 08/08/19 03/11/22 Levothyroxine Sodium [Synthroid] 50 mcg PO DAILY 12/03/20 03/11/22 ARIPiprazole [Abilify] 10 mg PO HS 03/11/22 03/11/22 Acetaminophen Tab [Tylenol Tab] 1,000 mg PO Q6H PRN 03/11/22 03/11/22 Cyanocobalamin [Vitamin B-12] 500 mcg PO DAILY 03/11/22 03/11/22 Fluticasone Nasal [place] [Flonase 1 spray EA NOSTRIL DAILY 03/11/22 03/11/22 Nasal [place]] Fluticasone/Vilanterol [Breo 1 inhalation PO Q24HR 03/11/22 03/11/22 Ellipta 100-25 Mcg Inhaler] Gabapentin [Neurontin] 100 mg PO TID 03/11/22 03/11/22 Levomilnacipran HCl [Fetzima] 40 mg PO HS 03/11/22 03/11/22 Loratadine [Claritin] 10 mg PO HS 03/11/22 03/11/22 Multivitamins, Thera [Multivitamin 1 tab PO DAILY 03/11/22 03/11/22 (formulary)] Omeprazole [PriLOSEC] 20 mg PO AC-BRKFST 03/11/22 03/11/22 Propranolol [Inderal] 40 mg PO HS 03/11/22 03/11/22 Sennosides/Docusate Sodium 2 each PO HS 03/11/22 03/11/22 [Senna-S 8.6-50 mg Tablet] lamoTRIgine [LaMICtal] 150 mg PO BID 03/11/22 03/11/22 Allergies Allergy/AdvReac Type Severity Reaction Status Date / Time cefaclor [From Ceclor] Allergy Rash/Hives Verified 03/11/22 10:10 hydrocodone [From [place]] AdvReac "doesn't Verified 03/11/22 10:10 work for me" Review of Systems ROS Statement: Those systems with pertinent positive or pertinent negative responses have been documented in the HPI. ROS Other: All systems not noted in ROS Statement are negative. Past Medical History Past Medical History: COPD, GERD/Reflux, Hyperlipidemia, Hypertension, Memory Impairment, Osteoarthritis (OA), Thyroid Disorder Additional Past Medical History / Comment(s): Polyneuropathy, tremors that have recently increased, peptic ulcer disease, bronchitis, chronic low back and bilateral leg pain, past migraines, arthritis bilateral hands. PAST HX ALCOHOL AND DRUG ABUSE-20 YEARS AGO, MENTAL ILLNESS, MIXED, COLITIS, ANXIETY/DEPRESSION AND FAILURE TO THRIVE, IN AFC History of Any Multi-Drug Resistant Organisms: ESBL Date of last positivie culture/infection: 05/17/21 ESBL-E.coli MDRO Source:: Urine Past Surgical History: Cholecystectomy, Hernia Repair, Hysterectomy, Orthopedic Surgery Additional Past Surgical History / Comment(s): 01/11/21 EGD and incomplete colon oscopy d/t poor prep, past EGDs/colonoscopies, kaylan fundoplasty, D&C, possible L foot surgery/pt unsure. Past Anesthesia/Blood Transfusion Reactions: Postoperative Nausea & Vomiting (PONV) Additional Past Anesthesia/Blood Transfusion Reaction / Comment(s): no hx blood transfusion Past Psychological History: Anxiety, Bipolar, Depression Smoking Status: Former smoker - Past Family History Mother Family Medical History: Cancer Additional Family Medical History / Comment(s): Mother was an alcoholic. Father Family Medical History: Cancer, COPD Additional Family Medical History / Comment(s): COLON CANCER General Exam Limitations: no limitations Head exam: Present: atraumatic, normocephalic Eye exam: Present: PERRL ENT exam: Present: normal exam Neck exam: Present: normal inspection. Absent: tenderness Respiratory exam: Present: normal lung sounds bilaterally Cardiovascular Exam: Present: regular rate GI/Abdominal exam: Present: soft. Absent: distended Rectal exam: Present: deferred Extremities exam: Present: tenderness. Absent: full ROM Left Hip exam: Present: tenderness, deformity Neurovascular tendon exam: Present: no vascular compromise. Absent: pulse deficit Neurological exam: Present: alert Psychiatric exam: Present: normal affect, normal mood Skin exam: Present: warm, dry, intact Course Vital Signs 10/04/23 10/04/23 10/05/23 22:10 22:34 00:45 Temperature 98.8 F Pulse Rate 65 60 Respiratory 14 16 16 Rate Blood Pressure 76/47 74/54 90/73 O2 Sat by Pulse 91 L 93 L 96 Oximetry 10/05/23 01:23 Temperature Pulse Rate 64 Respiratory 16 Rate Blood Pressure 102/64 O2 Sat by Pulse 96 Oximetry Medical Decision Making - Medical Decision Making Was pt. sent in by a medical professional or institution (Dr. PA, AMMONIA OPERATOR, urgent care, hospital, or intermediate...) When possible be specific @ -No Did you speak to anyone other than the patient for history (EMS, parent, family, police, friend...)? What history was obtained from this source @ -EMS Did you review nursing and triage notes (agree or disagree)? Why? @ -I reviewed and agree with nursing and triage notes Were old charts reviewed (outside hosp., previous admission, EMS record, old EKG, old radiological studies, urgent care reports/EKG's, intermediate records)? Report findings @ -No old charts were reviewed Differential Diagnosis (chest pain, altered mental status, abdominal pain women, abdominal pain men, vaginal bleeding, weakness, fever, dyspnea, syncope, headache, dizziness, GI bleed, back pain, seizure, CVA, palpatations, mental health)? @ -fracture, dislocation, hematoma EKG interpreted by me (3pts min.). @ -As above X-rays interpreted by me (1pt min.). @ -LEFT hip fracture, normal chest xray CT interpreted by me (1pt min.). @ -None done U/S interpreted by me (1pt. min.). @ -None done What testing was considered but not performed or refused? (CT, X-rays, U/S, labs)? Why? @ -None What meds were considered but not given or refused? Why? @ -None Did you discuss the management of the patient with other professionals (professionals i.e. , PA, AMMONIA OPERATOR, lab, RT, psych nurse, social work job titles, silver buffer, teacher, business banking officer, geriatric case manager)? Give summary @ -Discussed with Dr Oconnell who accepts admission Was smoking cessation discussed for >3mins.? @ -No Was critical care preformed (if so, how long)? @ -No Were there social determinants of health that impacted care today? How? (Home lessness, low income, unemployed, alcoholism, drug addiction, transportation, low edu. Level, literacy, decrease access to med. care, [facility], rehab)? @ -No Was there de-escalation of care discussed even if they declined (Discuss DNR or withdrawal of care, Hospice)? DNR status @ -No What co-morbidities impacted this encounter? (DM, HTN, Smoking, COPD, CAD, Cancer, CVA, ARF, Chemo, Hep., AIDS, mental health diagnosis, sleep apnea, morbid obesity)? @ -HTN, dementia Was patient admitted / discharged? Hospital course, mention meds given and route, prescriptions, significant lab abnormalities, going to OR and other pertinent info. @ -Admitted Patient was seen and evaluated, history is obtained from EMS and the patient. Upon arrival patient was noted to be somewhat hypotensive however it seemed that she had been slightly overmedicated or was sensitive to the fentanyl she received and was quite sedated. Her extremities were warm and well perfused, IV fluids were infusing. Trauma workup was initiated. There is evidence of the left hip fracture. These findings were discussed with Dr. Oconnell who accepts the admission. Patient's primary care was placed on consult for medical management of the patient's comorbidities. Upon reevaluation patient's much mo re awake and alert at her baseline and her blood pressure has normalized. At this time patient stable for admission to the floor. Undiagnosed new problem with uncertain prognosis? @ Yes Drug Therapy requiring intensive monitoring for toxicity (Heparin, Nitro, Insulin, Cardizem)? @ -No Were any procedures done? @ -No Diagnosis/symptom? @ -LEFT Hip fracture Acute, or Chronic, or Acute on Chronic? @ -Acute Uncomplicated (without systemic symptoms) or Complicated (systemic symptoms)? @ -default Side effects of treatment? @ -No Exacerbation, Progression, or Severe Exacerbation? @ -No Poses a threat to life or bodily function? How? (Chest pain, [place], [place], pneumonia, PE, COPD, DKA, ARF, appy, cholecystitis, CVA, Diverticulitis, Homicidal, Suicidal, threat to staff... and all critical care pts) @ -Yes - Lab Data Result diagrams: 10/04/23 22:37 10/04/23 22:37 Lab Results 10/04/23 10/04/23 10/04/23 Range/Units 22:37 22:37 22:37 WBC 2.9 L (3.8-10.6) k/uL RBC 3.20 L (3.80-5.40) m/uL Hgb 10.7 L (11.4-16.0) gm/dL Hct 29.6 L (34.0-46.0) % MCV 92.4 (80.0-100.0) fL MCH 33.4 (25.0-35.0) pg MCHC 36.1 (31.0-37.0) g/dL RDW 12.2 (11.5-15.5) % Plt Count 107 L (150-450) k/uL MPV 8.0 Neutrophils % 67 % Lymphocytes % 19 % Monocytes % 9 % Eosinophils % 2 % Basophils % 0 % Neutrophils # 1.9 (1.3-7.7) k/uL Lymphocytes # 0.6 L (1.0-4.8) k/uL Monocytes # 0.3 (0-1.0) k/uL Eosinophils # 0.0 (0-0.7) k/uL Basophils # 0.0 (0-0.2) k/uL PT 11.6 (10.0-12.5) sec INR 1.1 (<1.2) APTT 25.1 (22.0-30.0) sec Sodium 135 L (137-145) mmol/L Potassium 4.3 (3.5-5.1) mmol/L Chloride 104 (98-107) mmol/L Carbon Dioxide 22 (22-30) mmol/L Anion Gap 9 mmol/L BUN 17 (7-17) mg/dL Creatinine 1.21 H (0.52-1.04) mg/dL Est GFR (CKD-EPI)AfAm 54 (>60 ml/min/1.73 sqM) Est GFR (CKD-EPI)NonAf 47 (>60 ml/min/1.73 sqM) Glucose 103 H (74-99) mg/dL Calcium 8.5 (8.4-10.2) mg/dL Total Bilirubin 0.5 (0.2-1.3) mg/dL AST 27 (14-36) U/L ALT 21 (4-34) U/L Alkaline Phosphatase 58 (38-126) U/L Total Protein 6.0 L (6.3-8.2) g/dL Albumin 3.4 L (3.5-5.0) g/dL Disposition Clinical Impression: Fall, Closed left hip fracture Disposition: ADMITTED IP TO THIS [facility] Condition: Serious Is patient prescribed a controlled substance at d/c from ED?: No
[2023-10-04 22:52] LABS: Basophils % (A) 0 %; Eosinophils % (A) 2 %; HCT 29.6 % (34.0-46.0); HGB 10.7 gm/dL (11.4-16.0); Lymphocytes # (A) 0.6 k/uL (1.0-4.8); Lymphocytes % (A) 19 %; MCH 33.4 pg (25.0-35.0); MCHC 36.1 g/dL (31.0-37.0); MCV 92.4 fL (80.0-100.0); Monocytes # (A) 0.3 k/uL (0-1.0); Monocytes % (A) 9 %; Neutrophils # (A) 1.9 k/uL (1.3-7.7); Neutrophils % (A) 67 %; Platelet Count 107 k/uL (150-450); RDW 12.2 % (11.5-15.5); WBC 2.9 k/uL (3.8-10.6)
--- NOTE | 2023-10-04 23:01 | XR ---
EXAM: XR Chest, 1 View CLINICAL HISTORY: ITS.REASON XR Reason: FALL TECHNIQUE: Frontal view of the chest. COMPARISON: No relevant prior studies available. FINDINGS: Lungs: [place]zygos fissure. No consolidation. Pleural space: Unremarkable. No pneumothorax. Heart: Unremarkable. No cardiomegaly. Mediastinum: Unremarkable. Normal mediastinal contour. Bones/joints: Unremarkable. No acute fracture. IMPRESSION: No acute findings in the chest.
--- NOTE | 2023-10-04 23:01 | XR ---
ADDENDUM - Added by Tru Alexandra MD on 10/04/2023 11:02 PM (-05:00) THE ORIGINAL REPORT WAS ENTERED IN ERROR THE CXR IMAGES POPULATED SCREEN. SEE HIP REPORT BELOW: ------ EXAM: XR Left Hip With Pelvis When Performed, 1 View CLINICAL HISTORY: ITS.REASON XR Reason: fall, deformity TECHNIQUE: Frontal view of the left hip with pelvis when performed. COMPARISON: No relevant prior studies available. FINDINGS/IMPRESSION: Nondisplaced LEFT subcapital femoral neck fracture. Orthopedic surgical evaluation recommended. EXAM: XR Left Hip With Pelvis When Performed, 1 View CLINICAL HISTORY: ITS.REASON XR Reason: fall, deformity TECHNIQUE: Frontal view of the left hip with pelvis when performed. COMPARISON: No relevant prior studies available. FINDINGS: Bones/joints: Unremarkable. No acute fracture. No dislocation. Soft tissues: Unremarkable. Other findings: Azygos fissure. IMPRESSION: No acute findings in the left hip. <MYCVCSECTION> Communications: 10/04/23 23:04 Call Doctor Regarding Other, called on 10/04 23: 04 (-05:00)
[2023-10-04 23:02] LABS: INR 1.1 (<1.2); Partial Thromboplastin Time 25.1 sec (22.0-30.0); Prothrombin Time 11.6 sec (10.0-12.5)
[2023-10-04 23:06] LABS: ALT 21 U/L (4-34); AST 27 U/L (14-36); African American GFR (CKD) 54 (>60 ml/min/1.73 sqM); Albumin 3.4 g/dL (3.5-5.0); Alkaline Phosphatase 58 U/L (38-126); Anion Gap 9 mmol/L; Blood Urea Nitrogen 17 mg/dL (7-17); Calcium 8.5 mg/dL (8.4-10.2); Carbon Dioxide 22 mmol/L (22-30); Chloride 104 mmol/L (98-107); Glucose 103 mg/dL (74-99); Non-African American GFR(CKD) 47 (>60 ml/min/1.73 sqM); Potassium 4.3 mmol/L (3.5-5.1); Sodium 135 mmol/L (137-145); Total Bilirubin 0.5 mg/dL (0.2-1.3)
[2023-10-04] MEDS ORDERED: ONDANSETRON 4 MG/2 ML VIAL IVP PRN (23:19)
[2023-10-04] MEDS ORDERED: NALOXONE 0.4 MG/ML 1 ML VIAL IV PRN (23:19)
[2023-10-05] MEDS: MORPHINE SULFATE 2 MG/ML SYRINGE IV PRN ×5 (00:51→19:10)
[2023-10-05] MEDS: SODIUM CHLORIDE 0.9% 1,000 ML IV SCH ×2 (01:13→17:46)
[2023-10-05] MEDS ORDERED: SENNOSIDES-DOCUSATE SODIUM 1 EACH TAB PO PRN (12:08)
[2023-10-05] MEDS: GABAPENTIN 100 MG CAP PO SCH ×2 (14:44→21:01)
--- NOTE | 2023-10-05 14:49 | P.HPOR ---
History of Present Illness H&P Date: 10/05/23 Chief Complaint: Left hip fracture patient is a pleasant 68-year-old female seen at bedside this afternoon. She presented to the emergency department yesterday, 10/04/23 via ambulance from an adult foster care. Patient reports she was walking down the stairs she was on the last step when she missed the step and fell to the ground. She had immediate pain in her left hip and was unable to stand or bear weight. She reports she did not hit her head she did not lose consciousness. She continues with pain as expected. She has no other new complaints Review of Systems All systems: negative Constitutional: Denies chills, Denies fever Eyes: denies blurred vision, denies pain Ears, nose, mouth and throat: Denies headache, Denies sore throat Cardiovascular: Denies chest pain, Denies shortness of breath Respiratory: Denies cough Gastrointestinal: Denies abdominal pain, Denies diarrhea, Denies nausea, Denies vomiting Genitourinary: Denies dysuria, Denies hematuria Musculoskeletal: Denies myalgias Integumentary: Denies pruritus, Denies rash Neurological: Denies numbness, Denies weakness Psychiatric: Denies anxiety, Denies depression Endocrine: Denies fatigue, Denies weight change Past Medical History Past Medical History: COPD, GERD/Reflux, Hyperlipidemia, Hypertension, Memory Impairment, Osteoarthritis (OA), Thyroid Disorder Additional Past Medical History / Comment(s): Polyneuropathy, tremors that have recently increased, peptic ulcer disease, bronchitis, chronic low back and bilateral leg pain, past migraines, arthritis bilateral hands. PAST HX ALCOHOL AND DRUG ABUSE-20 YEARS AGO, MENTAL ILLNESS, MIXED, COLITIS, ANXIETY/DEPRESSION AND FAILURE TO THRIVE, IN AFC History of Any Multi-Drug Resistant Organisms: ESBL Date of last positivie culture/infection: 05/17/21 ESBL-E.coli MDRO Source:: Urine Past Surgical History: Cholecystectomy, Hernia Repair, Hysterectomy, Orthopedic Surgery Additional Past Surgical History / Comment(s): 01/11/21 EGD and incomplete colonoscopy d/t poor prep, past EGDs/colonoscopies, kaylan fundoplasty, D&C, possible L foot surgery/pt unsure. Past Anesthesia/Blood Transfusion Reactions: Postoperative Nausea & Vomiting (PONV) Additional Past Anesthesia/Blood Transfusion Reaction / Comment(s): no hx blood transfusion Past Psychological History: Anxiety, Bipolar, Depression Additional Psychological History / Comment(s): Pt resides in an [facility]. She has a in [place] but has not been over to see him since cov. Pt uses a wheeled walker. She has falls. She no longer drives. She uses the bus system. Smoking Status: Former smoker Past Alcohol Use History: None Reported Additional Past Alcohol Use History / Comment(s): Pt started smoking in 1968 and quIT 2020 Pt states she abused alcohol/DRUG in past but quit drinking 10 YEARS Past Drug Use History: None Reported - Past Family History Mother Family Medical History: Cancer Additional Family Medical History / Comment(s): Mother was an alcoholic. Father Family Medical History: Cancer, COPD Additional Family Medical History / Comment(s): COLON CANCER Medications and Allergies Home Medications Medication Instructions Recorded Confirmed Type QUEtiapine [SEROquel] 400 mg PO HS 05/17/18 10/05/23 History Atorvastatin [Lipitor] 20 mg PO HS 08/08/19 10/05/23 History Levothyroxine Sodium [Synthroid] 50 mcg PO DAILY 12/03/20 10/05/23 History Cyanocobalamin [Vitamin B-12] 500 mcg PO DAILY 03/11/22 10/05/23 History Fluticasone Nasal [place] [Flonase 1 spray EA NOSTRIL DAILY 03/11/22 10/05/23 History Nasal [place]] Fluticasone/Vilanterol [Breo 1 puff INHALATION RT-DAILY 03/11/22 10/05/23 History Ellipta 100-25 Mcg Inhaler] Gabapentin [Neurontin] 100 mg PO BID 03/11/22 10/05/23 History Loratadine [Claritin] 10 mg PO HS 03/11/22 10/05/23 History Multivitamins, Thera [Multivitamin 1 tab PO DAILY 03/11/22 10/05/23 History (formulary)] Propranolol [Inderal] 40 mg PO HS 03/11/22 10/05/23 History Sennosides/Docusate Sodium 1 tab PO BID PRN 03/11/22 10/05/23 History [Senna-S 8.6-50 mg Tablet] Cholecalciferol [Vitamin D3 (25 50 mcg PO DAILY 10/05/23 10/05/23 History Mcg = 1000 Iu)] Ferrous Sulfate [Feosol] 325 mg PO DAILY 10/05/23 10/05/23 History Fetzima 80mg 80 mg PO HS 10/05/23 10/05/23 History Losartan [Cozaar] 50 mg PO HS 10/05/23 10/05/23 History amLODIPine [Norvasc] 2.5 mg PO DAILY@1200 10/05/23 10/05/23 History lamoTRIgine [LaMICtal] 300 mg PO BID@0800,1700 10/05/23 10/05/23 History Allergies Allergy/AdvReac Type Severity Reaction Status Date / Time cefaclor [From Ceclor] Allergy Rash/Hives Verified 10/05/23 08:01 hydrocodone [From [place]] AdvReac "doesn't Verified 10/05/23 08:01 work for me" Physical Examination Inspection of the lower extremities shows a shortened externally rotated left lo wer extremity. There are no wounds, erythema or ecchymoses. The knee is nontender without effusion. She has painless range of motion of the knee, ankle foot and toes. Range of motion of the left hip is not tested due to fracture. Neurovascular status is intact throughout the lower extremity with motor and sensation grossly intact. Calf is soft and nontender. 2+ dorsalis pedis pulse and less than 2 second cap refill is present. Results - Labs Labs: Abnormal Lab Results - Last 24 Hours (Table) 10/04/23 10/04/23 Range/Units 22:37 22:37 WBC 2.9 L (3.8-10.6) k/uL RBC 3.20 L (3.80-5.40) m/uL Hgb 10.7 L (11.4-16.0) gm/dL Hct 29.6 L (34.0-46.0) % Plt Count 107 L (150-450) k/uL Lymphocytes # 0.6 L (1.0-4.8) k/uL Sodium 135 L (137-145) mmol/L Creatinine 1.21 H (0.52-1.04) mg/dL Glucose 103 H (74-99) mg/dL Total Protein 6.0 L (6.3-8.2) g/dL Albumin 3.4 L (3.5-5.0) g/dL H & H 10/04/23 Range/Units 22:37 Hgb 10.7 L (11.4-16.0) gm/dL Hct 29.6 L (34.0-46.0) % Coagulation 10/04/23 Range/Units 22:37 INR 1.1 (<1.2) Result Diagrams: 10/04/23 22:37 10/04/23 22:37 - Diagnostic results Hip x-ray: report reviewed, image reviewed Assessment and Plan (1) Closed left hip fracture Narrative/Plan: Patient has been reviewed with Dr. Oconnell. Plan is to proceed with surgical intervention including left hip hemiarthroplasty for her left femoral neck fracture tomorro, 10/06/23. She is NPO after MN. Procedure and consent are ordered. Patient understands risks and benefits and desires to proceed. Continue pain management, medical management. She will likely need ECF placement post op Current Visit: Yes Status: Acute Code(s): S72.002A - FRACTURE OF UNSP PART OF NECK OF LEFT FEMUR, INIT SNOMED Code(s): 003768433 Time with Patient: Less than 30
[2023-10-05] MEDS: lamoTRIgine 100 MG TAB PO SCH (17:46)
[2023-10-05] MEDS: ATORVASTATIN 20 MG TAB PO SCH (20:58)
[2023-10-05] MEDS: PROPRANOLOL 40 MG TAB PO SCH (20:58)
[2023-10-05] MEDS: FETZIMA 80 MG PO SCH (20:58)
[2023-10-05] MEDS: LOSARTAN 50 MG TAB PO SCH (20:58)
[2023-10-05] MEDS: LORATADINE 10 MG TAB PO SCH (20:58)
[2023-10-05] MEDS ORDERED: QUEtiapine 400 MG TAB PO SCH (21:00)
[2023-10-05] MEDS ORDERED: QUEtiapine 400 MG TAB PO STA (21:27)
[2023-10-06] MEDS: LEVOTHYROXINE 50 MCG TAB PO SCH (06:01)
[2023-10-06] MEDS: SODIUM CHLORIDE 0.9% 1,000 ML IV SCH ×2 (07:36→18:18)
[2023-10-06] MEDS: SYMBICORT 80-4.5 MCG INHALER INHALATION SCH ×2 (07:53→21:32)
[2023-10-06] MEDS: amLODIPine 2.5 MG TAB PO SCH (10:02)
[2023-10-06] MEDS: FERROUS SULFATE 325 MG TAB PO SCH (10:02)
[2023-10-06] MEDS: CHOLECALCIFEROL 25 MCG (1000 IU) TABLET PO SCH (10:02)
[2023-10-06] MEDS: CYANOCOBALAMIN 500 MCG TAB PO SCH (10:02)
[2023-10-06] MEDS: MULTIVITAMINS, THERA 1 EACH TAB PO SCH (10:02)
[2023-10-06] MEDS: lamoTRIgine 100 MG TAB PO SCH ×2 (10:14→18:19)
[2023-10-06] MEDS: GABAPENTIN 100 MG CAP PO SCH ×2 (10:14→20:13)
[2023-10-06] MEDS: MORPHINE SULFATE 4 MG/ML SYRINGE IVP PRN ×3 (10:15→20:13)
[2023-10-06] MEDS: FLUTICASONE 50MCG/SPRAY NASAL 16GM EA NOSTRIL SCH (10:16)
[2023-10-06 11:35] LABS: African American GFR (CKD) 76 (>60 ml/min/1.73 sqM); Anion Gap 8 mmol/L; Blood Urea Nitrogen 14 mg/dL (7-17); Calcium 8.1 mg/dL (8.4-10.2); Carbon Dioxide 19 mmol/L (22-30); Chloride 108 mmol/L (98-107); Glucose 88 mg/dL (74-99); Magnesium 1.9 mg/dL (1.6-2.3); Non-African American GFR(CKD) 66 (>60 ml/min/1.73 sqM); Potassium 4.4 mmol/L (3.5-5.1); Sodium 135 mmol/L (137-145)
[2023-10-06 11:43] LABS: Basophils % (A) 0 %; Eosinophils # (A) 0.1 k/uL (0-0.7); Eosinophils % (A) 3 %; HCT 33.1 % (34.0-46.0); HGB 11.3 gm/dL (11.4-16.0); Lymphocytes # (A) 1.1 k/uL (1.0-4.8); Lymphocytes % (A) 35 %; MCH 32.3 pg (25.0-35.0); Mean Platelet Volume 8.1; Monocytes # (A) 0.2 k/uL (0-1.0); Monocytes % (A) 7 %; Neutrophils # (A) 1.7 k/uL (1.3-7.7); Neutrophils % (A) 52 %; RBC 3.49 m/uL (3.80-5.40); RDW 12.2 % (11.5-15.5); WBC 3.2 k/uL (3.8-10.6)
[2023-10-06 13:18] LABS: Platelet Count 94 k/uL (150-450)
--- NOTE | 2023-10-06 15:27 | P.CONS ---
History of Present Illness - Reason for Consult Consult date: 10/05/23 Medical management Requesting physician: Victor Hugo Oconnell - Chief Complaint Left hip fracture - History of Present Illness HISTORY OF PRESENT ILLNESS: This is a 68-year-old female with past medical history of hypothyroidism, bipolar disorder depressed, neuropathy, alkaline reflux esophagitis, COPD, spondylosis of lumbar region, hypertension, migraine with aura, mixed hyperli pidemia. Patient resides in an adult foster [place] [facility]. Patient was brought in by ambulance to the emergency center after a fall. Patient was on the stairs and missed the last step falling onto her left hip. Patient experienced immediate pain in the left hip and inability to stand or bear weight. There is no loss of consciousness. Patient initial blood pressure was low at 76/47. Laboratory studies revealed WBC 2.9, hemoglobin 10.7 and platelet count 107. Sodium 135, potassium 4.3, chloride 104, CO2 22, BUN 17 creatinine 1.21. Blood sugar 103. Patient was found to have a left hip fracture and admitted to orthopedic services. Plan is for left hip hemiarthroplasty of the left femoral neck fracture on 10/06. REVIEW OF SYSTEMS: Constitutional: No documented fever, no chills, no night sweats. No weight change. No weakness, fatigue or lethargy. No daytime sleepiness. EENT: No headache. No blurred vision or double vision, no loss of vision. No loss of Hearing, no ringing in the ears, no dizziness. No nasal drainage or congestion. No epistaxis. No sore throat. Lungs: No shortness of breath, no cough, no sputum production. No wheezing. Reports dyspnea with activity. Cardiovascular: No chest pain, no lower extremity edema. No palpitations. No paroxysmal nocturnal dyspnea. No orthopnea. No lightheadedness or dizziness. No syncopal episodes. Abdominal: Reports abdominal pain. No nausea, vomiting. No diarrhea. No constipation. No bloody or tarry stools reports loss of appetite. Genitourinary: No dysuria, increased frequency, urgency. No urinary retention. Musculoskeletal: No myalgias. No muscle weakness, no gait dysfunction, no frequent falls. No back pain. No neck pain. Reports left hip pain Integumentary: No wounds, no lesions. No rash or pruritus. No unusual bruising. No change in hair or nails. Neurologic: No aphasia. No facial droop. No change in mentation. No head injury. No headache. No paralysis. No paresthesia. Psychiatric: No depression. No anxiety. No mood swings. Endocrine: No abnormal blood sugars. No weight change. PAST MEDICAL HISTORY: Hypothyroidism Bipolar disorder depressed Neuropathy Alkaline reflux esophagitis COPD Spondylosis of the lumbar region Hypertension Migraine with aura Mixed hyperlipidemia PAST SURGICAL HISTORY: Hysterectomy Cholecystectomy Niesen fundoplication Colonoscopy 01/2021 SOCIAL HISTORY: Patient was a smoker of cigarettes 3 packs per day since age of 15 and quit in 2020. No history of drug use. No history of alcohol abuse. No caffeine use. FAMILY HISTORY: Father at age 78 with history of emphysema and colon cancer. Mother at age 62 from a stroke. Patient has a brother living at age 67 with history of ITP and GI issues. PHYSICAL EXAMINATION: General: This is a 68 year old female seen in the ER stretcher and appears to be somewhat comfortable, no acute respiratory distress. HEENT: Head is atraumatic, normocephalic, pupils were equal round reactive to light and recommendation, extraocular muscle movement were intact, sclera nonicteric, conjunctivae were pale, mucous membranes of the mouth are somewhat dry. Neck: Supple, no JVP, normal carotid upstroke bilaterally, no lymphadenopathy. Chest: Decreased breath sounds at the bases, few rhonchi, no extremity wheezes, no chest wall tenderness, no intercostal retractions. Heart: First heart sound is normal, second heart sounds normal. No S3 or S4. No JVP Abdomen: Soft, nontender, nondistended, positive bowel sounds. Extremities: There is no edema no calf tenderness DP +2 bilaterally. Left lower extremity is shortened with external rotation. Neurologic examination: Patient is awake alert and oriented A&Ox3, cranial nerves II-12 appear grossly intact, muscle power were 5 out of 5 in upper extremities and 5 out of 5 in bilateral lower extremities, deep tendon reflexes normal bilaterally. ASSESSMENT AND PLAN: 1. Left femoral neck fracture. Patient has been admitted to the orthopedic services with plan for left hip hemiarthroplasty tomorrow. Continue patient on morphine 4 mg IV push every 4 hours as needed for pain control. Incentive Stromberger injury to reduce incidence of atelectasis and hospital-acquired pneumonia. DVT prophylaxis. Patient is cleared medically for surgical intervention as planned. 2. Pancytopenia. Continue to monitor blood work. 3. Hypothyroidism. Continue levothyroxine 50 g daily. 4. Bipolar disorder. Continue patient on Lamictal 300 mg twice daily Seroquel 800 mg at bedtime, Fetzima 80 mg at hs. 5. Peripheral neuropathy. Continue patient on gabapentin 100 mg twice daily. 6. Alkaline reflux esophagitis. And GI prophylaxis. Protonix 40 mg daily. 7. COPD without exacerbation. Continue Symbicort 2 puffs twice daily. 8. Spondylosis of the lumbar spine. Continue gabapentin 100 mg twice daily. 9. Hypertension. Continue amlodipine 2.5 mg daily, losartan 50 mg at bedtime, propranolol 40 mg at bedtime. 10. Hyperlipidemia. Continue atorvastatin 20 mg at bedtime. 11. DVT prophylaxis. Past Medical History Past Medical History: COPD, GERD/Reflux, Hyperlipidemia, Hypertension, Memory Impairment, Osteoarthritis (OA), Thyroid Disorder Additional Past Medical History / Comment(s): Polyneuropathy, tremors that have recently increased, peptic ulcer disease, bronchitis, chronic low back and bilateral leg pain, past migraines, arthritis bilateral hands. PAST HX ALCOHOL AND DRUG ABUSE-20 YEARS AGO, MENTAL ILLNESS, MIXED, COLITIS, ANXIETY/DEPRESSION AND FAILURE TO THRIVE, IN AF History of Any Multi-Drug Resistant Organisms: ESBL Year Discovered:: 05/17/21 ESBL-E.coli MDRO Source:: Urine Past Surgical History: Cholecystectomy, Hernia Repair, Hysterectomy, Orthopedic Surgery Additional Past Surgical History / Comment(s): 01/11/21 EGD and incomplete colonoscopy d/t poor prep, past EGDs/colonoscopies, kaylan fundoplasty, D&C, possible L foot surgery/pt unsure. Past Anesthesia/Blood Transfusion Reactions: Postoperative Nausea & Vomiting (PONV) Additional Past Anesthesia/Blood Transfusion Reaction / Comm: no hx blood transfusion Past Psychological History: Anxiety, Bipolar, Depression Additional Psychological History / Comment(s): Pt resides in an [facility]. She has a in [place] but has not been over to see him since [facility]. Pt uses a wheeled walker. She has falls. She no longer drives. She uses the bus system. Smoking Status: Former smoker Past Alcohol Use History: None Reported Additional Past Alcohol Use History / Comment(s): Pt started smoking in 1968 and quIT 2020 Pt states she abused alcohol/DRUG in past but quit drinking 10 YEARS Past Drug Use History: None Reported - Past Family History Mother Family Medical History: Cancer Additional Family Medical History / Comment(s): Mother was an alcoholic. Father Family Medical History: Cancer, COPD Additional Family Medical History / Comment(s): COLON CANCER Medications and Allergies Home Medications Medication Instructions Recorded Confirmed Type QUEtiapine [SEROquel] 400 mg PO HS 05/17/18 10/05/23 History Atorvastatin [Lipitor] 20 mg PO HS 08/08/19 10/05/23 History Levothyroxine Sodium [Synthroid] 50 mcg PO DAILY 12/03/20 10/05/23 History Cyanocobalamin [Vitamin B-12] 500 mcg PO DAILY 03/11/22 10/05/23 History Fluticasone Nasal Bolt [Flonase 1 spray EA NOSTRIL DAILY 03/11/22 10/05/23 History Nasal Bolt] Fluticasone/Vilanterol [Breo 1 puff INHALATION RT-DAILY 03/11/22 10/05/23 History Ellipta 100-25 Mcg Inhaler] Gabapentin [Neurontin] 100 mg PO BID 03/11/22 10/05/23 History Loratadine [Claritin] 10 mg PO HS 03/11/22 10/05/23 History Multivitamins, Thera [Multivitamin 1 tab PO DAILY 03/11/22 10/05/23 History (formulary)] Propranolol [Inderal] 40 mg PO HS 03/11/22 10/05/23 History Sennosides/Docusate Sodium 1 tab PO BID PRN 03/11/22 10/05/23 History [Senna-S 8.6-50 mg Tablet] Cholecalciferol [Vitamin D3 (25 50 mcg PO DAILY 10/05/23 10/05/23 History Mcg = 1000 Iu)] Ferrous Sulfate [Feosol] 325 mg PO DAILY 10/05/23 10/05/23 History Fetzima 80mg 80 mg PO HS 10/05/23 10/05/23 History Losartan [Cozaar] 50 mg PO HS 10/05/23 10/05/23 History amLODIPine [Norvasc] 2.5 mg PO DAILY@1200 10/05/23 10/05/23 History lamoTRIgine [LaMICtal] 300 mg PO BID@0800,1700 10/05/23 10/05/23 History Allergies Allergy/AdvReac Type Severity Reaction Status Date / Time cefaclor [From Ceclor] Allergy Rash/Hives Verified 10/05/23 08:01 hydrocodone [From [place]] AdvReac "doesn't Verified 10/05/23 08:01 work for me" Physical Exam Vitals: Vital Signs Temp Pulse Pulse Resp BP BP Pulse Ox 10/05/23 16:00 78 18 147/96 96 10/05/23 14:00 99.9 F H 90 16 134/86 94 L 10/05/23 10:40 99 10/05/23 10:39 83 L 10/05/23 08:00 100.6 F H 81 14 111/73 91 L 10/05/23 05:31 103/71 10/05/23 04:00 68 18 119/77 96 10/05/23 01:23 64 16 102/64 96 10/05/23 00:45 16 90/73 96 10/04/23 22:34 60 16 74/54 93 L 10/04/23 22:10 98.8 F 65 14 76/47 91 L Intake and Output 10/05/23 10/05/23 10/05/23 06:59 14:59 22:59 Intake Total 945 Output Total 850 Balance 95 Intake: Intake, IV Titration 825 Amount Sodium Chloride 0.9% 1, 825 000 ml @ 75 mls/hr IV . [id number] [facility] Rx#:[id number] Oral 120 Output: Urine 850 Other: Weight 62.596 kg Results CBC & Chem 7: 10/06/23 10:58 10/06/23 10:58 Labs: Abnormal Lab Results - Last 24 Hours (Table) 10/04/23 10/04/23 Range/Units 22:37 22:37 WBC 2.9 L (3.8-10.6) k/uL RBC 3.20 L (3.80-5.40) m/uL Hgb 10.7 L (11.4-16.0) gm/dL Hct 29.6 L (34.0-46.0) % Plt Count 107 L (150-450) k/uL Lymphocytes # 0.6 L (1.0-4.8) k/uL Sodium 135 L (137-145) mmol/L Creatinine 1.21 H (0.52-1.04) mg/dL Glucose 103 H (74-99) mg/dL Total Protein 6.0 L (6.3-8.2) g/dL Albumin 3.4 L (3.5-5.0) g/dL
[2023-10-06] MEDS ORDERED: IV FLUID CONTINUATION 1,000 ML IV ONE (15:32)
[2023-10-06] MEDS ORDERED: ONDANSETRON 4 MG/2 ML VIAL IVP ONE (15:48)
[2023-10-06] MEDS ORDERED: DEXAMETHASONE SOD PHOSPHATE 4 MG/ML 1 ML VIAL IVP ONE (15:49)
[2023-10-06] MEDS ORDERED: HYDROcodone/APAP 10-325MG 1 EACH TAB PO PRN (15:59)
[2023-10-06] MEDS ORDERED: ACETAMINOPHEN TAB 325 MG TAB PO PRN (15:59)
[2023-10-06] MEDS ORDERED: traMADol 50 MG TAB PO PRN (15:59)
[2023-10-06] MEDS ORDERED: HYDROmorphone 0.5 MG/0.5 ML SYRINGE IVP PRN ×3 (15:59)
[2023-10-06] MEDS ORDERED: MAGNESIUM HYDROXIDE 2,400 MG/30 ML CUP PO PRN (15:59)
[2023-10-06] MEDS ORDERED: KETAMINE HCL IN 0.9 % NACL 50 MG/5 ML SYRINGE ONE (16:10)
[2023-10-06] MEDS ORDERED: PHENYLEPHRINE-0.9% NACL SYG 1,000 MCG/10 ML SYRINGE ONE (16:10)
[2023-10-06] MEDS ORDERED: TRANEXAMIC 1,000 MG/100ML-NACL PREMIX BAG ONE (16:10)
[2023-10-06] MEDS ORDERED: PROPOFOL 10 MG/ML 20 ML VIAL IV ONE (16:10)
[2023-10-06] MEDS ORDERED: MIDAZOLAM 2 MG/2 ML VIAL ONE (16:10)
[2023-10-06] MEDS ORDERED: fentaNYL (PF) 50 MCG/ML 2 ML AMP ONE (16:10)
--- NOTE | 2023-10-06 16:19 | P.PN ---
Subjective Progress Note Date: 10/06/23 HISTORY OF PRESENT ILLNESS: This is a 68-year-old female with past medical history of hypothyroidism, bipo lar disorder depressed, neuropathy, alkaline reflux esophagitis, COPD, spondylosis of lumbar region, hypertension, migraine with aura, mixed hyperlipidemia. Patient resides in an adult foster detention. Patient was brought in by ambulance to the emergency center after a fall. Patient was on the stairs and missed the last step falling onto her left hip. Patient experienced immediate pain in the left hip and inability to stand or bear weight. There is no loss of consciousness. Patient initial blood pressure was low at 76/47. Laboratory studies revealed WBC 2.9, hemoglobin 10.7 and platelet count 107. Sodium 135, potassium 4.3, chloride 104, CO2 22, BUN 17 creatinine 1.21. Blood sugar 103. Patient was found to have a left hip fracture and admitted to orthopedic services. Plan is for left hip hemiarthroplasty of the left femoral neck fracture on 10/06. 10/06: Patient remains in ICU waiting for a bed on the [facility] floor. She is status post left hip hemiarthroplasty today. Vital signs are stable. Repeat blood work this morning revealed hemoglobin of 11.3, platelet count 94, WBC 3.2. Sodium is 135, creatinine 0.91. Discharge planning is for [facility] for subacute rehab. REVIEW OF SYSTEMS: Constitutional: No documented fever, no chills, no night sweats. No weight change. No weakness, fatigue or lethargy. No daytime sleepiness. EENT: No headache. No blurred vision or double vision, no loss of vision. No loss of Hearing, no ringing in the ears, no dizziness. No nasal drainage or congestion. No epistaxis. No sore throat. Lungs: No shortness of breath, no cough, no sputum production. No wheezing. Reports dyspnea with activity. Cardiovascular: No chest pain, no lower extremity edema. No palpitations. No paroxysmal nocturnal dyspnea. No orthopnea. No lightheadedness or dizziness. No syncopal episodes. Abdominal: Reports abdominal pain. No nausea, vomiting. No diarrhea. No constipation. No bloody or tarry stools reports loss of appetite. Genitourinary: No dysuria, increased frequency, urgency. No urinary retention. Musculoskeletal: No myalgias. No muscle weakness, no gait dysfunction, no frequent falls. No back pain. No neck pain. Reports left hip pain Integumentary: No wounds, no lesions. No rash or pruritus. No unusual bruising. No change in hair or nails. Neurologic: No aphasia. No facial droop. No change in mentation. No head injury. No headache. No paralysis. No paresthesia. Psychiatric: No depression. No anxiety. No mood swings. Endocrine: No abnormal blood sugars. No weight change. Father at age 78 with history of emphysema and colon cancer. Mother at age 62 from a stroke. Patient has a brother living at age 67 with history of ITP and GI issues. PHYSICAL EXAMINATION: General: This is a 68 year old female seen in the ER stretcher and appears to be somewhat comfortable, no acute respiratory distress. HEENT: Head is atraumatic, normocephalic, pupils were equal round reactive to light and recommendation, extraocular muscle movement were intact, sclera nonicteric, conjunctivae were pale, mucous membranes of the mouth are somewhat dry. Neck: Supple, no JVP, normal carotid upstroke bilaterally, no lymphadenopathy. Chest: Decreased breath sounds at the bases, few rhonchi, no extremity wheezes, no chest wall tenderness, no intercostal retractions. Heart: First heart sound is normal, second heart sounds normal. No S3 or S4. No JVP Abdomen: Soft, nontender, nondistended, positive bowel sounds. Extremities: There is no edema no calf tenderness DP +[address] to the left hip Neurologic examination: Patient is awake alert and oriented A&Ox3, cranial nerves II-12 appear grossly intact, muscle power were 5 out of 5 in upper extremities and 5 out of 5 in bilateral lower extremities, deep tendon reflexes normal bilaterally. ASSESSMENT AND PLAN: 1. Left femoral neck fracture s/p left hip hemiarthroplasty 10/06. Continue current pain management. Incentive spirometry to reduce incidence of atelectasis and hospital-acquired pneumonia. DVT prophylaxis. Start PT and OT eval and treatment. 2. Pancytopenia. Continue to monitor blood work. 3. Hypothyroidism. Continue levothyroxine 50 g daily. 4. Bipolar disorder. Continue patient on Lamictal 300 mg twice daily Seroquel 800 mg at bedtime, Fetzima 80 mg at hs. 5. Peripheral neuropathy. Continue patient on gabapentin 100 mg twice daily. 6. Alkaline reflux esophagitis. And GI prophylaxis. Protonix 40 mg daily. 7. COPD without exacerbation. Continue Symbicort 2 puffs twice daily. 8. Spondylosis of the lumbar spine. Continue gabapentin 100 mg twice daily. 9. Hypertension. Continue amlodipine 2.5 mg daily, losartan 50 mg at bedtime, propranolol 40 mg at bedtime. 10. Hyperlipidemia. Continue atorvastatin 20 mg at bedtime. 11. DVT prophylaxis. DISCHARGE PLAN: [facility] for subacute rehab. Impression and plan of care have been directed as dictated by the signing physician. Maribel Stewart nurse practitioner acting as scribe for signing physician. Objective - Vital Signs Vital signs: Vital Signs Temp 98.3 F 10/06/23 15:32 Pulse 73 10/06/23 15:32 Resp 16 10/06/23 15:32 BP 132/68 10/06/23 15:32 Pulse Ox 93 L 10/06/23 15:32 FiO2 Intake & Output 10/05/23 10/06/23 10/06/23 18:59 06:59 18:59 Intake Total 945 210 Output Total 850 650 Balance 95 -650 210 Weight 62.596 kg Intake: IV 210 Invasive Line 1 10 Intake, IV Titration 825 Amount Sodium Chloride 0.9% 1, 825 000 ml @ 75 mls/hr IV . [id number] [facility] Rx#:[id number] Oral 120 Output: Urine 850 650 Other: Voiding Method Indwelling Catheter Indwelling Catheter - Labs CBC & Chem 7: 10/06/23 10:58 10/06/23 10:58 Labs: Abnormal Lab Results - Last 24 Hours (Table) 10/06/23 10/06/23 Range/Units 10:58 10:58 WBC 3.2 L (3.8-10.6) k/uL RBC 3.49 L (3.80-5.40) m/uL Hgb 11.3 L (11.4-16.0) gm/dL Hct 33.1 L (34.0-46.0) % Plt Count 94 L (150-450) k/uL Sodium 135 L (137-145) mmol/L Chloride 108 H (98-107) mmol/L Carbon Dioxide 19 L (22-30) mmol/L Calcium 8.1 L (8.4-10.2) mg/dL
[2023-10-06] MEDS ORDERED: ceFAZolin 3,000 MG in SODIUM CHLORIDE 0.9% IRRIGATIO 3,000 ML IRRIGATION ONE (16:43)
[2023-10-06] MEDS ORDERED: LACTATED RINGERS 1,000 ML IV ONE (16:55)
[2023-10-06] MEDS: LACTATED RINGERS 1,000 ML IV SCH (18:18)
--- NOTE | 2023-10-06 18:18 | XR ---
EXAMINATION TYPE: XR Hip Limited LT DATE OF EXAM: 10/06/2023 CLINICAL HISTORY: Postoperative evaluation TECHNIQUE: Single portable view of the left hip was submitted. FINDINGS: Noted are changes of left hip arthroplasty with femoral component appearing well seated. A lignment is anatomic. Postsurgical soft tissue changes are evident. IMPRESSION: Satisfactory postoperative alignment
[2023-10-06] MEDS: TRANEXAMIC 1,000 MG/100ML-NACL 1,000 MG in SALINE 1 100ML.BAG IVPB SCH (18:19)
[2023-10-06] MEDS: LORATADINE 10 MG TAB PO SCH (20:12)
[2023-10-06] MEDS: ATORVASTATIN 20 MG TAB PO SCH (20:13)
[2023-10-06] MEDS: LOSARTAN 50 MG TAB PO SCH (20:13)
[2023-10-06] MEDS: QUEtiapine 400 MG TAB PO SCH (20:13)
[2023-10-06] MEDS: PROPRANOLOL 40 MG TAB PO SCH (20:13)
[2023-10-06] MEDS: FETZIMA 80 MG PO SCH (20:14)
[2023-10-06] MEDS: ASPIRIN 81 MG PO SCH (20:14)
--- NOTE | 2023-10-06 23:46 | OP ---
OPERATIVE REPORT DATE OF SERVICE : 10/06/2023 AUTOMATION OPERATOR: Sheng Denson PA-C. PREOPERATIVE DIAGNOSIS: Left displaced femoral neck fracture. POSTOPERATIVE DIAGNOSIS: Left displaced femoral neck fracture. PROCEDURE PERFORMED: Left hip hemiarthroplasty. ANESTHESIA: Spinal with sedation. ESTIMATED BLOOD LOSS: 100 mL. TOURNIQUET: None. DRAINS: None. COMPLICATIONS: None apparent. DISPOSITION: Postanesthesia care unit. INDICATIONS: The patient is a very pleasant 68-year-old female. She lives in adult foster care. She tripped on the stairs and fell onto her left hip. She was brought via ambulance to the [facility]. Workup including x-rays revealed a left displaced femoral neck fracture. She is an independent ambulator at home. Recommendation was for a left hip hemiarthroplasty. The risks of procedure were discussed with both the patient and her guardian. These risks include but are not limited to risk of infection, nerve damage, bleeding, pain, and a small risk of deep vein thrombosis which could lead to fatal pulmonary embolism. Further risks include periprosthetic fracture, hip instability, and deep infection. All of the patient and her guardian's questions were answered to their satisfaction. Appropriate informed consent was obtained. DESCRIPTION OF PROCEDURE: The patient identified in the preoperative holding area. Surgical site was marked by both the patient and myself. She was given 2 g of Ancef IV for prophylactic purposes. She was then transported to the operative suite. She was placed supine on the operating table. A spinal anesthetic was then administered and dosed per the Anesthesia Department without apparent complication. She was then placed in the right lateral decubitus position, well padded in preparation for surgery. Great care was taken to ensure that appropriately padded axillary roll and her legs was placed and that her legs were appropriately padded as well. The patient's left lower extremity was then prepped and draped in the usual sterile fashion. Standard surgical pause undertaken to ensure that we were operating the correct site and that appropriate preoperative antibiotics have been given. All staff in the room were in agreement and we proceeded. The outlines of the greater trochanter were then marked with a surgical pen. A planned 10-12 cm incision extending over the tip of the greater trochanter in line with the shaft of the femur was then marked with a surgical pen. The incision was then made with a 10-blade scalpel. Dissection was carried down sharply to the tensor fascia. Hemostasis was achieved with an electrocautery. The tensor fascia was then incised in line with the incision. The Charnley retractor was then placed. This exposed the underlying gluteus medius. The raphe between the anterior one-third and posterior two-thirds of the gluteus medius was identified. I then proceeded with an anterior anterolateral type Hardinge type approach. The gluteus medius was divided at the raphe of the anterior one-third and posterior two-thirds. This was then dissected off the greater trochanter and reflected anteriorly. This exposed the [place] femoral neck. I then utilized the template to justus and do a fresh femoral neck cut. This was done with a reciprocating saw. I then removed the [place] femoral head with the corkscrew-type device. The acetabulum was then inspected. The acetabulum was intact and the cartilage was in very good condition of the acetabulum. There were no loose bodies noted. I then measured the [place] femoral head. It measured 46 mm. I utilized a 46 mm trial. This was placed into the acetabula. It had a good suction type fit. I then proceeded with preparation of the proximal humerus. The leg was then placed anteriorly. This gave me good exposure to the femoral neck. I then utilized a dust box worker to gain access to the femoral canal. Starting reamer was then utilized. I then reamed the proximal femur. I started with a 7 mm reamer and incrementally increased until firm resistance was encountered at 9 mm. I then proceeded with broaching. I started with a size 7 broach. Each broach was placed approximately 10-15 degrees of anteversion. I then incrementally increased up to a size 9 broach. It had a very secure press-fit. I then proceeded with trialing. I started with a -3 neck and a 46 trial head. This was then placed onto the broach. The hip was then reduced. It was very stable throughout full range of motion. The leg lengths were approximately equal. There was very minimal shuck. I then tried a standard neck. It was quite tight and I did not proceed with. I then made the decision to go with a -3 neck. The trial components were removed. The wound was thoroughly irrigated with sterile saline solution with antibiotic added via pulsed lavage. I then had the u.s. representative open a [employer] Echo FX collared fracture stem size 9. I also opened a -3 neck and a 46 monopolar head. The stem then impacted into the femoral canal in approximately 10-15 degrees of anteversion. It was a very stable press-fit. I then dried the [place] taper and the -3 neck and a 46 spinal monopolar head were impacted onto a dry [place] taper of the stem. The hip was then reduced. Again, it was a stable reduction. It was taken through a full range of motion. There was no impingement. The leg lengths were approximately equal. At this point in time, no further work was deemed necessary. The wound was again thoroughly irrigated with sterile saline solution with antibiotic added via pulsed lavage. The gluteus medius, minimus, and anterior capsule were then repaired back to the greater trochanter utilizing #5 Ethibond trans ostia suture. The raphe between the anterior one-third and posterior two-thirds of the gluteus medius was closed with 0 Vicryl interrupted suture, and the split in the vastus lateralis was also closed with 0 Vicryl interrupted suture. The wound was again thoroughly irrigated. The tensor fascia was then closed with a running #2 Quill suture. Subcutaneous tissue was closed with 2-0 Vicryl interrupted suture and the skin was closed with a running 3-0 Quill suture. Dermabond was applied to the incision. A sterile dressing was applied. A hip abduction pillow was placed. All sponge and needle counts were deemed correct prior to closure. The patient tolerated the procedure without apparent complication. She was transferred to recovery room in stable condition. MMFABI / IJN: [id number] /
[2023-10-07] MEDS: MORPHINE SULFATE 4 MG/ML SYRINGE IVP PRN ×2 (04:07→09:05)
[2023-10-07] MEDS: SODIUM CHLORIDE 0.9% 1,000 ML IV SCH (04:08)
[2023-10-07] MEDS: LACTATED RINGERS 1,000 ML IV SCH (06:06)
[2023-10-07] MEDS: LEVOTHYROXINE 50 MCG TAB PO SCH (06:08)
[2023-10-07] MEDS: CHOLECALCIFEROL 25 MCG (1000 IU) TABLET PO SCH (08:58)
[2023-10-07] MEDS: ASPIRIN 81 MG PO SCH ×2 (08:58→22:21)
[2023-10-07] MEDS: MULTIVITAMINS, THERA 1 EACH TAB PO SCH (08:59)
[2023-10-07] MEDS: lamoTRIgine 100 MG TAB PO SCH ×2 (08:59→16:19)
[2023-10-07] MEDS: FLUTICASONE 50MCG/SPRAY NASAL 16GM EA NOSTRIL SCH (08:59)
[2023-10-07] MEDS: CYANOCOBALAMIN 500 MCG TAB PO SCH (08:59)
[2023-10-07] MEDS: GABAPENTIN 100 MG CAP PO SCH ×2 (08:59→22:21)
[2023-10-07] MEDS: FERROUS SULFATE 325 MG TAB PO SCH (08:59)
[2023-10-07 09:29] LABS: Basophils # (A) 0.01 X 10*3/uL (0.00-0.10); Basophils % (A) 0.2 %; Eosinophils # (A) 0.01 X 10*3/uL (0.04-0.35); Eosinophils % (A) 0.2 %; HCT 32.7 % (37.2-46.3); Lymphocytes # (A) 0.99 X 10*3/uL (0.90-5.00); Lymphocytes % (A) 19.2 %; MCH 31.2 pg (27.0-32.0); MCHC 33.6 g/dL (32.0-37.0); MCV 92.6 FL (80.0-97.0); Mean Platelet Volume 10.4 FL (9.5-12.2); Monocytes % (A) 9.7 %; NRBC Per 100 WBC 0.03 X 10*3/uL (0.00-0.01); Neutrophils # (A) 3.63 X 10*3/uL (1.80-7.70); Neutrophils % (A) 70.3 %; Platelet Count 120 X 10*3/uL (140-440); RBC 3.53 X 10*6/uL (4.10-5.20); RBC Morphology Normal (Normal); WBC 5.16 X 10*3/uL (4.50-10.00)
[2023-10-07] MEDS: SYMBICORT 80-4.5 MCG INHALER INHALATION SCH ×2 (10:12→21:12)
[2023-10-07] MEDS: amLODIPine 2.5 MG TAB PO SCH (11:15)
[2023-10-07] MEDS: HYDROcodone/APAP 5-325MG 1 EACH TAB PO PRN ×2 (11:15→22:21)
--- NOTE | 2023-10-07 12:57 | P.PN ---
Subjective Progress Note Date: 10/07/23 Principal diagnosis: Left hip fracture Patient is seen at bedside this morning. She is postop day #1 from left hip hemiarthroplasty for left hip fracture. She has pain at the surgical site as expected but denies any new complaints. She denies new numbness, tingling or calf pain. Review of systems is negative for fever, chills, chest pain, shortness of breath or other Objective - Vital Signs Vital signs: Vital Signs Temp 99.4 F 10/07/23 06:55 Pulse 74 10/07/23 06:55 Resp 18 10/07/23 09:52 BP 127/79 10/07/23 06:55 Pulse Ox 92 L 10/07/23 06:55 FiO2 Intake & Output 10/06/23 10/07/23 10/07/23 18:59 06:59 18:59 Intake Total 1811 Output Total 150 850 700 Balance 1661 -850 -700 Intake: IV 1811 Invasive Line 1 10 Output: Urine 50 850 700 Estimated Blood Loss 100 Other: Voiding Method Indwelling Catheter Indwelling Catheter Indwelling Catheter - Exam Inspection reveals a benign surgical wound. There is no active bleeding or drainage. Neurovascular status is intact throughout the lower extremity with motor and sensation fully intact. Calf is soft and nontender. 2+ dorsalis pe dis pulse and less than 2 second cap refill is present. - Constitutional General appearance: Present: no acute distress - Labs CBC & Chem 7: 10/07/23 04:56 10/06/23 10:58 Labs: Abnormal Lab Results - Last 24 Hours (Table) 10/06/23 10/07/23 Range/Units 10:58 04:56 RBC 3.53 L (4.10-5.20) X 10*6/uL Hgb 11.0 L (12.0-15.0) g/dL Hct 32.7 L (37.2-46.3) % Plt Count 94 L 120 L (150-450) k/uL Eosinophils # 0.01 L (0.04-0.35) X 10*3/uL NRBC/100 WBC Diff 0.03 H (0.00-0.01) X 10*3/uL Assessment and Plan (1) Closed left hip fracture Narrative/Plan: She will continue with routine postop orthopedic protocol including pain management, wound care, PT, DVT prophylaxis and medical management. Expect that she will transfer to ECF vs home in next 1-2 days. Current Visit: Yes Status: Acute Priority: Medium Code(s): S72.002A - FRACTURE OF UNSP PART OF NECK OF LEFT FEMUR, INIT SNOMED Code(s): 723973185 Time with Patient: Less than 30
--- NOTE | 2023-10-07 15:13 | P.PN ---
Subjective Progress Note Date: 10/07/23 HISTORY OF PRESENT ILLNESS: This is a 68-year-old female with past medical history of hypothyroidism, bipo lar disorder depressed, neuropathy, alkaline reflux esophagitis, COPD, spondylosis of lumbar region, hypertension, migraine with aura, mixed hyperlipidemia. Patient [facility] an adult foster [facility]. Patient was brought in by ambulance to the emergency center after a fall. Patient was on the stairs and missed the last step falling onto her left hip. Patient experienced immediate pain in the left hip and inability to stand or bear weight. There is no loss of consciousness. Patient initial blood pressure was low at 76/47. Laboratory studies revealed WBC 2.9, hemoglobin 10.7 and platelet count 107. Sodium 135, potassium 4.3, chloride 104, CO2 22, BUN 17 creatinine 1.21. Blood sugar 103. Patient was found to have a left hip fracture and admitted to orthopedic services. Plan is for left hip hemiarthroplasty of the left femoral neck fracture on 10/06. 10/06: Patient remains in ICU waiting for a bed on the [facility] floor. She is status post left hip hemiarthroplasty today. Vital signs are stable. Repeat blood work this morning revealed hemoglobin of 11.3, platelet count 94, WBC 3.2. Sodium is 135, creatinine 0.91. Discharge planning is for [facility] for subacute rehab. 10/07: Patient is postop day #1. Pain seems to be well controlled but states it is #8. No cough. Patient is off oxygen pulse ox is 96%. Blood pressure 92/62, heart rate 67. Patient has been afebrile. We'll encourage incentive spirometry. Probable discharge to [facility] tomorrow. Patient is on aspirin 81 mg twice daily for DVT prophylaxis per orthopedics. REVIEW OF SYSTEMS: Constitutional: No documented fever, no chills, no night sweats. No weight change. No weakness, fatigue or lethargy. No daytime sleepiness. EENT: No headache. No blurred vision or double vision, no loss of vision. No loss of Hearing, no ringing in the ears, no dizziness. No nasal drainage or congestion. No epistaxis. No sore throat. Lungs: No shortness of breath, no cough, no sputum production. No wheezing. Reports dyspnea with activity. Cardiovascular: No chest pain, no lower extremity edema. No palpitations. No paroxysmal nocturnal dyspnea. No orthopnea. No lightheadedness or dizziness. No syncopal episodes. Abdominal: Reports abdominal pain. No nausea, vomiting. No diarrhea. No constipation. No bloody or tarry stools reports loss of appetite. Genitourinary: No dysuria, increased frequency, urgency. No urinary retention. Musculoskeletal: No myalgias. No muscle weakness, no gait dysfunction, no frequent falls. No back pain. No neck pain. Reports left hip pain Integumentary: No wounds, no lesions. No rash or pruritus. No unusual bruising. No change in hair or nails. Neurologic: No aphasia. No facial droop. No change in mentation. No head injury. No headache. No paralysis. No paresthesia. Psychiatric: No depression. No anxiety. No mood swings. Endocrine: No abnormal blood sugars. No weight change. Father at age 78 with history of emphysema and colon cancer. Mother at age 62 from a stroke. Patient has a brother living at age 67 with history of ITP and GI issues. PHYSICAL EXAMINATION: General: This is a 68 year old female seen resting in bed and appears to be somewhat comfortable, no acute respiratory distress. HEENT: Head is atraumatic, normocephalic, pupils were equal round reactive to light and recommendation, extraocular muscle movement were intact, sclera nonicteric, conjunctivae were pale, mucous membranes of the mouth are somewhat dry. Neck: Supple, no JVP, normal carotid upstroke bilaterally, no lymphadenopathy. Chest: Decreased breath sounds at the bases, few rhonchi, no extremity wheezes, no chest wall tenderness, no intercostal retractions. Heart: First heart sound is normal, second heart sounds normal. No S3 or S4. No JVP Abdomen: Soft, nontender, nondistended, positive bowel sounds. Extremities: There is no edema no calf tenderness DP +[address] to the left hip Neurologic examination: Patient is awake alert and oriented A&Ox3, cranial nerves II-12 appear grossly intact, muscle power were 5 out of 5 in upper extremities and 5 out of 5 in bilateral lower extremities, deep tendon reflexes normal bilaterally. ASSESSMENT AND PLAN: 1. Left femoral neck fracture s/p left hip hemiarthroplasty 10/06. Continue current pain management. Incentive spirometry to reduce incidence of atelectasis and hospital-acquired pneumonia. DVT prophylaxis with asa 81 mg bid. Start PT and OT eval and treatment. 2. Pancytopenia. Continue to monitor blood work. 3. Hypothyroidism. Continue levothyroxine 50 g daily. 4. Bipolar disorder. Continue patient on Lamictal 300 mg twice daily Seroquel 800 mg at bedtime, Fetzima 80 mg at hs. 5. Peripheral neuropathy. Continue patient on gabapentin 100 mg twice daily. 6. Alkaline reflux esophagitis and GI prophylaxis. Protonix 40 mg daily. 7. COPD without exacerbation. Continue Symbicort 2 puffs twice daily. 8. Spondylosis of the lumbar spine. Continue gabapentin 100 mg twice daily. 9. Hypertension. Continue amlodipine 2.5 mg daily, losartan 50 mg at bedtime, propranolol 40 mg at bedtime. 10. Hyperlipidemia. Continue atorvastatin 20 mg at bedtime. 11. DVT prophylaxis. DISCHARGE PLAN: [facility] for subacute rehab. Impression and plan of care have been directed as dictated by the signing physician. Maribel Stewart nurse practitioner acting as scribe for signing physician. Objective - Vital Signs Vital signs: Vital Signs Temp 99.3 F 10/07/23 13:47 Pulse 67 10/07/23 13:47 Resp 19 10/07/23 13:47 BP 92/62 10/07/23 13:47 Pulse Ox 96 10/07/23 13:47 FiO2 Intake & Output 10/06/23 10/07/23 10/07/23 18:59 06:59 18:59 Intake Total 1811 Output Total 150 850 700 Balance 1661 -850 -700 Intake: IV 1811 Invasive Line 1 10 Output: Urine 50 850 700 Estimated Blood Loss 100 Other: Voiding Method Indwelling Catheter Indwelling Catheter Indwelling Catheter - Labs CBC & Chem 7: 10/07/23 04:56 10/06/23 10:58 Labs: Abnormal Lab Results - Last 24 Hours (Table) 10/07/23 Range/Units 04:56 RBC 3.53 L (4.10-5.20) X 10*6/uL Hgb 11.0 L (12.0-15.0) g/dL Hct 32.7 L (37.2-46.3) % Plt Count 120 L (140-440) X 10*3/uL Eosinophils # 0.01 L (0.04-0.35) X 10*3/uL NRBC/100 WBC Diff 0.03 H (0.00-0.01) X 10*3/uL
[2023-10-07] MEDS: ATORVASTATIN 20 MG TAB PO SCH (22:21)
[2023-10-07] MEDS: LORATADINE 10 MG TAB PO SCH (22:21)
[2023-10-07] MEDS: QUEtiapine 400 MG TAB PO SCH (22:21)
[2023-10-07] MEDS: PROPRANOLOL 40 MG TAB PO SCH (22:21)
[2023-10-07] MEDS: LOSARTAN 50 MG TAB PO SCH (22:21)
[2023-10-07] MEDS: FETZIMA 80 MG PO SCH (22:22)
[2023-10-08 03:18] LABS: Glucose,Whole Blood 155 mg/dL (70-110)
[2023-10-08] MEDS ORDERED: SODIUM CHLORIDE 0.9% 2,000 ML IV ONE (03:30)
[2023-10-08 04:14] LABS: Basophils % (A) 0 %; Eosinophils % (A) 0 %; Lymphocytes # (A) 0.9 k/uL (1.0-4.8); Lymphocytes % (A) 20 %; MCH 32.2 pg (25.0-35.0); MCHC 34.2 g/dL (31.0-37.0); MCV 94.1 fL (80.0-100.0); Monocytes # (A) 0.3 k/uL (0-1.0); Monocytes % (A) 5 %; Neutrophils # (A) 3.4 k/uL (1.3-7.7); Neutrophils % (A) 73 %; RBC 2.87 m/uL (3.80-5.40); RDW 12.2 % (11.5-15.5); WBC 4.7 k/uL (3.8-10.6)
[2023-10-08 04:39] LABS: HGB 9.2 gm/dL (11.4-16.0)
[2023-10-08 04:43] LABS: African American GFR (CKD) 51 (>60 ml/min/1.73 sqM); Anion Gap 7 mmol/L; Blood Urea Nitrogen 14 mg/dL (7-17); Calcium 7.6 mg/dL (8.4-10.2); Carbon Dioxide 21 mmol/L (22-30); Chloride 104 mmol/L (98-107); Glucose 124 mg/dL (74-99); Magnesium 1.6 mg/dL (1.6-2.3); Non-African American GFR(CKD) 44 (>60 ml/min/1.73 sqM); Potassium 4.3 mmol/L (3.5-5.1); Sodium 132 mmol/L (137-145)
[2023-10-08] MEDS: SODIUM CHLORIDE 0.9% 1,000 ML IV SCH ×2 (05:15→13:07)
[2023-10-08 05:55] LABS: Platelet Count 96 k/uL (150-450)
[2023-10-08 06:00] LABS: RBC Morphology Normal
[2023-10-08] MEDS: LEVOTHYROXINE 50 MCG TAB PO SCH (06:51)
[2023-10-08] MEDS: ASPIRIN 81 MG PO SCH ×2 (08:04→21:34)
[2023-10-08] MEDS: GABAPENTIN 100 MG CAP PO SCH ×2 (08:04→21:33)
[2023-10-08] MEDS: CYANOCOBALAMIN 500 MCG TAB PO SCH (08:04)
[2023-10-08] MEDS: lamoTRIgine 100 MG TAB PO SCH ×2 (08:04→17:48)
[2023-10-08] MEDS: MULTIVITAMINS, THERA 1 EACH TAB PO SCH (08:04)
[2023-10-08] MEDS: CHOLECALCIFEROL 25 MCG (1000 IU) TABLET PO SCH (08:04)
[2023-10-08] MEDS: FERROUS SULFATE 325 MG TAB PO SCH (08:05)
[2023-10-08] MEDS: FLUTICASONE 50MCG/SPRAY NASAL 16GM EA NOSTRIL SCH (08:05)
[2023-10-08] MEDS: SYMBICORT 80-4.5 MCG INHALER INHALATION SCH ×2 (08:29→21:31)
--- NOTE | 2023-10-08 09:31 | P.DS ---
Providers Date of admission: 10/04/23 23:19 Expected date of discharge: 10/08/23 Attending physician: Victor Hugo Oconnell Consults: 10/04/23 23:19 Consult Physician Urgent Consulting Provider: Mei Johnson Consult Reason/Comments: medical management Do you want consulting provider notified?: Yes, Notify in am Primary care physician: Mei Johnson - Discharge Diagnosis(es) (1) Closed left hip fracture Patient was admitted to the OR on 10/06/23 to undergo a left hip hemiarthroplasty for a left femoral neck fracture. She desired to proceed with elective surgery after given informed consent. She underwent the above procedure which she tolerated well without complication. Postoperative hospital course has remained without complication. On day of discharge she is afebrile, vital signs stable, labs within acceptable ranges, tolerating by mouth meds and diet, voiding without difficulty, positive flatus, denies abdominal pain or calf pain, pain is controlled on oral pain medication and has no new complaints. Wound is benign, neurovascular status is intact, calf is soft and nontender, abdomen soft and nontender. Review of systems is negative for numbness, tingling, fever, chills, chest pain, shortness of breath, nausea, vomiting, dizziness, headaches, slurred speech or other. Current Visit: Yes Status: Acute Priority: Medium Procedures: Left hip hemiarthroplasty Patient Condition at Discharge: Serious Plan - Discharge Summary Discharge Rx Participant: Yes New Discharge Prescriptions: New Aspirin [Adult Low Dose Aspirin EC] 81 mg PO BID #60 tab Docusate [Colace] 100 mg PO BID #60 capsule HYDROcodone/APAP 5-325MG [[place] 5-325] 1 tab PO Q4HR PRN #42 tab PRN Reason: Pain Ondansetron [Zofran] 4 mg PO Q8HR PRN #21 tab PRN Reason: Nausea No Action QUEtiapine [SEROquel] 400 mg PO HS Atorvastatin [Lipitor] 20 mg PO HS Levothyroxine Sodium [Synthroid] 50 mcg PO DAILY Multivitamins, Thera [Multivitamin (formulary)] 1 tab PO DAILY Fluticasone Nasal [place] [Flonase Nasal [place]] 1 spray EA NOSTRIL DAILY Gabapentin [Neurontin] 100 mg PO BID Fluticasone/Vilanterol [Breo Ellipta 100-25 Mcg Inhaler] 1 puff INHALATION RT-DAILY Sennosides/Docusate Sodium [Senna-S 8.6-50 mg Tablet] 1 tab PO BID PRN PRN Reason: Constipation Cholecalciferol [Vitamin D3 (25 Mcg = 1000 Iu)] 50 mcg PO DAILY Losartan [Cozaar] 50 mg PO HS Fetzima 80mg 80 mg PO HS Ferrous Sulfate [Feosol] 325 mg PO DAILY Loratadine [Claritin] 10 mg PO HS Cyanocobalamin [Vitamin B-12] 500 mcg PO DAILY Propranolol [Inderal] 40 mg PO HS lamoTRIgine [LaMICtal] 300 mg PO BID@0800,1700 amLODIPine [Norvasc] 2.5 mg PO DAILY@1200 Discharge Medication List QUEtiapine [SEROquel] 400 mg PO HS 05/17/18 [History] Atorvastatin [Lipitor] 20 mg PO HS 08/08/19 [History] Levothyroxine Sodium [Synthroid] 50 mcg PO DAILY 12/03/20 [History] Cyanocobalamin [Vitamin B-12] 500 mcg PO DAILY 03/11/22 [History] Fluticasone Nasal [place] [Flonase Nasal [place]] 1 spray EA NOSTRIL DAILY 03/11/22 [History] Fluticasone/Vilanterol [Breo Ellipta 100-25 Mcg Inhaler] 1 puff INHALATION RT- DAILY 03/11/22 [History] Gabapentin [Neurontin] 100 mg PO BID 03/11/22 [History] Loratadine [Claritin] 10 mg PO HS 03/11/22 [History] Multivitamins, Thera [Multivitamin (formulary)] 1 tab PO DAILY 03/11/22 [History ] Propranolol [Inderal] 40 mg PO HS 03/11/22 [History] Sennosides/Docusate Sodium [Senna-S 8.6-50 mg Tablet] 1 tab PO BID PRN 03/11/22 [History] Cholecalciferol [Vitamin D3 (25 Mcg = 1000 Iu)] 50 mcg PO DAILY 10/05/23 [History] Ferrous Sulfate [Feosol] 325 mg PO DAILY 10/05/23 [History] Fetzima 80mg 80 mg PO HS 10/05/23 [History] Losartan [Cozaar] 50 mg PO HS 10/05/23 [History] amLODIPine [Norvasc] 2.5 mg PO DAILY@1200 10/05/23 [History] lamoTRIgine [LaMICtal] 300 mg PO BID@0800,1700 10/05/23 [History] Aspirin [Adult Low Dose Aspirin EC] 81 mg PO BID #60 tab 10/08/23 [Rx] Docusate [Colace] 100 mg PO BID #60 capsule 10/08/23 [Rx] HYDROcodone/APAP 5-325MG [[place] 5-325] 1 tab PO Q4HR PRN #42 tab 10/08/23 [Rx] Ondansetron [Zofran] 4 mg PO Q8HR PRN #21 tab 10/08/23 [Rx] Follow up Appointment(s)/Referral(s): Mei Johnson MD [Primary Care Provider] - 1-2 days [facility], [NON-STAFF] - As Needed Victor Hugo Oconnell MD [STAFF PHYSICIAN] - 1 Week Activity/Diet/Wound Care/Special Instructions: WBAT take meds as directed f/u in office keep wound clean and dry may shower if no bleeding Discharge Disposition: TRANSFER TO SNF/ECF
[2023-10-08] MEDS: amLODIPine 2.5 MG TAB PO SCH (12:42)
--- NOTE | 2023-10-08 13:30 | P.PN ---
Subjective Progress Note Date: 10/08/23 HISTORY OF PRESENT ILLNESS: This is a 68-year-old female with past medical history of hypothyroidism, bipo lar disorder depressed, neuropathy, alkaline reflux esophagitis, COPD, spondylosis of lumbar region, hypertension, migraine with aura, mixed hyperlipidemia. Patient resides in an adult foster senior living. Patient was brought in by ambulance to the emergency center after a fall. Patient was on the stairs and missed the last step falling onto her left hip. Patient experienced immediate pain in the left hip and inability to stand or bear weight. There is no loss of consciousness. Patient initial blood pressure was low at 76/47. Laboratory studies revealed WBC 2.9, hemoglobin 10.7 and platelet count 107. Sodium 135, potassium 4.3, chloride 104, CO2 22, BUN 17 creatinine 1.21. Blood sugar 103. Patient was found to have a left hip fracture and admitted to orthopedic services. Plan is for left hip hemiarthroplasty of the left femoral neck fracture on 10/06. 10/06: Patient remains in ICU waiting for a bed on the [facility] floor. She is status post left hip hemiarthroplasty today. Vital signs are stable. Repeat blood work this morning revealed hemoglobin of 11.3, platelet count 94, WBC 3.2. Sodium is 135, creatinine 0.91. Discharge planning is for [facility] for subacute rehab. 10/07: Patient is postop day #1. Pain seems to be well controlled but states it is #8. No cough. Patient is off oxygen pulse ox is 96%. Blood pressure 92/62, heart rate 67. Patient has been afebrile. We'll encourage incentive spirometry. Probable discharge to [facility] tomorrow. Patient is on aspirin 81 mg twice daily for DVT prophylaxis per orthopedics. 10/08: A-Team was called about 320 this morning as patient was found to be hypotensive with blood pressure 69/47 and she was lethargic and difficult to awaken. Patient was ordered for 2 L of IV fluid bolus and blood pressure was in 94/62. Mental status was also improved. Bladder scan was 728. Patient is having difficulty voiding. Heart rate is in the 70s and 80s, pulse ox 93-95% on room air. Hemoglobin is 9.2. BUN 14 creatinine 1.28. Patient is scheduled for discharge to [facility] but due to the hypotension and urinary retention, we are asking the discharge to be held until tomorrow, monitor overnight. REVIEW OF SYSTEMS: Constitutional: No documented fever, no chills, no night sweats. No weight change. No weakness, fatigue or lethargy. No daytime sleepiness. EENT: No headache. No blurred vision or double vision, no loss of vision. No loss of Hearing, no ringing in the ears, no dizziness. No nasal drainage or congestion. No epistaxis. No sore throat. Lungs: No shortness of breath, no cough, no sputum production. No wheezing. Reports dyspnea with activity. Cardiovascular: No chest pain, no lower extremity edema. No palpitations. No paroxysmal nocturnal dyspnea. No orthopnea. No lightheadedness or dizziness. No syncopal episodes. Abdominal: Reports abdominal pain. No nausea, vomiting. No diarrhea. No constipation. No bloody or tarry stools reports loss of appetite. Genitourinary: No dysuria, increased frequency, urgency. No urinary retention. Musculoskeletal: No myalgias. No muscle weakness, no gait dysfunction, no frequent falls. No back pain. No neck pain. Reports left hip pain Integumentary: No wounds, no lesions. No rash or pruritus. No unusual bruising. No change in hair or nails. Neurologic: No aphasia. No facial droop. No change in mentation. No head injury. No headache. No paralysis. No paresthesia. Psychiatric: No depression. No anxiety. No mood swings. Endocrine: No abnormal blood sugars. No weight change. PHYSICAL EXAMINATION: General: This is a 68 year old female seen resting in bed and appears to be somewhat comfortable, no acute respiratory distress. HEENT: Head is atraumatic, normocephalic, pupils were equal round reactive to light and recommendation, extraocular muscle movement were intact, sclera nonicteric, conjunctivae were pale, mucous membranes of the mouth are somewhat dry. Neck: Supple, no JVP, normal carotid upstroke bilaterally, no lymphadenopathy. Chest: Decreased breath sounds at the bases, few rhonchi, no extremity wheezes, no chest wall tenderness, no intercostal retractions. Heart: First heart sound is normal, second heart sounds normal. No S3 or S4. No JVP Abdomen: Soft, nontender, nondistended, positive bowel sounds. Extremities: There is no edema no calf tenderness DP +[address] to the left hip Neurologic examination: Patient is awake alert and oriented A&Ox3, cranial nerves II-12 appear grossly intact, muscle power were 5 out of 5 in upper extremities and 5 out of 5 in bilateral lower extremities, deep tendon reflexes normal bilaterally. ASSESSMENT AND PLAN: 1. Left femoral neck fracture s/p left hip hemiarthroplasty 10/06. Continue current pain management. Incentive spirometry to reduce incidence of atelectasis and hospital-acquired pneumonia. DVT prophylaxis with asa 81 mg bi d. Start PT and OT eval and treatment. 2. Pancytopenia. Continue to monitor blood work. 3. Hypothyroidism. Continue levothyroxine 50 g daily. 4. Bipolar disorder. Continue patient on Lamictal 300 mg twice daily Seroquel 800 mg at bedtime, Fetzima 80 mg at hs. 5. Peripheral neuropathy. Continue patient on gabapentin 100 mg twice daily. 6. Alkaline reflux esophagitis and GI prophylaxis. Protonix 40 mg daily. 7. COPD without exacerbation. Continue Symbicort 2 puffs twice daily. 8. Spondylosis of the lumbar spine. Continue gabapentin 100 mg twice daily. 9. Hypertension. Hold amlodipine 2.5 mg daily, discontinue losartan 50 mg at bedtime, discontinue propranolol 40 mg at bedtime. 10. Hyperlipidemia. Continue atorvastatin 20 mg at bedtime. 11. Postop hypotension status post 2 L of IV fluid. Continue to monitor closely. 12. Acute blood loss anemia with drop in hemoglobin by 2 g. Continue to monitor. 13. Urinary retention. Monitor postvoid residuals and straight cath as needed. 14. DVT prophylaxis. Aspirin 81 mg twice daily DISCHARGE PLAN: [facility] for subacute rehab on Thursday. Impression and plan of care have been directed as dictated by the signing physician. Maribel Stewart nurse practitioner acting as scribe for signing physician. Objective - Vital Signs Vital signs: Vital Signs Temp 98.5 F 10/08/23 13:04 Pulse 88 10/08/23 13:04 Resp 19 10/08/23 13:04 BP 101/67 10/08/23 13:04 Pulse Ox 95 10/08/23 13:04 FiO2 Intake & Output 10/07/23 10/08/23 10/08/23 18:59 06:59 18:59 Output Total 1400 825 Balance -1400 -825 Output: Urine 1400 825 Straight 825 Other: Voiding Method Indwelling Catheter Indwelling Catheter - Labs CBC & Chem 7: 10/08/23 03:49 10/08/23 03:49 Labs: Abnormal Lab Results - Last 24 Hours (Table) 10/08/23 10/08/23 10/08/23 Range/Units 03:15 03:49 03:49 RBC 2.87 L (3.80-5.40) m/uL Hgb 9.2 L D (11.4-16.0) gm/dL Hct 27.0 L (34.0-46.0) % Plt Count 96 L (150-450) k/uL Lymphocytes # 0.9 L (1.0-4.8) k/uL Sodium 132 L (137-145) mmol/L Carbon Dioxide 21 L (22-30) mmol/L Creatinine 1.28 H (0.52-1.04) mg/dL Glucose 124 H (74-99) mg/dL POC Glucose (mg/dL) 155 H (70-110) mg/dL Calcium 7.6 L (8.4-10.2) mg/dL
[2023-10-08] MEDS: HYDROcodone/APAP 5-325MG 1 EACH TAB PO PRN (17:48)
[2023-10-08] MEDS: QUEtiapine 400 MG TAB PO SCH (21:33)
[2023-10-08] MEDS: ATORVASTATIN 20 MG TAB PO SCH (21:34)
[2023-10-08] MEDS: LORATADINE 10 MG TAB PO SCH (21:34)
[2023-10-08] MEDS: FETZIMA 80 MG PO SCH (22:09)
[2023-10-09] MEDS: SODIUM CHLORIDE 0.9% 1,000 ML IV SCH ×2 (02:00→11:46)
[2023-10-09] MEDS: LEVOTHYROXINE 50 MCG TAB PO SCH (06:21)
[2023-10-09] MEDS: CHOLECALCIFEROL 25 MCG (1000 IU) TABLET PO SCH (07:58)
[2023-10-09] MEDS: ASPIRIN 81 MG PO SCH (07:58)
[2023-10-09] MEDS: CYANOCOBALAMIN 500 MCG TAB PO SCH (07:59)
[2023-10-09] MEDS: GABAPENTIN 100 MG CAP PO SCH (07:59)
[2023-10-09] MEDS: lamoTRIgine 100 MG TAB PO SCH (07:59)
[2023-10-09] MEDS: MULTIVITAMINS, THERA 1 EACH TAB PO SCH (07:59)
[2023-10-09] MEDS: FERROUS SULFATE 325 MG TAB PO SCH (07:59)
[2023-10-09] MEDS: FLUTICASONE 50MCG/SPRAY NASAL 16GM EA NOSTRIL SCH (07:59)
[2023-10-09 08:34] LABS: ALT 18 U/L (4-34); AST 32 U/L (14-36); African American GFR (CKD) 88 (>60 ml/min/1.73 sqM); Albumin 2.5 g/dL (3.5-5.0); Alkaline Phosphatase 58 U/L (38-126); Anion Gap 8 mmol/L; Blood Urea Nitrogen 9 mg/dL (7-17); Carbon Dioxide 19 mmol/L (22-30); Chloride 113 mmol/L (98-107); Globulin 2.4 g/dL; Glucose 103 mg/dL (74-99); Non-African American GFR(CKD) 76 (>60 ml/min/1.73 sqM); Potassium 3.9 mmol/L (3.5-5.1); Sodium 140 mmol/L (137-145); Total Bilirubin 0.4 mg/dL (0.2-1.3); Total Protein 4.9 g/dL (6.3-8.2)
[2023-10-09] MEDS: SYMBICORT 80-4.5 MCG INHALER INHALATION SCH (08:35)
[2023-10-09] MEDS: amLODIPine 2.5 MG TAB PO SCH ×2 (11:29→11:45)
--- NOTE | 2023-10-09 11:49 | P.PN ---
Subjective Progress Note Date: 10/09/23 HISTORY OF PRESENT ILLNESS: This is a 68-year-old female with past medical history of hypothyroidism, bipo lar disorder depressed, neuropathy, alkaline reflux esophagitis, COPD, spondylosis of lumbar region, hypertension, migraine with aura, mixed hyperlipidemia. Patient resides in an adult foster nursing home. Patient was brought in by ambulance to the emergency center after a fall. Patient was on the stairs and missed the last step falling onto her left hip. Patient experienced immediate pain in the left hip and inability to stand or bear weight. There is no loss of consciousness. Patient initial blood pressure was low at 76/47. Laboratory studies revealed WBC 2.9, hemoglobin 10.7 and platelet count 107. Sodium 135, potassium 4.3, chloride 104, CO2 22, BUN 17 creatinine 1.21. Blood sugar 103. Patient was found to have a left hip fracture and admitted to orthopedic services. Plan is for left hip hemiarthroplasty of the left femoral neck fracture on 10/06. 10/06: Patient remains in ICU waiting for a bed on the [facility] floor. She is status post left hip hemiarthroplasty today. Vital signs are stable. Repeat blood work this morning revealed hemoglobin of 11.3, platelet count 94, WBC 3.2. Sodium is 135, creatinine 0.91. Discharge planning is for [facility] for subacute rehab. 10/07: Patient is postop day #1. Pain seems to be well controlled but states it is #8. No cough. Patient is off oxygen pulse ox is 96%. Blood pressure 92/62, heart rate 67. Patient has been afebrile. We'll encourage incentive spirometry. Probable discharge to [facility] tomorrow. Patient is on aspirin 81 mg twice daily for DVT prophylaxis per orthopedics. 10/08: A-Team was called about 320 this morning as patient was found to be hypotensive with blood pressure 69/47 and she was lethargic and difficult to awaken. Patient was ordered for 2 L of IV fluid bolus and blood pressure was in 94/62. Mental status was also improved. Bladder scan was 728. Patient is having difficulty voiding. Heart rate is in the 70s and 80s, pulse ox 93-95% on room air. Hemoglobin is 9.2. BUN 14 creatinine 1.28. Patient is scheduled for discharge to [facility] but due to the hypotension and urinary retention, we are asking the discharge to be held until tomorrow, monitor overnight. 10/09: Patient's blood pressure at 7 AM was 112/68 and now 158/90. The patient unfortunately required Barrios catheter placement for urinary retention. Heart rate has been in the 80s and 90s, afebrile, pulse ox 94% on room air. Repeat blood work reveals chloride 113, potassium 3.9, sodium 140, CO2 19, BUN 9 creatinine 0.81. Medication reconciliation has been completed for discharge. Patient is cleared from medicine for discharge to [facility] for subacute rehab. REVIEW OF SYSTEMS: Constitutional: No documented fever, no chills, no night sweats. No weight change. No weakness, fatigue or lethargy. No daytime sleepiness. EENT: No headache. No blurred vision or double vision, no loss of vision. No loss of Hearing, no ringing in the ears, no dizziness. No nasal drainage or congestion. No epistaxis. No sore throat. Lungs: No shortness of breath, no cough, no sputum production. No wheezing. Reports dyspnea with activity. Cardiovascular: No chest pain, no lower extremity edema. No palpitations. No paroxysmal nocturnal dyspnea. No orthopnea. No lightheadedness or dizziness. No syncopal episodes. Abdominal: Reports abdominal pain. No nausea, vomiting. No diarrhea. No constipation. No bloody or tarry stools reports loss of appetite. Genitourinary: No dysuria, increased frequency, urgency. No urinary retention. Musculoskeletal: No myalgias. No muscle weakness, no gait dysfunction, no frequent falls. No back pain. No neck pain. Reports left hip discomfort Integumentary: No wounds, no lesions. No rash or pruritus. No unusual bruising. No change in hair or nails. Neurologic: No aphasia. No facial droop. No change in mentation. No head injury. No headache. No paralysis. No paresthesia. Psychiatric: No depression. No anxiety. No mood swings. Endocrine: No abnormal blood sugars. No weight change. PHYSICAL EXAMINATION: General: This is a 68 year old female seen resting in bed and appears to be somewhat comfortable, no acute respiratory distress. HEENT: Head is atraumatic, normocephalic, pupils were equal round reactive to light and recommendation, extraocular muscle movement were intact, sclera nonicteric, conjunctivae were pale, mucous membranes of the mouth are somewhat dry. Neck: Supple, no JVP, normal carotid upstroke bilaterally, no lymphadenopathy. Chest: Decreased breath sounds at the bases, few rhonchi, no extremity wheezes, no chest wall tenderness, no intercostal retractions. Heart: First heart sound is normal, second heart sounds normal. No S3 or S4. No JVP Abdomen: Soft, nontender, nondistended, positive bowel sounds. Extremities: There is no edema no calf tenderness DP +[address] to the left hip Neurologic examination: Patient is awake alert and oriented A&Ox3, cranial nerves II-12 appear grossly intact, muscle power were 5 out of 5 in upper extremities and 5 out of 5 in bilateral lower extremities, deep tendon reflexes normal bilaterally. ASSESSMENT AND PLAN: 1. Left femoral neck fracture s/p left hip hemiarthroplasty 10/06. Continue current pain management. Incentive spirometry to reduce incidence of atelec tasis and hospital-acquired pneumonia. DVT prophylaxis with asa 81 mg bid. Start PT and OT eval and treatment. 2. Pancytopenia. Continue to monitor blood work. 3. Hypothyroidism. Continue levothyroxine 50 g daily. 4. Bipolar disorder. Continue patient on Lamictal 300 mg twice daily Seroquel 800 mg at bedtime, Fetzima 80 mg at hs. 5. Peripheral neuropathy. Continue patient on gabapentin 100 mg twice daily. 6. Alkaline reflux esophagitis and GI prophylaxis. Protonix 40 mg daily. 7. COPD without exacerbation. Continue Symbicort 2 puffs twice daily. 8. Spondylosis of the lumbar spine. Continue gabapentin 100 mg twice daily. 9. Hypertension. Hold amlodipine 2.5 mg daily, discontinue losartan 50 mg at bedtime, discontinue propranolol 40 mg at bedtime. 10. Hyperlipidemia. Continue atorvastatin 20 mg at bedtime. 11. Postop hypotension status post 2 L of IV fluid. Continue to monitor closely. 12. Acute blood loss anemia with drop in hemoglobin by 2 g. Continue to monitor. 13. Urinary retention. Monitor postvoid residuals and straight cath as needed. 14. DVT prophylaxis. Aspirin 81 mg twice daily DISCHARGE PLAN: [facility] for subacute rehab on Thursday. Impression and plan of care have been directed as dictated by the signing physician. Maribel Stewart nurse practitioner acting as scribe for signing physician. Objective - Vital Signs Vital signs: Vital Signs Temp 97.4 F L 10/09/23 07:06 Pulse 93 10/09/23 07:06 Resp 18 10/09/23 07:06 BP 112/68 10/09/23 07:06 Pulse Ox 94 L 10/09/23 07:06 FiO2 Intake & Output 10/08/23 10/09/23 10/09/23 18:59 06:59 18:59 Intake Total 400 1200 Output Total 2425 1400 Balance -2024 Intake: Intake, IV Titration 1200 Amount Sodium Chloride 0.9% 1, 1200 000 ml @ 100 mls/hr IV . Q10H [facility] Rx#:[id number] Oral 400 Output: Urine 2425 1400 Straight 825 Post Void Residual 0 Other: Voiding Method Indwelling Catheter - Labs CBC & Chem 7: 10/08/23 03:49 10/09/23 07:10 Labs: Abnormal Lab Results - Last 24 Hours (Table) 10/09/23 Range/Units 07:10 Chloride 113 H (98-107) mmol/L Carbon Dioxide 19 L (22-30) mmol/L Glucose 103 H (74-99) mg/dL Calcium 8.0 L (8.4-10.2) mg/dL Total Protein 4.9 L (6.3-8.2) g/dL Albumin 2.5 L (3.5-5.0) g/dL
[2023-10-09 12:30] LABS: Basophils % (A) 0 %; Eosinophils % (A) 1 %; HGB 9.5 gm/dL (11.4-16.0); Lymphocytes # (A) 0.9 k/uL (1.0-4.8); Lymphocytes % (A) 29 %; MCH 32.8 pg (25.0-35.0); MCHC 35.2 g/dL (31.0-37.0); MCV 93.1 fL (80.0-100.0); Mean Platelet Volume 7.9; Monocytes # (A) 0.2 k/uL (0-1.0); Monocytes % (A) 5 %; Neutrophils # (A) 2.1 k/uL (1.3-7.7); Neutrophils % (A) 64 %; WBC 3.3 k/uL (3.8-10.6)
[2023-10-09 12:31] LABS: Platelet Count 94 k/uL (150-450)
[2023-10-09 13:58] VITALS: BMI 24.4
[2023-10-09 14:04] VITALS: BP 129/84; PULSE 96; RESP 20; TEMP 98.8
--- NOTE | 2023-10-13 09:49 | CDI ---
Documentation Clarification Form Date: From: Raisa Wells Phone: [phone] Admit Date: 10/04/2023 11:19:00 PM Patient Name: Lisbet Snow Visit Number: [id number] Discharge Date: 10/09/2023 02:28:00 PM ATTENTION: The Clinical Documentation Specialists (CDI) and [facility] Coding Staff appreciate your assistance in clarifying documentation. Please respond to the clarification below the line at the bottom and electronically sign. The CDI & [facility] Coding staff will review the response and follow-up if needed. Please note: Queries are made part of the Legal Health Record. If you have any questions, please contact the author of this message via ITS. Dr. Victor Hugo Oconnell "Postop hypotension" is documented in the progress note on 10/08 and patient had Left hip hemiarthroplasty on 10/06. Additional clarification is requested regarding the relationship, if any, that exists between the diagnosis and the procedure. Patients Admitting Diagnosis: Left femoral neck fracture Procedure performed: Left hip hemiarthroplasty History/Risk Factors: Clinical Indicators: "about 320 this morning as patient was found to be hypotensive with blood pressure 69/47 and she was lethargic and difficult to awaken." "Acute blood loss anemia with drop in hemoglobin by 2 g" - Progress Note 10/08 BP: 10/05: 00:45 - 90/73, 08:00 - 111/73, 14:00 - 134/86, 20:00 - 137/82 10/06: 02:00 - 85/55, 08:00 - 99/59, 14:00 - 122/77, 17:43 - 80/54, 18:45 - 131/85 10/07: 02:00 - 100/66, 06:55 - 127/79, 13:47 - 92/62, 20:00 - 128/76 10/08: 02:56 - 56/39, 04:31 - 93/60, 13:04 - 101/67, 17:02 - 145/80 10/09: 01:54 - 96/58, 11:44 - 158/90 Hgb: 10/04 - 10.7, 10/06 - 11.3, 10/07 - 11.0, 10/08 - 9.2, 10/09 - 9.5 Treatment: "2 L of IV fluid bolus" - Per Progress Note on 10/08 time 10/08 03:30 What relationship, if any, exists between the diagnosis of hypotension and the procedure: [ ] hypotension is a complication of surgical procedure [ ] hypotension is an expected outcome of the surgical procedure [ ] hypotension is related to patients co-morbid condition(s) of acute blood loss anemia & not a complication of the procedure [ ] Other please specify ____ [ x ] Unable to determine MTDD
== END 2023-10-09 14:28 | DRG 522 ==
LOC: EC 22:09 → 4SSUR 23:19 → 2SICU 10-05 10:35 → 4SSUR 10-06 18:08
PROVIDERS: ADMIT Orthopaedic Surgery Sports Medicine; ATTEND Orthopaedic Surgery Sports Medicine
PROC: 0SRS0JA Replacement of Left Hip Joint, Femoral Surface with Synthetic Substitute, Uncemented, Open Approach (ICD-10-PCS; principal; 2023-10-06 07:30)
DX: S72.012A Unspecified intracapsular fracture of left femur, initial encounter for closed fracture (principal); D61.818 Other pancytopenia; D62 Acute posthemorrhagic anemia; F03.93 Unspecified dementia, unspecified severity, with mood disturbance; I95.9 Hypotension, unspecified; Z79.891 Long term (current) use of opiate analgesic; F31.9 Bipolar disorder, unspecified; J44.9 Chronic obstructive pulmonary disease, unspecified; F19.11 Other psychoactive substance abuse, in remission; E03.9 Hypothyroidism, unspecified; I10 Essential (primary) hypertension; F10.11 Alcohol abuse, in remission; E78.2 Mixed hyperlipidemia; M47.816 Spondylosis without myelopathy or radiculopathy, lumbar region; R33.9 Retention of urine, unspecified; G62.9 Polyneuropathy, unspecified; K21.00 Gastro-esophageal reflux disease with esophagitis, without bleeding; M19.042 Primary osteoarthritis, left hand; M19.041 Primary osteoarthritis, right hand; R25.1 Tremor, unspecified; K52.9 Noninfective gastroenteritis and colitis, unspecified; W10.9XXA Fall (on) (from) unspecified stairs and steps, initial encounter; Y92.099 Unspecified place in other non-institutional residence as the place of occurrence of the external cause; Z79.890 Hormone replacement therapy; Z79.899 Other long term (current) drug therapy; Z79.51 Long term (current) use of inhaled steroids; Z88.5 Allergy status to narcotic agent; Z88.1 Allergy status to other antibiotic agents; Z87.891 Personal history of nicotine dependence; Z87.19 Personal history of other diseases of the digestive system
CPT/HCPCS: 36415; 71045; 73501; 73502; 80048; 80053; 83605; 83735; 85025; 85610; 85730; 88305; 88311; 94640; 94760; 96361; 96374; 96376; 99285

== ENCOUNTER → 2024-03-24 | Outpatient (CLI) | payer MEDICARE, OTHER ==
[2024-03-24 18:05] LABS: Basophils # (A) 0.06 X 10*3/uL (0.00-0.10); Eosinophils % (A) 3.4 %; HCT 36.4 % (37.2-46.3); Lymphocytes # (A) 1.64 X 10*3/uL (0.90-5.00); Lymphocytes % (A) 27.7 %; MCH 30.8 pg (27.0-32.0); MCV 93.6 FL (80.0-97.0); Mean Platelet Volume 10.4 FL (9.5-12.2); Monocytes # (A) 0.32 X 10*3/uL (0.20-1.00); Monocytes % (A) 5.4 %; NRBC Per 100 WBC 0 X 10*3/uL (0.00-0.01); Neutrophils # (A) 3.69 X 10*3/uL (1.80-7.70); Neutrophils % (A) 62.3 %; Platelet Count 169 X 10*3/uL (140-440); RBC 3.89 X 10*6/uL (4.10-5.20); RDW 12.5 % (11.5-14.5); WBC 5.92 X 10*3/uL (4.50-10.00)
[2024-03-24 18:42] LABS: % Iron Saturation 20.63 (12.00-45.00); Albumin 4.4 g/dL (3.8-4.9); BUN/Creat Ratio 9.25 Ratio (12.00-20.00); Blood Urea Nitrogen 11.1 mg/dL (9.0-27.0); Calcium 9.7 mg/dL (8.7-10.3); Carbon Dioxide 23.6 mmol/L (21.6-31.8); Chloride 106 mmol/L (96-109); Glucose 97 mg/dL (70-110); Iron 59 UG/DL (50-170); Phosphorus 3.9 mg/dL (2.4-5.1); Potassium 4.4 mmol/L (3.5-5.5); Sodium 141 mmol/L (135-145); Total Iron Binding Capacity 286 UG/DL (228-460); Uric Acid 3.7 mg/dL (2.9-7.7)
[2024-03-24 21:27] LABS: Appearance,Urine Clear (Clear); Bilirubin,Urine Negative (Negative); Blood,Urine Negative (Negative); Color,Urine Yellow (Yellow); Ketones,Urine Negative (Negative); Nitrite,Urine Negative (Negative); Specific Gravity,Urine 1.009 (1.001-1.030); Urobilinogen,Urine 0.2 E.U./DL
[2024-03-24 21:33] LABS: Bacteria,Urine None Seen (None Seen)
[2024-03-24 22:22] LABS: Microalbumin Creatinine Ratio <20 mg/g Cr (0-30); Urine Creatinine 60.9 mg/dL (28.0-217.0)
== END | disposition home or self-care (01) ==
LOC: LABWHC1 12:21
PROVIDERS: ATTEND Nurse Practitioner Family
DX: N18.32 Chronic kidney disease, stage 3b (principal); D50.9 Iron deficiency anemia, unspecified
CPT/HCPCS: 36415; 80048; 81001; 82040; 82043; 82306; 82570; 82728; 83540; 83550; 83735; 83970; 84100; 84550; 85025

== ENCOUNTER → 2024-04-01 | Outpatient (CLI) | payer MEDICARE, OTHER ==
--- NOTE | 2024-04-05 07:56 | MM ---
Reason for Exam: Screening (asymptomatic). Last mammogram was performed 1 year(s) and 6 month(s) ago. Patient History: Menarche at age 14. Patient has no children. Left ovary removed at age 38. Right ovary removed at age 38. Hysterectomy at age 38. Postmenopausal. Patient used Estrogen for 5 years. Patient used Progesterone for 5 years. Risk Values: Christy 5 year model risk: 1.9%. NCI Lifetime model risk: 6.7%. Prior Study Comparison: 01/18/2018 Bilateral Screening Mammogram, [facility]. 08/31/2020 Bilateral Screening Mammogram, [facility]. 09/17/2022 Bilateral MG 3D screening mammo w/cad, [facility]. Tissue Density: The breasts are heterogeneously dense, which may obscure small masses. Findings: Analyzed By CAD. The pattern is symmetrical. No significant interval change is evident. Benign calcifications within the right breast. No suspicious groups of microcalcifications, spiculated or lobular masses, architectural distortion or other secondary signs of malignancy are mammographically apparent. Overall Assessment: Benign, BI-RAD 2 Management: Screening Mammogram of both breasts in 1 year. A negative mammogram report should not preclude additional follow up of suspicious palpable abnormalities. Patient should continue monthly self breast exam. A clinical breast exam by your physician is recommended on an annual basis and results should be correlated with mammographic findings. Note on Christy scores and lifetime risk: 1. A Christy score greater than 3% is considered moderate risk. If this is the case, consider specialist referral to assess eligibility for a risk reducing agent. 2. If overall lifetime risk for the development of breast cancer is 20% or higher, the patient may qualify for future screening with alternating mammogram and breast MRI. Electronically signed and approved by: Delmar Bentley D.O. Radiologis
== END | disposition home or self-care (01) ==
LOC: RADMAMWWP 14:02
PROVIDERS: ATTEND Internal Medicine
DX: Z12.31 Encounter for screening mammogram for malignant neoplasm of breast (principal); Z78.0 Asymptomatic menopausal state
CPT/HCPCS: 77063; 77067

== ENCOUNTER → 2025-02-23 | Outpatient (CLI) | payer MEDICARE ==
--- NOTE | 2025-02-23 13:17 | US ---
EXAMINATION TYPE: US kidneys/renal and bladder DATE OF EXAM: 02/23/2025 COMPARISON: None CLINICAL INDICATION: Female, 69 years old with history of N18.32 CHRONIC KIDNEY DISEASE, STAGE 3B; Ab normal labs. TECHNIQUE: Grayscale imaging of the bilateral kidneys and urinary bladder: FINDINGS: EXAM MEASUREMENTS: Right Kidney: 9.6 x 3.6 x 4.1 cm Left Kidney: 9.3 x 3.7 x 5.2 cm Right Kidney: No hydronephrosis or masses seen Left Kidney: No hydronephrosis or masses seen Bladder: Distended, anechoic Left jet seen IMPRESSION: No hydronephrosis. [facility], Workstation: [id number], 02/23/2025 1:15 PM
== END | disposition home or self-care (01) ==
LOC: RADUSWWP 09:48
PROVIDERS: ATTEND Internal Medicine Nephrology
DX: N18.32 Chronic kidney disease, stage 3b (principal)
CPT/HCPCS: 76770

== ENCOUNTER → 2025-04-13 | Outpatient (CLI) | payer MEDICARE, OTHER ==
--- NOTE | 2025-04-13 15:45 | USB ---
Reason for Exam: Additional evaluation requested from abnormal screening. Patient History: Menarche at age 14. Patient has no children. Left ovary removed at age 38. Right ovary removed at age 38. Hysterectomy at age 38. Postmenopausal. Patient used Estrogen for 5 years. Patient used Progesterone for 5 years. Risk Values: Christy 5 year model risk: 1.9%. NCI Lifetime model risk: 6.4%. Technique: Method: Targeted. Prior Study Comparison: 09/17/2022 Bilateral MG 3D screening mammo w/cad, [facility]. 04/01/2024 Bilateral MG 3D screening mammo w/cad, [facility]. 04/06/2025 Bilateral MG 3D screening mammo w/cad, [facility]. Findings: The upper outer quadrant of the left breast, the axilla of the left breast and the retroareolar of the left breast were scanned. Technique utilized:US breast workup limited LT Image; Ultrasound imaging of: Area of concern, retroareolar region and axilla. No evidence for organizing fluid collection or mass. No nothing to correlate with architectural distortion identified. Negative axilla negative nipple. Overall Assessment: Probably benign, BI-RAD 3 Management: Diagnostic Mammogram of the left breast in 6 months. Short-term follow-up diagnostic mammogram left breast for left upper outer quadrant architectural distortion. A clinical breast exam by your physician is recommended on an annual basis and results should be correlated with mammographic findings. This exam should not preclude additional follow-up of suspicious palpable abnormalities. Results were given to the patient verbally at the time of exam. [facility], , 04/13/2025 3:42 PM. Electronically signed and approved by: Fredi Jimenez DO
--- NOTE | 2025-04-17 08:17 | MM ---
Reason for Exam: Additional evaluation requested from abnormal screening. Last screening mammogram was performed less than 1 month ago. Patient History: Menarche at age 14. Patient has no children. Left ovary removed at age 38. Right ovary removed at age 38. Hysterectomy at age 38. Postmenopausal. Patient used Estrogen for 5 years. Patient used Progesterone for 5 years. Risk Values: Christy 5 year model risk: 1.9%. NCI Lifetime model risk: 6.4%. Prior Study Comparison: 09/17/2022 Bilateral MG 3D screening mammo w/cad, [facility]. 04/01/2024 Bilateral MG 3D screening mammo w/cad, [facility]. 04/06/2025 Bilateral MG 3D screening mammo w/cad, [facility]. Tissue Density: Left: The breasts are heterogeneously dense, which may obscure small masses. Findings: No definitive new mass on additional views but background dense tissue noted . Overall Assessment: Incomplete: need additional imaging evaluation, BI-RAD 0 Management: Diagnostic Breast Ultrasound of the left breast. Targeted ultrasound left breast area of mammogram concern. Results were given to the patient verbally at the time of exam. Patient should continue monthly self-breast exams. A clinical breast exam by your physician is recommended on an annual basis. This exam should not preclude additional follow-up of suspicious palpable abnormalities. Note on Christy scores and lifetime risk: 1. A Christy score greater than 3% is considered moderate risk. If this is the case, consider specialist referral to assess eligibility for a risk reducing agent. 2. If overall lifetime risk for the development of breast cancer is 20% or higher, the patient may qualify for future screening with alternating mammogram and breast MRI. [facility], , 04/17/2025 8:14 AM. Electronically signed and approved by: Hair Lebron M.D.
== END | disposition home or self-care (01) ==
LOC: RADMAMWWP 14:41
PROVIDERS: ATTEND Internal Medicine
DX: R92.8 Other abnormal and inconclusive findings on diagnostic imaging of breast (principal); R92.332 Mammographic heterogeneous density, left breast; Z78.0 Asymptomatic menopausal state
CPT/HCPCS: 77061; 77065

== ENCOUNTER → 2025-04-20 | Outpatient (CLI) | payer MEDICARE, OTHER ==
--- NOTE | 2025-04-20 15:05 | CTL ---
EXAMINATION TYPE: CT Low Dose Lung DATE OF EXAM ORDERED: 04/20/2025 COMPARISON: None CLINICAL INDICATION: Female, 69 years old with history of Z12.2 LUNG CA SCREENING F17.210 CURRENT SMO KER; [facility], Current smoker 1ppd x30 years, Lung cancer screening, History of Smoking/tobacco use. TECHNIQUE: Low dose computed tomography scan was performed through the chest at 1 mm thick sections a nd reconstructed images in multiple planes at 1 mm and [address] DLP: [address] CTDI: 1.8 mGy Automated exposure control for dose reduction was used. CT DIAGNOSTIC QUALITY: Satisfactory Findings: There are mild emphysematous changes within upper lobe predominance. There are single bilateral sub-3 mm nodules. There is no lung consolidation or abnormal interstitial density. There is no pleural effusion or pneumothorax. The great vessels and heart are normal in size. There is no mediastinal, hilar or axillary adenopathy. Limited scanning through the upper abdomen reveals a 3 mm nonobstructing right renal calculus. There are no focal osseous lesions. IMPRESSION: 1. Lung RADS category 2 benign. Continue routine screening at yearly intervals. 2. No acute cardiopu lmonary disease. 3. Mild emphysematous changes. 4. 3 mm nonobstructing right renal calculus. Cholecystectomy. [facility], , 04/20/2025 3:03 PM
--- NOTE | 2025-04-20 15:33 | US ---
EXAMINATION TYPE: US carotid duplex BILAT DATE OF EXAM: 04/20/2025 COMPARISON: US CLINICAL INDICATION: Female, 69 years old with history of Z12.2 LUNG CA SCREENING F17.210 CURRENT SMO KER; Stenosis Additional History: .... TECHNIQUE: Grayscale, color Doppler and spectral Doppler evaluation of the bilateral carotid systems and vertebral arteries. Indirect Doppler criteria was utilized. FINDINGS: EXAM MEASUREMENTS: RIGHT: Peak Systolic Velocity (PSV) cm/sec ----- Right CCA: 72.9 ----- Right ICA: 123.7 ----- Right ECA: 95.3 ICA/CCA ratio: 1.7 RIGHT: End Diastole cm/sec ----- Right CCA: 31.1 ----- Right ICA: 51.0 ----- Right ECA: 21.5 LEFT: Peak Systolic Velocity (PSV) cm/sec ----- Left CCA: 83.1 ----- Left ICA: 110.8 ----- Left ECA: 74.7 ICA/CCA ratio: 1.3 LEFT: End Diastole cm/sec ----- Left CCA: 36.9 ----- Left ICA: 59.1 ----- Left ECA: 15.4 VERTEBRALS (direction of flow): Right Vertebral: Antegrade Left Vertebral: Antegrade Rhythm: Normal HOME ENERGY AUDITOR NOTES: No significant stenosis seen, similar findings when compared to prior Color Doppler imaging shows patency with blood flow throughout the carotid artery. Spectral waveforms are within normal limits. IMPRESSION: 1. No significant flow-limiting stenosis based on velocities. Criteria for Assigning % of Stenosis / Diameter reduction (Estimation based on the indirect measurements of the internal carotid artery velocities (ICA PSV). 1. Normal (no stenosis)=ICA PSV < 180 cm/s: ratio < 2.0: ICA EDV<40 cm/s. 2. Less than 50% stenosis=ICA PSV < 180 cm/s: ratio < 2.0: ICA EDV<40 cm/s. 3. 50 to 69% stenosis=ICA PSV of 180 to 230 cm/s: ration 2.0 ? 4.0: ICA EDV 40-100 cm/s. PSV 125-180 cm/sec and ICA/CCA PSV Ratio ? 2.0 is also consistent with 50-69% stenosis 4. Greater than 70% stenosis to near occlusion= ICA PSV > 230 cm/s: ratio > 4.0: ICA EDV > 100 cm/s. 5. Near occlusion= ICA PSV velocities may be low or undetectable: variable ratio and ICA EDV. 6. Total occlusion=unable to detect flow. [facility], , 04/20/2025 3:31 PM
== END | disposition home or self-care (01) ==
LOC: RADCTMAIN 14:27
PROVIDERS: ATTEND Internal Medicine
DX: Z12.2 Encounter for screening for malignant neoplasm of respiratory organs (principal); F17.210 Nicotine dependence, cigarettes, uncomplicated; I65.23 Occlusion and stenosis of bilateral carotid arteries; N20.0 Calculus of kidney; J43.9 Emphysema, unspecified
CPT/HCPCS: 71271; 93880

== ENCOUNTER → 2025-06-08 | Outpatient (CLI) | payer MEDICARE, OTHER ==
--- NOTE | 2025-06-08 18:29 | CA ---
Transthoracic Echo Report Name: Lisbet Snow Age: 70 Gender: F : 1955 Exam Date: 06/08/2025 15:04 Exam Location: [place] [facility] Ht (in): 63 Wt (lb): 129 Ordering Physician: Mei Johnson MD Attending/Referring Phys: Explosive Operator Fuse Yanet Doll RDCS Procedure CPT: Indications: I34.0 NONRHEUMATIC MITRAL (VALVE) INSUFFICIENCY Cardiac Hx: Technical Quality: Fair Contrast 1: Total Dose (mL): Contrast 2: Total Dose (mL): MEASUREMENTS (Male / Female) Normal Values 2D ECHO LV Diastolic Diameter PLAX 3.4 cm 4.2 - 5.9 / 3.9 - 5.3 cm LV Systolic Diameter PLAX 2.0 cm IVS Diastolic Thickness 1.2 cm 0.6 - 1.0 / 0.6 - 0.9 cm LVPW Diastolic Thickness 1.2 cm 0.6 - 1.0 / 0.6 - 0.9 cm LV Relative Wall Thickness 0.7 RV Internal Dim ED PLAX 1.7 cm LA Systolic Diameter LX 2.8 cm 3.0 - 4.0 / 2.7 - 3.8 cm LV Diastolic Volume MOD BP 44.9 cm??? 67 - 155 / 56 - 104 cm??? LV Systolic Volume MOD BP 12.8 cm??? - / 19 - 49 cm??? LV Ejection Fraction MOD BP 71.5 % >= 55 % LV Cardiac Index MOD BP 1706.3 cm???/min???m??? LV Diastolic Volume MOD 4C 48.8 cm??? LV Systolic Volume MOD 4C 14.1 cm??? LV Ejection Fraction MOD 4C 71.2 % LV Cardiac Index MOD 4C 1844.7 cm???/min???m??? LV Diastolic Length 4C 6.0 cm LV Systolic Length 4C 4.7 cm LV Diastolic Volume MOD 2C 40.5 cm??? LV Systolic Volume MOD 2C 11.1 cm??? LV Ejection Fraction MOD 2C 72.7 % LV Cardiac Index MOD 2C 1566.7 cm???/min???m??? LV Diastolic Length 2C 6.2 cm LV Systolic Length 2C 4.9 cm LA Volume 40.8 cm??? - 58 / 22 - 52 cm??? LA Volume Index 25.2 cm???/m??? 16 - 28 cm???/m??? M-MODE Aortic Root Diameter MM 3.1 cm LA Systolic Diameter MM 2.8 cm LA Ao Ratio MM 0.9 AV Cusp Separation MM 1.7 cm DOPPLER AI Peak Velocity 368.7 cm/s AI Peak Gradient 54.4 mmHg AI Pressure Half Time 617.1 ms MV Area PHT 2.0 cm??? Mitral E Point Velocity 81.0 cm/s Mitral A Point Velocity 112.1 cm/s Mitral E to A Ratio 0.7 MV Deceleration Time 382.0 ms FINDINGS Left Ventricle Left ventricular ejection fraction is estimated at 55-60%.Normal Left ventricular size, wall thickness, systolic function with no obvious regional wall motion abnormalities.Mildly increased left ventricular wall thickness. Right Ventricle Normal right ventricular size and function. Right ventricular systolic pressure within normal limits. Right Atrium Normal right atrial size. Left Atrium Normal left atrial size. Mitral Valve Structurally normal mitral valve. Mild mitral regurgitation. No mitral stenosis. Mitral annular calcification. Aortic Valve Trileaflet aortic valve. Mild aortic regurgitation. No aortic stenosis. Tricuspid Valve Structurally normal tricuspid valve. Trace tricuspid regurgitation. No tricuspid stenosis. Pulmonic Valve Structurally normal pulmonic valve. No pulmonic stenosis. No pulmonic regurgitation. Pericardium No pericardial or pleural effusion. Aorta Normal size aortic root and proximal ascending aorta. CONCLUSIONS 1. Normal left ventricular size and systolic function 2. Mild mitral and aortic regurgitation Previewed by: Dr. Katie Leon MD (Electronically Signed) Final Date: 08 June 2025 18:29
== END | disposition home or self-care (01) ==
LOC: RADECHMAIN 14:56
PROVIDERS: ATTEND Internal Medicine
DX: I08.0 Rheumatic disorders of both mitral and aortic valves (principal)
CPT/HCPCS: 93306